=== PATIENT | female | born 1980 | race Caucasian/White ===

== ENCOUNTER 2022-11-06 18:08 | Emergency (ER) | payer OTHER, SELFPAY ==
--- NOTE | ~2022-11-06 | XR_ITS ---
EXAMINATION: XR CHEST CLINICAL INFORMATION: Shortness of breath COMPARISON: None TECHNIQUE: 2 views of the chest were obtained. FINDINGS: Bilateral lower lobe infiltrates. The upper lung zones are grossly clear. The cardiac silhouette is within normal limits. There is no effusion. XR/XR chest 2V IMPRESSION: Bilateral lower lobe infiltrates
[2022-11-06 18:15] VITALS: BP 147/101; PULSE 106; RESP 24; TEMP 36.4; O2SAT 96; BMI 26.4
--- NOTE | 2022-11-06 18:16 | ED.GENADULT ---
HPI - General Adult General Chief complaint: General Medical <Osiris Doherty CNP - Last Filed: 11/06/22 18:22> Stated complaint: ?heart infection sent from DR office <Osiris Doherty CNP - Last Filed: 11/06/22 18:22> Time Seen by Provider: 11/06/22 18:39 <Osiris Doherty CNP - Last Filed: 11/06/22 18:22> Source: patient <Tracy Atkins MD - Last Filed: 11/07/22 01:18> Mode of arrival: ambulatory <Tracy Atkins MD - Last Filed: 11/07/22 01:18> Limitations: no limitations <Tracy Atkins MD - Last Filed: 11/07/22 01:18> History of Present Illness HPI narrative: Patient comes to the emergency room complaining that she is expressing crystals out of her fingernail beds. Patient states that she has noticed increased shortness of breath. However, patient reports that she was recently seen at [facility], she was told that she may have endocarditis, patient left against medical advice. Also, patient states that she was admitted a few months ago at [facility] again for a pelvic abscess. Regarding the crystals coming out of her fingernail beds, patient states that she is convinced that somebody is inserting them into her fingers and toes at bedtime when she is sleeping. <Tracy Atkins MD - Last Filed: 11/07/22 01:18> Related Data Allergies/adverse reactions: Allergies Allergy/AdvReac Type Severity Reaction Status Date / Time No Known Allergies Allergy Verified 11/06/22 18:22 <Osiris Doherty CNP - Last Filed: 11/06/22 18:22> Review of Systems Review of Systems: Constitutional : No Weight loss, No Fever, No Chills, No Night Sweats, No Fatigue, No Malaise ENT/Mouth : No Hearing loss, No Ear Pain, No Nasal Congestion, No Sinus Pain, No Hoarseness, No sore throat, No Rhinorrhea, No Swallowing Difficulty Eyes: No Eye Pain, No Swelling, No Redness, No Foreign Body, No Discharge, No Vision Changes Cardiovascular : No Chest Pain, no orthopnea, no edema, no palpitations Respiratory : Complaining of Cough, No Sputum, No Wheezing, No Smoke Exposure, complaining of Dyspnea Gastrointestinal : No Nausea, No Vomiting, No Diarrhea, No Constipation, No abdominal Pain, No Hematochezia, No Melena Genitourinary : no irregular bleeding, No Dysuria, No Urinary Frequency, No Hematuria, No Urinary Incontinence, No Urgency, No Flank Pain, No Urinary Flow Changes, No Hesitancy Musculoskeletal : No joint pain, No Myalgias, No Joint Swelling Skin : No Skin Lesions, No rash Neuro : No Weakness, No Numbness, No Paresthesias, No Loss of Consciousness, No Dizziness, No Headache Psych : No Anxiety/Panic, No Depression, No SI/HI/AH/VH, No Social Issues, Heme/Lymph: No Bruising, No Bleeding,No Lymphadenopathy Endocrine : No Polyuria, No Polydipsia, No Temperature Intolerance <Tracy Atkins MD - Last Filed: 11/07/22 01:18> [facility] Past Medical History Medical History: Medical History Bipolar disorder Hepatitis C Interstitial lung disease IV drug user <Osiris Doherty CNP - Last Filed: 11/06/22 18:22> Social History Social History: Social History Alcohol intake: current Smoked in Last 30 Days: Yes Use of substances other than those prescribed or required for medical reasons: Yes Advance Directives: No Advance Directives Information Provided: Yes <Osiris Doherty CNP - Last Filed: 11/06/22 18:22> Physical Exam ED Vital Signs: Vital Signs - 24 hr 11/06/22 18:15 11/06/22 21:14 11/07/22 00:00 Temperature 97.5 F 96.7 F L 97.9 F Pulse Rate 106 H 87 72 Respiratory Rate 24 H 18 18 Blood Pressure 147/101 H 114/83 103/59 L Pulse Oximetry 96 97 98 Oxygen Delivery Method Room Air Room Air Room Air 11/07/22 02:19 11/07/22 04:00 11/07/22 06:20 Temperature 98.3 F 99.0 F 97.3 F Pulse Rate 70 68 65 Respiratory Rate 16 18 19 Blood Pressure 105/66 116/79 115/75 Pulse Oximetry 97 99 99 Oxygen Delivery Method Room Air Room Air Room Air 11/07/22 09:09 Temperature Pulse Rate 73 Respiratory Rate 22 H Blood Pressure 112/73 Pulse Oximetry 97 Oxygen Delivery Method Room Air BMI result Body Mass Index 26.4 <Osiris Doherty CNP - Last Filed: 11/06/22 18:22> Vital Signs - 24 hr 11/06/22 18:15 11/06/22 21:14 11/07/22 00:00 Temperature 97.5 F 96.7 F L 97.9 F Pulse Rate 106 H 87 72 Respiratory Rate 24 H 18 18 Blood Pressure 147/101 H 114/83 103/59 L Pulse Oximetry 96 97 98 Oxygen Delivery Method Room Air Room Air Room Air 11/07/22 02:19 11/07/22 04:00 11/07/22 06:20 Temperature 98.3 F 99.0 F 97.3 F Pulse Rate 70 68 65 Respiratory Rate 16 18 19 Blood Pressure 105/66 116/79 115/75 Pulse Oximetry 97 99 99 Oxygen Delivery Method Room Air Room Air Room Air 11/07/22 09:09 Temperature Pulse Rate 73 Respiratory Rate 22 H Blood Pressure 112/73 Pulse Oximetry 97 Oxygen Delivery Method Room Air BMI result Body Mass Index 26.4 <Tracy Atkins MD - Last Filed: 11/07/22 01:18> Vital Signs - 24 hr 11/06/22 18:15 11/06/22 21:14 11/07/22 00:00 Temperature 97.5 F 96.7 F L 97.9 F Pulse Rate 106 H 87 72 Respiratory Rate 24 H 18 18 Blood Pressure 147/101 H 114/83 103/59 L Pulse Oximetry 96 97 98 Oxygen Delivery Method Room Air Room Air Room Air 11/07/22 02:19 11/07/22 04:00 11/07/22 06:20 Temperature 98.3 F 99.0 F 97.3 F Pulse Rate 70 68 65 Respiratory Rate 16 18 19 Blood Pressure 105/66 116/79 115/75 Pulse Oximetry 97 99 99 Oxygen Delivery Method Room Air Room Air Room Air 11/07/22 09:09 Temperature Pulse Rate 73 Respiratory Rate 22 H Blood Pressure 112/73 Pulse Oximetry 97 Oxygen Delivery Method Room Air BMI result Body Mass Index 26.4 <SAM Herrera - Last Filed: 11/07/22 08:56> Vital Signs - 24 hr 11/06/22 18:15 11/06/22 21:14 11/07/22 00:00 Temperature 97.5 F 96.7 F L 97.9 F Pulse Rate 106 H 87 72 Respiratory Rate 24 H 18 18 Blood Pressure 147/101 H 114/83 103/59 L Pulse Oximetry 96 97 98 Oxygen Delivery Method Room Air Room Air Room Air 11/07/22 02:19 11/07/22 04:00 11/07/22 06:20 Temperature 98.3 F 99.0 F 97.3 F Pulse Rate 70 68 65 Respiratory Rate 16 18 19 Blood Pressure 105/66 116/79 115/75 Pulse Oximetry 97 99 99 Oxygen Delivery Method Room Air Room Air Room Air 11/07/22 09:09 Temperature Pulse Rate 73 Respiratory Rate 22 H Blood Pressure 112/73 Pulse Oximetry 97 Oxygen Delivery Method Room Air BMI result Body Mass Index 26.4 <John Paul Robertson MD - Last Filed: 11/07/22 11:26> Const Other: Appearance: Alert. Oriented X3. No acute distress. Eyes: Pupils equal, round and reactive to light. ENT: Pharynx normal. Neck: Normal inspection. Neck supple. No lymph nodes noted. No crepitus CVS: Normal heart rate and rhythm. Pulses normal. Normal S1 and S2, loud 4/6 systolic murmur Respiratory: No respiratory distress. Breath sounds normal. No Wheezing. No rales Abdomen: Soft and nontender. No rigidity. No distention. Skin: Skin warm and dry. Normal skin color. Normal skin turgor. Extremities: No lower extremity edema. No Lacerations. No Rash Neuro: Oriented X 3. No motor deficit. No sensory deficit. Moving all extremities. No slurred speech. CN 2 through 12 grossly intact Psych: calm, cooperative, patient is hyperverbal, delusional <Tracy Atkins MD - Last Filed: 11/07/22 01:18> Course Course Course Narrative: This is an RME: Additional HPI, ROS, PE not included below will be deferred to primary provider. Patient is a 42-year-old female with reported past medical history of COPD. She states she was referred to the emergency department by her primary care provider for further evaluation. She has lumps to her scalp, states her hands and her toes are red, reports that she is manually expressing glass from her nail beds, I think someone is doing this to me, I'm being put to sleep and someone is doing this to me . She states her doctor today was concerned she wasn't getting sufficient oxygenation, given her digit appearance and she is experiencing shortness of breath, was advised to come to the emergency department for further evaluation of endocarditis.. All the symptoms have been intermittent for the past 4 months. Reports bacteremia in January 2022 for which she was evaluated at [facility], did not have treatment for this, April 2022, treated for pelvic abscess. Plan: Labs, blood cultures, chest x-ray, EKG <Osiris Doherty CNP - Last Filed: 11/06/22 18:22> This is an RME: Additional HPI, ROS, PE not included below will be deferred to primary provider. Patient is a 42-year-old female with reported past medical history of COPD. She states she was referred to the emergency department by her primary care provider for further evaluation. She has lumps to her scalp, states her hands and her toes are red, reports that she is manually expressing glass from her nail beds, I think someone is doing this to me, I'm being put to sleep and someone is doing this to me . She states her doctor today was concerned she wasn't getting sufficient oxygenation, given her digit appearance and she is experiencing shortness of breath, was advised to come to the emergency department for further evaluation of endocarditis. All the symptoms have been intermittent for the past 4 months. Reports bacteremia in January 2022 for which she was evaluated at [facility], did not have treatment for this, April 2022, treated for pelvic abscess. Plan: Labs, blood cultures, chest x-ray, EKG I obtained records from [facility]. It is true that the patient was hospitalist at [facility] for a pelvic abscess drainage and also, patient was supposed to be admitted for endocarditis workup, but the patient left against medical advice. <Tracy Atkins MD - Last Filed: 11/07/22 01:18> Reevaluation(s) Reevaluation #1: Physician observation started at 01:00 this morning and is continued. Patient is delusional and pending care team evaluation. She is currently sleeping comfortably this morning. Patient was noted to be come very somnolent after she had a visit her, and give her ?Tylenol. ? Drug screen has been added and is currently pending. Will get pharmacy to reconcile her medications. Will continue to monitor. <SAM Herrera - Last Filed: 11/07/22 08:56> Time: 08:53 <SAM Herrera - Last Filed: 11/07/22 08:56> Reevaluation #2: Physician observation continued: patient was seen by care team, the patient was too somnolent evaluated and they will come back to try to re-evaluate the patient. <John Paul Robertson MD - Last Filed: 11/07/22 11:26> Time: 11:26 <John Paul Robertson MD - Last Filed: 11/07/22 11:26> Medications Administered Discontinued Medications Generic Name Dose Route Start Last Admin Trade Name Freq PRN Reason Stop Dose Admin Sodium Chloride 1,000 mls @ 999 mls/hr 11/06/22 20:20 11/06/22 23:15 Ns IVCONT 11/06/22 21:20 Infused .Q1H1M ONE Infusion Piperacillin Sod/Tazobactam 50 mls @ 100 mls/hr 11/06/22 20:20 11/07/22 06:41 Sod 3.375 gm/ Sodium Chloride IV 11/06/22 20:49 Infused ONCE ONE Infusion <Osiris Doherty CNP - Last Filed: 11/06/22 18:22> Medications Administered Discontinued Medications Generic Name Dose Route Start Last Admin Trade Name Freq PRN Reason Stop Dose Admin Sodium Chloride 1,000 mls @ 999 mls/hr 11/06/22 20:20 11/06/22 23:15 Ns IVCONT 11/06/22 21:20 Infused .Q1H1M ONE Infusion Piperacillin Sod/Tazobactam 50 mls @ 100 mls/hr 11/06/22 20:20 11/07/22 06:41 Sod 3.375 gm/ Sodium Chloride IV 11/06/22 20:49 Infused ONCE ONE Infusion <Tracy Atkins MD - Last Filed: 11/07/22 01:18> Medications Administered Discontinued Medications Generic Name Dose Route Start Last Admin Trade Name Freq PRN Reason Stop Dose Admin Sodium Chloride 1,000 mls @ 999 mls/hr 11/06/22 20:20 11/06/22 23:15 Ns IVCONT 11/06/22 21:20 Infused .Q1H1M ONE Infusion Piperacillin Sod/Tazobactam 50 mls @ 100 mls/hr 11/06/22 20:20 11/07/22 06:41 Sod 3.375 gm/ Sodium Chloride IV 11/06/22 20:49 Infused ONCE ONE Infusion <SAM Herrera - Last Filed: 11/07/22 08:56> Medications Administered Discontinued Medications Generic Name Dose Route Start Last Admin Trade Name Freayush PRN Reason Stop Dose Admin Sodium Chloride 1,000 mls @ 999 mls/hr 11/06/22 20:20 11/06/22 23:15 Ns IVCONT 11/06/22 21:20 Infused .Q1H1M ONE Infusion Piperacillin Sod/Tazobactam 50 mls @ 100 mls/hr 11/06/22 20:20 11/07/22 06:41 Sod 3.375 gm/ Sodium Chloride IV 11/06/22 20:49 Infused ONCE ONE Infusion <John Paul Robertson MD - Last Filed: 11/07/22 11:26> Medical Decision Making Medical Decision Making MDM Narrative: Patient's white blood cell count is normal, lactic acid normal. Patient does not have any fever. The chest x-ray was read by Radiology as bilateral lower lobe infiltrates. Patient has already been covered with Zosyn. However, patient has no coughing, no oxygen desaturations. Clinically, patient does not require admission. I discussed the patient with Dr. Caputo regarding the possible diagnosis of endocarditis. At this time, patient's labs are fairly normal, ESR and CRP are slightly bumped, no fever. Dr. Caputo does not think that patient needs to be admitted. Patient will continue p.o. antibiotics. Patient's blood cultures were resolving couple of days, if positive, patient is to be admitted. Of note, patient had a visitor coming in, supposedly patient was complaining of a canker sore in her mouth, and her visitor gave her ?Tylenol?. The sitter also heard that there was some talk between the patient and her visitor about Klonopin. Soon after the patient's visit her left, patient became very somnolent. Patient is still easily arousable, oxygen saturation 99% on room air. Patient is not to have any visitors Care team consult has been requested. Physician observation started at 01:10 First dose of levofloxacin ordered for 09:00 on 11/07/2022 Sign-out given to Dr. Cao <Tracy Atkins MD - Last Filed: 11/07/22 01:18> Differential Diagnosis Differential Diagnoses: The differential diagnosis associated with the presentation includes (Delusional disorder, bipolar disorder, endocarditis, bacteremia) <Tracy Atkins MD - Last Filed: 11/07/22 01:18> Admission/Observation Consideration of admission/observation: Escalation of care including admission/observation considered (I considered admitting the patient for further evaluation of endocarditis. However, per our hospitalist, at this time, admission is not necessary) <Tracy Atkins MD - Last Filed: 11/07/22 01:18> Consult Healthcare Provider Management of the patient was discussed with: Hospitalist (Dr. Caputo recommends outpatient treatment. If blood cultures come back positive, patient is to be admitted, but not indicated at this time) <Tracy Atkins MD - Last Filed: 11/07/22 01:18> Lab Data MDM Lab Attestation statement: I reviewed the patient's lab results. <Tracy Atkins MD - Last Filed: 11/07/22 01:18> Result Diagrams: 11/06/22 18:40 11/06/22 18:40 <Osiris Doherty CNP - Last Filed: 11/06/22 18:22> Labs: Lab Results 11/06/22 11/06/22 11/06/22 Range/Units 18:39 18:40 18:40 WBC 8.1 (4.8-10.8) X10*3/uL RBC 4.19 L (4.20-5.50) X10*6/uL Hgb 11.9 L (12.0-16.0) g/dl Hct 36.0 L (37.0-47.0) % MCV 85.9 (80.0-98.0) fL MCH 28.4 (27.0-33.0) pg MCHC 33.1 (31.0-35.0) g/dl RDW 13.3 (11.0-16.0) % Plt Count 298 (160-400) X10*3/uL MPV 8.6 L (9.4-12.3) fL Immature Gran % (Auto) 0.2 (0.0-0.4) % Neut % (Auto) 65.7 (45-73) % Lymph % (Auto) 18.3 L (20-40) % [place] % (Auto) 13.7 H (2-11) % Eos % (Auto) 1.9 (0-4) % Baso % (Auto) 0.2 (0-2) % Lymph # (Auto) 1.5 (1.2-4.9) X10*3/uL [place] # (Auto) 1.1 (0.1-1.2) X10*3/uL Eos # (Auto) 0.2 (0.0-0.4) X10*3/uL Baso # (Auto) 0.0 (0.0-0.2) X10*3/uL Abs Immat Gran (auto) 0.02 (0.00-0.03) X10*3/uL Absolute Neuts (auto) 5.3 (2.0-8.3) x10*3/uL Absolute Nucleated RBC 0.000 (0.0-0.012) X10*3/uL Nucleated RBC % (auto) 0.0 (0.0-0.2) /100WBC ESR 30 H (0-20) MM/HR Sodium (135-145) mmol/L Potassium (3.3-5.1) mmol/L Chloride (96-108) mmol/L Carbon Dioxide (22-29) mmol/L Anion Gap (12-20) BUN (9-16) mg/dL Creatinine (0.5-1.4) mg/dL Estim Creat Clear Calc Estimated GFR Random Glucose (60-115) mg/dL Lactic Acid (0.5-2.0) mmol/L Calcium (8.4-10.2) mg/dL Total Bilirubin (0.0-1.0) mg/dL AST (5-31) U/L ALT (0-31) U/L Alkaline Phosphatase (39-117) U/L Troponin I High Sens (<3.5-17.0) ng/L C-Reactive Protein (< or = 0.50) mg/dL B-Natriuretic Peptide (<100) pg/mL Total Protein (6.5-8.0) g/dL Albumin (3.5-5.0) g/dL Lipase (8-78) U/L COVID-19 (LIZZIE) (Negative) COVID-19 Clin Com Influenza Type A (CHRIS) Negative (Negative) Influenza Type B (CHRIS) Negative (Negative) Influenza A & B Note See Note 11/06/22 11/06/22 11/06/22 Range/Units 18:40 18:40 18:40 WBC (4.8-10.8) X10*3/uL RBC (4.20-5.50) X10*6/uL Hgb (12.0-16.0) g/dl Hct (37.0-47.0) % MCV (80.0-98.0) fL MCH (27.0-33.0) pg MCHC (31.0-35.0) g/dl RDW (11.0-16.0) % Plt Count (160-400) X10*3/uL MPV (9.4-12.3) fL Immature Gran % (Auto) (0.0-0.4) % Neut % (Auto) (45-73) % Lymph % (Auto) (20-40) % [place] % (Auto) (2-11) % Eos % (Auto) (0-4) % Baso % (Auto) (0-2) % Lymph # (Auto) (1.2-4.9) X10*3/uL [place] # (Auto) (0.1-1.2) X10*3/uL Eos # (Auto) (0.0-0.4) X10*3/uL Baso # (Auto) (0.0-0.2) X10*3/uL Abs Immat Gran (auto) (0.00-0.03) X10*3/uL Absolute Neuts (auto) (2.0-8.3) x10*3/uL Absolute Nucleated RBC (0.0-0.012) X10*3/uL Nucleated RBC % (auto) (0.0-0.2) /100WBC ESR (0-20) MM/HR Sodium 139 (135-145) mmol/L Potassium 3.3 (3.3-5.1) mmol/L Chloride 103 (96-108) mmol/L Carbon Dioxide 27 (22-29) mmol/L Anion Gap 12 (12-20) BUN 11 (9-16) mg/dL Creatinine 0.76 (0.5-1.4) mg/dL Estim Creat Clear Calc 81.4 Estimated GFR > 60 Random Glucose 108 (60-115) mg/dL Lactic Acid 0.7 (0.5-2.0) mmol/L Calcium 9.2 (8.4-10.2) mg/dL Total Bilirubin 0.2 (0.0-1.0) mg/dL AST 23 (5-31) U/L ALT 17 (0-31) U/L Alkaline Phosphatase 74 (39-117) U/L Troponin I High Sens < 3.5 (<3.5-17.0) ng/L C-Reactive Protein 2.13 H (< or = 0.50) mg/dL B-Natriuretic Peptide (<100) pg/mL Total Protein 7.5 (6.5-8.0) g/dL Albumin 3.9 (3.5-5.0) g/dL Lipase 6 L (8-78) U/L COVID-19 (LIZZIE) (Negative) COVID-19 Clin Com Influenza Type A (CHRIS) (Negative) Influenza Type B (CHRIS) (Negative) Influenza A & B Note 11/06/22 11/06/22 Range/Units 18:40 18:41 WBC (4.8-10.8) X10*3/uL RBC (4.20-5.50) X10*6/uL Hgb (12.0-16.0) g/dl Hct (37.0-47.0) % MCV (80.0-98.0) fL MCH (27.0-33.0) pg MCHC (31.0-35.0) g/dl RDW (11.0-16.0) % Plt Count (160-400) X10*3/uL MPV (9.4-12.3) fL Immature Gran % (Auto) (0.0-0.4) % Neut % (Auto) (45-73) % Lymph % (Auto) (20-40) % [place] % (Auto) (2-11) % Eos % (Auto) (0-4) % Baso % (Auto) (0-2) % Lymph # (Auto) (1.2-4.9) X10*3/uL [place] # (Auto) (0.1-1.2) X10*3/uL Eos # (Auto) (0.0-0.4) X10*3/uL Baso # (Auto) (0.0-0.2) X10*3/uL Abs Immat Gran (auto) (0.00-0.03) X10*3/uL Absolute Neuts (auto) (2.0-8.3) x10*3/uL Absolute Nucleated RBC (0.0-0.012) X10*3/uL Nucleated RBC % (auto) (0.0-0.2) /100WBC ESR (0-20) MM/HR Sodium (135-145) mmol/L Potassium (3.3-5.1) mmol/L Chloride (96-108) mmol/L Carbon Dioxide (22-29) mmol/L Anion Gap (12-20) BUN (9-16) mg/dL Creatinine (0.5-1.4) mg/dL Estim Creat Clear Calc Estimated GFR Random Glucose (60-115) mg/dL Lactic Acid (0.5-2.0) mmol/L Calcium (8.4-10.2) mg/dL Total Bilirubin (0.0-1.0) mg/dL AST (5-31) U/L ALT (0-31) U/L Alkaline Phosphatase (39-117) U/L Troponin I High Sens (<3.5-17.0) ng/L C-Reactive Protein (< or = 0.50) mg/dL B-Natriuretic Peptide 12 (<100) pg/mL Total Protein (6.5-8.0) g/dL Albumin (3.5-5.0) g/dL Lipase (8-78) U/L COVID-19 (LIZZIE) Negative (Negative) COVID-19 Clin Com See Note Influenza Type A (CHRIS) (Negative) Influenza Type B (HCRIS) (Negative) Influenza A & B Note <Osiris Doherty CNP - Last Filed: 11/06/22 18:22> Lab Results 11/06/22 11/06/22 11/06/22 Range/Units 18:39 18:40 18:40 WBC 8.1 (4.8-10.8) X10*3/uL RBC 4.19 L (4.20-5.50) X10*6/uL Hgb 11.9 L (12.0-16.0) g/dl Hct 36.0 L (37.0-47.0) % MCV 85.9 (80.0-98.0) fL MCH 28.4 (27.0-33.0) pg MCHC 33.1 (31.0-35.0) g/dl RDW 13.3 (11.0-16.0) % Plt Count 298 (160-400) X10*3/uL MPV 8.6 L (9.4-12.3) fL Immature Gran % (Auto) 0.2 (0.0-0.4) % Neut % (Auto) 65.7 (45-73) % Lymph % (Auto) 18.3 L (20-40) % [place] % (Auto) 13.7 H (2-11) % Eos % (Auto) 1.9 (0-4) % Baso % (Auto) 0.2 (0-2) % Lymph # (Auto) 1.5 (1.2-4.9) X10*3/uL [place] # (Auto) 1.1 (0.1-1.2) X10*3/uL Eos # (Auto) 0.2 (0.0-0.4) X10*3/uL Baso # (Auto) 0.0 (0.0-0.2) X10*3/uL Abs Immat Gran (auto) 0.02 (0.00-0.03) X10*3/uL Absolute Neuts (auto) 5.3 (2.0-8.3) x10*3/uL Absolute Nucleated RBC 0.000 (0.0-0.012) X10*3/uL Nucleated RBC % (auto) 0.0 (0.0-0.2) /100WBC ESR 30 H (0-20) MM/HR Sodium (135-145) mmol/L Potassium (3.3-5.1) mmol/L Chloride (96-108) mmol/L Carbon Dioxide (22-29) mmol/L Anion Gap (12-20) BUN (9-16) mg/dL Creatinine (0.5-1.4) mg/dL Estim Creat Clear Calc Estimated GFR Random Glucose (60-115) mg/dL Lactic Acid (0.5-2.0) mmol/L Calcium (8.4-10.2) mg/dL Total Bilirubin (0.0-1.0) mg/dL AST (5-31) U/L ALT (0-31) U/L Alkaline Phosphatase (39-117) U/L Troponin I High Sens (<3.5-17.0) ng/L C-Reactive Protein (< or = 0.50) mg/dL B-Natriuretic Peptide (<100) pg/mL Total Protein (6.5-8.0) g/dL Albumin (3.5-5.0) g/dL Lipase (8-78) U/L COVID-19 (LIZZIE) (Negative) COVID-19 Clin Com Influenza Type A (CHRIS) Negative (Negative) Influenza Type B (CHRIS) Negative (Negative) Influenza A & B Note See Note 11/06/22 11/06/22 11/06/22 Range/Units 18:40 18:40 18:40 WBC (4.8-10.8) X10*3/uL RBC (4.20-5.50) X10*6/uL Hgb (12.0-16.0) g/dl Hct (37.0-47.0) % MCV (80.0-98.0) fL MCH (27.0-33.0) pg MCHC (31.0-35.0) g/dl RDW (11.0-16.0) % Plt Count (160-400) X10*3/uL MPV (9.4-12.3) fL Immature Gran % (Auto) (0.0-0.4) % Neut % (Auto) (45-73) % Lymph % (Auto) (20-40) % [place] % (Auto) (2-11) % Eos % (Auto) (0-4) % Baso % (Auto) (0-2) % Lymph # (Auto) (1.2-4.9) X10*3/uL [place] # (Auto) (0.1-1.2) X10*3/uL Eos # (Auto) (0.0-0.4) X10*3/uL Baso # (Auto) (0.0-0.2) X10*3/uL Abs Immat Gran (auto) (0.00-0.03) X10*3/uL Absolute Neuts (auto) (2.0-8.3) x10*3/uL Absolute Nucleated RBC (0.0-0.012) X10*3/uL Nucleated RBC % (auto) (0.0-0.2) /100WBC ESR (0-20) MM/HR Sodium 139 (135-145) mmol/L Potassium 3.3 (3.3-5.1) mmol/L Chloride 103 (96-108) mmol/L Carbon Dioxide 27 (22-29) mmol/L Anion Gap 12 (12-20) BUN 11 (9-16) mg/dL Creatinine 0.76 (0.5-1.4) mg/dL Estim Creat Clear Calc 81.4 Estimated GFR > 60 Random Glucose 108 (60-115) mg/dL Lactic Acid 0.7 (0.5-2.0) mmol/L Calcium 9.2 (8.4-10.2) mg/dL Total Bilirubin 0.2 (0.0-1.0) mg/dL AST 23 (5-31) U/L ALT 17 (0-31) U/L Alkaline Phosphatase 74 (39-117) U/L Troponin I High Sens < 3.5 (<3.5-17.0) ng/L C-Reactive Protein 2.13 H (< or = 0.50) mg/dL B-Natriuretic Peptide (<100) pg/mL Total Protein 7.5 (6.5-8.0) g/dL Albumin 3.9 (3.5-5.0) g/dL Lipase 6 L (8-78) U/L COVID-19 (LIZZIE) (Negative) COVID-19 Clin Com Influenza Type A (CHRIS) (Negative) Influenza Type B (CHRIS) (Negative) Influenza A & B Note 11/06/22 11/06/22 Range/Units 18:40 18:41 WBC (4.8-10.8) X10*3/uL RBC (4.20-5.50) X10*6/uL Hgb (12.0-16.0) g/dl Hct (37.0-47.0) % MCV (80.0-98.0) fL MCH (27.0-33.0) pg MCHC (31.0-35.0) g/dl RDW (11.0-16.0) % Plt Count (160-400) X10*3/uL MPV (9.4-12.3) fL Immature Gran % (Auto) (0.0-0.4) % Neut % (Auto) (45-73) % Lymph % (Auto) (20-40) % [place] % (Auto) (2-11) % Eos % (Auto) (0-4) % Baso % (Auto) (0-2) % Lymph # (Auto) (1.2-4.9) X10*3/uL [place] # (Auto) (0.1-1.2) X10*3/uL Eos # (Auto) (0.0-0.4) X10*3/uL Baso # (Auto) (0.0-0.2) X10*3/uL Abs Immat Gran (auto) (0.00-0.03) X10*3/uL Absolute Neuts (auto) (2.0-8.3) x10*3/uL Absolute Nucleated RBC (0.0-0.012) X10*3/uL Nucleated RBC % (auto) (0.0-0.2) /100WBC ESR (0-20) MM/HR Sodium (135-145) mmol/L Potassium (3.3-5.1) mmol/L Chloride (96-108) mmol/L Carbon Dioxide (22-29) mmol/L Anion Gap (12-20) BUN (9-16) mg/dL Creatinine (0.5-1.4) mg/dL Estim Creat Clear Calc Estimated GFR Random Glucose (60-115) mg/dL Lactic Acid (0.5-2.0) mmol/L Calcium (8.4-10.2) mg/dL Total Bilirubin (0.0-1.0) mg/dL AST (5-31) U/L ALT (0-31) U/L Alkaline Phosphatase (39-117) U/L Troponin I High Sens (<3.5-17.0) ng/L C-Reactive Protein (< or = 0.50) mg/dL B-Natriuretic Peptide 12 (<100) pg/mL Total Protein (6.5-8.0) g/dL Albumin (3.5-5.0) g/dL Lipase (8-78) U/L COVID-19 (LIZZIE) Negative (Negative) COVID-19 Clin Com See Note Influenza Type A (CHRIS) (Negative) Influenza Type B (CHRIS) (Negative) Influenza A & B Note <Tracy Atkins MD - Last Filed: 11/07/22 01:18> Lab Results 11/06/22 11/06/22 11/06/22 Range/Units 18:39 18:40 18:40 WBC 8.1 (4.8-10.8) X10*3/uL RBC 4.19 L (4.20-5.50) X10*6/uL Hgb 11.9 L (12.0-16.0) g/dl Hct 36.0 L (37.0-47.0) % MCV 85.9 (80.0-98.0) fL MCH 28.4 (27.0-33.0) pg MCHC 33.1 (31.0-35.0) g/dl RDW 13.3 (11.0-16.0) % Plt Count 298 (160-400) X10*3/uL MPV 8.6 L (9.4-12.3) fL Immature Gran % (Auto) 0.2 (0.0-0.4) % Neut % (Auto) 65.7 (45-73) % Lymph % (Auto) 18.3 L (20-40) % [place] % (Auto) 13.7 H (2-11) % Eos % (Auto) 1.9 (0-4) % Baso % (Auto) 0.2 (0-2) % Lymph # (Auto) 1.5 (1.2-4.9) X10*3/uL [place] # (Auto) 1.1 (0.1-1.2) X10*3/uL Eos # (Auto) 0.2 (0.0-0.4) X10*3/uL Baso # (Auto) 0.0 (0.0-0.2) X10*3/uL Abs Immat Gran (auto) 0.02 (0.00-0.03) X10*3/uL Absolute Neuts (auto) 5.3 (2.0-8.3) x10*3/uL Absolute Nucleated RBC 0.000 (0.0-0.012) X10*3/uL Nucleated RBC % (auto) 0.0 (0.0-0.2) /100WBC ESR 30 H (0-20) MM/HR Sodium (135-145) mmol/L Potassium (3.3-5.1) mmol/L Chloride (96-108) mmol/L Carbon Dioxide (22-29) mmol/L Anion Gap (12-20) BUN (9-16) mg/dL Creatinine (0.5-1.4) mg/dL Estim Creat Clear Calc Estimated GFR Random Glucose (60-115) mg/dL Lactic Acid (0.5-2.0) mmol/L Calcium (8.4-10.2) mg/dL Total Bilirubin (0.0-1.0) mg/dL AST (5-31) U/L ALT (0-31) U/L Alkaline Phosphatase (39-117) U/L Troponin I High Sens (<3.5-17.0) ng/L C-Reactive Protein (< or = 0.50) mg/dL B-Natriuretic Peptide (<100) pg/mL Total Protein (6.5-8.0) g/dL Albumin (3.5-5.0) g/dL Lipase (8-78) U/L COVID-19 (LIZZIE) (Negative) COVID-19 Clin Com Influenza Type A (CHRIS) Negative (Negative) Influenza Type B (CHRIS) Negative (Negative) Influenza A & B Note See Note 11/06/22 11/06/22 11/06/22 Range/Units 18:40 18:40 18:40 WBC (4.8-10.8) X10*3/uL RBC (4.20-5.50) X10*6/uL Hgb (12.0-16.0) g/dl Hct (37.0-47.0) % MCV (80.0-98.0) fL MCH (27.0-33.0) pg MCHC (31.0-35.0) g/dl RDW (11.0-16.0) % Plt Count (160-400) X10*3/uL MPV (9.4-12.3) fL Immature Gran % (Auto) (0.0-0.4) % Neut % (Auto) (45-73) % Lymph % (Auto) (20-40) % [place] % (Auto) (2-11) % Eos % (Auto) (0-4) % Baso % (Auto) (0-2) % Lymph # (Auto) (1.2-4.9) X10*3/uL [place] # (Auto) (0.1-1.2) X10*3/uL Eos # (Auto) (0.0-0.4) X10*3/uL Baso # (Auto) (0.0-0.2) X10*3/uL Abs Immat Gran (auto) (0.00-0.03) X10*3/uL Absolute Neuts (auto) (2.0-8.3) x10*3/uL Absolute Nucleated RBC (0.0-0.012) X10*3/uL Nucleated RBC % (auto) (0.0-0.2) /100WBC ESR (0-20) MM/HR Sodium 139 (135-145) mmol/L Potassium 3.3 (3.3-5.1) mmol/L Chloride 103 (96-108) mmol/L Carbon Dioxide 27 (22-29) mmol/L Anion Gap 12 (12-20) BUN 11 (9-16) mg/dL Creatinine 0.76 (0.5-1.4) mg/dL Estim Creat Clear Calc 81.4 Estimated GFR > 60 Random Glucose 108 (60-115) mg/dL Lactic Acid 0.7 (0.5-2.0) mmol/L Calcium 9.2 (8.4-10.2) mg/dL Total Bilirubin 0.2 (0.0-1.0) mg/dL AST 23 (5-31) U/L ALT 17 (0-31) U/L Alkaline Phosphatase 74 (39-117) U/L Troponin I High Sens < 3.5 (<3.5-17.0) ng/L C-Reactive Protein 2.13 H (< or = 0.50) mg/dL B-Natriuretic Peptide (<100) pg/mL Total Protein 7.5 (6.5-8.0) g/dL Albumin 3.9 (3.5-5.0) g/dL Lipase 6 L (8-78) U/L COVID-19 (LIZZIE) (Negative) COVID-19 Clin Com Influenza Type A (CHRIS) (Negative) Influenza Type B (CHRIS) (Negative) Influenza A & B Note 11/06/22 11/06/22 Range/Units 18:40 18:41 WBC (4.8-10.8) X10*3/uL RBC (4.20-5.50) X10*6/uL Hgb (12.0-16.0) g/dl Hct (37.0-47.0) % MCV (80.0-98.0) fL MCH (27.0-33.0) pg MCHC (31.0-35.0) g/dl RDW (11.0-16.0) % Plt Count (160-400) X10*3/uL MPV (9.4-12.3) fL Immature Gran % (Auto) (0.0-0.4) % Neut % (Auto) (45-73) % Lymph % (Auto) (20-40) % [place] % (Auto) (2-11) % Eos % (Auto) (0-4) % Baso % (Auto) (0-2) % Lymph # (Auto) (1.2-4.9) X10*3/uL [place] # (Auto) (0.1-1.2) X10*3/uL Eos # (Auto) (0.0-0.4) X10*3/uL Baso # (Auto) (0.0-0.2) X10*3/uL Abs Immat Gran (auto) (0.00-0.03) X10*3/uL Absolute Neuts (auto) (2.0-8.3) x10*3/uL Absolute Nucleated RBC (0.0-0.012) X10*3/uL Nucleated RBC % (auto) (0.0-0.2) /100WBC ESR (0-20) MM/HR Sodium (135-145) mmol/L Potassium (3.3-5.1) mmol/L Chloride (96-108) mmol/L Carbon Dioxide (22-29) mmol/L Anion Gap (12-20) BUN (9-16) mg/dL Creatinine (0.5-1.4) mg/dL Estim Creat Clear Calc Estimated GFR Random Glucose (60-115) mg/dL Lactic Acid (0.5-2.0) mmol/L Calcium (8.4-10.2) mg/dL Total Bilirubin (0.0-1.0) mg/dL AST (5-31) U/L ALT (0-31) U/L Alkaline Phosphatase (39-117) U/L Troponin I High Sens (<3.5-17.0) ng/L C-Reactive Protein (< or = 0.50) mg/dL B-Natriuretic Peptide 12 (<100) pg/mL Total Protein (6.5-8.0) g/dL Albumin (3.5-5.0) g/dL Lipase (8-78) U/L COVID-19 (LIZZIE) Negative (Negative) COVID-19 Clin Com See Note Influenza Type A (CHRIS) (Negative) Influenza Type B (CHRIS) (Negative) Influenza A & B Note <SAM Herrera - Last Filed: 11/07/22 08:56> Lab Results 11/06/22 11/06/22 11/06/22 Range/Units 18:39 18:40 18:40 WBC 8.1 (4.8-10.8) X10*3/uL RBC 4.19 L (4.20-5.50) X10*6/uL Hgb 11.9 L (12.0-16.0) g/dl Hct 36.0 L (37.0-47.0) % MCV 85.9 (80.0-98.0) fL MCH 28.4 (27.0-33.0) pg MCHC 33.1 (31.0-35.0) g/dl RDW 13.3 (11.0-16.0) % Plt Count 298 (160-400) X10*3/uL MPV 8.6 L (9.4-12.3) fL Immature Gran % (Auto) 0.2 (0.0-0.4) % Neut % (Auto) 65.7 (45-73) % Lymph % (Auto) 18.3 L (20-40) % [place] % (Auto) 13.7 H (2-11) % Eos % (Auto) 1.9 (0-4) % Baso % (Auto) 0.2 (0-2) % Lymph # (Auto) 1.5 (1.2-4.9) X10*3/uL [place] # (Auto) 1.1 (0.1-1.2) X10*3/uL Eos # (Auto) 0.2 (0.0-0.4) X10*3/uL Baso # (Auto) 0.0 (0.0-0.2) X10*3/uL Abs Immat Gran (auto) 0.02 (0.00-0.03) X10*3/uL Absolute Neuts (auto) 5.3 (2.0-8.3) x10*3/uL Absolute Nucleated RBC 0.000 (0.0-0.012) X10*3/uL Nucleated RBC % (auto) 0.0 (0.0-0.2) /100WBC ESR 30 H (0-20) MM/HR Sodium (135-145) mmol/L Potassium (3.3-5.1) mmol/L Chloride (96-108) mmol/L Carbon Dioxide (22-29) mmol/L Anion Gap (12-20) BUN (9-16) mg/dL Creatinine (0.5-1.4) mg/dL Estim Creat Clear Calc Estimated GFR Random Glucose (60-115) mg/dL Lactic Acid (0.5-2.0) mmol/L Calcium (8.4-10.2) mg/dL Total Bilirubin (0.0-1.0) mg/dL AST (5-31) U/L ALT (0-31) U/L Alkaline Phosphatase (39-117) U/L Troponin I High Sens (<3.5-17.0) ng/L C-Reactive Protein (< or = 0.50) mg/dL B-Natriuretic Peptide (<100) pg/mL Total Protein (6.5-8.0) g/dL Albumin (3.5-5.0) g/dL Lipase (8-78) U/L COVID-19 (LIZZIE) (Negative) COVID-19 Clin Com Influenza Type A (CHRIS) Negative (Negative) Influenza Type B (CHRIS) Negative (Negative) Influenza A & B Note See Note 11/06/22 11/06/22 11/06/22 Range/Units 18:40 18:40 18:40 WBC (4.8-10.8) X10*3/uL RBC (4.20-5.50) X10*6/uL Hgb (12.0-16.0) g/dl Hct (37.0-47.0) % MCV (80.0-98.0) fL MCH (27.0-33.0) pg MCHC (31.0-35.0) g/dl RDW (11.0-16.0) % Plt Count (160-400) X10*3/uL MPV (9.4-12.3) fL Immature Gran % (Auto) (0.0-0.4) % Neut % (Auto) (45-73) % Lymph % (Auto) (20-40) % [place] % (Auto) (2-11) % Eos % (Auto) (0-4) % Baso % (Auto) (0-2) % Lymph # (Auto) (1.2-4.9) X10*3/uL [place] # (Auto) (0.1-1.2) X10*3/uL Eos # (Auto) (0.0-0.4) X10*3/uL Baso # (Auto) (0.0-0.2) X10*3/uL Abs Immat Gran (auto) (0.00-0.03) X10*3/uL Absolute Neuts (auto) (2.0-8.3) x10*3/uL Absolute Nucleated RBC (0.0-0.012) X10*3/uL Nucleated RBC % (auto) (0.0-0.2) /100WBC ESR (0-20) MM/HR Sodium 139 (135-145) mmol/L Potassium 3.3 (3.3-5.1) mmol/L Chloride 103 (96-108) mmol/L Carbon Dioxide 27 (22-29) mmol/L Anion Gap 12 (12-20) BUN 11 (9-16) mg/dL Creatinine 0.76 (0.5-1.4) mg/dL Estim Creat Clear Calc 81.4 Estimated GFR > 60 Random Glucose 108 (60-115) mg/dL Lactic Acid 0.7 (0.5-2.0) mmol/L Calcium 9.2 (8.4-10.2) mg/dL Total Bilirubin 0.2 (0.0-1.0) mg/dL AST 23 (5-31) U/L ALT 17 (0-31) U/L Alkaline Phosphatase 74 (39-117) U/L Troponin I High Sens < 3.5 (<3.5-17.0) ng/L C-Reactive Protein 2.13 H (< or = 0.50) mg/dL B-Natriuretic Peptide (<100) pg/mL Total Protein 7.5 (6.5-8.0) g/dL Albumin 3.9 (3.5-5.0) g/dL Lipase 6 L (8-78) U/L COVID-19 (LIZZIE) (Negative) COVID-19 Clin Com Influenza Type A (CHRIS) (Negative) Influenza Type B (CHRIS) (Negative) Influenza A & B Note 11/06/22 11/06/22 Range/Units 18:40 18:41 WBC (4.8-10.8) X10*3/uL RBC (4.20-5.50) X10*6/uL Hgb (12.0-16.0) g/dl Hct (37.0-47.0) % MCV (80.0-98.0) fL MCH (27.0-33.0) pg MCHC (31.0-35.0) g/dl RDW (11.0-16.0) % Plt Count (160-400) X10*3/uL MPV (9.4-12.3) fL Immature Gran % (Auto) (0.0-0.4) % Neut % (Auto) (45-73) % Lymph % (Auto) (20-40) % [place] % (Auto) (2-11) % Eos % (Auto) (0-4) % Baso % (Auto) (0-2) % Lymph # (Auto) (1.2-4.9) X10*3/uL [place] # (Auto) (0.1-1.2) X10*3/uL Eos # (Auto) (0.0-0.4) X10*3/uL Baso # (Auto) (0.0-0.2) X10*3/uL Abs Immat Gran (auto) (0.00-0.03) X10*3/uL Absolute Neuts (auto) (2.0-8.3) x10*3/uL Absolute Nucleated RBC (0.0-0.012) X10*3/uL Nucleated RBC % (auto) (0.0-0.2) /100WBC ESR (0-20) MM/HR Sodium (135-145) mmol/L Potassium (3.3-5.1) mmol/L Chloride (96-108) mmol/L Carbon Dioxide (22-29) mmol/L Anion Gap (12-20) BUN (9-16) mg/dL Creatinine (0.5-1.4) mg/dL Estim Creat Clear Calc Estimated GFR Random Glucose (60-115) mg/dL Lactic Acid (0.5-2.0) mmol/L Calcium (8.4-10.2) mg/dL Total Bilirubin (0.0-1.0) mg/dL AST (5-31) U/L ALT (0-31) U/L Alkaline Phosphatase (39-117) U/L Troponin I High Sens (<3.5-17.0) ng/L C-Reactive Protein (< or = 0.50) mg/dL B-Natriuretic Peptide 12 (<100) pg/mL Total Protein (6.5-8.0) g/dL Albumin (3.5-5.0) g/dL Lipase (8-78) U/L COVID-19 (LIZZIE) Negative (Negative) COVID-19 Clin Com See Note Influenza Type A (CHRIS) (Negative) Influenza Type B (CHRIS) (Negative) Influenza A & B Note <John Paul Robertson MD - Last Filed: 11/07/22 11:26> Independent Interpretation I performed an independent interpretation of an: EKG (My interpretation: Normal sinus rhythm, heart rate 99, nonspecific T-wave abnormalities, no ST segment depression or elevation, QTC 436) and Plain X-Ray (Questionable infiltrate on the right lower lung) <Tracy Atkins MD - Last Filed: 11/07/22 01:18> Radiology Impression Discussion of test interpretation with radiology: I have reviewed the radiologist's reading. <Tracy Atkins MD - Last Filed: 11/07/22 01:18> Radiologist Impression: INDINGS: Bilateral lower lobe infiltrates. The upper lung zones are grossly clear. The cardiac silhouette is within normal limits. There is no effusion. XR/XR chest 2V IMPRESSION: Bilateral lower lobe infiltrates <Tracy Atkins MD - Last Filed: 11/07/22 01:18> Discharge Plan Discharge Clinical Impression: Delusional disorder, Pneumonia <Osiris Doherty CNP - Last Filed: 11/06/22 18:22> Patient Disposition: Still a Patient <Osiris Doherty CNP - Last Filed: 11/06/22 18:22>
--- NOTE | 2022-11-06 18:22 | ECG_ITS ---
Test Reason : CX PAIN Blood Pressure : / mmHG Vent. Rate : 099 BPM Atrial Rate : 099 BPM P-R Int : 160 ms QRS Dur : 090 ms QT Int : 340 ms P-R-T Axes : 067 065 048 degrees QTc Int : 436 ms Normal sinus rhythm Minimal voltage criteria for LVH, may be normal variant ( [place] product ) Nonspecific T wave abnormality Abnormal ECG No previous ECGs available Referred By: Osiris Doherty Electronically Signed By:CHARLES LIMA
--- NOTE | 2022-11-06 18:42 | PC.NURSE ---
Addendum entered by Ruben De Jesus RN 11/06/22 18:43: VSS, no complaints at this time, resting in stretcher Original Note: 42 y/o F pw delusional thinking and ?endocarditis. pt with extensive psychiatric hx and hx of previous endocarditis. labs drawn and sent from [facility]. EKG completed. awaiting results
[2022-11-06 18:49] LABS: MANUAL DIFF FLAG NO
[2022-11-06 18:51] LABS: Basophils Percent Auto 0.2 % (0-2); Eosinophils Absolute Auto 0.2 X10*3/uL (0.0-0.4); Eosinophils Percent Auto 1.9 % (0-4); Hemoglobin 11.9 g/dl (12.0-16.0); Imm Gran Abs Auto 0.02 X10*3/uL (0.00-0.03); Imm Gran Pct Auto 0.2 % (0.0-0.4); Lymphocytes Absolute Auto 1.5 X10*3/uL (1.2-4.9); Lymphocytes Percent Auto 18.3 % (20-40); Mean Corpuscular HGB Conc 33.1 g/dl (31.0-35.0); Mean Corpuscular Hemoglobin 28.4 pg (27.0-33.0); Mean Corpuscular Volume 85.9 fL (80.0-98.0); Mean Platelet Volume 8.6 fL (9.4-12.3); Monocytes Absolute Auto 1.1 X10*3/uL (0.1-1.2); Monocytes Percent Auto 13.7 % (2-11); Neutrophils Absolute Auto 5.3 x10*3/uL (2.0-8.3); Neutrophils Percent Auto 65.7 % (45-73); Platelet Count 298 X10*3/uL (160-400); Red Blood Count 4.19 X10*6/uL (4.20-5.50); Red Cell Distribution Width 13.3 % (11.0-16.0); White Blood Count 8.1 X10*3/uL (4.8-10.8)
[2022-11-06 19:07] LABS: COVID-19 Test Negative (Negative); IDNOW Serial# 55D5AD1C
[2022-11-06 19:09] LABS: IDNOW Serial# 16C4AD1C; Influenza A Negative (Negative); Influenza B2 Negative (Negative)
[2022-11-06 19:21] LABS: Lactic Acid 0.7 mmol/L (0.5-2.0)
[2022-11-06 19:24] LABS: Alanine Aminotransferase 17 U/L (0-31); Albumin Level 3.9 g/dL (3.5-5.0); Alkaline Phosphatase 74 U/L (39-117); Anion Gap 12 (12-20); Aspartate Amino Transferase 23 U/L (5-31); Bilirubin Total 0.2 mg/dL (0.0-1.0); Blood Urea Nitrogen 11 mg/dL (9-16); C Reactive Protein 2.13 mg/dL (< or = 0.50); Calcium 9.2 mg/dL (8.4-10.2); Carbon Dioxide 27 mmol/L (22-29); Chloride 103 mmol/L (96-108); Creatinine Clr Calc Pharmacy 81.4; Estimated Glomerular Filt Rate > 60; Glucose Random 108 mg/dL (60-115); Lipase 6 U/L (8-78); Potassium 3.3 mmol/L (3.3-5.1); Sodium 139 mmol/L (135-145); Total Protein 7.5 g/dL (6.5-8.0)
[2022-11-06 19:32] LABS: Troponin-I High Sensitivity < 3.5 ng/L (<3.5-17.0)
[2022-11-06 19:45] LABS: Erythrocyte Sedimentation Rate 30 MM/HR (0-20)
[2022-11-06 19:50] LABS: B Type Natriuretic Peptide 12 pg/mL (<100)
[2022-11-06] MEDS: 0.9 % Sodium Chloride 1,000 ML 999 ML IVCONT (20:44)
[2022-11-06] MEDS: Piperacillin Sodium/Tazobactam 3.375 GM in 0.9 % Sodium Chloride 50 ML IV (20:44)
--- NOTE | 2022-11-06 21:11 | PC.NURSE ---
staff member noted the visitor giving tylenol to the pt and reported it to this rn. provider made aware. visitor also mentioned a anxiety med for the pt but was not given.
[2022-11-06 21:14] VITALS: BP 114/83; PULSE 87; RESP 18; TEMP 35.9; O2SAT 97
--- NOTE | 2022-11-06 21:48 | PC.NURSE ---
provider made aware that the pt received tylenol by her visitor. pt is more sleepy and per sitter the visior was asking pt about receiving a med for relaxation. pt states she has not received clonopin but is very sleepy at this time. pt has been changed over to a hospital gown prior to our arrival and belonging are still at the bedside. all belongings will be removed and secured away from the pt assess. security has been notified.
--- NOTE | 2022-11-06 22:06 | PC.NURSE ---
pts belongings have been removed from the room and pt is in a hospital gown. pt is still sleepy but arrousable.
[2022-11-07] VITALS: BP 103/59; PULSE 72; RESP 18; TEMP 36.6; O2SAT 98
--- NOTE | 2022-11-07 00:15 | PC.NURSE ---
Patient is resting peacefully with no signs of resp distress. Vitals are monitored, safety maintained. Sitter present
[2022-11-07 02:19] VITALS: BP 105/66; PULSE 70; RESP 16; TEMP 36.8; O2SAT 97
[2022-11-07 04:00] VITALS: BP 116/79; PULSE 68; RESP 18; TEMP 37.2; O2SAT 99
--- NOTE | 2022-11-07 06:02 | PC.NURSE ---
Patient is resting peacefully. Does not appear to be in pain. Resp 16, no signs of resp distress. Skin is moist and warm. Safety maintained.
[2022-11-07 06:20] VITALS: BP 115/75; PULSE 65; RESP 19; TEMP 36.3; O2SAT 99
[2022-11-07 09:09] VITALS: BP 112/73; PULSE 73; RESP 22; O2SAT 97
--- NOTE | 2022-11-07 11:16 | MHC.CARE ---
CARE team attempted to assess pt at 11:17 AM this morning, she was in room ED10. She was observed laying on hospital bed and is sleeping heavily and snoring deeply. Multiple attempts made to arouse her and were not successful, 1:1 staff reports a family member came into ER and gave pt pills , its unclear what was given and pt reported family member brought her Tylenol, however 1:1 staff over heard a conversation with pt and family that it may have been klonopin. CARE team consulted with MD Dr. John Paul Mohan, he reports UTOX has been ordered but not collected. CARE team will check in with pt later in the day.
--- NOTE | 2022-11-07 13:19 | PC.NURSE ---
pt just woke up, is increasingly angry, yelling out. irritable that she was not woke for breakfast. irritable that she was not woke for her methadone. t/w and care team attempted to wake the pt several times for meds / eval and she was too lethargic to answer
[2022-11-07 13:23] LABS: Appearance Urine Clear; Color Urine Yellow; Glucose Urine UA Negative (Negative); Leukocyte Esterase Urine Negative (Negative); Nitrite Urine Negative (Negative); PH 6.5 (5.0-9.0); Specific Gravity - Urine 1.015 (1.005-1.025); Urine Blood Negative (Negative); Urine Ketones Negative (Negative); Urine Protein Negative (Neg-Trace)
[2022-11-07] MEDS: levoFLOXacin 750 MG TABLET PO (13:26)
[2022-11-07 13:29] LABS: Amphetamine Screen Urine Not Detected (Not Detect); Barbiturates, Urine Not Detected (Not Detect); Benzodiazepines Screen Urine Not Detected (Not Detect); Cannabinoid Screen Urine Not Detected (Not Detect); Cocaine Screen Urine POSITIVE (Not Detect); Fentanyl, urine POSITIVE (Not Detect); Opiate Screen Urine POSITIVE (Not Detect); Phencyclidine Screen Urine Not Detected (Not Detect)
--- NOTE | 2022-11-07 13:35 | PC.NURSE ---
pt pulled her IV out
--- NOTE | 2022-11-07 13:51 | PHA.MEDREC ---
Pharmacy Consult ? Medication Reconciliation Pharmacy has completed the medication reconciliation. Spoke with patient in ED who knew all medications and doses. Patient last took meds a couple of days ago.Patient reports methadone dose of 150 mg and gets at [facility] [address] [facility] [address].
[2022-11-07 14:10] VITALS: BP 133/83; PULSE 82; RESP 18; TEMP 36.7; O2SAT 99
--- NOTE | 2022-11-07 14:52 | PC.NURSE ---
pt reporting that she has not gotten any care while being here - informed pt of lab work and x ray results. pt remains irritable, stated If Im not going to be admitted then I want to leave . pt not willing to wait for her methadone. pt d/c to [facility] to collect belongnings.
--- NOTE | 2022-11-07 15:29 | MHC.RECOVRN ---
Spoke with Lauren Alonso at [facility]. Pt had been receiving a split dose, 105 mg in the morning, 50 mg in the afternoon. Last dose 10/29. Per [facility], pts dose would be reduced by 50%. RN and provider aware.
== END 2022-11-07 14:53 | disposition home or self-care (01) ==
PROVIDERS: Nurse Practitioner Family; Physician Assistant; Emergency Provider Emergency Medicine Emergency Medical Services
DX: J18.9 Pneumonia, unspecified organism (principal); R06.02 Shortness of breath; Z20.822 Contact with and (suspected) exposure to COVID-19; Z79.899 Other long term (current) drug therapy
CPT/HCPCS: 36415; 71046; 80053; 80307; 81003; 83605; 83690; 83880; 84484; 85025; 85652; 86140; 87040; 87502; 87635; 93005; 96361; 96374; 99285; J2543

== ENCOUNTER 2024-01-24 17:23 | Emergency (ER) | payer OTHER, SELFPAY ==
[2024-01-24 19:00] VITALS: BP 103/58; PULSE 68; RESP 16; TEMP 37; O2SAT 97; BMI 21.3
--- NOTE | 2024-01-24 19:06 | ECG_ITS ---
Test Reason : ABD PAIN Blood Pressure : / mmHG Vent. Rate : 066 BPM Atrial Rate : 066 BPM P-R Int : 170 ms QRS Dur : 104 ms QT Int : 430 ms P-R-T Axes : 080 085 085 degrees QTc Int : 450 ms Normal sinus rhythm Minimal voltage criteria for LVH, may be normal variant ( [place] product ) T wave abnormality, consider anterior ischemia Abnormal ECG When compared with ECG of 06-NOV-2022 18:45, Vent. rate has decreased BY 33 BPM Nonspecific T wave abnormality no longer evident in Inferior leads T wave inversion more evident in Anterior leads Referred By: Kerri Cao Electronically Signed By:Arnie Payne
[2024-01-24 19:37] LABS: MANUAL DIFF FLAG NO
[2024-01-24 19:38] LABS: Basophils Percent Auto 0.1 % (0-2); Eosinophils Absolute Auto 0.1 X10*3/uL (0.0-0.4); Eosinophils Percent Auto 1.4 % (0-4); Hematocrit 34.7 % (37.0-47.0); Hemoglobin 11.4 g/dl (12.0-16.0); Imm Gran Abs Auto 0.01 X10*3/uL (0.00-0.03); Imm Gran Pct Auto 0.1 % (0.0-0.4); Mean Corpuscular HGB Conc 32.9 g/dl (31.0-35.0); Mean Corpuscular Volume 88.3 fL (80.0-98.0); Monocytes Absolute Auto 1.3 X10*3/uL (0.1-1.2); Neutrophils Absolute Auto 5.6 x10*3/uL (2.0-8.3); Neutrophils Percent Auto 62.4 % (45-73); Platelet Count 248 X10*3/uL (160-400); Red Blood Count 3.93 X10*6/uL (4.20-5.50); Red Cell Distribution Width 13.2 % (11.0-16.0)
[2024-01-24 19:54] LABS: COVID-19 Test Negative (Negative); IDNOW Serial# 08D9AD1C; IDNOW Serial# 152EDE1D; Influenza A Negative (Negative); Influenza B2 Negative (Negative)
--- NOTE | 2024-01-24 20:21 | ED_ITS ---
HPI - Nausea/Vomiting/Diarrhea General Chief complaint: Abdominal Pain Stated complaint: N/V/D X 6DAYS Time Seen by Provider: 01/24/24 19:00 Source: patient Mode of arrival: EMS History of Present Illness HPI Narrative: 44-year-old female arrives from [place] for reportedly having nausea/vomiting as well as diarrhea and abdominal cramping for the last 6 days, patient is currently awaiting detox and is receiving 100 mg of methadone daily for withdrawal but otherwise denies any fevers, chills, dysuria. Related Data Home Medications Medication Instructions Recorded Confirmed bupropion HCl 150 mg 24 hr tablet, 1 tab PO DAILY 11/07/22 11/07/22 extended release bupropion HCl 300 mg 24 hr tablet, 1 tab PO DAILY 11/07/22 11/07/22 extended release cariprazine 6 mg capsule (Vraylar) 1 cap PO QAM 11/07/22 11/07/22 cholecalciferol (vitamin D3) 25 25 mcg PO DAILY 11/07/22 11/07/22 mcg (1,000 unit) tablet (Vitamin D3) lamotrigine 25 mg tablet 1 tab PO BEDTIME 11/07/22 11/07/22 methadone 10 mg/mL oral concentrate 150 mg PO DAILY 11/07/22 multivitamin 1 tab PO DAILY 11/07/22 11/07/22 perphenazine 4 mg tablet 1 tab PO BID 11/07/22 11/07/22 prazosin 2 mg capsule 1 cap PO BID 11/07/22 11/07/22 Previous Rx's Medication Instructions Recorded levofloxacin 750 mg tablet 750 mg PO DAILY 5 days #5 tabs 11/08/22 ondansetron 4 mg disintegrating 4 mg PO Q8H PRN nausea and 01/24/24 tablet vomiting 4 days #7 tabs Allergies Allergy/AdvReac Type Severity Reaction Status Date / Time No Known Allergies Allergy Verified 11/06/22 18:22 Review of Systems 2 Review of Systems: Pertinent positives and negatives as stated in HPI PMFSH Past Medical History Source: nursing notes reviewed Medical History Bipolar disorder Interstitial lung disease Hepatitis C IV drug user Social History Social History Alcohol intake: current Alcohol intake frequency: holidays/special occasions only Smoked in Last 30 Days: Yes Use of substances other than those prescribed or required for medical reasons: Yes Substance Use Type: Crack/Cocaine Advance Directives: No Advance Directives Information Provided: No Patient : No Physical Exam 2 Vital Signs: Vital Signs: Last Vital Signs Temp 98.4 F 01/24/24 21:41 Pulse 74 01/24/24 21:41 Resp 16 01/24/24 21:41 BP 99/65 01/24/24 21:41 Pulse Ox 95 01/24/24 21:41 O2 Del Method Room Air 01/24/24 21:41 BMI result Body Mass Index 21.3 VITAL SIGNS: Reviewed. GENERAL: Well developed, well nourished, in no acute distress. HEAD: Normocephalic/atraumatic EYES: PERRLA, EOMI EARS: Ext canals without abnormality NOSE: Nares patent bilateral OROPHARYNX: no oral lesions noted, posterior pharynx clear NECK: Supple, no adenopathy LUNGS: Normal breath sounds. No adventitious sounds or accessory muscle use. SpO2<97> CARDIOVASCULAR: Regular rate and rhythm without noted murmurs ABDOMEN: Soft, non-tender, non-distended with bowel sounds. MUSCULOSKELETAL: No tenderness, deformities, or effusions noted on gross inspection. EXTREMITIES: No cyanosis, clubbing or edema. SKIN: Inspection of the skin reveals no rashes NEUROLOGIC: Alert and oriented x 4. Strength and sensation to light touch were grossly intact x 4. Medications Administered Discontinued Medications Generic Name Dose Route Start Last Admin Trade Name Freq PRN Reason Stop Dose Admin Sodium Chloride 1,000 mls @ 999 mls/hr 01/24/24 19:15 01/24/24 21:35 Ns IV 01/24/24 20:15 999 mls/hr .Q1H1M YONI Administration Ondansetron HCl 4 mg 01/24/24 19:05 01/24/24 21:36 Ondansetron Hcl 4 Mg/2 Ml Vial IVPUSH 01/24/24 19:06 4 mg ONCE ONE Administration Medical Decision Making Medical Decision Making MDM Narrative: 44-year-old female with history and clinical presentation suggestive of possible viral gastroenteritis, will rule out any infection, possible illicit drug use. I reviewed all investigations and hematologic indices are negative for leukocytosis or left shift and patient has a stable normocytic anemia without thrombocytopenia. Chemistry indices are negative for DEVONTE/electrolyte/liver enzyme derangements. Urinalysis is a contaminated sample and likely associated with menstrual bleeding. UDS is positive for fentanyl and cocaine. Viral testing is negative for COVID-19/influenza. EKG does not demonstrate QTC prolongation patient received 1 L of IV fluids as well as antinausea medication. Patient is not provided a stool sample and states that her last episode of diarrhea was this morning. She is noted be tolerating oral intake and will be discharged with a script for Zofran. Differential Diagnosis Differential Diagnoses: The differential diagnosis associated with the presentation includes Please see the discussion above Admission/Observation Consideration of admission/observation: Escalation of care including admission/observation considered Please see the discussion above Lab Data MDM Lab Attestation statement: I reviewed the patient's lab results. Please see the discussion above 01/24/24 19:33 01/24/24 20:25 Labs: Lab Results 01/24/24 01/24/24 Range/Units 19:33 20:25 WBC 9.0 (4.8-10.8) X10*3/uL RBC 3.93 L (4.20-5.50) X10*6/uL Hgb 11.4 L (12.0-16.0) g/dl Hct 34.7 L (37.0-47.0) % MCV 88.3 (80.0-98.0) fL MCH 29.0 (27.0-33.0) pg MCHC 32.9 (31.0-35.0) g/dl RDW 13.2 (11.0-16.0) % Plt Count 248 (160-400) X10*3/uL MPV 9.0 L (9.4-12.3) fL Immature Gran % (Auto) 0.1 (0.0-0.4) % Neut % (Auto) 62.4 (45-73) % Lymph % (Auto) 22.0 (20-40) % Grainger % (Auto) 14.0 H (2-11) % Eos % (Auto) 1.4 (0-4) % Baso % (Auto) 0.1 (0-2) % Lymph # (Auto) 2.0 (1.2-4.9) X10*3/uL Grainger # (Auto) 1.3 H (0.1-1.2) X10*3/uL Eos # (Auto) 0.1 (0.0-0.4) X10*3/uL Baso # (Auto) 0.0 (0.0-0.2) X10*3/uL Abs Immat Gran (auto) 0.01 (0.00-0.03) X10*3/uL Absolute Neuts (auto) 5.6 (2.0-8.3) x10*3/uL Absolute Nucleated RBC 0.000 (0.0-0.012) X10*3/uL Nucleated RBC % (auto) 0.0 (0.0-0.2) /100WBC Sodium 135 (135-145) mmol/L Potassium 3.4 (3.3-5.1) mmol/L Chloride 103 (96-108) mmol/L Carbon Dioxide 27 (22-29) mmol/L Anion Gap 8 L (12-20) BUN 14 (9-16) mg/dL Creatinine 0.68 (0.5-1.4) mg/dL Estim Creat Clear Calc 78.8 Estimated GFR > 60 Random Glucose 77 (60-115) mg/dL Calcium 8.8 (8.4-10.2) mg/dL Total Bilirubin 0.4 (0.0-1.0) mg/dL AST 19 (5-31) U/L ALT 16 (0-31) U/L Alkaline Phosphatase 60 (39-117) U/L Total Protein 7.1 (6.5-8.0) g/dL Albumin 3.5 (3.5-5.0) g/dL Urine Color Dark Yellow Urine Appearance Cloudy Urine pH 6.0 (5.0-9.0) Ur Specific [place] 1.025 (1.005-1.025) Urine Protein Trace (Neg-Trace) mg/dL Urine Glucose (UA) Negative (Negative) mg/dL Urine Ketones Negative (Negative) mg/dL Urine Blood Large (3+) H (Negative) Urine Nitrite Negative (Negative) Ur Leukocyte Esterase Trace H (Negative) Urine RBC 11-20 H (0-2) /HPF Urine WBC 0-5 (0-5) /HPF Ur Squamous Epith Cells >20 (0-2) /HPF Calcium Oxalate Crystal Present Urine Bacteria 1+ (None Seen) Hyaline Casts 0-2 (0-2) /LPF Urine Test NEGATIVE (NEGATIVE) Urine Opiates Screen Not Detected (Not Detect) Urine Fentanyl Screen POSITIVE H (Not Detect) Ur Barbiturates Screen Not Detected (Not Detect) Ur Phencyclidine Scrn Not Detected (Not Detect) Ur Amphetamines Screen Not Detected (Not Detect) U Benzodiazepines Scrn Not Detected (Not Detect) Urine Cocaine Screen POSITIVE H (Not Detect) U Marijuana (THC) Screen Not Detected (Not Detect) COVID-19 (LIZZIE) Negative (Negative) COVID-19 Clin Com See Note Influenza Type A (CHRIS) Negative (Negative) Influenza Type B (CHRIS) Negative (Negative) Influenza A & B Note See Note Independent Interpretation I performed an independent interpretation of an: EKG Interpretation: Normal sinus rhythm, HR-66, no STEMI, there are ST changes noted in V3 primarily when compared to otherwise V2 and V4 are similar, [place]/QTC are within normal limits. External Record Review External record reviewed: Outpatient record and Prior outpatient labs Social Determinants Patient?s care significantly limited by Social Determinants of Health including: Alcoholism and drug addiction in family Critical Care Time Critical Care Time Critical Care Time: Yes Total Critical Care Time: 30 Attestation: I personally attest to this time spent taking care of the patient. Discharge Plan Discharge Clinical Impression: Gastroenteritis, Polysubstance use disorder Patient Disposition: Xfer Other Instructions: Gastroenteritis (ED) Additional Instructions: 1. Resume all home medications as prescribed. 2. A prescription for antinausea medication has been provided, your symptoms should begin to resolve in the next 24-48 hours. Return to the ER for any worsening symptoms. Prescriptions: New ondansetron 4 mg tablet,disintegrating 4 mg PO Q8H PRN (Reason: nausea and vomiting) 4 Days Qty: 7 0RF No Action multivitamin Tablet 1 tab PO DAILY lamotrigine 25 mg tablet 1 tab PO BEDTIME perphenazine 4 mg tablet 1 tab PO BID methadone 10 mg/mL Concentrate 150 mg PO DAILY Rx Instructions: [facility] prazosin 2 mg capsule 1 cap PO BID bupropion HCl 300 mg tablet extended release 24 hr 1 tab PO DAILY Rx Instructions: TDD = 450 MG bupropion HCl 150 mg tablet extended release 24 hr 1 tab PO DAILY Rx Instructions: TDD = 450 MG cholecalciferol (vitamin D3) [Vitamin D3] 25 mcg (1,000 unit) Tablet 25 mcg PO DAILY Vraylar 6 mg capsule 1 cap PO QAM levofloxacin 750 mg tablet 750 mg PO DAILY 5 Days Qty: 5 0RF
[2024-01-24 20:32] LABS: Appearance Urine Cloudy; Color Urine Dark Yellow; Glucose Urine UA Negative (Negative); Leukocyte Esterase Urine Trace (Negative); Nitrite Urine Negative (Negative); Specific Gravity - Urine 1.025 (1.005-1.025); UMIC TRIGGER UACC YES; Urine Blood Large (3+) (Negative); Urine Ketones Negative (Negative); Urine Protein Trace mg/dL (Neg-Trace)
[2024-01-24 20:37] LABS: Amphetamine Screen Urine Not Detected (Not Detect); Barbiturates, Urine Not Detected (Not Detect); Benzodiazepines Screen Urine Not Detected (Not Detect); Cannabinoid Screen Urine Not Detected (Not Detect); Cocaine Screen Urine POSITIVE (Not Detect); Fentanyl, urine POSITIVE (Not Detect); Opiate Screen Urine Not Detected (Not Detect); Phencyclidine Screen Urine Not Detected (Not Detect)
[2024-01-24 20:44] LABS: Alanine Aminotransferase 16 U/L (0-31); Albumin Level 3.5 g/dL (3.5-5.0); Alkaline Phosphatase 60 U/L (39-117); Anion Gap 8 (12-20); Aspartate Amino Transferase 19 U/L (5-31); Bilirubin Total 0.4 mg/dL (0.0-1.0); Blood Urea Nitrogen 14 mg/dL (9-16); Calcium 8.8 mg/dL (8.4-10.2); Carbon Dioxide 27 mmol/L (22-29); Chloride 103 mmol/L (96-108); Creatinine Clr Calc Pharmacy 78.8; Estimated Glomerular Filt Rate > 60; Glucose Random 77 mg/dL (60-115); Potassium 3.4 mmol/L (3.3-5.1); Sodium 135 mmol/L (135-145); Total Protein 7.1 g/dL (6.5-8.0)
[2024-01-24 20:51] LABS: UPreg QC Valid YES; Urine Pregnancy NEGATIVE (NEGATIVE)
[2024-01-24 20:55] LABS: Bacteria Urine 1+ (None Seen); Calcium Oxalate Crystals Urine Present; Hyaline Casts Urine 0-2 /LPF (0-2); Squamous Epithelial Cell Urine >20 /HPF (0-2); WBC Urine 0-5 /HPF (0-5)
[2024-01-24] MEDS: 0.9 % Sodium Chloride 1,000 ML 999 ML IV (21:35)
[2024-01-24] MEDS: ondansetron HCL 4 MG/2 ML VIAL IVPUSH (21:36)
[2024-01-24 21:41] VITALS: BP 99/65; PULSE 74; RESP 16; TEMP 36.9; O2SAT 95
[2024-01-24 23:00] VITALS: BP 99/65; PULSE 74; RESP 16; TEMP 36.9
== END 2024-01-24 23:10 | disposition other institution (70) ==
PROVIDERS: Emergency Provider Student in an Organized Health Care Education/Training Program
DX: K52.9 Noninfective gastroenteritis and colitis, unspecified (principal); F11.90 Opioid use, unspecified, uncomplicated; F19.90 Other psychoactive substance use, unspecified, uncomplicated; Z11.52 Encounter for screening for COVID-19
CPT/HCPCS: 36415; 80053; 80307; 81001; 81025; 85025; 87502; 87635; 93005; 96361; 96374; 99285; J2405

== ENCOUNTER → 2024-01-24 19:06 | Outpatient (BNV) | payer OTHER, SELFPAY | PROVIDERS: Emergency Provider Student in an Organized Health Care Education/Training Program; Visit Provider Internal Medicine Cardiovascular Disease | DX: R94.31 Abnormal electrocardiogram [ECG] [EKG] (principal) | CPT/HCPCS: 93010 ==

== ENCOUNTER 2025-02-28 21:16 | Inpatient (IN) | payer OTHER, SELFPAY ==
--- NOTE | 2025-02-28 | ECG_ITS ---
Test Reason : TACHY Blood Pressure : */* mmHG Vent. Rate : 120 BPM Atrial Rate : 120 BPM P-R Int : 180 ms QRS Dur : 100 ms QT Int : 304 ms P-R-T Axes : 27 45 16 degrees QTcB Int : 429 ms Sinus tachycardia Otherwise normal ECG When compared with ECG of 24-Jan-2024 19:16, Vent. rate has increased by 54 bpm Non-specific change in ST segment in Anterior leads Nonspecific T wave abnormality now evident in Inferior leads T wave inversion no longer evident in Anterior leads Referred By: Generic ED Physician Electronically Signed By: Arnie Payne
--- NOTE | ~2025-02-28 | US_ITS ---
CLINICAL HISTORY: pain U/S pelvis transabdominal Comparison: None Findings: Transvaginal imaging declined by the patient. The uterus is not well seen. Endometrium not clearly identified. Ovaries are not identified, likely obscured by bowel gas. Impression: 1. Ovaries not identified. The uterus is not well seen. This document has been electronically signed by: Sushil Linares MD on 03/01/2025 04:15:12
--- NOTE | ~2025-02-28 | CT_ITS ---
CLINICAL HISTORY: hypoxic, hemoptysis CT angiography chest with contrast. 3D Postprocessing. Comparison: None Findings: No cardiomegaly. The thoracic aorta is normal caliber. Motion limited study. No definite PE on this motion limited study. Enlarged pulmonary trunk measuring 39 mm in width. Query pulmonary arterial hypertension. Enlarged and prominent right more than left hilar nodes are nonspecific Smoking-related lung changes. Right more than left multilobar lung opacities (prominent on the right side and moderate on the left side), most conspicuous and consolidated in the right upper and lower lobes. Inflammation/infection, pulmonary edema, or intra-alveolar hemorrhage are some of the differential considerations. For the upper abdominal findings please refer to the same-day abdomen CT report. Small osseous foci adjacent to the incompletely evaluated mildly deformed superior humeral head likely sequela of old injury. If clinically indicated further evaluation with shoulder radiography may be of value. The bones are intact. IMPRESSION: 1. Motion limited study. No definite PE on this motion limited study. 2. Right more than left multilobar lung opacities (prominent on the right side and moderate on the left side), most conspicuous and consolidated in the right upper and lower lobes. Inflammation/infection, pulmonary edema, or intra-alveolar hemorrhage are some of the differential considerations. 3. Query pulmonary arterial hypertension. This document has been electronically signed by: Shanell Metcalf MD on 03/01/2025 06:41:09
--- NOTE | ~2025-02-28 | XR_ITS ---
CLINICAL HISTORY: shortness of breath 1 view chest x-ray Comparison: 11/06/2022 Findings: Bilateral alveolar consolidation. Findings are more prominent on the right. Findings most likely represent pneumonia. Heart size normal. No bony abnormality. Impression: Bilateral consolidation, probable pneumonia This document has been electronically signed by: Cl Chiang MD on 02/28/2025 22:41:02
--- NOTE | ~2025-02-28 | CT_ITS ---
CLINICAL HISTORY: abd pain CT abdomen and pelvis without contrast Comparison: None Findings: Right more than left basilar lung opacities are nonprogressive from an earlier 03/01/2025 CT exam and are likely chronic. Unremarkable gallbladder, liver, pancreas, spleen, and adrenal glands. Contrast in the renal collecting systems and urinary bladder likely from a recent contrast enhanced exam (this precludes accurate evaluation for presence or absence of renal stones). No hydronephrosis. Minimal peritoneal thickening at level of right paracolic gutter may be an incidental finding versus much less likely due to colitis (there is no evidence of neighboring colonic wall thickening). Correlate clinically. No bowel obstruction. Normal appendix. Old fractures versus accessory ossicles of the few of the left lumbar transverse processes. IMPRESSION: 1. Minimal peritoneal thickening at level of right paracolic gutter may be an incidental finding versus much less likely due to colitis (there is no evidence of neighboring colonic wall thickening). Correlate clinically. 2. Right more than left basilar lung opacities are nonprogressive from an earlier 03/01/2025 CT exam and are likely chronic. This document has been electronically signed by: Shanell Metcalf MD on 03/01/2025 05:44:22
[2025-02-28 21:30] VITALS: BP 139/79; PULSE 123; RESP 25; TEMP 36.5; O2SAT 90; BMI 30.4
--- NOTE | 2025-02-28 21:57 | PC.NURSE ---
pt speaking in clear sentences to registration without pause
[2025-02-28 22:45] LABS: Influenza A PCR NEGATIVE (Negative); Influenza B PCR NEGATIVE (Negative); Resp Syncy Virus RNA Qual PCR NEGATIVE (Negative); SARS COV2 PCR INHOUSE NEGATIVE (Negative)
[2025-02-28 22:50] LABS: Hematocrit 33.2 % (37.0-47.0); Hemoglobin 11.3 g/dl (12.0-16.0); Mean Corpuscular Volume 85.1 fL (80.0-98.0); Mean Platelet Volume 9.3 fL (9.4-12.3); Platelet Count 258 X10*3/uL (160-400); Red Cell Distribution Width 14.1 % (11.0-16.0); White Blood Count 9.6 X10*3/uL (4.8-10.8)
--- NOTE | 2025-02-28 22:51 | PC.NURSE ---
Addendum entered by Naeem Ulloa RN 02/28/25 22:54: improved to 90-92% in bed Original Note: 88% SpO2 with ambulation to bathroom, HR 122. no symptoms, steady gait. back in bed wearing oximetry, call dsouza in reach
[2025-02-28 22:52] LABS: VBG Base Excess 3.6 mmol/L; VBG HCO3 28 mmol/L (22-26); VBG pCO2 41 mmHg; VBG pH 7.43 (7.32-7.43); VBG pO2 58 mmHg
[2025-02-28 22:52] LABS: Venous Blood Gas Refer to POC result
[2025-02-28 23:00] VITALS: O2SAT 88
--- NOTE | 2025-02-28 23:01 | MHC.EDTECH ---
this tech assumed care of pt @[id number]
[2025-02-28 23:03] LABS: Alanine Aminotransferase 45 U/L (0-31); Albumin Level 3.4 g/dL (3.5-5.0); Alkaline Phosphatase 125 U/L (39-117); Anion Gap 15 (12-20); Aspartate Amino Transferase 51 U/L (5-31); Bilirubin Total 0.6 mg/dL (0.0-1.0); Blood Urea Nitrogen 20 mg/dL (9-16); Calcium 10.1 mg/dL (8.4-10.2); Carbon Dioxide 24 mmol/L (22-29); Chloride 102 mmol/L (96-108); Creatinine Clr Calc Pharmacy 78.5; Estimated Glomerular Filt Rate > 60; Glucose Random 91 mg/dL (60-115); Lipase < 4 U/L (8-78); Sodium 138 mmol/L (135-145); Total Protein 7.7 g/dL (6.5-8.0)
[2025-02-28 23:09] LABS: Troponin-I High Sensitivity 20.4 ng/L (<3.5-17.0)
[2025-02-28 23:14] LABS: Neutrophils Percent Manual 65 % (45-73)
[2025-02-28 23:16] LABS: Band Neutrophils Percent 14 % (3-5); Lymphocytes Absolute Manual 1.2 X10*3/uL (1.2-4.9); Lymphocytes Percent Manual 12 % (20-40); Metamyelocytes Absolute 0.1 X10*3/uL; Metamyelocytes Percent 1 %; Monocytes Absolute Manual 0.8 X10*3/uL (0.1-1.2); Monocytes Percent Manual 8 % (2-11); Neutrophils Absolute Manual 7.6 X10*3/uL (2.0-8.3)
[2025-02-28 23:17] LABS: Dohle Bodies PRESENT; Platelet Estimate NORMAL (NORMAL); Platelet Morphology Comment NORMAL; RBC Morphology NORMAL; Toxic Granulation PRESENT; Toxic Vacuolation PRESENT
[2025-02-28 23:28] VITALS: BP 117/79; PULSE 117; RESP 15; TEMP 36.8; O2SAT 95
--- NOTE | 2025-02-28 23:51 | PC.NURSE ---
delay in labs, meds d/t difficult IV access. SAM Pedraza placed US IV #[id number] LAC
[2025-02-28] MEDS: SODIUM CHLORIDE 2262 ML IV (23:53)
[2025-02-28 23:54] VITALS: PULSE 111; RESP 15; TEMP 36.8; O2SAT 95
[2025-03-01] VITALS (7 sets, daily range): BP systolic 109–125; BP diastolic 73–83; PULSE 92–98; RESP 20; TEMP 36.4; O2SAT 79–94
--- NOTE | 2025-03-01 00:03 | PC.NURSE ---
still attempting 2nd set of BC
[2025-03-01 00:06] LABS: Lactic Acid 0.9 mmol/L (0.5-2.0)
[2025-03-01 00:15] LABS: HCG Quantitative < 2 mIU/mL
[2025-03-01] MEDS: Doxycycline Hyclate 100 MG in 0.9 % Sodium Chloride 250 ML 166.67 MG IV ×2 (00:22→11:52)
[2025-03-01] MEDS: cefTRIAXone sodium 2 GM VIAL IVPUSH (00:22)
[2025-03-01] MEDS: iohexoL 350 MG/ML 100 ML INFUS..BTL 65 ML IV (00:38)
--- NOTE | 2025-03-01 00:47 | PC.NURSE ---
upon ambulating to bathroom after CT scan, pt suddenly became dizzy, anxious, expressing desire to sit down, ambulated back to room. vitals stable. SAM Pedraza aware. call dsouza in reach. fluids and abx running
[2025-03-01] MEDS: Potassium Chloride Packet 20 MEQ PACKET 40 MEQ PO (00:56)
[2025-03-01] MEDS: ondansetron HCL 4 MG/2 ML VIAL IVPUSH (00:56)
--- NOTE | 2025-03-01 01:07 | ED.GENADULT ---
HPI - General Adult General Chief complaint: Dyspnea Stated complaint: stomach discomfort, lump in neck, feels like flu Time Seen by Provider: 02/28/25 23:25 Source: patient Limitations: no limitations History of Present Illness ED Provider: Heidi Buchanan PA-C HPI narrative: 45-year-old female with a history of COPD, polysubstance abuse, IVDA, hep C, bipolar disorder who presents with multiple complaints. Patient states over the past 4 days she has had progressive shortness of breath. Associated productive cough with the hemoptysis. Patient also complains of lower abdominal discomfort, pain across entire lower abdomen, most prominent over suprapubic region. Denies nausea vomiting diarrhea. Denies distention or inability to pass flatus. Denies constipation. Associated new vaginal discharge. Patient said she had intercourse with a new partner, she does have risk for STD. Denies known fever. Related Data Home Medications ?Medication ?Instructions ?Recorded ?Confirmed cholecalciferol (vitamin D3) 25 25 mcg PO DAILY 11/07/22 03/01/25 mcg (1,000 unit) tablet (Vitamin D3) multivitamin 1 tab PO DAILY 11/07/22 03/01/25 albuterol sulfate 90 mcg/actuation 2 puff inhalation Q4H PRN 03/01/25 03/01/25 aerosol inhaler (Ventolin HFA) Shortness Of Breath Or Wheezing amitriptyline 100 mg tablet 100 mg PO BEDTIME 03/01/25 03/01/25 aripiprazole 5 mg tablet (Abilify) 5 mg PO DAILY 03/01/25 03/01/25 buprenorphine 8 mg-naloxone 2 mg 1 film sublingual BID 03/01/25 03/01/25 sublingual film cariprazine 3 mg capsule (Vraylar) 3 mg PO BEDTIME 03/01/25 03/01/25 clonazepam 2 mg tablet 2 mg PO BID 03/01/25 03/01/25 fluticasone propionate 230 2 puff inhalation BID 03/01/25 03/01/25 mcg-salmeterol 21 mcg/actuation HFA inhaler (Advair HFA) ipratropium 0.5 mg-albuterol 3 mg 3 ml inhalation QID PRN Shortness 03/01/25 03/01/25 (2.5 mg base)/3 mL nebulization Of Breath Or Wheezing soln ipratropium 20 mcg-albuterol 100 2 puff inhalation BID 03/01/25 03/01/25 mcg/actuation mist for inhalation (Combivent Respimat) methylphenidate HCl 54 mg 54 mg PO DAILY 03/01/25 03/01/25 tablet,extended release 24 hr (Concerta) omeprazole 20 mg capsule,delayed 40 mg PO BEDTIME@2100 03/01/25 03/01/25 release prazosin 5 mg capsule 5 mg PO BEDTIME 03/01/25 03/01/25 pregabalin 150 mg capsule 150 mg PO BID 03/01/25 03/01/25 Previous Rx's ?Medication ?Instructions ?Recorded ondansetron 4 mg disintegrating 4 mg PO Q8H PRN nausea and 01/24/24 tablet vomiting 4 days #7 tabs cefuroxime axetil 500 mg tablet 500 mg PO Q12H 5 days #10 tabs 03/01/25 doxycycline monohydrate 100 mg 100 mg PO BID 5 days #10 tabs 03/01/25 tablet Allergies Allergy/AdvReac Type Severity Reaction Status Date / Time No Known Allergies Allergy Verified 02/28/25 21:34 Review of Systems Review of Systems: Yes all other systems are reviewed and are negative Constitutional: Constitutional: Denies fatigue and Denies fever(s) Cardiovascular: Cardiovascular: Denies chest pain and Reports dyspnea Respiratory: Respiratory: Reports chest congestion, Reports cough, Reports hemoptysis, Reports dyspnea and Denies wheezing Gastrointestinal: Gastrointestinal: Reports abdominal pain, Denies constipation, Denies diarrhea, Denies nausea and Denies vomiting Genitourinary: Genitourinary: Denies dysuria, Reports pelvic pain and Reports vaginal discharge Endocrine: Endocrine: Denies fatigue Allergic/Immunologic: Allergic/Immunologic: Denies wheezing PMF Past Medical History Attestation statement: The following information was validated with the patient. Medical History Bipolar disorder Interstitial lung disease Hepatitis C IV drug user Social History Social History Household Members: Other Household Members Other:: sister Housing: House Do you presently have visiting nurse or other home services: No Alcohol intake: current Alcohol intake frequency: holidays/special occasions only Patient Tobacco Use Status: Former Tobacco user Smoked in Last 30 Days: No Use of substances other than those prescribed or required for medical reasons: Yes Substance Use Type: Crack/Cocaine and Marijuana Substance Use Frequency: Daily Last Used Substance: Unknown Last Used Substance Other:: Marijuana daily, cocaine once a month Currently Displaying Signs/Symptoms of Drug Intoxication Withdrawal: No Have you been hit, kicked, punched, or otherwise hurt by someone within the past year? If so, by whom?: No Do you feel safe in your current relationship?: Yes Are you made to feel afraid or neglected: No Advance Directives: No Advance Directives Information Provided: Yes Do you have a plan to hurt others: No Plan Recently lost weight without trying: No Patient : No : No Poor oral hygiene: No Physical Exam ED Vital Signs: Vital Signs - 24 hr 02/28/25 21:30 02/28/25 23:00 02/28/25 23:28 Temperature 97.7 F 98.2 F Pulse Rate 123 H 117 H Respiratory Rate 25 H 15 Blood Pressure 139/79 117/79 Pulse Oximetry 90 L 88 L 95 Oxygen Delivery Method Room Air Nasal Cannula Oxygen Flow Rate 1 02/28/25 23:54 03/01/25 00:44 03/01/25 01:27 Temperature 98.2 F Pulse Rate 111 H 92 Respiratory Rate 15 Blood Pressure 125/83 Pulse Oximetry 95 94 79 L Oxygen Delivery Method Nasal Cannula Nasal Cannula Oxygen Flow Rate 1 1 03/01/25 02:27 03/01/25 02:32 03/01/25 03:07 Temperature Pulse Rate 98 98 98 Respiratory Rate Blood Pressure 120/78 112/81 111/74 Pulse Oximetry Oxygen Delivery Method Oxygen Flow Rate BMI result Body Mass Index 30.4 Const Other: Alert Orientation/consciousness: patient oriented x3 Resp Other: Tachypneic, basilar crackles noted right posterior [place] active cough no objective hemoptysis yet seen Cardio Other: Normal peripheral perfusion GI Other: Moderate Tenderness noted primarily over suprapubic region without guarding Other: Minimal discomfort with the pelvic exam, no CMT, the cervix is not friable, scant amount of opaque discharge noted, some bleeding per os Skin Other: Warm dry no rash Neuro General: patient oriented x3, gait normal, no focal motor deficits and CN's II-XI intact bilaterally Psych Other: Cooperative Course Course Course Narrative: Signed out to night team pending imaging and final disposition, which is likely admission. Reevaluation(s) Reevaluation #1: At 11:26 p.m. on February 28, I initiated a sepsis focused exam. The patient is hypoxic, she is tachycardic, however not febrile. She does have a high neutrophilic band count.In addition to labs and imaging that were already obtained, I am adding blood cultures, lactic acid, weight based IV fluid therapy and starting ceftriaxone and doxycycline. Time: 23:26 Reevaluation #2: Lactic 0.9 Time: 23:47 Reevaluation #3: 03/01/2025 Dr. John Paul Robertson's note: 06:13 I assumed care of this patient from my colleague, physician recreational assistant Heidi Buchanan at 04:[address] scan of the patient's abdomen pelvis without IV contrast did not reveal any significant abnormalities. CT angiogram of the chest PE protocol is pending. The patient was accepted on to the medical service by Dr. Caputo. 08:01 I did review the patient's CT pulmonary angiogram PE protocol reading below. Radiologist did not see any significant pulmonary embolism. The patient does have right more than left multilobar pneumonia. CT angiography chest with contrast. 3D Postprocessing. IMPRESSION: 1. Motion limited study. No definite PE on this motion limited study. 2. Right more than left multilobar lung opacities (prominent on the right side and moderate on the left side), most conspicuous and consolidated in the right upper and lower lobes. Inflammation/infection, pulmonary edema, or intra-alveolar hemorrhage are some of the differential considerations. 3. Query pulmonary arterial hypertension. This document has been electronically signed by: Shanell Metcalf MD on 03/01/2025 06:41:09 Medications Administered Generic Name Dose Route Start Last Admin Trade Name Freq PRN Reason Stop Dose Admin Aripiprazole 5 mg 03/01/25 11:00 03/01/25 11:53 Aripiprazole 5 Mg Tablet PO 5 mg DAILY YONI Administration Buprenorphine/Naloxone 1 film 03/01/25 11:03/01/25 11:52 Buprenorphine/Naloxone 8/2 Mg Film SUBLINGUAL 1 film BID YONI Administration Clonazepam 2 mg 03/01/25 11:00 03/01/25 11:53 Clonazepam 1 Mg Tablet PO 2 mg BID YONI Administration Enoxaparin Sodium 40 mg 03/01/25 06:00 03/01/25 06:19 Enoxaparin Sodium 40 Mg/0.4 Ml Syringe SUBCUT 40 mg Q24H YONI Administration Sodium Chloride 1,000 mls @ 100 mls/hr 03/01/25 04:30 03/01/25 14:42 Ns IVCONT 100 mls/hr .Q10H YONI Administration Doxycycline Hyclate 100 mg/ 250 mls @ 166.67 mls/hr 03/01/25 11:00 03/01/25 15:25 Sodium Chloride IV Infused Q12H YONI Infusion Sodium Chloride 3 ml 03/01/25 08:00 03/01/25 08:01 0.9 % Sodium Chloride Flush 3 Ml Syringe IVFLUSH Not Given QSHIFT YONI Discontinued Medications Generic Name Dose Route Start Last Admin Trade Name Elsa PRN Reason Stop Dose Admin Buprenorphine/Naloxone 1 film 03/01/25 01:43 03/01/25 02:01 Buprenorphine/Naloxone 8/2 Mg Film SUBLINGUAL 03/01/25 01:44 1 film ONCE ONE Administration Ceftriaxone Sodium 2 gm 02/28/25 23:26 03/01/25 00:22 Ceftriaxone Sodium 2 Gm Vial IVPUSH 02/28/25 23:27 2 gm ONCE ONE Administration Clonazepam 2 mg 03/01/25 01:43 03/01/25 01:59 Clonazepam 1 Mg Tablet PO 03/01/25 01:44 2 mg ONCE ONE Administration Doxycycline Hyclate 100 mg/ 250 mls @ 166.67 mls/hr 02/28/25 23:26 03/01/25 02:24 Sodium Chloride IV 03/01/25 00:55 Infused ONCE ONE Infusion Sodium Chloride 2,262 mls @ 2,262 mls/hr 02/28/25 23:27 03/01/25 02:24 Ns 30 ml/kg infuse over 1 hr (2262 ml) 03/01/25 00:26 Infused IV Infusion .Q1H STA Iohexol 65 ml 03/01/25 00:38 03/01/25 00:38 Iohexol 350 Mg/Ml 100 Ml Infus..Btl IV 03/01/25 00:39 65 ml ONCE ONE Administration Ondansetron HCl 4 mg 03/01/25 00:46 03/01/25 00:56 Ondansetron Hcl 4 Mg/2 Ml Vial IVPUSH 03/01/25 00:47 4 mg ONCE ONE Administration Potassium Chloride 40 meq 03/01/25 00:46 03/01/25 00:56 Potassium Chloride Packet 20 Meq Packet PO 03/01/25 00:47 40 meq ONCE ONE Administration Pregabalin 150 mg 03/01/25 01:43 03/01/25 01:59 Pregabalin 150 Mg Capsule PO 03/01/25 01:44 150 mg ONCE ONE Administration Medical Decision Making Medical Decision Making MDM Narrative: 45-year-old female with a history of COPD, polysubstance abuse, IVDA, hep C, bipolar disorder who presents with multiple complaints. Patient states over the past 4 days she has had progressive shortness of breath. Associated productive cough with the hemoptysis. Patient also complains of lower abdominal discomfort, pain across entire lower abdomen, most prominent over suprapubic region. Denies nausea vomiting diarrhea. Denies distention or inability to pass flatus. Denies constipation. Associated new vaginal discharge. Patient said she had intercourse with a new partner, she does have risk for STD. Denies known fever. Problem: Psychiatric illness, substance abuse, hep C , COPD, high-risk sexual behavior History: Per patient I have considered the following differential diagnoses: COPD exacerbation, pneumonia, PE, cervicitis, TOA, PID, sepsis, ACS, Plan: At 11:26 p.m. on February 28, I initiated a sepsis focused exam. The patient is hypoxic, she is tachycardic, however not febrile. She does have a high neutrophilic band count. In addition to labs and imaging that were already obtained, I am adding blood cultures, lactic acid, weight based IV fluid therapy and starting ceftriaxone and doxycycline for PNA found on CXR. Also concerned for PE, she states she is having hemoptysis, we will be adding on a CTA of the chest. Given distribution of abdominal discomfort and nature of symptoms, I am concerned for pelvic pathology. She admits to high-risk sexual behavior and risk for STD. I performed pelvic exam, obtained gonorrhea , chlamydia, BV and trich panel. We will be obtaining a transvaginal ultrasound to rule out the presence of TOA. Patient also admits to using cocaine recently, given elevated heart rate, EKG and troponin were obtained. I do not think this is ACS. She is not complaining of chest pain. I have independently reviewed the following tests: Labs: No overall leukocytosis but has a high neutrophilic band count, potassium subtly low at 3, lactic is 0.9, she has new slight elevation in her LFTs, but not T bilirubin, troponin obtained, is 20.4, delta troponin 16.1, drug screen positive for buprenorphine, cocaine and marijuana, urine not infected. No trich no yeast, no chlamydia no gonorrhea, BV panel pending EKG: Sinus tachycardia, rate of 120, nonspecific ST segment changes in anterior leads and inferior leads, QTC 429 Chest x-ray Bilateral alveolar consolidation. Findings are more prominent on the right. Findings most likely represent pneumonia. Heart size normal. No bony abnormality. Impression: Bilateral consolidation, probable pneumonia CTA chest: Transvaginal ultrasound: Lab Data 02/28/25 22:41 02/28/25 22:41 Labs: Lab Results 02/28/25 02/28/25 02/28/25 Range/Units 22:01 22:41 22:48 WBC 9.6 (4.8-10.8) X10*3/uL RBC 3.90 L (4.20-5.50) X10*6/uL Hgb 11.3 L (12.0-16.0) g/dl Hct 33.2 L (37.0-47.0) % MCV 85.1 (80.0-98.0) fL MCH 29.0 (27.0-33.0) pg MCHC 34.0 (31.0-35.0) g/dl RDW 14.1 (11.0-16.0) % Plt Count 258 (160-400) X10*3/uL MPV 9.3 L (9.4-12.3) fL Immature Gran % (Auto) Cancelled Neut % (Auto) Cancelled Lymph % (Auto) Cancelled [place] % (Auto) Cancelled Eos % (Auto) Cancelled Baso % (Auto) Cancelled Lymph # (Auto) Cancelled [place] # (Auto) Cancelled Eos # (Auto) Cancelled Baso # (Auto) Cancelled Abs Immat Gran (auto) Cancelled Absolute Neuts (auto) Cancelled Absolute Nucleated RBC 0.000 (0.0-0.012) X10*3/uL Nucleated RBC % (auto) 0.0 (0.0-0.2) /100WBC Neutrophils % (Manual) 65 (45-73) % Band Neutrophils % 14 H (3-5) % Lymphocytes % (Manual) 12 L (20-40) % Monocytes % (Manual) 8 (2-11) % Metamyelocytes % 1 % Abs Neuts (Manual) 7.6 (2.0-8.3) X10*3/uL Lymphocytes # (Manual) 1.2 (1.2-4.9) X10*3/uL Monocytes # (Manual) 0.8 (0.1-1.2) X10*3/uL Metamyelocytes # 0.1 X10*3/uL Toxic Granulation PRESENT Toxic Vacuolation PRESENT Dohle Bodies PRESENT Platelet Estimate NORMAL (NORMAL) Plt Morphology Comment NORMAL RBC Morphology NORMAL VBG pH 7.43 (7.32-7.43) VBG pCO2 41 mmHg VBG pO2 58 mmHg VBG HCO3 28 H (22-26) mmol/L VBG O2 Saturation 84.0 % VBG Base Excess 3.6 mmol/L Sodium 138 (135-145) mmol/L Potassium 3.0 L (3.3-5.1) mmol/L Chloride 102 (96-108) mmol/L Carbon Dioxide 24 (22-29) mmol/L Anion Gap 15 (12-20) BUN 20 H (9-16) mg/dL Creatinine 0.85 (0.5-1.4) mg/dL Estim Creat Clear Calc 78.5 Estimated GFR > 60 Random Glucose 91 (60-115) mg/dL Lactic Acid (0.5-2.0) mmol/L Calcium 10.1 D (8.4-10.2) mg/dL Total Bilirubin 0.6 (0.0-1.0) mg/dL AST 51 H (5-31) U/L ALT 45 H (0-31) U/L Alkaline Phosphatase 125 H (39-117) U/L Troponin I High Sens 20.4 H D (<3.5-17.0) ng/L Total Protein 7.7 (6.5-8.0) g/dL Albumin 3.4 L (3.5-5.0) g/dL Lipase < 4 L (8-78) U/L Beta HCG, Quant < 2 mIU/mL Urine Color Urine Appearance Urine pH (5.0-9.0) Ur Specific [place] (1.005-1.025) Urine Protein (Neg-Trace) mg/dL Urine Glucose (UA) (Negative) mg/dL Urine Ketones (Negative) mg/dL Urine Blood (Negative) Urine Nitrite (Negative) Ur Leukocyte Esterase (Negative) Urine RBC (0-2) /HPF Urine WBC (0-5) /HPF Ur Squamous Epith Cells (0-2) /HPF Urine Bacteria (None Seen) Hyaline Casts (0-2) /LPF Urine Opiates Screen (Not Detect) Ur Buprenorphine Scrn (Not Detect) ng/mL Ur Oxycodone Screen (Not Detect) ng/mL Urine Methadone Screen (Not Detect) ng/mL Urine Fentanyl Screen (Not Detect) Ur Barbiturates Screen (Not Detect) Ur Phencyclidine Scrn (Not Detect) Ur Amphetamines Screen (Not Detect) U Benzodiazepines Scrn (Not Detect) Urine Cocaine Screen (Not Detect) U Marijuana (THC) Screen (Not Detect) Chlam trachomat DNA PCR (Not Detect.) Influenza Type A (PCR) NEGATIVE (Negative) Influenza Type B (PCR) NEGATIVE (Negative) N.gonorrhoeae DNA (PCR) (Not Detect.) RSV RNA Qual (PCR) NEGATIVE (Negative) SARS-CoV-2 RNA (RT-PCR) NEGATIVE (Negative) T. vaginalis (PCR) (Not Detect) Bact vaginosis (PCR) (Negative) C. krusei/glabrata (PCR) (Not Detect) Genny group (PCR) (Not Detect) 02/28/25 03/01/25 03/01/25 Range/Units 23:47 01:10 01:28 WBC (4.8-10.8) X10*3/uL RBC (4.20-5.50) X10*6/uL Hgb (12.0-16.0) g/dl Hct (37.0-47.0) % MCV (80.0-98.0) fL MCH (27.0-33.0) pg MCHC (31.0-35.0) g/dl RDW (11.0-16.0) % Plt Count (160-400) X10*3/uL MPV (9.4-12.3) fL Immature Gran % (Auto) Neut % (Auto) Lymph % (Auto) [place] % (Auto) Eos % (Auto) Baso % (Auto) Lymph # (Auto) [place] # (Auto) Eos # (Auto) Baso # (Auto) Abs Immat Gran (auto) Absolute Neuts (auto) Absolute Nucleated RBC (0.0-0.012) X10*3/uL Nucleated RBC % (auto) (0.0-0.2) /100WBC Neutrophils % (Manual) (45-73) % Band Neutrophils % (3-5) % Lymphocytes % (Manual) (20-40) % Monocytes % (Manual) (2-11) % Metamyelocytes % % Abs Neuts (Manual) (2.0-8.3) X10*3/uL Lymphocytes # (Manual) (1.2-4.9) X10*3/uL Monocytes # (Manual) (0.1-1.2) X10*3/uL Metamyelocytes # X10*3/uL Toxic Granulation Toxic Vacuolation Dohle Bodies Platelet Estimate (NORMAL) Plt Morphology Comment RBC Morphology VBG pH (7.32-7.43) VBG pCO2 mmHg VBG pO2 mmHg VBG HCO3 (22-26) mmol/L VBG O2 Saturation % VBG Base Excess mmol/L Sodium (135-145) mmol/L Potassium (3.3-5.1) mmol/L Chloride (96-108) mmol/L Carbon Dioxide (22-29) mmol/L Anion Gap (12-20) BUN (9-16) mg/dL Creatinine (0.5-1.4) mg/dL Estim Creat Clear Calc Estimated GFR Random Glucose (60-115) mg/dL Lactic Acid 0.9 (0.5-2.0) mmol/L Calcium (8.4-10.2) mg/dL Total Bilirubin (0.0-1.0) mg/dL AST (5-31) U/L ALT (0-31) U/L Alkaline Phosphatase (39-117) U/L Troponin I High Sens 16.1 (<3.5-17.0) ng/L Total Protein (6.5-8.0) g/dL Albumin (3.5-5.0) g/dL Lipase (8-78) U/L Beta HCG, Quant mIU/mL Urine Color Yellow Urine Appearance Clear Urine pH 6.5 (5.0-9.0) Ur Specific [place] >= 1.030 H (1.005-1.025) Urine Protein 30 (1+) H (Neg-Trace) mg/dL Urine Glucose (UA) Negative (Negative) mg/dL Urine Ketones 15 (Negative) mg/dL Urine Blood Small (1+) H (Negative) Urine Nitrite Negative (Negative) Ur Leukocyte Esterase Negative (Negative) Urine RBC 6-10 H (0-2) /HPF Urine WBC 0-5 (0-5) /HPF Ur Squamous Epith Cells 11-20 (0-2) /HPF Urine Bacteria None Seen (None Seen) Hyaline Casts 3-5 (0-2) /LPF Urine Opiates Screen Not Detected (Not Detect) Ur Buprenorphine Scrn Positive H (Not Detect) ng/mL Ur Oxycodone Screen Not Detected (Not Detect) ng/mL Urine Methadone Screen Not Detected (Not Detect) ng/mL Urine Fentanyl Screen Not Detected (Not Detect) Ur Barbiturates Screen Not Detected (Not Detect) Ur Phencyclidine Scrn Not Detected (Not Detect) Ur Amphetamines Screen Not Detected (Not Detect) U Benzodiazepines Scrn Not Detected (Not Detect) Urine Cocaine Screen POSITIVE H (Not Detect) U Marijuana (THC) Screen POSITIVE H (Not Detect) Chlam trachomat DNA PCR (Not Detect.) Influenza Type A (PCR) (Negative) Influenza Type B (PCR) (Negative) N.gonorrhoeae DNA (PCR) (Not Detect.) RSV RNA Qual (PCR) (Negative) SARS-CoV-2 RNA (RT-PCR) (Negative) T. vaginalis (PCR) (Not Detect) Bact vaginosis (PCR) (Negative) C. krusei/glabrata (PCR) (Not Detect) Genny group (PCR) (Not Detect) 03/01/25 Range/Units 01:46 WBC (4.8-10.8) X10*3/uL RBC (4.20-5.50) X10*6/uL Hgb (12.0-16.0) g/dl Hct (37.0-47.0) % MCV (80.0-98.0) fL MCH (27.0-33.0) pg MCHC (31.0-35.0) g/dl RDW (11.0-16.0) % Plt Count (160-400) X10*3/uL MPV (9.4-12.3) fL Immature Gran % (Auto) Neut % (Auto) Lymph % (Auto) [place] % (Auto) Eos % (Auto) Baso % (Auto) Lymph # (Auto) [place] # (Auto) Eos # (Auto) Baso # (Auto) Abs Immat Gran (auto) Absolute Neuts (auto) Absolute Nucleated RBC (0.0-0.012) X10*3/uL Nucleated RBC % (auto) (0.0-0.2) /100WBC Neutrophils % (Manual) (45-73) % Band Neutrophils % (3-5) % Lymphocytes % (Manual) (20-40) % Monocytes % (Manual) (2-11) % Metamyelocytes % % Abs Neuts (Manual) (2.0-8.3) X10*3/uL Lymphocytes # (Manual) (1.2-4.9) X10*3/uL Monocytes # (Manual) (0.1-1.2) X10*3/uL Metamyelocytes # X10*3/uL Toxic Granulation Toxic Vacuolation Dohle Bodies Platelet Estimate (NORMAL) Plt Morphology Comment RBC Morphology VBG pH (7.32-7.43) VBG pCO2 mmHg VBG pO2 mmHg VBG HCO3 (22-26) mmol/L VBG O2 Saturation % VBG Base Excess mmol/L Sodium (135-145) mmol/L Potassium (3.3-5.1) mmol/L Chloride (96-108) mmol/L Carbon Dioxide (22-29) mmol/L Anion Gap (12-20) BUN (9-16) mg/dL Creatinine (0.5-1.4) mg/dL Estim Creat Clear Calc Estimated GFR Random Glucose (60-115) mg/dL Lactic Acid (0.5-2.0) mmol/L Calcium (8.4-10.2) mg/dL Total Bilirubin (0.0-1.0) mg/dL AST (5-31) U/L ALT (0-31) U/L Alkaline Phosphatase (39-117) U/L Troponin I High Sens (<3.5-17.0) ng/L Total Protein (6.5-8.0) g/dL Albumin (3.5-5.0) g/dL Lipase (8-78) U/L Beta HCG, Quant mIU/mL Urine Color Urine Appearance Urine pH (5.0-9.0) Ur Specific [place] (1.005-1.025) Urine Protein (Neg-Trace) mg/dL Urine Glucose (UA) (Negative) mg/dL Urine Ketones (Negative) mg/dL Urine Blood (Negative) Urine Nitrite (Negative) Ur Leukocyte Esterase (Negative) Urine RBC (0-2) /HPF Urine WBC (0-5) /HPF Ur Squamous Epith Cells (0-2) /HPF Urine Bacteria (None Seen) Hyaline Casts (0-2) /LPF Urine Opiates Screen (Not Detect) Ur Buprenorphine Scrn (Not Detect) ng/mL Ur Oxycodone Screen (Not Detect) ng/mL Urine Methadone Screen (Not Detect) ng/mL Urine Fentanyl Screen (Not Detect) Ur Barbiturates Screen (Not Detect) Ur Phencyclidine Scrn (Not Detect) Ur Amphetamines Screen (Not Detect) U Benzodiazepines Scrn (Not Detect) Urine Cocaine Screen (Not Detect) U Marijuana (THC) Screen (Not Detect) Chlam trachomat DNA PCR NOT DETECTED (Not Detect.) Influenza Type A (PCR) (Negative) Influenza Type B (PCR) (Negative) N.gonorrhoeae DNA (PCR) NOT DETECTED (Not Detect.) RSV RNA Qual (PCR) (Negative) SARS-CoV-2 RNA (RT-PCR) (Negative) T. vaginalis (PCR) NOT DETECTED (Not Detect) Bact vaginosis (PCR) NEGATIVE (Negative) C. krusei/glabrata (PCR) NOT DETECTED (Not Detect) Genny group (PCR) NOT DETECTED (Not Detect) Critical Care Time Critical Care Time Critical Care Time: Yes Total Critical Care Time: 45 Attestation: Critical Care: The patient was critically ill with a high probability of imminent or life threatening deterioration. I spent greater than 30 minutes of discontinuous time evaluating the patient,delivering critical care at the bedside, discussing and evaluating pertinent data with consultants. Critical care time does not include time spent performing separately billable procedures or teaching. Total time spent performing critical care was 45 minutes. Discharge Plan Discharge Clinical Impression: Hypoxia, Pneumonia, Vaginitis Patient Disposition: Admitted As Inpatient Interventions: Admission Worksheet (ED) Last Done: 03/01/25 14:44 Discharge Date/Time: 03/01/25 17:38
--- NOTE | 2025-03-01 01:30 | MHC.EDTECH ---
at this time this tech assisted the pt to the bathroom in order to obtain a urine sample, pt was on 1L via face mask using portable o2 tank and when the pt ambulated back to her room she appeared short of breathe and her 02 saturation had dropped to 79% on 1L via face mask, PA aware of o2 saturation dropping during ambulation
[2025-03-01 01:33] LABS: Troponin-I High Sensitivity 16.1 ng/L (<3.5-17.0)
[2025-03-01 01:40] LABS: Appearance Urine Clear; Color Urine Yellow; Glucose Urine UA Negative (Negative); Leukocyte Esterase Urine Negative (Negative); Nitrite Urine Negative (Negative); PH 6.5 (5.0-9.0); Specific Gravity - Urine >= 1.030 (1.005-1.025); UMIC TRIGGER UACC YES; Urine Blood Small (1+) (Negative); Urine Ketones 15 mg/dL (Negative); Urine Protein 30 (1+) mg/dL (Neg-Trace)
[2025-03-01 01:46] LABS: Bacteria Urine None Seen (None Seen); WBC Urine 0-5 /HPF (0-5)
[2025-03-01 01:51] LABS: Amphetamine Screen Urine Not Detected (Not Detect); Barbiturates, Urine Not Detected (Not Detect); Benzodiazepines Screen Urine Not Detected (Not Detect); Buprenorphine Scr Positive (Not Detect); Cannabinoid Screen Urine POSITIVE (Not Detect); Cocaine Screen Urine POSITIVE (Not Detect); Fentanyl, urine Not Detected (Not Detect); Methadone Screen, Urine Not Detected (Not Detect); Opiate Screen Urine Not Detected (Not Detect); Oxycodone Screen Urine Not Detected (Not Detect); Phencyclidine Screen Urine Not Detected (Not Detect)
[2025-03-01] MEDS: clonazePAM 1 MG TABLET 2 MG PO ×2 (01:59→11:53)
[2025-03-01] MEDS: Pregabalin 150 MG CAPSULE PO (01:59)
[2025-03-01] MEDS: Buprenorphine/Naloxone 8/2 mg FILM 1 FILM SUBLINGUAL ×2 (02:01→11:52)
--- NOTE | 2025-03-01 03:05 | PC.NURSE ---
SAM Pedraza is aware of softer BPs. pt got clonazepam, lyrica
[2025-03-01 03:19] LABS: CT PCR NOT DETECTED (Not Detect.); NG PCR NOT DETECTED (Not Detect.)
--- NOTE | 2025-03-01 03:22 | MHC.EDTECH ---
at this time this tech assisted the pt to the bathroom. Attempted to educate the pt on the need for a commode due to her o2 saturation dropping w/ ambulation. Pt refused the use of the commode due to lack of privacy w/ using the bathroom within her room. RN stated to increase her o2 liter amount during ambulation in order to prevent de-saturation. Upon ambulation back to her room the pt stated that she still has trouble breathing only w/ activity. o2 dropped to 76%, RN stated to increase liters to 6 until o2 climbs, pt now at 94% and reverted back to 3L
[2025-03-01] MEDS: 0.9 % Sodium Chloride 1,000 ML 100 ML IVCONT ×2 (05:27→14:42)
--- NOTE | 2025-03-01 05:56 | P.HPHOSP_ITS ---
History of Present Illness Date of Service: 03/01/25 <[facility] - Last Filed: 03/01/25 06:08> Attending physician on admission: Armando Caputo <[facility] - Last Filed: 03/01/25 06:08> Chief Complaint: SOB, pelvic pain <[facility] - Last Filed: 03/01/25 06:08> Patient is a 45-year-old black female with past medical history COPD/emphysema, hep C, IV drug use (last use estimated 5 years ago), bipolar depression, polysubstance abuse on Suboxone, crack cocaine abuse, urinary incontinence, overdose February 16 2025 requiring Narcan asked to family members to drive her to the emergency department due to increasing shortness of breath. CTA negative for PE. Positive for bilateral pneumonia. Patient is started on ceftriaxone and doxycycline in the emergency department. Patient has no leukocytosis but noted bandemia of 14. Blood cultures drawn. Patient denies fever, chills or recent night sweats. Patient requiring 1-2 L nasal cannula. Patient does have known COPD and uses inhalers daily. Patient reports diffuse pelvic pain and states that back on February 16 she was participating in drug use activities at a track house in [place] and inhaled 4 bags of cocaine and ended up overdosing. Patient states she was told she required 7 doses of Narcan to bring her back. 911 was not called because it was a trach house and patient stated they would not normally call 911 due to illegal activity. Patient is asking for help and is willing to see addictions while admitted. Part of patient's septum is missing but patient can breathe through her nose. Prior to the overdose, patient had sexual relations with multiple partners simultaneously. Patient states this was consensual. In addition patient has regular menses, often twice a month for 3-5 days at length with copious bleeding and cramping. . Patient describes her menses similar to what they were when she was in her early 20s.Patient often uses tampons but often times leaves tampons in for extended periods of time to the point that they are resolved when she tries to remove them. Patient denies history of toxic shock syndrome or pelvic infection in the past Patient is presenting with diffuse pelvic pain. Pelvic exam was done in the emergency department and currently testing is negative for gonorrhea and chlamydia. Testing for BV and fungus are pending. Pelvic ultrasound inconclusive. CT of the abdomen and pelvis ordered. Patient is willing to do HIV and hepatitis testing as it has been sometime since she has been tested. Patient currently lives with her sister who is the guardian of her youngest child. Patient does have a PCP and an upcoming appointment with Uro electronics design engineer for urinary incontinence. <LEIGHA Shook - Last Filed: 03/01/25 06:08> Review of Systems 2 Review of Systems: Patient denies currently any chest pain, shortness of breath at rest, nausea, vomiting, constipation or diarrhea. Patient is reporting diffuse pelvic pain especially with the examination. Patient does have vaginal discharge that is clear to white in color with no foul smell. <LEIGHA Shook - Last Filed: 03/01/25 06:08> Yes all other systems are reviewed and are negative <LEIGHA Shook - Last Filed: 03/01/25 06:08> [facility] Medical History: Medical History Bipolar disorder Interstitial lung disease Hepatitis C IV drug user <LEIGHA Shook - Last Filed: 03/01/25 06:08> Cognitive capacity: Alert and orientated x3 <LEIGHA Shook - Last Filed: 03/01/25 06:08> Functional capacity: independent ambulation <LEIGHA Shook - Last Filed: 03/01/25 06:08> Patient : No <LEIGHA Shook - Last Filed: 03/01/25 06:08> Pertinent family history: Mother age 65 in good health Father age 63 also in good health <LEIGHA Shook - Last Filed: 03/01/25 06:08> Social History: Social History Alcohol intake: current Alcohol intake frequency: holidays/special occasions only Smoked in Last 30 Days: No Use of substances other than those prescribed or required for medical reasons: Yes Substance Use Type: Crack/Cocaine Substance Use Frequency: Daily Last Used Substance: Unknown Advance Directives: No Advance Directives Information Provided: Yes Do you have a plan to hurt others: No Plan Patient : No <Dane Betty, [facility] - Last Filed: 03/01/25 06:08> Ebola Risk: Travel/Contact With Anyone From Affected Area/s: No <[facility] - Last Filed: 03/01/25 06:08> Has Patient Experienced Ebola Symptoms: No <[facility] - Last Filed: 03/01/25 06:08> Meds Allergies/Adverse reactions: Allergies Allergy/AdvReac Type Severity Reaction Status Date / Time No Known Allergies Allergy Verified 02/28/25 21:34 <[facility] - Last Filed: 03/01/25 06:08> Active Medications: Current Medications Acetaminophen (Acetaminophen 325 Mg Tablet) 650 mg PO Q6H PRN PRN Reason: Pain, Mild 1-3,fever,headache Albuterol/Ipratropium (Albuterol/Iprat 2.5/0.5mg 3 Ml Ampul.Neb) 3 ml INHALE Q4H PRN PRN Reason: Shortness of Breath/Wheezing Benzonatate (Benzonatate 100 Mg Capsule) 100 mg PO TID PRN PRN Reason: Cough Calcium Carbonate (Calcium Carbonate 750 Mg Tab.Chew) 750 mg PO Q4H PRN PRN Reason: Heartburn Ceftriaxone Sodium (Ceftriaxone Sodium 1 Gm Vial) 1 gm IVPUSH Q24H [facility] Enoxaparin Sodium (Enoxaparin Sodium 40 Mg/0.4 Ml Syringe) 40 mg SUBCUT Q24H [facility] Sodium Chloride (Ns) 1,000 mls @ 100 mls/hr IVCONT .Q10H [facility] Last Admin: 03/01/25 05:27 Dose: 100 mls/hr Doxycycline Hyclate 100 mg/ (Sodium Chloride) 250 mls @ 166.67 mls/hr IV Q12H [facility] Magnesium Hydroxide (Milk Of Magnesia 30 Ml Oral.Susp) 30 ml PO DAILY PRN PRN Reason: Constipation Melatonin (Melatonin 3 Mg Tablet) 6 mg PO BEDTIME PRN PRN Reason: Insomnia Senna (Sennosides 8.6 Mg Tablet) 17.2 mg PO BEDTIME [facility] Sodium Chloride (0.9 % Sodium Chloride Flush 3 Ml Syringe) 3 ml IVFLUSH QSHIFT [facility] <[facility] - Last Filed: 03/01/25 06:08> Home medications: Home Medications ?Medication ?Instructions ?Recorded ?Confirmed ?Last Taken ?Type bupropion HCl 150 mg 24 hr tablet, 1 tab PO DAILY 11/07/22 11/07/22 Unknown History extended release bupropion HCl 300 mg 24 hr tablet, 1 tab PO DAILY 11/07/22 11/07/22 Unknown History extended release cariprazine 6 mg capsule (Vraylar) 1 cap PO QAM 11/07/22 11/07/22 Unknown History cholecalciferol (vitamin D3) 25 25 mcg PO DAILY 11/07/22 11/07/22 Unknown History mcg (1,000 unit) tablet (Vitamin D3) lamotrigine 25 mg tablet 1 tab PO BEDTIME 11/07/22 11/07/22 Unknown History methadone 10 mg/mL oral concentrate 150 mg PO DAILY 11/07/22 Unknown History multivitamin 1 tab PO DAILY 11/07/22 11/07/22 Unknown History perphenazine 4 mg tablet 1 tab PO BID 11/07/22 11/07/22 Unknown History prazosin 2 mg capsule 1 cap PO BID 11/07/22 11/07/22 Unknown History <Dane Betty [facility] - Last Filed: 03/01/25 06:08> Physical Exam 2 Vital Signs and Narrative: Vital Signs: Last Vital Signs Temp 98.2 F 02/28/25 23:54 Pulse 98 03/01/25 03:07 Resp 15 02/28/25 23:54 BP 111/74 03/01/25 03:07 Pulse Ox 79 L 03/01/25 01:27 O2 Del Method Nasal Cannula 03/01/25 00:44 O2 Flow Rate 1 03/01/25 00:44 BMI result Body Mass Index 30.4 <Dane Betty [facility] - Last Filed: 03/01/25 06:08> Alert and orientated X3, able to give good history. Emotional. Neuro: CN II-X11 intact, no deficits, visual acuity intact EYES: PERRLA, EOM intact, glasses on ENT: hearing intact, no issues with swallowing, uvula midline, lips moist, nares patent no epistaxis, dentition in fair repair Cardiac: S1 S2 RRR, no murmur, no JVD, no edema in Lower ext Pulmonary: lungs diminshed B, R>L, nonproductive cough Abdominal: BS active in all 4 quadrants, no guarding, positive tenderness lower mid pelvis region, no rebounding , no distension MSK: strength 5/5 upper and lower extremities : no CVA tenderness no bladder distension Extremities: no edema in lower extremities, PT and DP pulses palpable +2 Psych: mood sad, judgement and insight good Skin: no open wounds, bruising old on RLE <[facility] - Last Filed: 03/01/25 06:08> Results Labs CBC and Chem 7: 02/28/25 22:41 02/28/25 22:41 <[facility] - Last Filed: 03/01/25 06:08> Labs: Laboratory Results - last 24 hr 02/28/25 02/28/25 02/28/25 22:01 22:41 22:48 MCV 85.1 MCH 29.0 MCHC 34.0 RDW 14.1 Plt Count 258 MPV 9.3 L Immature Gran % (Auto) Cancelled Neut % (Auto) Cancelled Lymph % (Auto) Cancelled Will % (Auto) Cancelled Eos % (Auto) Cancelled Baso % (Auto) Cancelled Lymph # (Auto) Cancelled Will # (Auto) Cancelled Eos # (Auto) Cancelled Baso # (Auto) Cancelled Abs Immat Gran (auto) Cancelled Absolute Neuts (auto) Cancelled Absolute Nucleated RBC 0.000 Nucleated RBC % (auto) 0.0 Neutrophils % (Manual) 65 Band Neutrophils % 14 H Lymphocytes % (Manual) 12 L Monocytes % (Manual) 8 Metamyelocytes % 1 Abs Neuts (Manual) 7.6 Lymphocytes # (Manual) 1.2 Monocytes # (Manual) 0.8 Metamyelocytes # 0.1 Toxic Granulation PRESENT Toxic Vacuolation PRESENT Dohle Bodies PRESENT Platelet Estimate NORMAL Plt Morphology Comment NORMAL RBC Morphology NORMAL VBG pH 7.43 VBG pCO2 41 VBG pO2 58 VBG HCO3 28 H VBG O2 Saturation 84.0 VBG Base Excess 3.6 Anion Gap 15 Estim Creat Clear Calc 78.5 Estimated GFR > 60 Random Glucose 91 Lactic Acid Calcium 10.1 D Total Bilirubin 0.6 AST 51 H ALT 45 H Alkaline Phosphatase 125 H Total Protein 7.7 Albumin 3.4 L Lipase < 4 L Beta HCG, Quant < 2 Urine Color Urine Appearance Urine pH Ur Specific Scheller Urine Protein Urine Glucose (UA) Urine Ketones Urine Blood Urine Nitrite Ur Leukocyte Esterase Urine RBC Urine WBC Ur Squamous Epith Cells Urine Bacteria Hyaline Casts Urine Opiates Screen Ur Buprenorphine Scrn Ur Oxycodone Screen Urine Methadone Screen Urine Fentanyl Screen Ur Barbiturates Screen Ur Phencyclidine Scrn Ur Amphetamines Screen U Benzodiazepines Scrn Urine Cocaine Screen U Marijuana (THC) Screen Chlam trachomat DNA PCR Influenza Type A (PCR) NEGATIVE Influenza Type B (PCR) NEGATIVE N.gonorrhoeae DNA (PCR) RSV RNA Qual (PCR) NEGATIVE SARS-CoV-2 RNA (RT-PCR) NEGATIVE 02/28/25 03/01/25 03/01/25 23:47 01:28 01:46 MCV MCH MCHC RDW Plt Count MPV Immature Gran % (Auto) Neut % (Auto) Lymph % (Auto) Will % (Auto) Eos % (Auto) Baso % (Auto) Lymph # (Auto) Will # (Auto) Eos # (Auto) Baso # (Auto) Abs Immat Gran (auto) Absolute Neuts (auto) Absolute Nucleated RBC Nucleated RBC % (auto) Neutrophils % (Manual) Band Neutrophils % Lymphocytes % (Manual) Monocytes % (Manual) Metamyelocytes % Abs Neuts (Manual) Lymphocytes # (Manual) Monocytes # (Manual) Metamyelocytes # Toxic Granulation Toxic Vacuolation Dohle Bodies Platelet Estimate Plt Morphology Comment RBC Morphology VBG pH VBG pCO2 VBG pO2 VBG HCO3 VBG O2 Saturation VBG Base Excess Anion Gap Estim Creat Clear Calc Estimated GFR Random Glucose Lactic Acid 0.9 Calcium Total Bilirubin AST ALT Alkaline Phosphatase Total Protein Albumin Lipase Beta HCG, Quant Urine Color Yellow Urine Appearance Clear Urine pH 6.5 Ur Specific Scheller >= 1.030 H Urine Protein 30 (1+) H Urine Glucose (UA) Negative Urine Ketones 15 Urine Blood Small (1+) H Urine Nitrite Negative Ur Leukocyte Esterase Negative Urine RBC 6-10 H Urine WBC 0-5 Ur Squamous Epith Cells 11-20 Urine Bacteria None Seen Hyaline Casts 3-5 Urine Opiates Screen Not Detected Ur Buprenorphine Scrn Positive H Ur Oxycodone Screen Not Detected Urine Methadone Screen Not Detected Urine Fentanyl Screen Not Detected Ur Barbiturates Screen Not Detected Ur Phencyclidine Scrn Not Detected Ur Amphetamines Screen Not Detected U Benzodiazepines Scrn Not Detected Urine Cocaine Screen POSITIVE H U Marijuana (THC) Screen POSITIVE H Chlam trachomat DNA PCR NOT DETECTED Influenza Type A (PCR) Influenza Type B (PCR) N.gonorrhoeae DNA (PCR) NOT DETECTED RSV RNA Qual (PCR) SARS-CoV-2 RNA (RT-PCR) <[facility] [address] [facility] Last Filed: 03/01/25 06:08> ECG Attestation: I personally reviewed and interpreted this ECG as follows: (Sinus Tachycardia , normal QTC) <[facility] [address] Last Filed: 03/01/25 06:08> ECG interpretation date: 02/28/25 <[facility] [address] Last Filed: 03/01/25 06:08> Prior ECG tracings: available for review <[facility] [address] Last Filed: 03/01/25 06:08> Imaging Radiologist's Impressions: CT ABD pelvis Findings: Right more than left basilar lung opacities are nonprogressive from an earlier 03/01/2025 CT exam and are likely chronic. Unremarkable gallbladder, liver, pancreas, spleen, and adrenal glands. Contrast in the renal collecting systems and urinary bladder likely from a recent contrast enhanced exam (this precludes accurate evaluation for presence or absence of renal stones). No hydronephrosis. Minimal peritoneal thickening at level of right paracolic gutter may be an incidental finding versus much less likely due to colitis (there is no evidence of neighboring colonic wall thickening). Correlate clinically. No bowel obstruction. Normal appendix. Old fractures versus accessory ossicles of the few of the left lumbar transverse processes. IMPRESSION: 1. Minimal peritoneal thickening at level of right paracolic gutter may be an incidental finding versus much less likely due to colitis (there is no evidence of neighboring colonic wall thickening). Correlate clinically. 2. Right more than left basilar lung opacities are nonprogressive from an earlier 03/01/2025 CT exam and are likely chronic PELVIS US Findings: Transvaginal imaging declined by the patient. The uterus is not well seen. Endometrium not clearly identified. Ovaries are not identified, likely obscured by bowel gas. Impression: 1. Ovaries not identified. The uterus is not well seen. CXR Findings: Bilateral alveolar consolidation. Findings are more prominent on the right. Findings most likely represent pneumonia. Heart size normal. No bony abnormality. Impression: Bilateral consolidation, probable pneumonia <[facility] - Last Filed: 03/01/25 06:08> Assessment and Plan (1) Pneumonia: Status: Acute <[facility] - Last Filed: 03/01/25 06:08> Patient is a 45-year-old black female with past medical history COPD/emphysema, hep C, IV drug use (last use estimated 5 years ago), bipolar depression, polysubstance abuse on Suboxone, crack cocaine abuse/middle of septum is eroded, urinary incontinence being admitted for bilateral pneumonia and pelvic pain. Community-acquired pneumonia/COPD emphysema/ acute hypoxic respiratory failure -patient is started on ceftriaxone and doxycycline -duo nebs as needed -nasal cannula, wean O2 as tolerated -follow blood cultures, bandemia noted, follow differential -patient does not meet criteria for sepsis -lactic acid 0.9, follow CBC with differential -ID consult if needed Hypokalemia -potassium 3.0 replenishment ordered, BNP in the a.m. Pelvic pain -pelvic exam and testing completed in the emergency department. Patient refused transvaginal ultrasound. Negative for gonorrhea and chlamydia. -BV testing and fungal testing pendant. -abdominal CT negative for acute pelvic findings -patient has appointment with Uro electronics design engineer on March 05 for urinary incontinence Polysubstance abuse on Suboxone, crack cocaine abuse Tobacco dependence/ marijuana -patient is referred use of NRT -patient counseled on the benefits of smoking cessation -pt is on suboxone not methadone, await med rec -Addictions consulted -HIV and hepatitis testing pending Bipolar depression -lamotrigine DVT prophylaxis: Lovenox Med rec pending MOLST completed patient is a full code <[facility] - Last Filed: 03/01/25 06:08> Patient is a 45-year-old black female with past medical history COPD/emphysema, hep C, IV drug use (last use estimated 5 years ago), bipolar depression, polysubstance abuse on Suboxone, crack cocaine abuse/middle of septum is eroded, urinary incontinence being admitted for bilateral pneumonia and pelvic pain. Community-acquired pneumonia/ acute hypoxic respiratory failure -patient is started on ceftriaxone and doxycycline -duo nebs as needed -nasal cannula, wean O2 as tolerated -follow blood cultures, bandemia noted, follow differential -patient does not meet criteria for sepsis -lactic acid 0.9, follow CBC with differential -ID consult if needed -CTA chest pending Hypokalemia -potassium 3.0 replenishment ordered, BMP in the a.m. Pelvic pain -pelvic exam and testing completed in the emergency department. Patient refused transvaginal ultrasound. Negative for gonorrhea and chlamydia. -BV testing and fungal testing pendant. -abdominal CT negative for acute pelvic findings -patient has appointment with Uro electronics design engineer on March 05 for urinary incontinence Polysubstance abuse on Suboxone, crack cocaine abuse Tobacco dependence/ marijuana -patient is referred use of NRT -patient counseled on the benefits of smoking cessation -pt is on suboxone not methadone, await med rec -Addictions consulted -HIV and hepatitis testing pending Bipolar depression -lamotrigine DVT prophylaxis: Lovenox Med rec pending MOLST completed patient is a full code Admit as inpatient and will require two night minimum hospital stay for supplemental oxygen, IV antibiotics (as above), which is not possible in a lesser acute setting. <Armando Caputo MD - Last Filed: 03/01/25 06:25> Quality Stroke Does the patient have a stroke diagnosis?: No <Lashell Hernández [facility] - Last Filed: 03/01/25 06:08> Reason for No Anti-thrombotic by Day Two: N/A - Med Ordered <Lashell Hernández [facility] - Last Filed: 03/01/25 06:08> VTE Prior VTE?: No <Lashellghassan Hernández [facility] - Last Filed: 03/01/25 06:08> VTE Risk Level:: Medical - moderate - high <Lashell Hernádnez [facility] - Last Filed: 03/01/25 06:08> VTE Device Contraindication: N/A - Device Ordered <Lashell Hernández [facility] - Last Filed: 03/01/25 06:08> VTE Drug Contraindication: N/A - Med Ordered <Lashell Hernández [facility] - Last Filed: 03/01/25 06:08>
[2025-03-01] MEDS: Enoxaparin Sodium 40 MG/0.4 ML SYRINGE SUBCUT (06:19)
--- NOTE | 2025-03-01 08:22 | PC.NURSE ---
assumed care of patient at 0700, patient is awake and alert, resp even and unlabored. patient requested to take oxygen off, patient had desat event down to 83%, instructed to put oxygen back on. patient is non compliant with wearing her o2, constantly reminding patient to put o2 back on, states its giving her a runny nose. patient VSS at this time, has 100ml/hr of normal saline running. patient became upset on phone call with family member, was shouting and swearing loudly, patient educated to just keep her voice down while in ER, patient understanding and apologized. patient resting quietly in ED room 21.
[2025-03-01 09:29] LABS: Magnesium 2.2 mg/dL (1.6-2.6)
[2025-03-01 09:45] LABS: TSH reflex Free T4 0.96 uIU/mL (0.32-4.0)
[2025-03-01 09:58] LABS: HBc Num1 0.13 S/CO (0.00-0.79); HBsAGNum1 0.42 S/CO (0.00-0.99); HIV AB/AG Nonreactive (Nonreactive); HIV Num 1 0.07 S/CO (0.00-0.99); Hepatitis A Antibody IgM 0.17 Index (0-0.79); Hepatitis B Core Antibody Nonreactive (Nonreactive); Hepatitis B Surface Antigen Negative (Negative); ~HepC Num1 13.38 S/CO (0.00-0.79); ~Hepatitis A Antibody IgM Nonreactive (Nonreactive); ~Hepatitis B Surface Antibody REACTIVE (Nonreactive); ~Hepatitis C Antibody Reactive (Nonreactive)
--- NOTE | 2025-03-01 10:21 | PHA.MEDREC ---
Addendum entered by Perri Mendez RPh 03/01/25 10:55: reviewed by [facility] Original Note: Pharmacy Consult ? Medication Reconciliation Pharmacy has completed the medication reconciliation. Spoke with patient and she was able to confirm her medications with me and stated she is filling everything at [facility] in [place] on [facility]. Patient confirmed her Pregabalin tablet and stated she was taking 150mg tabs twice a day but states she had a Dr's appointment on 02/02 and that medication should in increased from 150mg to 250mg; I called [facility] to see if they have anything sent in for 250mg tabs and they stated they have not gotten anything called in since the last fill 01/22. Patient confirmed the buprenorphine-naloxone 8-2mg films and confirmed she takes 1 film twice a day.
[2025-03-01 10:40] LABS: Bacterial Vaginosis PCR NEGATIVE (Negative); Candida Group PCR NOT DETECTED (Not Detect); Candida glab krusei PCR NOT DETECTED (Not Detect); Trichomonas vaginalis PCR NOT DETECTED (Not Detect)
[2025-03-01] MEDS: ARIPiprazole 5 MG TABLET PO (11:53)
--- NOTE | 2025-03-01 13:40 | MHC.CM.PN ---
Addendum entered by Nya Hopper 03/01/25 15:24: PER [facility], POT IS PART OF A LEVEL II ADULT FOSTER CARE PROGRAM Addendum entered by Williams Lopez 03/01/25 14:10: REFERRAL TO LONGTERM UPON DISCHARGE RECOMMENDED. Original Note: PT FROM HOME, L/W SISTER [facility] NO DME PCP- DAVID RODRIGUEZ HCP-RUFINA STANTON.[phone], AT HOME , COPY REQUESTED FROM PT [facility] INSURANCE, IMM DELIVERED DCP-PT WORRIED ABOUT HOUSING IN THE FUTURE, RESURCE BOOKLETS PROVIDED. CURRENT DCP-HOME CONTINUE DME SERVICES, VIA PRIVATE TRANSPORT, SELF CARE.
--- NOTE | 2025-03-01 15:38 | PC.NURSE ---
Pt becoming increasingly agitated due to wait times for inpatient bed assignment. Pt informed of reasons for delay. She reports she is leaving the hospital and does not want to stay for treatment. Pt encouraged to stay. Pt requested to have her IV removed. This RN removed IV. Covering provider SAM Patrick notified.
--- NOTE | 2025-03-01 16:12 | PM.DS ---
DS: Providers Provider Date of Service: 03/01/25 Date of admission: 03/01/25 05:50 Date of discharge: 03/01/25 Primary care physician: Deedee Purcell MD Consults: 03/01/25 05:50 Addiction Medicine Provider Routine Consulting Provider: Addiction Covering Reason for consultation: crack cocaine, polysubstance, recent overdose, wants to get help Has provider been notified: No Attending physician on discharge: Brittany Carlson Discharging clinician: Karla Zimmerman DS: Diagnosis Discharge Diagnosis (1) Pneumonia: Status: Acute DS: Summary Hospital Course Hospital Course: From H&P on the day of admission Patient is a 45-year-old black female with past medical history COPD/emphysema, hep C, IV drug use (last use estimated 5 years ago), bipolar depression, polysubstance abuse on Suboxone, crack cocaine abuse, urinary incontinence, overdose February 16 2025 requiring Narcan asked to family members to drive her to the emergency department due to increasing shortness of breath. CTA negative for PE. Positive for bilateral pneumonia. Patient is started on ceftriaxone and doxycycline in the emergency department. Patient has no leukocytosis but noted bandemia of 14. Blood cultures drawn. Patient denies fever, chills or recent night sweats. Patient requiring 1-2 L nasal cannula. Patient does have known COPD and uses inhalers daily. Patient reports diffuse pelvic pain and states that back on February 16 she was participating in drug use activities at a track house in [place] and inhaled 4 bags of cocaine and ended up overdosing. Patient states she was told she required 7 doses of Narcan to bring her back. 911 was not called because it was a [facility] house and patient stated they would not normally call 911 due to illegal activity. Patient is asking for help and is willing to see addictions while admitted. Part of patient's septum is missing but patient can breathe through her nose. Prior to the overdose, patient had sexual relations with multiple partners simultaneously. Patient states this was consensual. In addition patient has regular menses, often twice a month for 3-5 days at length with copious bleeding and cramping. . Patient describes her menses similar to what they were when she was in her early 20s.Patient often uses tampons but often times leaves tampons in for extended periods of time to the point that they are resolved when she tries to remove them. Patient denies history of toxic shock syndrome or pelvic infection in the past Patient is presenting with diffuse pelvic pain. Pelvic exam was done in the emergency department and currently testing is negative for gonorrhea and chlamydia. Testing for BV and fungus are pending. Pelvic ultrasound inconclusive. CT of the abdomen and pelvis ordered. Patient is willing to do HIV and hepatitis testing as it has been sometime since she has been tested. Patient currently lives with her sister who is the guardian of her youngest child. Patient does have a PCP and an upcoming appointment with Uro blow down helper for urinary incontinence. Acute respiratory failure due to community-acquired pneumonia. Started on ceftriaxone and doxycycline, patient had intermittent episodes of desaturation where she was asymptomatic. Did not meet criteria for sepsis. CTA with no definitive PE. Right more than left multilobar lung opacities most conspicuous and consolidated in the right upper and lower lobes. Inflammation status infection, pulmonary edema or intra-alveolar hemorrhage are some of the differential considerations. Patient has elected to leave against medical advice. She understands that her oxygen levels has been intermittently low and that by leaving without oxygen she is at risk for worsening respiratory failure and even . She verbalizes and understands this but does not want to stay in the emergency room under any circumstances. Due to minimize harm we will send a course of oral antibiotics to her pharmacy. She is encouraged to schedule a follow-up appointment with her PCP. It was discussed with her that she should call 911 and/or returned to any area emergency room if any new or worsening symptoms develop. Pelvic pain. Transvaginal ultrasound refused. Gonorrhea and chlamydia negative. BV and fungal testing negative. CT scan of the abdomen and pelvis negative for any acute pelvic findings. Recommend outpatient follow-up with blow down helper as scheduled on March 05. Mild Transaminitis Should be followed outpatient substance use. hepatitis C ab returned positive - will need outpatient follow up, viral load testing Time Attestation Discharge Coordination Time (in mins): 30 Quality: Safe Use of Opioids Does Pt have an Active Cancer Diagnosis on the Problem List?: No Quality: Stroke Does the patient have a stroke diagnosis?: No Physical Exam Vital Signs: Vital Signs: Last Vital Signs Temp 97.6 F 03/01/25 07:24 Pulse 96 03/01/25 07:24 Resp 20 03/01/25 07:24 BP 109/73 03/01/25 07:24 Pulse Ox 94 03/01/25 07:33 O2 Del Method Nasal Cannula 03/01/25 07:33 O2 Flow Rate 2 03/01/25 07:33 BMI result Body Mass Index 30.4 Const: General: cooperative, comfortable, no acute distress, alert and awake Nutritional Appearance: average body habitus Orientation/consciousness: patient oriented x3 Resp: Effort & Inspection: normal respiratory effort, able to speak in complete sentences, no respiratory distress and no use of accessory muscles Neuro: General: patient oriented x3, moves all extremities and CN's II-XI intact bilaterally DS: Data Data Completed and Pending Labs on day of discharge: Laboratory Results - last 24 hr 02/28/25 02/28/25 02/28/25 22:01 22:41 22:48 WBC 9.6 RBC 3.90 L Hgb 11.3 L Hct 33.2 L MCV 85.1 MCH 29.0 MCHC 34.0 RDW 14.1 Plt Count 258 MPV 9.3 L Immature Gran % (Auto) Cancelled Neut % (Auto) Cancelled Lymph % (Auto) Cancelled Coleman % (Auto) Cancelled Eos % (Auto) Cancelled Baso % (Auto) Cancelled Lymph # (Auto) Cancelled Coleman # (Auto) Cancelled Eos # (Auto) Cancelled Baso # (Auto) Cancelled Abs Immat Gran (auto) Cancelled Absolute Neuts (auto) Cancelled Absolute Nucleated RBC 0.000 Nucleated RBC % (auto) 0.0 Neutrophils % (Manual) 65 Band Neutrophils % 14 H Lymphocytes % (Manual) 12 L Monocytes % (Manual) 8 Metamyelocytes % 1 Abs Neuts (Manual) 7.6 Lymphocytes # (Manual) 1.2 Monocytes # (Manual) 0.8 Metamyelocytes # 0.1 Toxic Granulation PRESENT Toxic Vacuolation PRESENT Dohle Bodies PRESENT Platelet Estimate NORMAL Plt Morphology Comment NORMAL RBC Morphology NORMAL VBG pH 7.43 VBG pCO2 41 VBG pO2 58 VBG HCO3 28 H VBG O2 Saturation 84.0 VBG Base Excess 3.6 Sodium 138 Potassium 3.0 L Chloride 102 Carbon Dioxide 24 Anion Gap 15 BUN 20 H Creatinine 0.85 Estim Creat Clear Calc 78.5 Estimated GFR > 60 Random Glucose 91 Lactic Acid Calcium 10.1 D Magnesium Total Bilirubin 0.6 AST 51 H ALT 45 H Alkaline Phosphatase 125 H Troponin I High Sens 20.4 H D Total Protein 7.7 Albumin 3.4 L Lipase < 4 L TSH Beta HCG, Quant < 2 Urine Color Urine Appearance Urine pH Ur Specific Callender Urine Protein Urine Glucose (UA) Urine Ketones Urine Blood Urine Nitrite Ur Leukocyte Esterase Urine RBC Urine WBC Ur Squamous Epith Cells Urine Bacteria Hyaline Casts Urine Opiates Screen Ur Buprenorphine Scrn Ur Oxycodone Screen Urine Methadone Screen Urine Fentanyl Screen Ur Barbiturates Screen Ur Phencyclidine Scrn Ur Amphetamines Screen U Benzodiazepines Scrn Urine Cocaine Screen U Marijuana (THC) Screen Chlam trachomat DNA PCR Hepatitis A IgM Ab Hep Bs Antigen Hep Bs Antibody Hep B Core Total Ab Hepatitis C Ab (EIA) HIV 1&2 Ab/P24 Ag 4thGn Influenza Type A (PCR) NEGATIVE Influenza Type B (PCR) NEGATIVE N.gonorrhoeae DNA (PCR) RSV RNA Qual (PCR) NEGATIVE SARS-CoV-2 RNA (RT-PCR) NEGATIVE T. vaginalis (PCR) Bact vaginosis (PCR) C. krusei/glabrata (PCR) Genny group (PCR) 02/28/25 03/01/25 03/01/25 23:47 01:10 01:28 WBC RBC Hgb Hct MCV MCH MCHC RDW Plt Count MPV Immature Gran % (Auto) Neut % (Auto) Lymph % (Auto) Coleman % (Auto) Eos % (Auto) Baso % (Auto) Lymph # (Auto) Coleman # (Auto) Eos # (Auto) Baso # (Auto) Abs Immat Gran (auto) Absolute Neuts (auto) Absolute Nucleated RBC Nucleated RBC % (auto) Neutrophils % (Manual) Band Neutrophils % Lymphocytes % (Manual) Monocytes % (Manual) Metamyelocytes % Abs Neuts (Manual) Lymphocytes # (Manual) Monocytes # (Manual) Metamyelocytes # Toxic Granulation Toxic Vacuolation Dohle Bodies Platelet Estimate Plt Morphology Comment RBC Morphology VBG pH VBG pCO2 VBG pO2 VBG HCO3 VBG O2 Saturation VBG Base Excess Sodium Potassium Chloride Carbon Dioxide Anion Gap BUN Creatinine Estim Creat Clear Calc Estimated GFR Random Glucose Lactic Acid 0.9 Calcium Magnesium Total Bilirubin AST ALT Alkaline Phosphatase Troponin I High Sens 16.1 Total Protein Albumin Lipase TSH Beta HCG, Quant Urine Color Yellow Urine Appearance Clear Urine pH 6.5 Ur Specific Callender >= 1.030 H Urine Protein 30 (1+) H Urine Glucose (UA) Negative Urine Ketones 15 Urine Blood Small (1+) H Urine Nitrite Negative Ur Leukocyte Esterase Negative Urine RBC 6-10 H Urine WBC 0-5 Ur Squamous Epith Cells 11-20 Urine Bacteria None Seen Hyaline Casts 3-5 Urine Opiates Screen Not Detected Ur Buprenorphine Scrn Positive H Ur Oxycodone Screen Not Detected Urine Methadone Screen Not Detected Urine Fentanyl Screen Not Detected Ur Barbiturates Screen Not Detected Ur Phencyclidine Scrn Not Detected Ur Amphetamines Screen Not Detected U Benzodiazepines Scrn Not Detected Urine Cocaine Screen POSITIVE H U Marijuana (THC) Screen POSITIVE H Chlam trachomat DNA PCR Hepatitis A IgM Ab Hep Bs Antigen Hep Bs Antibody Hep B Core Total Ab Hepatitis C Ab (EIA) HIV 1&2 Ab/P24 Ag 4thGn Influenza Type A (PCR) Influenza Type B (PCR) N.gonorrhoeae DNA (PCR) RSV RNA Qual (PCR) SARS-CoV-2 RNA (RT-PCR) T. vaginalis (PCR) Bact vaginosis (PCR) C. krusei/glabrata (PCR) Genny group (PCR) 03/01/25 03/01/25 01:46 09:04 WBC RBC Hgb Hct MCV MCH MCHC RDW Plt Count MPV Immature Gran % (Auto) Neut % (Auto) Lymph % (Auto) Coleman % (Auto) Eos % (Auto) Baso % (Auto) Lymph # (Auto) Coleman # (Auto) Eos # (Auto) Baso # (Auto) Abs Immat Gran (auto) Absolute Neuts (auto) Absolute Nucleated RBC Nucleated RBC % (auto) Neutrophils % (Manual) Band Neutrophils % Lymphocytes % (Manual) Monocytes % (Manual) Metamyelocytes % Abs Neuts (Manual) Lymphocytes # (Manual) Monocytes # (Manual) Metamyelocytes # Toxic Granulation Toxic Vacuolation Dohle Bodies Platelet Estimate Plt Morphology Comment RBC Morphology VBG pH VBG pCO2 VBG pO2 VBG HCO3 VBG O2 Saturation VBG Base Excess Sodium Potassium Chloride Carbon Dioxide Anion Gap BUN Creatinine Estim Creat Clear Calc Estimated GFR Random Glucose Lactic Acid Calcium Magnesium 2.2 Total Bilirubin AST ALT Alkaline Phosphatase Troponin I High Sens Total Protein Albumin Lipase TSH 0.96 Beta HCG, Quant Urine Color Urine Appearance Urine pH Ur Specific Callender Urine Protein Urine Glucose (UA) Urine Ketones Urine Blood Urine Nitrite Ur Leukocyte Esterase Urine RBC Urine WBC Ur Squamous Epith Cells Urine Bacteria Hyaline Casts Urine Opiates Screen Ur Buprenorphine Scrn Ur Oxycodone Screen Urine Methadone Screen Urine Fentanyl Screen Ur Barbiturates Screen Ur Phencyclidine Scrn Ur Amphetamines Screen U Benzodiazepines Scrn Urine Cocaine Screen U Marijuana (THC) Screen Chlam trachomat DNA PCR NOT DETECTED Hepatitis A IgM Ab Nonreactive Hep Bs Antigen Negative Hep Bs Antibody REACTIVE Hep B Core Total Ab Nonreactive Hepatitis C Ab (EIA) Reactive H HIV 1&2 Ab/P24 Ag 4thGn Nonreactive Influenza Type A (PCR) Influenza Type B (PCR) N.gonorrhoeae DNA (PCR) NOT DETECTED RSV RNA Qual (PCR) SARS-CoV-2 RNA (RT-PCR) T. vaginalis (PCR) NOT DETECTED Bact vaginosis (PCR) NEGATIVE C. krusei/glabrata (PCR) NOT DETECTED Genny group (PCR) NOT DETECTED Discharge Plan Discharge Patient Disposition: Left Against Medical Advice Discharge Diagnosis: pneumonia/respiratory failure Referrals: Deedee Purcell MD [Primary Care Provider] - 1 Week Discharge Medications: New cefuroxime axetil 500 mg tablet 500 mg PO Q12H 5 Days Qty: 10 0RF doxycycline monohydrate 100 mg tablet 100 mg PO BID 5 Days Qty: 10 0RF No Action multivitamin Tablet 1 tab PO DAILY cholecalciferol (vitamin D3) [Vitamin D3] 25 mcg (1,000 unit) Tablet 25 mcg PO DAILY buprenorphine-naloxone 8-2 mg film 1 film sublingual BID methylphenidate HCl [Concerta] 54 mg Tablet Extended Release 24hr 54 mg PO DAILY prazosin 5 mg Capsule 5 mg PO BEDTIME clonazepam 2 mg Tablet 2 mg PO BID omeprazole 20 mg Capsule,Delayed Release(Dr/Ec) 40 mg PO BEDTIME@2100 albuterol sulfate [Ventolin HFA] 90 mcg/actuation Hfa Aerosol Inhaler 2 puff INHALATION Q4H PRN (Reason: Shortness Of Breath Or Wheezing) amitriptyline 100 mg Tablet 100 mg PO BEDTIME aripiprazole [Abilify] 5 mg Tablet 5 mg PO DAILY pregabalin 150 mg Capsule 150 mg PO BID Combivent Respimat 20-100 mcg/actuation Mist 2 puff INHALATION BID Vraylar 3 mg Capsule 3 mg PO BEDTIME ipratropium-albuterol 0.5 mg-3 mg(2.5 mg base)/3 mL Solution For Nebulization 3 ml INHALATION QID PRN (Reason: Shortness Of Breath Or Wheezing) fluticasone propion-salmeterol [Advair HFA] 230-21 mcg/actuation Hfa Aerosol Inhaler 2 puff INHALATION BID ondansetron 4 mg tablet,disintegrating 4 mg PO Q8H PRN (Reason: nausea and vomiting) 4 Days Qty: 7 0RF Discharge Orders: Discharge Order (Routine); Ordered 03/01/25 Ordered By: Karla Zimmerman Print Language: Welsh Care Plan Goals: See below Health Concerns: Acute respiratory failure Pneumonia Elevated LFTs Positive hepatitis-C antibody Plan of Treatment: Recommended to stay in the hospital to continue inpatient medical care however you have elected to leave against medical advice. as discussed would recommend complete oral course of antibiotics. If new or worsening symptoms arise please call 911 or returned to any area emergency room. low oxygen levels can result in worsening respiratory failure or even . Call to schedule follow-up appointment with PCP. We will need monitoring of respiratory status including possible repeat chest x-ray, for monitoring of liver function testing and viral load testing due to positive hepatitis-C antibody test. Assessment: Left against medical advice
--- NOTE | 2025-03-01 19:37 | PC.NURSE ---
This RN was charge and involved in patient situation of wanting to leave AMA. This RN spoke with Karla VARGAS about pt, as she was stating that she was able to leave AMA without being assessed by provider. This RN brought up concerns of her o2 dropping throughout the day when on RA and needing a lot of reminding to put O2 back on. Karla did come down to bedside to assess and talk with patient. Pt did end up leaving AMA with provider at bedside. AMA paperwork signed by patient and primary nurse.
== END 2025-03-01 20:19 | disposition left against medical advice (07) | DRG 193 ==
LOC: HO.ED 03-01 04:23 → HO.EDOVER 03-01 06:35
PROVIDERS: Emergency Medicine; Nurse Practitioner Family; Physician Assistant Medical; Admitting Provider Student in an Organized Health Care Education/Training Program; Emergency Provider Emergency Medicine Emergency Medical Services; PCP Family Medicine; Visit Provider Physician Assistant Medical
DX: J18.9 Pneumonia, unspecified organism (principal); J96.01 Acute respiratory failure with hypoxia; F11.20 Opioid dependence, uncomplicated; R10.2 Pelvic and perineal pain; J43.9 Emphysema, unspecified; E87.6 Hypokalemia; F19.10 Other psychoactive substance abuse, uncomplicated; F31.9 Bipolar disorder, unspecified; Z20.822 Contact with and (suspected) exposure to COVID-19; Z87.891 Personal history of nicotine dependence; Z79.51 Long term (current) use of inhaled steroids; Z79.899 Other long term (current) drug therapy
CPT/HCPCS: 0241U; 36415; 71045; 71275; 74176; 76856; 80053; 80307; 81001; 81515; 82803; 83605; 83690; 83735; 84443; 84484; 84702; 85007; 85027; 86704; 86706; 86709; 86803; 87040; 87340; 87389; 87491; 87591; 93005; 93975; 99285; J0696; J1271; J1650; J2405; Q9967

== ENCOUNTER → 2025-02-28 21:40 | Outpatient (BNV) | payer OTHER, SELFPAY | PROVIDERS: PCP Family Medicine; Visit Provider Radiology Diagnostic Radiology | DX: R91.8 Other nonspecific abnormal finding of lung field (principal) | CPT/HCPCS: 71045 ==

== ENCOUNTER → 2025-02-28 21:44 | Outpatient (BNV) | payer OTHER, SELFPAY | PROVIDERS: Admitting Provider Student in an Organized Health Care Education/Training Program; Emergency Provider Emergency Medicine Emergency Medical Services; PCP Family Medicine; Visit Provider Internal Medicine Cardiovascular Disease | DX: R00.0 Tachycardia, unspecified (principal) | CPT/HCPCS: 93010 ==

== ENCOUNTER → 2025-02-28 21:55 | Outpatient (BNV) | payer OTHER, SELFPAY | PROVIDERS: Emergency Provider Emergency Medicine Emergency Medical Services; PCP Family Medicine; Visit Provider Nurse Practitioner Family | DX: J18.9 Pneumonia, unspecified organism (principal) | CPT/HCPCS: 99499 ==

== ENCOUNTER → 2025-03-01 01:24 | Outpatient (BNV) | payer OTHER, SELFPAY | PROVIDERS: Emergency Provider Emergency Medicine Emergency Medical Services; PCP Family Medicine; Visit Provider Radiology Diagnostic Radiology | DX: R04.2 Hemoptysis (principal); R10.9 Unspecified abdominal pain | CPT/HCPCS: 71275; 74176; 93975 ==

== ENCOUNTER 2025-03-04 20:07 | Inpatient (IN) | payer OTHER, SELFPAY ==
--- NOTE | ~2025-03-04 | XR_ITS ---
CLINICAL HISTORY: trauma 3 view left foot Comparison: None Findings: No fractures or dislocations. No significant loss of joint space, osteophytes, or erosions. No ankle effusion. No radiopaque foreign body. IMPRESSION: 1. No acute findings. This document has been electronically signed by: Maria De Jesus Gar MD on 03/04/2025 23:10:55
--- NOTE | ~2025-03-04 | XR_ITS ---
CLINICAL HISTORY: CP 1 view chest x-ray Comparison: CT/SR - CT ABDOMEN PELVIS WO IV CON - 03/01/25 04:[address]/SR - CT ANGIO CHEST PE PROTOCOL - 03/01/25 00:32 EDT CR - XR CHEST 1V - 02/28/25 21:49 EDT Findings: Bilateral opacities are similar to the CT from 03/01/2025. No large effusion or pneumothorax. Cardiomediastinal silhouette is stable. No acute fracture. IMPRESSION: Bilateral opacities are similar to the CT from 03/01/2025. This document has been electronically signed by: Maria De Jesus Gar MD on 03/04/2025 21:42:53
--- NOTE | ~2025-03-04 | XR_ITS ---
CLINICAL HISTORY: trauma 3 view right foot Comparison: None Findings: No fractures or dislocations. Plantar calcaneal spur. No ankle effusion. No radiopaque foreign body. IMPRESSION: 1. No acute findings. This document has been electronically signed by: Maria De Jesus Gar MD on 03/04/2025 23:09:51
[2025-03-04 20:27] VITALS: BP 108/78; PULSE 117; RESP 26; TEMP -17.7; TEMP 0; O2SAT 75; BMI 28.7
--- NOTE | 2025-03-04 20:33 | ECG_ITS ---
Test Reason : DYSPNEA Blood Pressure : */* mmHG Vent. Rate : 113 BPM Atrial Rate : 113 BPM P-R Int : 156 ms QRS Dur : 96 ms QT Int : 352 ms P-R-T Axes : 45 45 17 degrees QTcB Int : 482 ms Sinus tachycardia Possible Left atrial enlargement T wave abnormality, consider anterior ischemia Abnormal ECG When compared with ECG of 28-Feb-2025 21:44, T wave inversion now evident in Anterior leads Referred By: Lily Walters Electronically Signed By: CHARLES LIMA
[2025-03-04 21:10] LABS: MANUAL DIFF FLAG NO
[2025-03-04 21:11] LABS: VBG Base Excess 11.1 mmol/L; VBG HCO3 36 mmol/L (22-26); VBG pCO2 47 mmHg; VBG pH 7.48 (7.32-7.43); VBG pO2 48 mmHg
[2025-03-04 21:11] LABS: Venous Blood Gas Refer to POC result
--- NOTE | 2025-03-04 21:12 | ED_ITS ---
HPI - General Adult General Chief complaint: Dyspnea Stated complaint: pneumonia Time Seen by Provider: 03/04/25 21:03 Source: patient Mode of arrival: ambulatory Limitations: no limitations History of Present Illness ED Provider: Dr. Tracy Atkins HPI narrative: Patient comes to the emergency room complaining of shortness of breath. Patient known to have pneumonia. Patient left against medical advice 3 days ago. Patient was admitted, states she took p.o. antibiotics but she is actually getting worse. I was informed by the triage nurse and provider, that on arrival patient's oxygen saturation was 71% on room air. Patient complaining of right- sided rib pain. Patient states that this time she is going to stay for the entire course of hospitalization Related Data Home Medications ?Medication ?Instructions ?Recorded ?Confirmed cholecalciferol (vitamin D3) 25 25 mcg PO DAILY 11/07/22 03/01/25 mcg (1,000 unit) tablet (Vitamin D3) multivitamin 1 tab PO DAILY 11/07/22 03/01/25 albuterol sulfate 90 mcg/actuation 2 puff inhalation Q4H PRN 03/01/25 03/01/25 aerosol inhaler (Ventolin HFA) Shortness Of Breath Or Wheezing amitriptyline 100 mg tablet 100 mg PO BEDTIME 03/01/25 03/01/25 aripiprazole 5 mg tablet (Abilify) 5 mg PO DAILY 03/01/25 03/01/25 buprenorphine 8 mg-naloxone 2 mg 1 film sublingual BID 03/01/25 03/01/25 sublingual film cariprazine 3 mg capsule (Vraylar) 3 mg PO BEDTIME 03/01/25 03/01/25 clonazepam 2 mg tablet 2 mg PO BID 03/01/25 03/01/25 fluticasone propionate 230 2 puff inhalation BID 03/01/25 03/01/25 mcg-salmeterol 21 mcg/actuation HFA inhaler (Advair HFA) ipratropium 0.5 mg-albuterol 3 mg 3 ml inhalation QID PRN Shortness 03/01/25 03/01/25 (2.5 mg base)/3 mL nebulization Of Breath Or Wheezing soln ipratropium 20 mcg-albuterol 100 2 puff inhalation BID 03/01/25 03/01/25 mcg/actuation mist for inhalation (Combivent Respimat) methylphenidate HCl 54 mg 54 mg PO DAILY 03/01/25 03/01/25 tablet,extended release 24 hr (Concerta) omeprazole 20 mg capsule,delayed 40 mg PO BEDTIME@2100 03/01/25 03/01/25 release prazosin 5 mg capsule 5 mg PO BEDTIME 03/01/25 03/01/25 pregabalin 150 mg capsule 150 mg PO BID 03/01/25 03/01/25 Previous Rx's ?Medication ?Instructions ?Recorded ondansetron 4 mg disintegrating 4 mg PO Q8H PRN nausea and 01/24/24 tablet vomiting 4 days #7 tabs cefuroxime axetil 500 mg tablet 500 mg PO Q12H 5 days #10 tabs 03/01/25 doxycycline monohydrate 100 mg 100 mg PO BID 5 days #10 tabs 03/01/25 tablet Allergies Allergy/AdvReac Type Severity Reaction Status Date / Time No Known Allergies Allergy Verified 03/04/25 20:32 Review of Systems 2 Review of Systems: Constitutional : No Weight loss, No Fever, No Chills, No Night Sweats, No Fatigue, No Malaise ENT/Mouth : No Hearing loss, No Ear Pain, No Nasal Congestion, No Sinus Pain, No Hoarseness, No sore throat, No Rhinorrhea, No Swallowing Difficulty Eyes: No Eye Pain, No Swelling, No Redness, No Foreign Body, No Discharge, No Vision Changes Cardiovascular : Complaining of right-sided rib pain, no chest pain,, No SOB, No Dyspnea on Exertion, No Orthopnea, No Edema, No Palpitations Respiratory : Complaining of cough, no wheezing, complaining of shortness of breath Gastrointestinal : No Nausea, No Vomiting, No Diarrhea, No Constipation, No abdominal Pain, No Hematochezia, No Melena Genitourinary : no irregular bleeding, No Dysuria, No Urinary Frequency, No Hematuria, No Urinary Incontinence, No Urgency, No Flank Pain, No Urinary Flow Changes, No Hesitancy Musculoskeletal : No joint pain, No Myalgias, No Joint Swelling Skin : No Skin Lesions, No rash Neuro : No Weakness, No Numbness, No Paresthesias, No Loss of Consciousness, No Dizziness, No Headache Psych : No Anxiety/Panic, No Depression, No SI/HI/AH/VH, No Social Issues, Heme/Lymph: No Bruising, No Bleeding,No Lymphadenopathy Endocrine : No Polyuria, No Polydipsia, No Temperature Intolerance [facility] Past Medical History Medical History Bipolar disorder Interstitial lung disease Hepatitis C IV drug user Social History Social History Household Members: Other Household Members Other:: sister Housing: House Do you presently have visiting nurse or other home services: No Alcohol intake: current Alcohol intake frequency: holidays/special occasions only Patient Tobacco Use Status: Former Tobacco user Substance Use Type: Crack/Cocaine and Marijuana Advance Directives: No Advance Directives Information Provided: Yes Do you have a plan to hurt others: No Plan Physical Exam ED Vital Signs: Vital Signs - 24 hr 03/04/25 20:27 03/04/25 21:42 Temperature 0 F L 99.5 F Pulse Rate 117 H 107 H Respiratory Rate 26 H 18 Blood Pressure 108/78 96/63 Pulse Oximetry 75 L 98 Oxygen Delivery Method Room Air Nasal Cannula Oxygen Flow Rate 5 BMI result Body Mass Index 28.7 Const Other: Appearance: Alert. Oriented X3. Ill-appearing Eyes: Pupils equal, round and reactive to light. ENT: Pharynx normal. Neck: Normal inspection. Neck supple. No lymph nodes noted. No crepitus CVS: Normal heart rate and rhythm. Pulses normal. Normal S1 and S2 Respiratory: Patient's oxygen saturation 71% on room air. Now on 4 L 95%, bilateral rales, no wheezing at this time Abdomen: Soft and nontender. No rigidity. No distention. Skin: Skin warm and dry. Normal skin color. Normal skin turgor. Extremities: No lower extremity edema. No Lacerations. No Rash Neuro: Oriented X 3. No motor deficit. No sensory deficit. Moving all extremities. No slurred speech. CN 2 through 12 grossly intact Psych: calm, cooperative, normal affect Course Course Course Narrative: Patient was admitted on March 01 and patient left against medical advice the same day. Patient known to be IV drug user. Patient had a CTA done 3 days ago, showing no PEs, bilateral multi lobar lung opacities At this time, patient's blood pressure is stable, 108/78, heart rate 117, oxygen saturation 75% on room air, 95% on 4 L. At this time, 21:19, sepsis is not suspected. Patient is empirically being treated with IV fluids, ceftriaxone and azithromycin. I discussed with the patient that she will need admission and she is agreeable to stay through the entire course of hospitalization Medications Administered Generic Name Dose Route Start Last Admin Trade Name Freq PRN Reason Stop Dose Admin Sodium Chloride 2,277 mls @ 2,277 mls/hr 03/04/25 21:08 03/04/25 21:30 Ns 30 ml/kg infuse over 1 hr (2277 ml) 03/04/25 22:07 2,277 mls/hr IV Administration .Q1H STA Azithromycin 500 mg/ Sodium 250 mls @ 125 mls/hr 03/04/25 21:08 03/04/25 21:30 Chloride IV 03/04/25 23:07 125 mls/hr ONCE ONE Administration Discontinued Medications Generic Name Dose Route Start Last Admin Trade Name Freq PRN Reason Stop Dose Admin Ceftriaxone Sodium 1 gm 03/04/25 21:08 03/04/25 21:30 Ceftriaxone Sodium 1 Gm Vial IVPUSH 03/04/25 21:09 1 gm ONCE ONE Administration Ketorolac Tromethamine 30 mg 03/04/25 21:13 03/04/25 21:29 Ketorolac Tromethamine 30 Mg/Ml Vial IVPUSH 03/04/25 21:14 30 mg ONCE ONE Administration Medical Decision Making Medical Decision Making [facility] Narrative: Patient's white blood cell count 17.6, pH 7.48, pCO2 47, bicarb 36, chronic and stable. Patient's chemistry shows a potassium of 3.1, repleted p.o. patient's troponin is 44.7, we will repeat in 1 hour. Elevated troponin likely secondary to demand ischemia. Patient was hypoxic in the 70s for unknown period of time, possibly couple of days. Serology negative for influenza RSV and COVID Chest x-ray shows bilateral pneumonia, similar to CT scan findings of 3 days ago. I discussed the patient with Dr. Jimenez, patient being admitted Differential Diagnosis Differential Diagnoses: The differential diagnosis associated with the presentation includes (As above) Admission/Observation Consideration of admission/observation: Escalation of care including admission/observation considered Consult Healthcare Provider Management of the patient was discussed with: Hospitalist Lab Data [facility] Lab Attestation statement: I reviewed the patient's lab results. 03/04/25 21:03 03/04/25 21:03 Labs: Lab Results 03/04/25 03/04/25 Range/Units 21:03 21:08 WBC 17.6 H (4.8-10.8) X10*3/uL RBC 3.96 L (4.20-5.50) X10*6/uL Hgb 11.3 L (12.0-16.0) g/dl Hct 34.4 L (37.0-47.0) % MCV 86.9 (80.0-98.0) fL MCH 28.5 (27.0-33.0) pg MCHC 32.8 (31.0-35.0) g/dl RDW 15.1 (11.0-16.0) % Plt Count 381 D (160-400) X10*3/uL MPV 9.5 (9.4-12.3) fL Immature Gran % (Auto) 2.2 H (0.0-0.4) % Neut % (Auto) 79.2 H (45-73) % Lymph % (Auto) 10.7 L (20-40) % [place] % (Auto) 5.5 (2-11) % Eos % (Auto) 2.1 (0-4) % Baso % (Auto) 0.3 (0-2) % Lymph # (Auto) 1.9 (1.2-4.9) X10*3/uL [place] # (Auto) 1.0 (0.1-1.2) X10*3/uL Eos # (Auto) 0.4 (0.0-0.4) X10*3/uL Baso # (Auto) 0.1 (0.0-0.2) X10*3/uL Abs Immat Gran (auto) 0.38 H (0.00-0.03) X10*3/uL Absolute Neuts (auto) 13.9 H (2.0-8.3) x10*3/uL Absolute Nucleated RBC 0.000 (0.0-0.012) X10*3/uL Nucleated RBC % (auto) 0.0 (0.0-0.2) /100WBC VBG pH 7.48 H (7.32-7.43) VBG pCO2 47 mmHg VBG pO2 48 mmHg VBG HCO3 36 H (22-26) mmol/L VBG O2 Saturation 74.0 % VBG Base Excess 11.1 mmol/L Sodium 138 (135-145) mmol/L Potassium 3.1 L (3.3-5.1) mmol/L Chloride 99 (96-108) mmol/L Carbon Dioxide 27 (22-29) mmol/L Anion Gap 15 (12-20) BUN 10 (9-16) mg/dL Creatinine 0.59 (0.5-1.4) mg/dL Estim Creat Clear Calc 118.8 Estimated GFR > 60 Random Glucose 109 (60-115) mg/dL Lactic Acid 0.9 (0.5-2.0) mmol/L Calcium 9.0 D (8.4-10.2) mg/dL Magnesium 1.7 (1.6-2.6) mg/dL Total Bilirubin 0.4 (0.0-1.0) mg/dL Direct Bilirubin 0.2 (0.0-0.5) mg/dL AST 38 H (5-31) U/L ALT 25 (0-31) U/L Alkaline Phosphatase 85 (39-117) U/L Troponin I High Sens 44.7 H D (<3.5-17.0) ng/L Total Protein 8.1 H (6.5-8.0) g/dL Albumin 3.6 (3.5-5.0) g/dL Influenza Type A (PCR) NEGATIVE (Negative) Influenza Type B (PCR) NEGATIVE (Negative) RSV RNA Qual (PCR) NEGATIVE (Negative) SARS-CoV-2 RNA (RT-PCR) NEGATIVE (Negative) Independent Interpretation I performed an independent interpretation of an: Plain X-Ray Radiology Impression Discussion of test interpretation with radiology: I have reviewed the radiologist's reading. Radiologist Impression: Bilateral opacities are similar to the CT from 03/01/2025. No large effusion or pneumothorax. Cardiomediastinal silhouette is stable. No acute fracture. IMPRESSION: Bilateral opacities are similar to the CT from 03/01/2025. Critical Care Time Critical Care Time Critical Care Time: Yes Total Critical Care Time: 60 Attestation: I have personally provided critical care time. Time includes review of lab data, radiology results, discussion with consultants, and monitoring for potential decompensation. Intervention performed as documented. Discharge Plan Discharge Clinical Impression: Pneumonia, Acute hypokalemia Patient Disposition: Admitted As Inpatient Prescriptions: No Action multivitamin Tablet 1 tab PO DAILY cholecalciferol (vitamin D3) [Vitamin D3] 25 mcg (1,000 unit) Tablet 25 mcg PO DAILY buprenorphine-naloxone 8-2 mg film 1 film sublingual BID methylphenidate HCl [Concerta] 54 mg Tablet Extended Release 24hr 54 mg PO DAILY prazosin 5 mg Capsule 5 mg PO BEDTIME clonazepam 2 mg Tablet 2 mg PO BID omeprazole 20 mg Capsule,Delayed Release(Dr/Ec) 40 mg PO BEDTIME@2100 albuterol sulfate [Ventolin HFA] 90 mcg/actuation Hfa Aerosol Inhaler 2 puff INHALATION Q4H PRN (Reason: Shortness Of Breath Or Wheezing) amitriptyline 100 mg Tablet 100 mg PO BEDTIME aripiprazole [Abilify] 5 mg Tablet 5 mg PO DAILY pregabalin 150 mg Capsule 150 mg PO BID Combivent Respimat 20-100 mcg/actuation Mist 2 puff INHALATION BID Vraylar 3 mg Capsule 3 mg PO BEDTIME ipratropium-albuterol 0.5 mg-3 mg(2.5 mg base)/3 mL Solution For Nebulization 3 ml INHALATION QID PRN (Reason: Shortness Of Breath Or Wheezing) fluticasone propion-salmeterol [Advair HFA] 230-21 mcg/actuation Hfa Aerosol Inhaler 2 puff INHALATION BID cefuroxime axetil 500 mg tablet 500 mg PO Q12H 5 Days Qty: 10 0RF doxycycline monohydrate 100 mg tablet 100 mg PO BID 5 Days Qty: 10 0RF ondansetron 4 mg tablet,disintegrating 4 mg PO Q8H PRN (Reason: nausea and vomiting) 4 Days Qty: 7 0RF Print Language: Niuean
[2025-03-04 21:13] LABS: Basophils Absolute Auto 0.1 X10*3/uL (0.0-0.2); Basophils Percent Auto 0.3 % (0-2); Eosinophils Absolute Auto 0.4 X10*3/uL (0.0-0.4); Eosinophils Percent Auto 2.1 % (0-4); Hematocrit 34.4 % (37.0-47.0); Hemoglobin 11.3 g/dl (12.0-16.0); Imm Gran Abs Auto 0.38 X10*3/uL (0.00-0.03); Imm Gran Pct Auto 2.2 % (0.0-0.4); Lymphocytes Absolute Auto 1.9 X10*3/uL (1.2-4.9); Lymphocytes Percent Auto 10.7 % (20-40); Mean Corpuscular HGB Conc 32.8 g/dl (31.0-35.0); Mean Corpuscular Hemoglobin 28.5 pg (27.0-33.0); Mean Corpuscular Volume 86.9 fL (80.0-98.0); Mean Platelet Volume 9.5 fL (9.4-12.3); Monocytes Percent Auto 5.5 % (2-11); Neutrophils Absolute Auto 13.9 x10*3/uL (2.0-8.3); Neutrophils Percent Auto 79.2 % (45-73); Platelet Count 381 X10*3/uL (160-400); Red Blood Count 3.96 X10*6/uL (4.20-5.50); Red Cell Distribution Width 15.1 % (11.0-16.0); White Blood Count 17.6 X10*3/uL (4.8-10.8)
--- OUTSIDE RECORDS SUMMARY | 2025-03-04 21:14 | XMS_ITS ---
Author Organization [facility] Address [address], [place] [id number] Care Team Providers Care Oliver Filter Operator Name Role Phone ROLDAN Lemon Primary Care Provider Liza Crespo [phone] REASON FOR VISIT Program addiction Encounters Encounter Location Date Provider Diagnosis [facility] [address] [place] [phone] 11/02/2024 Liza Alejandre Plan Of Treatment No Information Progress Notes * Alcira MARTELL mDOB:[birth year] (44 yo F)Acc No.[id number]:11/02/2024 Case Management Patient:?Alcira MARTELL Provider:?Liza Alejandre :1980???Age:44 Y???Sex:Female D ate:11/02/2024 Address:[address] [place], [place] [phone] Pcp:ROLDAN Ragsdale Subjective: * Chief Complaints: * ???1. Program addiction. * HPI: ???Social Service:?Date of encounter?11/02/2024.?Referral Source?walk-in, self.?Interpretation for medical provider?Substance Abuse.?Advocacy?Phone call(s) to Detox.?Follow-up Required:?yes.?Pt comprehension?Pt agrees with plan, Patient understood process and assisted with process.?Action taken (old)?form completion.? * Medical History:? Objective: * Vitals:? Assessment: Plan: * Treatment: * Images: Billing Information: * Visit Code:? * Procedure Codes:? Care Plan Details* * Sign off status: Completed true * Provider:?Liza Alejandre Date:? Generated for Graciela sanchez/Minerva/Julian on:?03/04/2025 09:14 PM EDT History and Physical Notes * HPI (History of Present Illness) Category Sub-Category Detail Notes Social Service Referral Source walk-in, self Interpretation for medical provider Subs tance Abuse Action taken (old) form completion Advocacy Phone call(s) to Det ox Follow-up Required: yes Pt comprehension Pt agrees with plan, Patient understood process and assisted with process Date of encounter 11/02/2024
--- OUTSIDE RECORDS SUMMARY | 2025-03-04 21:14 | XMS_ITS | Clinical Summary ---
Author Organization [facility] Address [address] [place] [address] Care Team Providers Care Grey Goods Tester Name Role Phone Unavailable Primary Care Provider Unavailabl e Source Comments PLEASE NOTE, if this patient is a minor, it may be UNLAWFUL to discuss sensitive information that is contained in these records (such as FAMILY PLANNING, MENTAL HEALTH or SUBSTANCE ABUSE) with the minor patient's parent or other person without the patient's specific authorization.[facility] Allergies No known active allergies Medications amoxicillin (AMOXIL) 500 mg capsuleIndicati ons:Tooth infection Take 1 Capsule by mouth 3 (three) times daily 21 Capsule 09/03/2021 Active ibuprofen 600 mg tabletIndicatio ns:Tooth pain Take 1 Tablet by mouth 4 (four) times daily as needed for pain 30 Tablet 09/03/2021 Active Active Problems No known active problems Social History Tobacco Use Types Packs/Day Years Used Date Smoking Tobacco: Every Day Cigarettes Smokeless Tobacco: Never Tobacco Cessation:Ready to Q uit: Not Asked; Counseling Given: Not Answered Social Connections Answer Date Recorded Connectedness 0 07/20/2024 Financial Resource Strain Answer Date R ecorded Financial Resource Strain 0 2021 Stress Answer Date Recorded Stress 0 03/09/2022 Physical Activity Answer Date Recorded Physical Activity 0 03/09/2022 Food Insecurity Answer Date Recorded Food 0 07/27/2024 Transportation Needs Answer Date Record ed Transportation 0 03/09/2022 Housing Stability Answer Date Recorded Housing 0 03/09/2022 Safety and Environment Answer Date Rayray rded Safety 0 03/09/2022 Utilities Answer Date Recorded Utilities 0 03/09/2022 Employment Answer Date Recorded Stress 0 07/20/2024 Comments Unknown Sex and Gender Information Value Date Recorded Sex Assigned at Not on file Legal Sex Female 10:42 AM PDT Gender Identity Not on file Sexual Orientation Not on file Last Filed Vital Signs Vital Sign Reading Time Taken Comments Blood Pressure 111/75 02/24/2024 1:22 PM EDT Pulse 97 02/24/2024 1:22 PM EDT Temperature - - Respiratory Rate - - Oxygen Saturation - - Inhaled Oxygen Concentration - - Weight - - Height - - Body Mass Index - - Plan of Treatment Health Maintenance Due Date Last Done Comments Anxiety Screening 1979 Dental FMX/Pano 1979 Diabetes Screening 1979 HPV Screening 1979 Hepatitis C Screening 1979 Lipid Screening 1979 Pap + HPV 1979 Tobacco Cessation Counseling (#1) 1979 Tobacco Screening 1979 HIV Screening 1994 Relationship Safety Screening/Counseling 1994 Medicare Annual Wellness Visit 1997 Cervical Cancer Screening 01/13/2000 Pap Smear 01/13/2000 Imm-Pneumococcal (2 of 2 - PCV) 06/08/2018 7 Breast Cancer Screening (Mammogram) 2019 Dental Perio Charting 03/11/2023 03/09/2022 CT Colonography 01/13/2024 Colonoscopy 01/13/2024 Colorectal Cancer Screening 01/13/2024 FIT/gFOBT 01/13/2024 Fecal DNA 01/13/2024 Flexible Sigmoidoscopy 01/13/2024 [id number] ( season) 2024 022, 04/01/2021 Imm-Influenza (#1) 2024 Alcohol and Drug Screen 11/01/2024 Depression Annual Screen 11/01/2024 Dental BW 11/21/2024 11/19/2023, 03/09/2022 Dental Examination 11/21/2024 11/19/2023, 03/09/2022 Dental Prophy 11/21/2024 11/19/2023 Hypertension Screening (#1) 02/23/2025 Imm-DTaP/Tdap/Td (7 - Td or Tdap) 05/18/2029 05/18/2019, 06/08/2017, 11/07/2007, Additional history exists Imm-Hepatitis B Completed 01/25/1996, 07/03, 05/25/1995 Cervical Ablation/Cold-Knife Conization Discontinued Cervical Cryotherapy Discontinued Colposcopy Discontinued Endometrial Biopsy Discontinued Excision/Leep Discontinued HPV Genotyping Discontinued Vaginal Pap Discontinued Vulvoscopy Discontinued Procedures Procedure Name Priority Date/Time Associated Diagnosis Comments BITEWINGS - FOUR RADIOGRAPHIC IMAGES Routine 11/19/2023 1:40 PM EST Encounter for dental examination and cleaning with abnormal findings Disturbance of salivary secretion Dental caries on smooth surface penetrating into dentin PROPHYLAXIS - ADULT Routine 11/19/2023 1 :40 PM EST Encounter for dental examination and cleaning with abnormal findings Disturbance of salivary secretion Dental caries on smooth surface penetrating into dentin PERIODIC ORAL EVALUATION ESTABLISHED PATIENT Routine 11/19/2023 1:40 PM EST Encounter for dental examination and cleaning with abnormal findings Disturbance of salivary secretion Dental caries on smooth surface penetrating into dentin COMP PERIODONTAL EVALUATION - NEW/EST PATIENT Routine 03/09/2022 1:00 PM EDT Encounter for dental examination from Last 3 Months or Most Recently Relevant to Health Maintenance Insurance [facility]
--- OUTSIDE RECORDS SUMMARY | 2025-03-04 21:14 | XMS_ITS | Patient Health Record ---
Author Organization [facility] Address [address], [place] [phone] Care Team Providers Care Information Assurance Engineer Name Role Phone Igor Melyssa [facility] Primary Care Provider Liza Crespo Reason For Referral No Information Encounters Encounter Location Date Provider Diagnosis [facility] [address] [place] [phone] 10/10/2024 Liza Alejandre [facility] [address] [place] [phone] 10/04/2024 Liza Alejandre [facility] [address] [place] [phone] 11/02/2024 Liza Alejandre Plan Of Treatment No Information Insurance Providers Payer Name Payer Address Payer Phone Subscriber Number Group Number Insured Name Patient Relationship to Insured Coverage Start Date Coverage End Date [facility] Medic[employer]- Part B [employer] [address] [place] [phone] Alcira Martell Self - patient is the insured
--- OUTSIDE RECORDS SUMMARY | 2025-03-04 21:15 | XMS_ITS ---
Author Organization [facility] Address [address], [place] [phone] Care Team Providers Care Cook Boat Name Role Phone ROLDAN Lemon Primary Care Provider Liza Crespo Encounters Encounter Location Date Provider Diagnosis [facility] [address] [place] [phone] 10/04/2024 Liza Alejandre Plan Of Treatment No Information Progress Notes * ROMY Alcira mDOB:[birth year] (44 yo F)Acc No.[id number]:10/04/2024 Case Management Patient:?Alcira MARTELL Provider:?Liza Alejandre :1980???Age:44 Y???Sex:Female D ate:10/04/2024 Address:[address] [place], [place] [phone] Pcp:ROLDAN Ragsdale Subjective: * Chief Complaints: * ??? * HPI: ???Social Service:?Referral Source?walk-in.?Interpretation for medical provider?housing, Benefits, Mail turkey picker.? Client came in seeking assistance with housing search client reports being doubled up and the need of a mailing address and low income housing.Client is on a fixed income at this time. Client also referred to [facility] for services. * Medical History:? Objective: * Vitals:? Assessment: Plan: * Treatment: * Images: Billing Information: * Visit Code:? * Procedure Codes:? Care Plan Details* * Sign off status: Completed true * Provider:?Liza Alejandre Date:? Generated for Graciela sanchez/Minerva/Naeitting on:?03/04/2025 09:14 PM EDT History and Physical Notes * HPI (History of Present Illness) Category Sub-Category Detail Notes Social Service Referral Source walk-in Interpretation for medical provider hous ing, Benefits, Mail turkey picker
[2025-03-04 21:23] LABS: Lactic Acid 0.9 mmol/L (0.5-2.0)
[2025-03-04 21:28] LABS: Alanine Aminotransferase 25 U/L (0-31); Albumin Level 3.6 g/dL (3.5-5.0); Alkaline Phosphatase 85 U/L (39-117); Anion Gap 15 (12-20); Aspartate Amino Transferase 38 U/L (5-31); Bilirubin Direct 0.2 mg/dL (0.0-0.5); Bilirubin Total 0.4 mg/dL (0.0-1.0); Blood Urea Nitrogen 10 mg/dL (9-16); Carbon Dioxide 27 mmol/L (22-29); Chloride 99 mmol/L (96-108); Creatinine Clr Calc Pharmacy 118.8; Estimated Glomerular Filt Rate > 60; Glucose Random 109 mg/dL (60-115); Magnesium 1.7 mg/dL (1.6-2.6); Potassium 3.1 mmol/L (3.3-5.1); Sodium 138 mmol/L (135-145); Total Protein 8.1 g/dL (6.5-8.0)
[2025-03-04] MEDS: Ketorolac Tromethamine 30 MG/ML VIAL IVPUSH (21:29)
[2025-03-04] MEDS: cefTRIAXone sodium 1 GM VIAL IVPUSH (21:30)
[2025-03-04] MEDS: SODIUM CHLORIDE 2277 ML IV (21:30)
[2025-03-04] MEDS: Azithromycin 500 MG in 0.9 % Sodium Chloride 250 ML 125 MG IV (21:30)
[2025-03-04 21:35] LABS: Troponin-I High Sensitivity 44.7 ng/L (<3.5-17.0)
[2025-03-04 21:42] VITALS: BP 96/63; PULSE 107; RESP 18; TEMP 37.5; O2SAT 98
[2025-03-04 21:51] LABS: Influenza A PCR NEGATIVE (Negative); Influenza B PCR NEGATIVE (Negative); Resp Syncy Virus RNA Qual PCR NEGATIVE (Negative); SARS COV2 PCR INHOUSE NEGATIVE (Negative)
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
[2025-03-04] MEDS: Potassium Chloride Packet 20 MEQ PACKET 40 MEQ PO (23:21)
[2025-03-04] MEDS: Potassium Chloride ER 20 MEQ TAB.ER.PRT PO (23:22)
[2025-03-04] MEDS: Albumin Human 25 % 100 ML 133.33 ML IV (23:23)
[2025-03-04] MEDS: Enoxaparin Sodium 40 MG/0.4 ML SYRINGE SUBCUT (23:23)
[2025-03-05] MEDS: vancomycin/NS 2,000 MG/500 ML PLAST..BAG 250 MG IV (00:01)
[2025-03-05] MEDS: Piperacillin Sodium/Tazobactam 4.5 GM in 0.9 % Sodium Chloride 100 ML IV ×5 (00:31→23:38)
[2025-03-05] MEDS: Albumin Human 25 % 100 ML 133.33 ML IV (00:31)
[2025-03-05] MEDS: 0.9 % Sodium Chloride Flush 3 ML SYRINGE IVFLUSH ×4 (00:31→19:58)
[2025-03-05] MEDS: Lactated Ringers 1,000 ML 999 ML IV (01:54)
[2025-03-05 02:12] VITALS: BP 96/64; PULSE 92; RESP 22; TEMP 36.6; O2SAT 97
[2025-03-05 02:31] LABS: Lactic Acid 1.3 mmol/L (0.5-2.0)
[2025-03-05 06:45] VITALS: BP 114/65; PULSE 90; RESP 18; TEMP 36.1; O2SAT 92
[2025-03-05 07:27] VITALS: BP 107/68; PULSE 93; RESP 18; TEMP 36.2; O2SAT 89
--- NOTE | 2025-03-05 08:04 | PC.NURSE ---
pt O2 sat 89 on room air. Pt currently refusing to wear oxygen. Keila Ricci FOREMAN/[employer] aware.
[2025-03-05] MEDS: Buprenorphine/Naloxone 8/2 mg FILM 1 FILM SUBLINGUAL ×2 (08:08→19:58)
[2025-03-05] MEDS: clonazePAM 1 MG TABLET 2 MG PO ×2 (08:08→18:28)
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
--- NOTE | 2025-03-05 09:29 | PHA.MEDREC ---
Addendum entered by Carmen Ortega RPh 03/05/25 10:00: reviewed by [facility]. Original Note: Pharmacy Consult ? Medication Reconciliation Pharmacy has completed the medication reconciliation. Spoke to patient to confirm med list. Patient states she was just discharged 2 days ago and there are no changes to her medications. Patient states she has one more day left of doxycycline [place] 100mg and Cefuroxime axe 500 mg. Utilized discharge summery and list from [facility] to confirm med list.
[2025-03-05] MEDS: vancomycin HCL 1,250 MG in 0.9 % Sodium Chloride 250 ML 166.67 MG IV ×2 (10:51→22:01)
--- NOTE | 2025-03-05 11:26 | PC.NURSE ---
At 0945 this morning pt making SI statements to this commercial loan underwriter. Keila Ricci DICTATING MACHINE MECHANIC made aware. Sitter placed in room. Safety tray ordered. Pt currently resting in room with eyes closed breathing even and unlabored.
--- NOTE | 2025-03-05 12:46 | MHC.CM.PN ---
OT REPORTS [facility] STATING [facility]TA PT HAS BEEN APPROVED FOR ADULT FOSTER CARE PROGRAM LEVEL 2 WHICH MEANS THEY ARE LOOKG FORA NURSING HOME [facility] WILL GET BACK TO US WITH THE STSUS OF THAT SEARCH
[2025-03-05] MEDS: Pregabalin 150 MG CAPSULE PO ×2 (12:54→19:57)
[2025-03-05] MEDS: ARIPiprazole 5 MG TABLET PO (12:54)
[2025-03-05 15:10] VITALS: BP 111/67; PULSE 94; RESP 16; TEMP 36.6; O2SAT 93
--- NOTE | 2025-03-05 16:12 | P.CDIM_ITS ---
PROVIDER RESPONSE TEXT: To clarify, the appropriate diagnosis supported by the clinical indicators: Type 2 Myocardial infarction: possible QUERY TEXT: PHYSICIAN'S DOCUMENTATION REQUEST Date of Query: 03/05/2025 11:31 AM EDT Patient Name: Alcira Martell Admit Date: 03/05/2025 Dear Keila Ricci ASSISTANT DIRECTOR OF SECURITY, A review of the medical record indicates additional documentation may be needed. Please review below and update the documentation accordingly. Clinical Indicators: ED 03/04/25 - Elevated troponins likely secondary to demand ischemia, hypoxia in the 70's. Troponins 44.7 EKG/Electrocardiogram H&P 03/04/25: Elevated troponin likely Type 2 in the setting of above and cocaine use. Please clarify if there is a diagnosis that correlates with the elevated troponins: Type 2 Myocardial infarction possible, suspected, cannot rule out, ruled out etc. Other specified Other (explain) Clinically unable to determine (explain) Thank you, Acacia Cutler, CCS, CDIS Use of terms such as suspected, likely, concern for, or probable (associated with a specific diagnosi s that is being evaluated, monitored, or treated as if it exists) are acceptable and can be coded in the inpatient se tting, when documented at the time of discharge. Please use your independent medical judgment in providing your response. THIS QUERY IS PART OF THE PERMANENT MEDICAL RECORD
[2025-03-05 19:01] VITALS: BP 116/69; PULSE 92; RESP 15; TEMP 36.5; O2SAT 90
[2025-03-05] MEDS: Omeprazole 40 MG CAPSULE.DR PO (19:57)
[2025-03-05] MEDS: Cariprazine HCl 3 MG CAPSULE PO (19:57)
[2025-03-05] MEDS: Melatonin 3 MG TABLET 6 MG PO (19:57)
[2025-03-05] MEDS: Prazosin HCL 5 MG CAPSULE PO (19:57)
[2025-03-05] MEDS: Amitriptyline HCl 50 MG TABLET 100 MG PO (19:57)
[2025-03-05 21:21] LABS: MANUAL DIFF FLAG NO
[2025-03-05 21:23] LABS: Basophils Percent Auto 0.2 % (0-2); Eosinophils Absolute Auto 0.4 X10*3/uL (0.0-0.4); Eosinophils Percent Auto 4.3 % (0-4); Hematocrit 28.5 % (37.0-47.0); Hemoglobin 9.4 g/dl (12.0-16.0); Imm Gran Abs Auto 0.15 X10*3/uL (0.00-0.03); Imm Gran Pct Auto 1.8 % (0.0-0.4); Lymphocytes Absolute Auto 1.7 X10*3/uL (1.2-4.9); Lymphocytes Percent Auto 20.3 % (20-40); Mean Corpuscular Hemoglobin 29.1 pg (27.0-33.0); Mean Corpuscular Volume 88.2 fL (80.0-98.0); Mean Platelet Volume 9.7 fL (9.4-12.3); Monocytes Absolute Auto 0.6 X10*3/uL (0.1-1.2); Monocytes Percent Auto 6.8 % (2-11); Neutrophils Absolute Auto 5.6 x10*3/uL (2.0-8.3); Neutrophils Percent Auto 66.6 % (45-73); Platelet Count 316 X10*3/uL (160-400); Red Blood Count 3.23 X10*6/uL (4.20-5.50); White Blood Count 8.4 X10*3/uL (4.8-10.8)
[2025-03-05 21:38] LABS: Vancomycin Random 11.4 mcg/mL (15-20)
[2025-03-05 21:42] LABS: Anion Gap 11 (12-20); Blood Urea Nitrogen 12 mg/dL (9-16); Calcium 7.9 mg/dL (8.4-10.2); Carbon Dioxide 28 mmol/L (22-29); Chloride 105 mmol/L (96-108); Creatinine Clr Calc Pharmacy 120.9; Estimated Glomerular Filt Rate > 60; Glucose Random 114 mg/dL (60-115); Sodium 140 mmol/L (135-145)
[2025-03-05] MEDS: Enoxaparin Sodium 40 MG/0.4 ML SYRINGE SUBCUT (22:01)
--- NOTE | 2025-03-05 22:09 | HE.PHANOTE ---
VANCO DOSE ADJUSTMENT BASED ON SCR AND TROUGH OF 11.4. DOSE CONTINUED AT 1250 Q 12H, NEXT LEVEL 03/06 @ 2100
[2025-03-06 03:37] VITALS: BP 107/67; PULSE 97; RESP 18; TEMP 36.6; O2SAT 94
[2025-03-06] MEDS: Piperacillin Sodium/Tazobactam 4.5 GM in 0.9 % Sodium Chloride 100 ML IV ×3 (05:08→17:09)
[2025-03-06 06:39] LABS: Creatinine Clr Calc Pharmacy 125.1; Estimated Glomerular Filt Rate > 60
[2025-03-06 07:27] VITALS: BP 106/71; PULSE 85; RESP 18; TEMP 36.8; O2SAT 98
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
[2025-03-06] MEDS: Pregabalin 150 MG CAPSULE PO ×2 (08:17→22:33)
[2025-03-06] MEDS: Multivitamin TABLET 1 TAB PO (08:17)
[2025-03-06] MEDS: ARIPiprazole 5 MG TABLET PO (08:17)
[2025-03-06] MEDS: Cholecalciferol (Vitamin D3) 25 MCG TABLET PO (08:17)
[2025-03-06] MEDS: Buprenorphine/Naloxone 8/2 mg FILM 1 FILM SUBLINGUAL ×2 (08:18→22:33)
[2025-03-06] MEDS: 0.9 % Sodium Chloride Flush 3 ML SYRINGE IVFLUSH ×2 (08:18→22:35)
--- NOTE | 2025-03-06 08:56 | MHC.CM.PN ---
received call back from mario alberto /tata who spoke with the [facility] looking for a skilled nursing for pt the [facility] are speaking directly to pt they explained they may not have agroup home when pt ready for dc and that she may have to go to a [place] [facility] [place] while waiting on a skilled nursing
--- NOTE | 2025-03-06 09:59 | MHC.CARE ---
Pt meets the criteria for a DUAL DX unit and will be a bedsearch. Provider in agreement.
[2025-03-06] MEDS: vancomycin HCL 1,250 MG in 0.9 % Sodium Chloride 250 ML 166.67 MG IV ×2 (10:55→22:34)
[2025-03-06 12:38] LABS: Appearance Urine Clear; Color Urine Yellow; Glucose Urine UA Negative (Negative); Leukocyte Esterase Urine Negative (Negative); Nitrite Urine Negative (Negative); Urine Blood Negative (Negative); Urine Ketones Negative (Negative); Urine Protein Negative (Neg-Trace)
[2025-03-06 12:53] LABS: Amphetamine Screen Urine Not Detected (Not Detect); Barbiturates, Urine Not Detected (Not Detect); Benzodiazepines Screen Urine Not Detected (Not Detect); Buprenorphine Scr Positive (Not Detect); Cannabinoid Screen Urine Not Detected (Not Detect); Cocaine Screen Urine POSITIVE (Not Detect); Fentanyl, urine Not Detected (Not Detect); Methadone Screen, Urine Not Detected (Not Detect); Opiate Screen Urine Not Detected (Not Detect); Oxycodone Screen Urine Not Detected (Not Detect); Phencyclidine Screen Urine Not Detected (Not Detect)
[2025-03-06 15:20] VITALS: BP 109/67; PULSE 96; RESP 18; TEMP 37.1; O2SAT 91
[2025-03-06 19:53] VITALS: BP 109/58; PULSE 95; RESP 18; TEMP 36.8; O2SAT 90
[2025-03-06 21:33] LABS: Vancomycin Random 11.4 mcg/mL (15-20)
--- NOTE | 2025-03-06 21:43 | HE.PHANOTE ---
Vancomycin addendum: Level came back at 11.4, still a predicted AUC of 411. Will continue same dose and recheck another level tomorrow to make sure it does not become subtherapeutic.
[2025-03-06] MEDS: Amitriptyline HCl 50 MG TABLET 100 MG PO (22:33)
[2025-03-06] MEDS: Cariprazine HCl 3 MG CAPSULE PO (22:33)
[2025-03-06] MEDS: Prazosin HCL 5 MG CAPSULE PO (22:34)
[2025-03-06] MEDS: Omeprazole 40 MG CAPSULE.DR PO (22:34)
[2025-03-06] MEDS: clonazePAM 1 MG TABLET 2 MG PO (22:43)
[2025-03-06] MEDS: Acetaminophen 325 MG TABLET 650 MG PO (22:43)
[2025-03-07] MEDS: Piperacillin Sodium/Tazobactam 4.5 GM in 0.9 % Sodium Chloride 100 ML IV ×3 (00:29→13:16)
[2025-03-07 03:13] VITALS: BP 112/63; PULSE 92; RESP 18; TEMP 36.1; O2SAT 93
[2025-03-07 06:45] VITALS: BP 109/63; PULSE 90; RESP 16; TEMP 36.6; O2SAT 92
[2025-03-07 07:35] LABS: Creatinine Clr Calc Pharmacy 116.8; Estimated Glomerular Filt Rate > 60
[2025-03-07] MEDS: clonazePAM 1 MG TABLET 2 MG PO ×2 (08:51→20:09)
[2025-03-07] MEDS: Cholecalciferol (Vitamin D3) 25 MCG TABLET PO (08:51)
[2025-03-07] MEDS: Multivitamin TABLET 1 TAB PO (08:52)
[2025-03-07] MEDS: ARIPiprazole 5 MG TABLET PO (08:52)
[2025-03-07] MEDS: Pregabalin 150 MG CAPSULE PO ×2 (08:52→20:09)
[2025-03-07] MEDS: Buprenorphine/Naloxone 8/2 mg FILM 1 FILM SUBLINGUAL ×2 (09:17→20:09)
[2025-03-07] MEDS: 0.9 % Sodium Chloride Flush 3 ML SYRINGE IVFLUSH ×3 (09:17→20:24)
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
[2025-03-07] MEDS: vancomycin HCL 1,250 MG in 0.9 % Sodium Chloride 250 ML 166.67 MG IV (11:27)
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
--- NOTE | 2025-03-07 12:42 | MHC.CM.PN ---
per rounds pt will be going to [facility] when bed avaliable
[2025-03-07] MEDS: levoFLOXacin 750 MG TABLET PO (14:23)
[2025-03-07 15:23] VITALS: BP 99/61; PULSE 95; RESP 18; TEMP 37.1; O2SAT 90
[2025-03-07 20:00] VITALS: BP 128/79; PULSE 91; RESP 18; TEMP 37.2; O2SAT 91
[2025-03-07] MEDS: Amitriptyline HCl 50 MG TABLET 100 MG PO (20:09)
[2025-03-07] MEDS: Omeprazole 40 MG CAPSULE.DR PO (20:09)
[2025-03-07] MEDS: Prazosin HCL 5 MG CAPSULE PO (20:09)
[2025-03-07] MEDS: Cariprazine HCl 3 MG CAPSULE PO (20:09)
[2025-03-07] MEDS: Acetaminophen 325 MG TABLET 650 MG PO (20:22)
--- NOTE | 2025-03-08 | ECG_ITS ---
Test Reason : repeat Blood Pressure : */* mmHG Vent. Rate : 103 BPM Atrial Rate : 103 BPM P-R Int : 174 ms QRS Dur : 96 ms QT Int : 360 ms P-R-T Axes : 45 33 24 degrees QTcB Int : 471 ms Sinus tachycardia Otherwise normal ECG When compared with ECG of 04-Mar-2025 20:40, No significant change was found Referred By: Karla Zimmerman Electronically Signed By: CHARLES LIMA
[2025-03-08 04:00] VITALS: BP 106/70; PULSE 89; RESP 16; TEMP 36.3; O2SAT 93
[2025-03-08 06:57] LABS: Creatinine Clr Calc Pharmacy 103.1; Estimated Glomerular Filt Rate > 60
[2025-03-08 08:02] VITALS: BP 124/78; PULSE 93; RESP 18; TEMP 36.2; O2SAT 94
[2025-03-08] MEDS: Multivitamin TABLET 1 TAB PO (09:13)
[2025-03-08] MEDS: ARIPiprazole 5 MG TABLET PO (09:13)
[2025-03-08] MEDS: Pregabalin 150 MG CAPSULE PO (09:13)
[2025-03-08] MEDS: Acetaminophen 325 MG TABLET 650 MG PO (09:13)
[2025-03-08] MEDS: Cholecalciferol (Vitamin D3) 25 MCG TABLET PO (09:13)
[2025-03-08] MEDS: Buprenorphine/Naloxone 8/2 mg FILM 1 FILM SUBLINGUAL (09:13)
[2025-03-08] MEDS: METHYLPHENIDATE HCL 54 MG 54 EACH PO (09:14)
[2025-03-08] MEDS: 0.9 % Sodium Chloride Flush 3 ML SYRINGE IVFLUSH (09:15)
[2025-03-08] MEDS: Calcium Carbonate 750 MG TAB.CHEW PO (09:48)
--- NOTE | 2025-03-08 10:19 | MHC.CARE ---
Pt was accepted to [facility] by Piyush for today 03/08/25. Acceptance is pending a negative covid and complete nursing report with the accepting facility. [id number]#[phone] Barb. Info was given to the RN. The ETA will be determined during report. The accepting provider is Dr. Marques and the address is [address] [place] [id number]. CARE team has been notified of placement and will fill out the section 12.
[2025-03-08 10:36] LABS: Troponin-I High Sensitivity 4.1 ng/L (<3.5-17.0)
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
[2025-03-08] MEDS: clonazePAM 1 MG TABLET 2 MG PO (12:35)
[2025-03-08 12:42] LABS: COVID-19 Test Negative (Negative); IDNOW Serial# 58CA691E
--- NOTE | 2025-03-08 14:45 | MHC.CM.PN ---
PT TO DC TO [facility] FOR IPLOC TODAY BLS TRANSPORT BOOKED WITH [facility]
[2025-03-08] MEDS: levoFLOXacin 750 MG TABLET PO (15:17)
--- NOTE | 2025-03-09 11:51 | MHC.CM.PN ---
POST DC NOTE, CM RECEIVED MESSAGE FROM [facility] THAT PT HAD MEDS IN [facility] AND THEY DON'T CARRY PT'S CONCERTA, CM ATTEMPTED TO CONTACT PT'S PRIMARY CONTACT/SISTER [place]O AT NUMBER ON FILE, SETAILED MESSAGE LEFT.
--- NOTE | 2025-03-12 12:52 | P.CDIM_ITS ---
PROVIDER RESPONSE TEXT: To clarify, the appropriate diagnosis supported by the clinical indicators: Other (explain): please use corrected calcium QUERY TEXT: PHYSICIAN'S DOCUMENTATION REQUEST Date of Query: 03/07/2025 09:28 AM EDT Patient Name: Alcira Martell Admit Date: 03/05/2025 Dear Keila Ricci STATIC BALANCER, A review of the medical record indicates additional documentation may be needed. Please review below and update the documentation accordingly. Clinical Indicators: LABS: calcium 7.9 L Vitamin D Based on the above, is there a diagnosis that correlates with these findings? Hypocalcemia possible, probable, suspected, resolved etc. Labs indicate a diagnosis of (please specify) Other (explain) Clinically unable to determine (explain) Thank you, Acacia Cutler, CCS, CDIS Use of terms such as suspected, likely, concern for, or probable (associated with a specific diagnosi s that is being evaluated, monitored, or treated as if it exists) are acceptable and can be coded in the inpatient se tting, when documented at the time of discharge. Please use your independent medical judgment in providing your response. THIS QUERY IS PART OF THE PERMANENT MEDICAL RECORD
== END 2025-03-08 16:20 | disposition short-term general hospital (02) | DRG 871 ==
LOC: HO.ED 21:59 → HO.EDOVER 22:25 → HO.S3 03-05 04:22
PROVIDERS: Nurse Practitioner Acute Care; Physician Assistant Medical; Admitting Provider Student in an Organized Health Care Education/Training Program; Emergency Provider Emergency Medicine; PCP Family Medicine; Visit Provider Physician Assistant Medical
DX: A41.9 Sepsis, unspecified organism (principal); I21.A1 Myocardial infarction type 2; J18.9 Pneumonia, unspecified organism; J96.01 Acute respiratory failure with hypoxia; F11.20 Opioid dependence, uncomplicated; J44.0 Chronic obstructive pulmonary disease with (acute) lower respiratory infection; R45.851 Suicidal ideations; D64.9 Anemia, unspecified; H61.21 Impacted cerumen, right ear; F19.90 Other psychoactive substance use, unspecified, uncomplicated; E87.6 Hypokalemia; M79.672 Pain in left foot; M79.671 Pain in right foot; Z20.822 Contact with and (suspected) exposure to COVID-19; Z87.891 Personal history of nicotine dependence; Z79.51 Long term (current) use of inhaled steroids; Z79.899 Other long term (current) drug therapy
CPT/HCPCS: 0241U; 36415; 71045; 73620; 80048; 80076; 80202; 80307; 81003; 82565; 82803; 83605; 83735; 84484; 85025; 87040; 87635; 93005; 99285; J0456; J0696; J1650; J1885; J2543; J3370; J3371; J7120; P9047; S9485

== ENCOUNTER → 2025-03-04 20:33 | Outpatient (BNV) | payer OTHER, SELFPAY | PROVIDERS: Emergency Provider Emergency Medicine; PCP Family Medicine; Visit Provider Radiology Diagnostic Radiology | DX: R91.8 Other nonspecific abnormal finding of lung field (principal) | CPT/HCPCS: 71045; 73620 ==

== ENCOUNTER → 2025-03-04 20:33 | Outpatient (BNV) | payer OTHER, SELFPAY | PROVIDERS: Admitting Provider Student in an Organized Health Care Education/Training Program; Emergency Provider Emergency Medicine; PCP Family Medicine; Visit Provider Internal Medicine | DX: R00.0 Tachycardia, unspecified (principal) | CPT/HCPCS: 93010 ==

== ENCOUNTER 2025-03-04 22:19 | Outpatient (BNV) | payer OTHER, SELFPAY | END 2025-03-08 09:39 | PROVIDERS: Admitting Provider Student in an Organized Health Care Education/Training Program; Emergency Provider Emergency Medicine; PCP Family Medicine; Visit Provider Internal Medicine | DX: R00.0 Tachycardia, unspecified (principal) | CPT/HCPCS: 93010 ==

== ENCOUNTER → 2025-03-04 22:19 | Outpatient (BNV) | payer OTHER, SELFPAY | PROVIDERS: Admitting Provider Student in an Organized Health Care Education/Training Program; Emergency Provider Emergency Medicine; PCP Family Medicine; Visit Provider Student in an Organized Health Care Education/Training Program | DX: J18.9 Pneumonia, unspecified organism (principal) | CPT/HCPCS: 99223; 99232; 99239 ==

== ENCOUNTER 2025-04-05 14:31 | Inpatient (IN) | payer OTHER, SELFPAY ==
--- NOTE | ~2025-04-05 | XR_ITS ---
EXAMINATION: XR CHEST 1 VIEW HISTORY: wheezing COMPARISON: Comparison is made with the prior examination dated 03/04/2025. FINDINGS: A single AP portable view of the chest performed at 3:21 PM is submitted. There are low lung volumes. There are increased interstitial markings throughout the lungs. There is no pleural effusion, pneumothorax, or pulmonary vascular congestion. The heart is normal in size. The bones are intact. XR/XR chest 1V IMPRESSION: The lung volumes with increased interstitial markings. Electronically signed by: Niranjan Vega MD 04/05/2025 03:34 PM EDT
--- NOTE | ~2025-04-05 | US_ITS ---
EXAMINATION: US TRIPLEX UPPER EXTREMITY, RIGHT CLINICAL INFORMATION: Right arm swelling, rule out DVT. COMPARISON: None available. TECHNIQUE: Color-flow triplex imaging with spectral analysis and compression Doppler was performed on the right upper extremity. FINDINGS: The right internal jugular, subclavian, and axillary veins are patent and free of thrombus. The imaged segment of the right brachiocephalic vein is patent. Spectral doppler waveforms are normal. The brachial, basilic, cephalic, radial, and ulnar veins are patent and compressible. US/US venous duplex UE RT IMPRESSION: No evidence of deep venous thrombosis involving the right upper extremity. Electronically signed by: Amando Mercado MD 04/09/2025 09:23 AM EDT
[2025-04-05 14:51] VITALS: BP 114/67; PULSE 75; RESP 21; TEMP 36.6; O2SAT 97; BMI 33.3
--- NOTE | 2025-04-05 15:00 | ECG_ITS ---
Test Reason : klonopin overdose Blood Pressure : */* mmHG Vent. Rate : 75 BPM Atrial Rate : 75 BPM P-R Int : 182 ms QRS Dur : 94 ms QT Int : 406 ms P-R-T Axes : 55 46 68 degrees QTcB Int : 453 ms Normal sinus rhythm T wave abnormality, consider anterior ischemia Abnormal ECG When compared with ECG of 08-Mar-2025 09:39, No significant change was found Referred By: Generic ED Physician Electronically Signed By: CHARLES LIMA
--- NOTE | 2025-04-05 15:10 | ED_ITS ---
HPI - Overdose General Chief Complaint: Overdose Stated Complaint: ALTERED,TOOK 7 KLONOPIN TO RELAX,FROM [facility] SPF Time Seen by Provider: 04/05/25 15:10 Source: patient and EMS Mode of arrival: EMS Limitations: altered mental status History of Present Illness ED Provider: Jose Cuello HPI Narrative: 45-year-old female with history of COPD, hepatitis-C, polysubstance use disorder on Suboxone, mood disorder, peripheral neuropathy, recent admission here for acute hypoxic respiratory failure due to community-acquired pneumonia presenting to the ER from [facility] and [place] for evaluation of a Klonopin overdose. She reportedly ?wanted to relax. ? she states she took 2 of her Klonopin 2 mg around 10:00. She was at [facility] for evaluation of anxiety, where she became agitated with staff there. She then took 5 more of her Klonopin. She states she was not trying to hurt herself she just wanted to relax. She states if she wanted to try to kill herself she would have taken a whole bottle. She does endorse using crack cocaine regularly. She denies any homicidal ideation, visual hallucinations or auditory hallucinations. She states she has been stressed lately. MD complaint: other (Misuse of Klonopin) Onset (ago): hour(s) Intent: wanted to go to sleep Context: Accidental Overdose: other (Wanted to fall sleep and relax) Associated symptoms: lethargy Treatments Prior to Arrival: none Related Data Home Medications ?Medication ?Instructions ?Recorded ?Confirmed cholecalciferol (vitamin D3) 25 25 mcg PO DAILY 11/07/22 04/06/25 mcg (1,000 unit) tablet (Vitamin D3) albuterol sulfate 90 mcg/actuation 2 puff inhalation Q4H PRN 03/01/25 04/05/25 aerosol inhaler (Ventolin HFA) Shortness Of Breath Or Wheezing aripiprazole 5 mg tablet (Abilify) 15 mg PO DAILY 03/01/25 04/06/25 buprenorphine 8 mg-naloxone 2 mg 1 film sublingual BID 03/01/25 04/05/25 sublingual film clonazepam 2 mg tablet 2 mg PO BID 03/01/25 04/05/25 ipratropium 20 mcg-albuterol 100 2 puff inhalation BID 03/01/25 04/06/25 mcg/actuation mist for inhalation (Combivent Respimat) methylphenidate HCl 54 mg 54 mg PO DAILY 03/01/25 04/05/25 tablet,extended release 24 hr (Concerta) prazosin 5 mg capsule 5 mg PO BEDTIME 03/01/25 04/05/25 duloxetine 20 mg capsule,delayed 20 mg PO BID 04/05/25 04/05/25 release pantoprazole 20 mg tablet,delayed 20 mg PO DAILY@0630 04/05/25 04/05/25 release prazosin 2 mg capsule 2 mg PO BEDTIME 04/05/25 04/05/25 pregabalin 225 mg capsule (Lyrica) 225 mg PO BID 04/05/25 04/05/25 amitriptyline 50 mg tablet 50 mg PO DAILY 04/06/25 04/06/25 carbamide peroxide 6.5 % ear drops 5 drp otic (ear) right BID PRN Ear 04/06/25 04/06/25 (Debrox) Wax fluticasone 250 mcg-salmeterol 50 1 inh inhalation BID 04/06/25 04/06/25 mcg/dose blistr powdr for inhalation (Wixela Inhub) Allergies Allergy/AdvReac Type Severity Reaction Status Date / Time No Known Allergies Allergy Verified 04/05/25 14:57 Review of Systems 2 Review of Systems: Yes all other systems are reviewed and are negative PMFSH Past Medical History Medical History PTSD (post-traumatic stress disorder) Mood disorder Cocaine use disorder Opioid use disorder Bipolar disorder Interstitial lung disease Hepatitis C IV drug user Social History Social History Household Members: None Household Members Other:: sister Housing: Homeless Do you presently have visiting nurse or other home services: No Alcohol intake: current Alcohol intake frequency: holidays/special occasions only Comment: 1:1 Sitter for SI Patient Tobacco Use Status: Former Tobacco user Tobacco use type: Cigarette Smoked in Last 30 Days: No e-Cigarette/Vaping Use: Never Used Patient Interested in Nicotine Replacement: Yes Patient Given Instructions on How to Stop Smoking: No Second Hand Smoke Exposure: No Substance Use Type: Crack/Cocaine and Marijuana Currently Displaying Signs/Symptoms of Drug Intoxication Withdrawal: No Advance Directives: Yes Advance Directives Information Provided: Yes Advance Directives on File: Yes Advance Directives Date on File: 03/02/25 Do you have thoughts of harming others: None Do you have a plan to hurt others: No Plan Recently lost weight without trying: Unsure Eating poorly because of decreased appetite: No Nutrition Risks: No Nutritional Risk Patient : No : No Poor oral hygiene: No service: No Physical Exam 2 Vital Signs: Vital Signs: Last Vital Signs Temp 96.7 F L 04/11/25 07:53 Pulse 86 04/11/25 07:53 Resp 16 04/11/25 07:53 BP 150/92 H 04/11/25 07:53 Pulse Ox 96 04/11/25 07:53 O2 Del Method Room Air 04/10/25 20:00 BMI result Body Mass Index 33.3 Appearance: Lethargic, sleeping comfortably on the stretcher Head: normocephalic, atraumatic. Eyes: Pupils equal, round and reactive to light. ENT: Pharynx normal. No tonsillar swelling or exudate. Neck: Normal inspection. Neck supple. CVS: Normal heart rate and rhythm. Pulses normal. Respiratory: No respiratory distress. Breath sounds with bilateral inspiratory and expiratory wheezes Abdomen: Soft and nontender. +BS x4 Skin: Skin warm and dry. Normal skin color. Normal skin turgor. No rashes. Extremities: No lower extremity edema. No joint swelling. Healed scars on the upper extremities Neuro/psych: Lethargic, arouses to voice briefly Oriented X 3. Moves all extremities, strength equal and symmetrical throughout. CN II-XII intact. Slurred speech, asking for food Course Reevaluation(s) Reevaluation #1: Patient re-evaluated. Mentation slowly improving. She is hungry and wanting to eat. Her acetaminophen and salicylates are negative. She is medically cleared. P.o. diet ordered. He arrives on a section 12 from [facility] - she was reportedly having paranoid thoughts and saying she was going to be monitored tonight. Will have care team see her and re-evaluate tomorrow. She is denying any suicidal intent or attempt today. She continues to be lethargic, will continue to monitor Time: 16:49 Medications Administered Generic Name Dose Route Start Last Admin Trade Name Freq PRN Reason Stop Dose Admin Acetaminophen 650 mg 04/05/25 21:31 04/08/25 06:54 Acetaminophen 325 Mg Tablet PO 650 mg Q6H PRN Administration Headache/Pain, Scale 1-10 Amitriptyline HCl 50 mg 04/06/25 21:00 04/10/25 21:55 Amitriptyline Hcl 50 Mg Tablet PO 50 mg BEDTIME YONI Administration Aripiprazole 15 mg 04/06/25 10:00 04/11/25 08:39 Aripiprazole 15 Mg Tablet PO 15 mg DAILY YONI Administration Buprenorphine/Naloxone 1 film 04/06/25 10:00 04/11/25 08:38 Buprenorphine/Naloxone 8/2 Mg Film SUBLINGUAL 1 film BID YONI Administration Clonazepam 2 mg 04/06/25 10:00 04/06/25 10:26 Clonazepam 1 Mg Tablet PO 2 mg BID YONI Administration Clonazepam 1 mg 04/07/25 21:00 04/11/25 08:45 Clonazepam 1 Mg Tablet PO 1 mg BID YONI Administration Clonazepam 1 mg 04/07/25 12:30 04/10/25 17:19 Clonazepam 1 Mg Tablet PO 1 mg DAILY PRN Administration SEVERE ANXIETY Duloxetine HCl 20 mg 04/06/25 10:00 04/11/25 08:38 Duloxetine Hcl 20 Mg Capsule.Dr PO 20 mg BID YONI Administration Hydroxyzine HCl 25 mg 04/05/25 21:31 04/11/25 04:56 Hydroxyzine Hcl 25 Mg Tablet PO 25 mg Q6H PRN Administration mild anxiety Ibuprofen 600 mg 04/06/25 15:44 04/11/25 04:55 Ibuprofen 600 Mg Tablet PO 600 mg Q6H PRN Administration pain 1-10 of fibromyalgia Mupirocin 1 appl 04/09/25 21:00 04/10/25 22:01 Mupirocin 2 % Oint 22 Gm Tube TOPICAL 04/16/25 20:59 1 appl BID YONI Administration Protocol Nicotine 21 mg 04/05/25 21:31 04/11/25 08:39 Nicotine 21 Mg Patch.Td24 TRANSDERMA 21 mg DAILY PRN Administration smoking cessation Nicotine Polacrilex 4 mg 04/06/25 15:51 04/09/25 13:15 Nicotine Polacrilex 2 Mg Gum BUCCAL 4 mg Q2H PRN Administration Nicotine Cravings Pat Own Med ( 54 mg 04/06/25 10:00 04/11/25 09:59 Concerta 54 Mg Tab) PO 54 mg DAILY YONI Administration Olanzapine 5 mg 04/05/25 21:31 04/11/25 08:39 Olanzapine 5 Mg Tablet PO 5 mg TID PRN Administration agitation Pantoprazole Sodium 20 mg 04/07/25 06:30 04/11/25 07:04 Pantoprazole Sodium 20 Mg Tablet. PO 20 mg DAILY@0630 YONI Administration Prazosin HCl 5 mg 04/07/25 21:00 04/10/25 21:55 Prazosin Hcl 5 Mg Capsule PO 5 mg BEDTIME YONI Administration Protocol Pregabalin 225 mg 04/06/25 10:00 04/11/25 08:38 Pregabalin 75 Mg Capsule PO 225 mg BID YONI Administration Vitamin D 25 mcg 04/06/25 10:00 04/11/25 08:40 Cholecalciferol (Vitamin D3) 25 Mcg Tablet PO 25 mcg DAILY YONI Administration Discontinued Medications Generic Name Dose Route Start Last Admin Trade Name Freq PRN Reason Stop Dose Admin Baclofen 10 mg 04/06/25 15:50 04/07/25 06:51 Baclofen 10 Mg Tablet PO 10 mg BID PRN Administration withdrawal sx Fluticasone/Vilanterol 1 puff 04/06/25 10:30 04/06/25 11:46 Fluticasone/Vilanterol 100/25 Blst.W.Dev INHALE Not Given RDAILY [facility] Prazosin HCl 5 mg/ Prazosin 7 mg 04/06/25 21:00 04/06/25 21:15 HCl 2 mg PO 7 mg BEDTIME YONI Administration Protocol Medical Decision Making Medical Decision Making MDM Narrative: 45-year-old female with history of COPD, recent admission for pneumonia last month, polysubstance use disorder on Suboxone, anxiety on Klonopin, mood disorder who presents the ER from [facility] and as an inpatient bed search for evaluation of an intentional Klonopin overdose. Patient denies any harmful intent, she just wanted to ?relax. She reportedly took a total of 14 mg of Klonopin today. She rides lethargic but arouses to voice and answers questions appropriately. She is nonfocal. Lab workup showing a stable normocytic anemia. ED bronchodilator protocol ordered for her wheezing however she declined. Differential Diagnosis Differential Diagnoses: The differential diagnosis associated with the presentation includes Intentional Klonopin overdose, accidental Klonopin overdose, polypharmacy, depression with psychotic features, PTSD, bipolar, mood disorder, substance induced mood disorder Admission/Observation Consideration of admission/observation: Escalation of care including admission/observation considered Lab Data MDM Lab Attestation statement: I reviewed the patient's lab results. Mild anemia 04/10/25 07:54 04/05/25 15:34 Labs: Lab Results 04/05/25 Range/Units 15:34 WBC 7.5 (4.8-10.8) X10*3/uL RBC 3.85 L (4.20-5.50) X10*6/uL Hgb 11.0 L (12.0-16.0) g/dl Hct 34.1 L (37.0-47.0) % MCV 88.6 (80.0-98.0) fL MCH 28.6 (27.0-33.0) pg MCHC 32.3 (31.0-35.0) g/dl RDW 14.6 (11.0-16.0) % Plt Count 201 D (160-400) X10*3/uL MPV 8.9 L (9.4-12.3) fL Immature Gran % (Auto) 0.3 (0.0-0.4) % Neut % (Auto) 58.5 (45-73) % Lymph % (Auto) 24.8 (20-40) % [place] % (Auto) 10.2 (2-11) % Eos % (Auto) 5.8 H (0-4) % Baso % (Auto) 0.4 (0-2) % Lymph # (Auto) 1.9 (1.2-4.9) X10*3/uL [place] # (Auto) 0.8 (0.1-1.2) X10*3/uL Eos # (Auto) 0.4 (0.0-0.4) X10*3/uL Baso # (Auto) 0.0 (0.0-0.2) X10*3/uL Abs Immat Gran (auto) 0.02 (0.00-0.03) X10*3/uL Absolute Neuts (auto) 4.4 (2.0-8.3) x10*3/uL Absolute Nucleated RBC 0.000 (0.0-0.012) X10*3/uL Nucleated RBC % (auto) 0.0 (0.0-0.2) /100WBC Sodium 138 (135-145) mmol/L Potassium 3.4 (3.3-5.1) mmol/L Chloride 103 (96-108) mmol/L Carbon Dioxide 30 H (22-29) mmol/L Anion Gap 8 L (12-20) BUN 11 (9-16) mg/dL Creatinine 0.77 (0.5-1.4) mg/dL Estim Creat Clear Calc 87.4 Estimated GFR > 60 Random Glucose 108 (60-115) mg/dL Calcium 8.8 D (8.4-10.2) mg/dL Total Bilirubin 0.5 (0.0-1.0) mg/dL AST 26 (5-31) U/L ALT 17 (0-31) U/L Alkaline Phosphatase 70 (39-117) U/L Total Protein 7.4 (6.5-8.0) g/dL Albumin 3.8 (3.5-5.0) g/dL Salicylates < 5.0 L (15-30) mg/dL Acetaminophen < 3 (<30) mcg/mL Ethyl Alcohol < 10 mg/dL Independent Interpretation I performed an independent interpretation of an: EKG and Plain X-Ray Interpretation: EKG with normal sinus rhythm, ventricular rate 75 beats per minute, t-wave inversions in V-V3 (unchanged from prior) Radiology Impression Discussion of test interpretation with radiology: I have reviewed the radiologist's reading. Independent Historian Clinical information obtained from an independent historian. History obtained from or confirmed by: EMS Prescription Management I considered prescription management with: Other (flumazanil) Chronic Conditions Patient?s care impacted by: Other (COPD) Discharge Plan Discharge Clinical Impression: Drug overdose Qualifiers: Encounter type: initial encounter Injury intent: undetermined intent Qualified Code(s): T50.904A - Poisoning by unspecified drugs, medicaments and biological substances, undetermined, initial encounter Patient Disposition: Admitted As Inpatient Discharge Date/Time: 04/05/25 23:25
[2025-04-05 15:38] LABS: MANUAL DIFF FLAG NO
--- NOTE | 2025-04-05 15:38 | PC.NURSE ---
MEDS SENT TO PHARMACY PER UNIT PROTOCOL. PT REFUSING NEB TX AT THIS TIME. SITTER AT BEDSIDE.
[2025-04-05 15:40] LABS: Basophils Percent Auto 0.4 % (0-2); Eosinophils Absolute Auto 0.4 X10*3/uL (0.0-0.4); Eosinophils Percent Auto 5.8 % (0-4); Hematocrit 34.1 % (37.0-47.0); Imm Gran Abs Auto 0.02 X10*3/uL (0.00-0.03); Imm Gran Pct Auto 0.3 % (0.0-0.4); Lymphocytes Absolute Auto 1.9 X10*3/uL (1.2-4.9); Lymphocytes Percent Auto 24.8 % (20-40); Mean Corpuscular HGB Conc 32.3 g/dl (31.0-35.0); Mean Corpuscular Hemoglobin 28.6 pg (27.0-33.0); Mean Corpuscular Volume 88.6 fL (80.0-98.0); Mean Platelet Volume 8.9 fL (9.4-12.3); Monocytes Absolute Auto 0.8 X10*3/uL (0.1-1.2); Monocytes Percent Auto 10.2 % (2-11); Neutrophils Absolute Auto 4.4 x10*3/uL (2.0-8.3); Neutrophils Percent Auto 58.5 % (45-73); Platelet Count 201 X10*3/uL (160-400); Red Blood Count 3.85 X10*6/uL (4.20-5.50); Red Cell Distribution Width 14.6 % (11.0-16.0); White Blood Count 7.5 X10*3/uL (4.8-10.8)
[2025-04-05 15:59] LABS: Alanine Aminotransferase 17 U/L (0-31); Albumin Level 3.8 g/dL (3.5-5.0); Alkaline Phosphatase 70 U/L (39-117); Anion Gap 8 (12-20); Aspartate Amino Transferase 26 U/L (5-31); Bilirubin Total 0.5 mg/dL (0.0-1.0); Blood Urea Nitrogen 11 mg/dL (9-16); Calcium 8.8 mg/dL (8.4-10.2); Carbon Dioxide 30 mmol/L (22-29); Chloride 103 mmol/L (96-108); Creatinine Clr Calc Pharmacy 87.4; Estimated Glomerular Filt Rate > 60; Glucose Random 108 mg/dL (60-115); Potassium 3.4 mmol/L (3.3-5.1); Sodium 138 mmol/L (135-145); Total Protein 7.4 g/dL (6.5-8.0)
[2025-04-05 16:00] LABS: Ethanol < 10 mg/dL
[2025-04-05 17:01] LABS: Acetaminophen LAB < 3 mcg/mL (<30); Salicylate < 5.0 mg/dL (15-30)
--- OUTSIDE RECORDS SUMMARY | 2025-04-05 17:53 | XMS_ITS | Clinical Summary ---
Author Organization [facility] Address [address] [place] [address] Care Team Providers Care Group Therapy Counselor Name Role Phone Unavailable Primary Care Provider [...] 01/13/2024 Fecal DNA 01/13/2024 Flexible Sigmoidoscopy 01/13/2024 [id number] ( season) 2024 022, 04/01/2021 Imm-Influenza (#1) [...] to Health Maintenance Insurance [facility]
[2025-04-05 21:06] VITALS: BP 92/57; PULSE 76; RESP 14; TEMP 36.4; O2SAT 95
[2025-04-05 22:10] LABS: Appearance Urine Clear; Color Urine Dark Yellow; Glucose Urine UA Negative (Negative); Leukocyte Esterase Urine Negative (Negative); Nitrite Urine Negative (Negative); PH 6.5 (5.0-9.0); Specific Gravity - Urine >= 1.030 (1.005-1.025); UMIC TRIGGER UA YES; UPreg QC Valid YES; Urine Blood Negative (Negative); Urine Ketones Trace mg/dL (Negative); Urine Pregnancy NEGATIVE (NEGATIVE); Urine Protein 30 (1+) mg/dL (Neg-Trace)
[2025-04-05 22:18] LABS: Bacteria Urine 1+ (None Seen); Hyaline Casts Urine 0-2 /LPF (0-2); RBC Urine 0-2 /HPF (0-2); WBC Urine 0-5 /HPF (0-5)
[2025-04-05 22:19] LABS: Amphetamine Screen Urine Not Detected (Not Detect); Barbiturates, Urine Not Detected (Not Detect); Benzodiazepines Screen Urine POSITIVE (Not Detect); Buprenorphine Scr Positive (Not Detect); Cannabinoid Screen Urine Not Detected (Not Detect); Cocaine Screen Urine POSITIVE (Not Detect); Fentanyl, urine Not Detected (Not Detect); Methadone Screen, Urine Not Detected (Not Detect); Opiate Screen Urine Not Detected (Not Detect); Oxycodone Screen Urine Not Detected (Not Detect); Phencyclidine Screen Urine Not Detected (Not Detect)
--- NOTE | 2025-04-05 22:22 | PHA.MEDREC ---
Addendum entered by Carmen Ortega [facility] 04/06/25 08:58: followed up with [facility] and got list verbally from last filled meds on 03/21/25. Called [facility] and pt has not filled vraylar since 10/2024 so left off list. Original Note: Pharmacy Consult ? Medication Reconciliation Pharmacy has utilized RX bottles in Safe to confirm medications. AM team to follow up with pt's pharmacy: [facility] ([phone]).
[2025-04-05 23:42] VITALS: BP 101/61; PULSE 70; RESP 16; TEMP 36.5; O2SAT 97
[2025-04-05 23:45] VITALS: BMI 33.3
--- NOTE | 2025-04-06 00:53 | PC.ADMIT ---
Pt is a 45 yo female admitted on a CV from ED C for treatment of SI/ decompensation. She has HX of COPD, hepatitis-s
--- NOTE | 2025-04-06 01:00 | PC.ADMIT ---
Pt is a 45 yo female, admitted on a CV from [place] [facility] [place] of SI/ decompensation. Per crisis assessment, she has HX of COPD, hepatitis-c, polysubstance use disorder on suboxone, mood disorder, peripheral neuropathy, recent admission here for acute hypoxic respiratory failure due to community acquired pneumonia. She was presented to ER from [facility] for Klonopin overdose. She reported wanted to relax . She took 5 Klonopin 2mg pills. She states she was not trying to hurt herself . She does endorse using crack cocaine regularly. Per unit assessment, She was brought in drowsy/sleeping on a wheel chair. Safety/skin check done and was unremarkable, v/s and weight completed. She was calm and pleasant, denies SI/HI/AVH. She declined to participate in the admission process. She states I am tired and just want to go and sleep . She did not sign any admission papers. Treatment plans and safety tools initiated but yet to be signed. Pt is on 15 minutes safety check.
[2025-04-06] MEDS: Acetaminophen 325 MG TABLET 650 MG PO ×2 (04:22→15:37)
[2025-04-06] MEDS: hydrOXYzine HCL 25 MG TABLET PO (04:22)
[2025-04-06 08:00] VITALS: BP 114/65; PULSE 66; TEMP 36.3; O2SAT 95
[2025-04-06] MEDS: Buprenorphine/Naloxone 8/2 mg FILM 1 FILM SUBLINGUAL ×2 (10:26→21:15)
[2025-04-06] MEDS: clonazePAM 1 MG TABLET 2 MG PO (10:26)
[2025-04-06] MEDS: Cholecalciferol (Vitamin D3) 25 MCG TABLET PO (10:27)
[2025-04-06] MEDS: DULoxetine HCl 20 MG CAPSULE.DR PO ×2 (10:28→21:15)
[2025-04-06] MEDS: Pregabalin 75 MG CAPSULE 225 MG PO ×2 (10:29→21:15)
[2025-04-06] MEDS: ARIPiprazole 15 MG TABLET PO (10:29)
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
[2025-04-06] MEDS: METHYLPHENIDATE 54 MG 54 EACH PO (12:06)
[2025-04-06] MEDS: Nicotine 21 MG PATCH.TD24 TRANSDERMA (15:46)
[2025-04-06] MEDS: Baclofen 10 MG TABLET PO (16:59)
[2025-04-06 20:00] VITALS: BP 119/84; PULSE 81; TEMP 36.3; O2SAT 95
[2025-04-06 21:15] VITALS: BP 119/86
[2025-04-06] MEDS: Amitriptyline HCl 50 MG TABLET PO (21:15)
[2025-04-06] MEDS: OLANZapine 5 MG TABLET PO (21:20)
[2025-04-07] MEDS: Pantoprazole Sodium 20 MG TABLET.DR PO (06:39)
[2025-04-07] MEDS: Baclofen 10 MG TABLET PO (06:51)
[2025-04-07] MEDS: Acetaminophen 325 MG TABLET 650 MG PO ×2 (06:51→20:59)
[2025-04-07 08:00] VITALS: BP 107/68; PULSE 87; RESP 18; TEMP 36.6; O2SAT 93
[2025-04-07] MEDS: METHYLPHENIDATE 54 MG 54 EACH PO (08:51)
[2025-04-07] MEDS: DULoxetine HCl 20 MG CAPSULE.DR PO ×2 (08:52→20:59)
[2025-04-07] MEDS: ARIPiprazole 15 MG TABLET PO (08:52)
[2025-04-07] MEDS: Pregabalin 75 MG CAPSULE 225 MG PO ×2 (08:52→20:59)
[2025-04-07] MEDS: Cholecalciferol (Vitamin D3) 25 MCG TABLET PO (08:52)
[2025-04-07] MEDS: Buprenorphine/Naloxone 8/2 mg FILM 1 FILM SUBLINGUAL ×2 (08:53→20:59)
[2025-04-07 09:00] LABS: Estimated Average Glucose 97 mg/dL; Hemoglobin A1C 97.0121 umol/L; Total Hemoglobin (HGBA1C) 3107.6276 umol/L
[2025-04-07 09:27] LABS: Cholesterol 121 mg/dL (<200); HDL Cholesterol 46 mg/dL (>40); LDL Cholesterol Calculated 50 mg/dL (<100); Triglycerides 127 mg/dL (<150)
[2025-04-07 09:42] LABS: Thyroid Stimulating Hormone 1.06 uIU/mL (0.32-4.0)
[2025-04-07 09:52] LABS: Folate 7.5 ng/mL (> or = 4.0); Vitamin B12 691 pg/mL (200-900)
[2025-04-07] MEDS: Nicotine Polacrilex 2 MG GUM 4 MG BUCCAL ×2 (11:45→15:53)
[2025-04-07] MEDS: Nicotine 21 MG PATCH.TD24 TRANSDERMA (11:45)
--- NOTE | 2025-04-07 12:01 | HO.PSYCHPN ---
Subjective Subjective Date of Service: 04/07/25 Reason For Visit: decompensation Subjective Notes: Conditional Voluntary Interim History: Patient seen anxious discussed her minimization of substance use and self-defeating aspects in really to chronic pain syndrome use of crack had been sedated became more alert in the afternoon Mental Status Exam Mental Status Exam Patient Appearance: Unkempt Patient Orientation: Person and Place Level of Consciousness: Sedated Patient Behavior: Asleep and Fatigued Mood Description: Withdrawn Affect Description: Withdrawn Speech Pattern: Spontaneous Speech Perceptual Disturbances: Depersonalization and Derealization Thought Content: positive for Suicidal Ideation (denies) Judgement: Poor Diagnostics Vital Signs (24Hr): Vital Signs - 24 hr 04/06/25 20:00 04/06/25 21:15 04/07/25 08:00 Temperature 97.3 F 97.8 F Pulse Rate 81 87 Respiratory Rate 18 Blood Pressure 119/84 119/86 107/68 Pulse Oximetry 95 93 Oxygen Delivery Method Room Air Room Air BMI result Body Mass Index 33.3 Labs 04/05/25 15:34 04/05/25 15:34 Labs: Laboratory Results - last 48 hr 04/05/25 04/05/25 04/07/25 15:34 21:55 08:13 WBC 7.5 RBC 3.85 L Hgb 11.0 L Hct 34.1 L MCV 88.6 MCH 28.6 MCHC 32.3 RDW 14.6 Plt Count 201 D MPV 8.9 L Immature Gran % (Auto) 0.3 Neut % (Auto) 58.5 Lymph % (Auto) 24.8 Posey % (Auto) 10.2 Eos % (Auto) 5.8 H Baso % (Auto) 0.4 Lymph # (Auto) 1.9 Posey # (Auto) 0.8 Eos # (Auto) 0.4 Baso # (Auto) 0.0 Abs Immat Gran (auto) 0.02 Absolute Neuts (auto) 4.4 Absolute Nucleated RBC 0.000 Nucleated RBC % (auto) 0.0 Sodium 138 Potassium 3.4 Chloride 103 Carbon Dioxide 30 H Anion Gap 8 L BUN 11 Creatinine 0.77 Estim Creat Clear Calc 87.4 Estimated GFR > 60 Random Glucose 108 Estimat Average Glucose 97 Hemoglobin A1c % 5.0 Calcium 8.8 D Total Bilirubin 0.5 AST 26 ALT 17 Alkaline Phosphatase 70 Total Protein 7.4 Albumin 3.8 Triglycerides 127 Cholesterol 121 LDL Cholesterol, Calc 50 HDL Cholesterol 46 Vitamin B12 691 Folate 7.5 TSH 1.06 Urine Color Dark Yellow Urine Appearance Clear Urine pH 6.5 Ur Specific [place] >= 1.030 H Urine Protein 30 (1+) H Urine Glucose (UA) Negative Urine Ketones Trace Urine Blood Negative Urine Nitrite Negative Ur Leukocyte Esterase Negative Urine RBC 0-2 Urine WBC 0-5 Ur Squamous Epith Cells 11-20 Urine Bacteria 1+ Hyaline Casts 0-2 Urine Test NEGATIVE Salicylates < 5.0 L Urine Opiates Screen Not Detected Ur Buprenorphine Scrn Positive H Ur Oxycodone Screen Not Detected Urine Methadone Screen Not Detected Urine Fentanyl Screen Not Detected Acetaminophen < 3 Ur Barbiturates Screen Not Detected Ur Phencyclidine Scrn Not Detected Ur Amphetamines Screen Not Detected U Benzodiazepines Scrn POSITIVE H Urine Cocaine Screen POSITIVE H U Marijuana (THC) Screen Not Detected Ethyl Alcohol < 10 Imaging Radiology Impressions: ITS Impressions Chest X-Ray 04/05/25 14:21 IMPRESSION: The lung volumes with increased interstitial markings. Electronically signed by: Niranjan Vega MD 04/05/2025 03:34 PM EDT RP Medications Medications Current Medications Acetaminophen (Acetaminophen 325 Mg Tablet) 650 mg PO Q6H PRN PRN Reason: Headache/Pain, Scale 1-10 Last Admin: 04/07/25 06:51 Dose: 650 mg Al Hydroxide/Mg Hydroxide (Magnesium Hydrox/Alum Hydrox 30 Ml Oral.Susp) 30 ml PO Q6H PRN PRN Reason: Heartburn/Nausea Albuterol Sulfate (Albuterol Sulfate 90 Mcg 8 Gm Inhaler) 2 puff INHALE RQ4H PRN PRN Reason: shortness of breath, wheezing Albuterol/Ipratropium (Albuterol/Iprat 2.5/0.5mg 3 Ml Ampul.Neb) 3 ml INHALE RQID PRN PRN Reason: SOB, Wheezing Amitriptyline HCl (Amitriptyline Hcl 50 Mg Tablet) 50 mg PO BEDTIME [facility] Last Admin: 04/06/25 21:15 Dose: 50 mg Aripiprazole (Aripiprazole 15 Mg Tablet) 15 mg PO DAILY [facility] Last Admin: 04/07/25 08:52 Dose: 15 mg Baclofen (Baclofen 10 Mg Tablet) 10 mg PO BID PRN PRN Reason: withdrawal sx Last Admin: 04/07/25 06:51 Dose: 10 mg Buprenorphine/Naloxone (Buprenorphine/Naloxone 8/2 Mg Film) 1 film SUBLINGUAL BID [facility] Last Admin: 04/07/25 08:53 Dose: 1 film Carbamide Peroxide (Carbamide Peroxide 6.5% Otic 15 Ml Drpbtl) 5 drop EAR-RIGHT BID PRN PRN Reason: wax build up Stop: 04/10/25 09:42 Clonazepam (Clonazepam 1 Mg Tablet) 2 mg PO BID [facility] Last Admin: 04/06/25 10:26 Dose: 2 mg Duloxetine HCl (Duloxetine Hcl 20 Mg Capsule.Dr) 20 mg PO BID [facility] Last Admin: 04/07/25 08:52 Dose: 20 mg Fluticasone/Vilanterol (Fluticasone/Vilanterol 100/25 Blst.W.Dev) 1 puff INHALE RDAILY PRN PRN Reason: SOB, Wheezing Hydroxyzine HCl (Hydroxyzine Hcl 25 Mg Tablet) 25 mg PO Q6H PRN PRN Reason: mild anxiety Last Admin: 04/06/25 04:22 Dose: 25 mg Ibuprofen (Ibuprofen 600 Mg Tablet) 600 mg PO Q6H PRN PRN Reason: pain 1-10 of fibromyalgia Magnesium Hydroxide (Milk Of Magnesia 30 Ml Oral.Susp) 30 ml PO DAILY PRN PRN Reason: Constipation Nicotine (Nicotine 21 Mg Patch.Td24) 21 mg TRANSDERMA DAILY PRN PRN Reason: smoking cessation Last Admin: 04/07/25 11:45 Dose: 21 mg Nicotine Polacrilex (Nicotine Polacrilex 2 Mg Gum) 4 mg BUCCAL Q2H PRN PRN Reason: Nicotine Cravings Last Admin: 04/07/25 11:45 Dose: 4 mg Pat Own Med ( (Concerta 54 Mg Tab)) 54 mg PO DAILY [facility] Last Admin: 04/07/25 08:51 Dose: 54 mg Olanzapine (Olanzapine 5 Mg Tablet) 5 mg PO TID PRN PRN Reason: agitation Last Admin: 04/06/25 21:20 Dose: 5 mg Pantoprazole Sodium (Pantoprazole Sodium 20 Mg Tablet.Dr) 20 mg PO DAILY@0630 [facility] Last Admin: 04/07/25 06:39 Dose: 20 mg Prazosin HCl 5 mg/ Prazosin (HCl 2 mg) 7 mg PO BEDTIME [facility]; Protocol Last Admin: 04/06/25 21:15 Dose: 7 mg Pregabalin (Pregabalin 75 Mg Capsule) 225 mg PO BID [facility] Last Admin: 04/07/25 08:52 Dose: 225 mg Trazodone HCl (Trazodone Hcl 50 Mg Tablet) 50 mg PO BEDTIME MRX1 PRN PRN Reason: Insomnia Vitamin D (Cholecalciferol (Vitamin D3) 25 Mcg Tablet) 25 mcg PO DAILY [facility] Last Admin: 04/07/25 08:52 Dose: 25 mcg Allergies Allergies Allergy/AdvReac Type Severity Reaction Status Date / Time No Known Allergies Allergy Verified 04/05/25 14:57 Assessment & Plan Assessment & Plan (1) Opioid use disorder: Status: Acute Code(s): F11.90 - Opioid use, unspecified, uncomplicated (2) Cocaine use disorder: Status: Acute Code(s): F14.10 - Cocaine abuse, uncomplicated (3) Mood disorder: Status: Acute Code(s): F39 - Unspecified mood [affective] disorder (4) PTSD (post-traumatic stress disorder): Status: Acute Code(s): F43.10 - Post-traumatic stress disorder, unspecified Plan Admit, CV, 15 minute checks Diagnostics as needed Collateral contact Monitor sedation- today, pt is sedate-will place klonopin on hold this evening. Re-eval 04/07. Med eval Encourage milieu Discharge planning. 04/07/2025 Restart low-dose lower dose clonazepam may then benefit from taper on multiple sedating medication denies active SI minimal coping strategies Patient educated on: diagnosis and medication risk/benefits Informed Consent: further education needed Reason for continued inpatient stay Substantial Risk for: harm to self, inability to function and rapid decompensation Time Spent With Patient Time: Total time managing care of this patient today ____ minutes.
[2025-04-07] MEDS: clonazePAM 1 MG TABLET PO ×2 (12:36→20:58)
[2025-04-07] MEDS: OLANZapine 5 MG TABLET PO (19:23)
[2025-04-07 20:00] VITALS: BP 125/76; PULSE 87; TEMP 37.1; O2SAT 96
[2025-04-07] MEDS: Amitriptyline HCl 50 MG TABLET PO (21:00)
[2025-04-07 21:01] VITALS: BP 125/76
[2025-04-07] MEDS: Prazosin HCL 5 MG CAPSULE PO (21:01)
[2025-04-08] MEDS: Pantoprazole Sodium 20 MG TABLET.DR PO (06:37)
[2025-04-08] MEDS: Acetaminophen 325 MG TABLET 650 MG PO (06:54)
[2025-04-08 08:00] VITALS: BP 125/84; PULSE 74; RESP 18; TEMP 36.6; O2SAT 96
[2025-04-08] MEDS: Cholecalciferol (Vitamin D3) 25 MCG TABLET PO (09:02)
[2025-04-08] MEDS: clonazePAM 1 MG TABLET PO ×3 (09:02→21:00)
[2025-04-08] MEDS: ARIPiprazole 15 MG TABLET PO (09:02)
[2025-04-08] MEDS: Buprenorphine/Naloxone 8/2 mg FILM 1 FILM SUBLINGUAL ×2 (09:02→21:00)
[2025-04-08] MEDS: DULoxetine HCl 20 MG CAPSULE.DR PO ×2 (09:02→21:00)
[2025-04-08] MEDS: METHYLPHENIDATE 54 MG 54 EACH PO (09:02)
[2025-04-08] MEDS: Pregabalin 75 MG CAPSULE 225 MG PO ×2 (09:02→20:58)
[2025-04-08] MEDS: Nicotine 21 MG PATCH.TD24 TRANSDERMA (15:02)
[2025-04-08] MEDS: hydrOXYzine HCL 25 MG TABLET PO (15:02)
[2025-04-08] MEDS: Nicotine Polacrilex 2 MG GUM 4 MG BUCCAL ×2 (15:02→21:39)
[2025-04-08 20:00] VITALS: BP 144/85; PULSE 100; RESP 16; TEMP 36.8; O2SAT 96
[2025-04-08] MEDS: Amitriptyline HCl 50 MG TABLET PO (20:58)
[2025-04-08] MEDS: Prazosin HCL 5 MG CAPSULE PO (20:59)
--- NOTE | 2025-04-08 23:14 | HO.PSYCHPN ---
Subjective Subjective Date of Service: 04/08/25 Reason For Visit: decompensation Interim History: Patient visible on unit, talkative, friendly, inhibited but mostly behaviorally appropriate. I'm fine I'm like the energizer elizabeth She is also noted to have finger clubbing on both hands with underlying paronychia. Demonstrates that fluid can be pushed through nails. I offer antibacterial cream for her fingerstips, where one can see nail being from nail bed due to edema. ( on both hands). However she is mostly focused on complaints of upper right extremity pain, tenderness. Mild swelling on medial aspect of upper right arm, and more notable swelling on anterior/lateral aspect of lower right arm. Complains of pain and tightness and pain in fingertips, specifically in her right hand up through arm, tenderness throughout shoulder/axilla. Weakness in multilith operator due to swelling. Some discoloration of fingers. Patient complains skin of harnds especially fingers can become very taut. Denies history of DVT. Endorses history of SOB but denies any currently. PMH pertinent for COPD, chronic crack/cocaine abuse. Not on HRT, however some low level risk with various medications that may contribute. Will order CBC, coag, d-dimer and duplex U/S of UE RT as symptoms concerning for DVT. COPD, cocaine use risk factor for DVT/PE. Review of Systems Acute medical concerns: Yes As mentioned above Mental Status Exam Mental Status Exam Patient Appearance: Unkempt Patient Orientation: Person, Place and Situation Level of Consciousness: Awake and Alert Patient Behavior: Hyperactive and Cooperative Mood Description: Happy and Anxious Affect Description: Elated and Nervous Ability to Follow Directions: Good Speech Pattern: Rambling Hallucinations: None Delusions: Not Present Thought Process: Racing Thought Content: positive for Circumstantial Judgement: Fair Diagnostics Vital Signs (24Hr): Vital Signs - 24 hr 04/08/25 08:00 04/08/25 20:00 Temperature 97.8 F 98.2 F Pulse Rate 74 100 Respiratory Rate 18 16 Blood Pressure 125/84 144/85 H Pulse Oximetry 96 96 Oxygen Delivery Method Room Air Room Air BMI result Body Mass Index 33.3 Labs 04/05/25 15:34 04/05/25 15:34 Labs: Laboratory Results - last 48 hr 04/07/25 08:13 Estimat Average Glucose 97 Hemoglobin A1c % 5.0 Triglycerides 127 Cholesterol 121 LDL Cholesterol, Calc 50 HDL Cholesterol 46 Vitamin B12 691 Folate 7.5 TSH 1.06 Imaging Radiology Impressions: ITS Impressions Chest X-Ray 04/05/25 14:21 IMPRESSION: The lung volumes with increased interstitial markings. Electronically signed by: Niranjan Vega MD 04/05/2025 03:34 PM EDT RP Medications Medications Current Medications Acetaminophen (Acetaminophen 325 Mg Tablet) 650 mg PO Q6H PRN PRN Reason: Headache/Pain, Scale 1-10 Last Admin: 04/08/25 06:54 Dose: 650 mg Al Hydroxide/Mg Hydroxide (Magnesium Hydrox/Alum Hydrox 30 Ml Oral.Susp) 30 ml PO Q6H PRN PRN Reason: Heartburn/Nausea Albuterol Sulfate (Albuterol Sulfate 90 Mcg 8 Gm Inhaler) 2 puff INHALE RQ4H PRN PRN Reason: shortness of breath, wheezing Albuterol/Ipratropium (Albuterol/Iprat 2.5/0.5mg 3 Ml Ampul.Neb) 3 ml INHALE RQID PRN PRN Reason: SOB, Wheezing Amitriptyline HCl (Amitriptyline Hcl 50 Mg Tablet) 50 mg PO BEDTIME [facility] Last Admin: 04/08/25 20:58 Dose: 50 mg Aripiprazole (Aripiprazole 15 Mg Tablet) 15 mg PO DAILY [facility] Last Admin: 04/08/25 09:02 Dose: 15 mg Buprenorphine/Naloxone (Buprenorphine/Naloxone 8/2 Mg Film) 1 film SUBLINGUAL BID [facility] Last Admin: 04/08/25 21:00 Dose: 1 film Carbamide Peroxide (Carbamide Peroxide 6.5% Otic 15 Ml Drpbtl) 5 drop EAR-RIGHT BID PRN PRN Reason: wax build up Stop: 04/10/25 09:42 Clonazepam (Clonazepam 1 Mg Tablet) 2 mg PO BID [facility] Last Admin: 04/06/25 10:26 Dose: 2 mg Clonazepam (Clonazepam 1 Mg Tablet) 1 mg PO BID [facility] Last Admin: 04/08/25 21:00 Dose: 1 mg Clonazepam (Clonazepam 1 Mg Tablet) 1 mg PO DAILY PRN PRN Reason: SEVERE ANXIETY Last Admin: 04/08/25 18:16 Dose: 1 mg Duloxetine HCl (Duloxetine Hcl 20 Mg Capsule.Dr) 20 mg PO BID [facility] Last Admin: 04/08/25 21:00 Dose: 20 mg Fluticasone/Vilanterol (Fluticasone/Vilanterol 100/25 Blst.W.Dev) 1 puff INHALE RDAILY PRN PRN Reason: SOB, Wheezing Hydroxyzine HCl (Hydroxyzine Hcl 25 Mg Tablet) 25 mg PO Q6H PRN PRN Reason: mild anxiety Last Admin: 04/08/25 15:02 Dose: 25 mg Ibuprofen (Ibuprofen 600 Mg Tablet) 600 mg PO Q6H PRN PRN Reason: pain 1-10 of fibromyalgia Magnesium Hydroxide (Milk Of Magnesia 30 Ml Oral.Susp) 30 ml PO DAILY PRN PRN Reason: Constipation Nicotine (Nicotine 21 Mg Patch.Td24) 21 mg TRANSDERMA DAILY PRN PRN Reason: smoking cessation Last Admin: 04/08/25 15:02 Dose: 21 mg Nicotine Polacrilex (Nicotine Polacrilex 2 Mg Gum) 4 mg BUCCAL Q2H PRN PRN Reason: Nicotine Cravings Last Admin: 04/08/25 21:39 Dose: 4 mg Pat Own Med ( (Concerta 54 Mg Tab)) 54 mg PO DAILY [facility] Last Admin: 04/08/25 09:02 Dose: 54 mg Olanzapine (Olanzapine 5 Mg Tablet) 5 mg PO TID PRN PRN Reason: agitation Last Admin: 04/07/25 19:23 Dose: 5 mg Pantoprazole Sodium (Pantoprazole Sodium 20 Mg Tablet.) 20 mg PO DAILY@0630 [facility] Last Admin: 04/08/25 06:37 Dose: 20 mg Prazosin HCl (Prazosin Hcl 5 Mg Capsule) 5 mg PO BEDTIME [facility]; Protocol Last Admin: 04/08/25 20:59 Dose: 5 mg Pregabalin (Pregabalin 75 Mg Capsule) 225 mg PO BID [facility] Last Admin: 04/08/25 20:58 Dose: 225 mg Trazodone HCl (Trazodone Hcl 50 Mg Tablet) 50 mg PO BEDTIME MRX1 PRN PRN Reason: Insomnia Vitamin D (Cholecalciferol (Vitamin D3) 25 Mcg Tablet) 25 mcg PO DAILY [facility] Last Admin: 04/08/25 09:02 Dose: 25 mcg Allergies Allergies Allergy/AdvReac Type Severity Reaction Status Date / Time No Known Allergies Allergy Verified 04/05/25 14:57 Assessment & Plan Assessment & Plan (1) Opioid use disorder: Status: Acute Code(s): F11.90 - Opioid use, unspecified, uncomplicated (2) Cocaine use disorder: Status: Acute Code(s): F14.10 - Cocaine abuse, uncomplicated (3) Mood disorder: Status: Acute Code(s): F39 - Unspecified mood [affective] disorder (4) PTSD (post-traumatic stress disorder): Status: Acute Code(s): F43.10 - Post-traumatic stress disorder, unspecified Plan Admit, CV, 15 minute checks Diagnostics as needed Collateral contact Monitor sedation- today, pt is sedate-will place klonopin on hold this evening. Re-eval 04/07. Med eval Encourage milieu Discharge planning. 04/07/2025 Restart low-dose lower dose clonazepam may then benefit from taper on multiple sedating medication denies active SI minimal coping strategies 04/08 - patient complaining of pain, tenderness in right arm, with mild swelling in upper and lower arm. Edema, weakness in hand. Also finger clubbing with underlying paronychia bilaterally. Denies current CP, SOB. Will order labwork including d-dimer and U/S or right arm to r/o DVT Patient educated on: medical condition Informed Consent: understands Reason for continued inpatient stay Substantial Risk for: med/psych decompensation Time Spent With Patient Time: Total time managing care of this patient today ____ minutes.
[2025-04-09] MEDS: Pantoprazole Sodium 20 MG TABLET.DR PO (06:33)
[2025-04-09 08:05] VITALS: BP 131/73; PULSE 80; TEMP 37.1; O2SAT 93
[2025-04-09] MEDS: METHYLPHENIDATE 54 MG 54 EACH PO (08:44)
[2025-04-09] MEDS: DULoxetine HCl 20 MG CAPSULE.DR PO ×2 (08:45→21:10)
[2025-04-09] MEDS: ARIPiprazole 15 MG TABLET PO (08:45)
[2025-04-09] MEDS: Cholecalciferol (Vitamin D3) 25 MCG TABLET PO (08:46)
[2025-04-09] MEDS: Pregabalin 75 MG CAPSULE 225 MG PO ×2 (08:47→21:11)
[2025-04-09] MEDS: clonazePAM 1 MG TABLET PO ×2 (08:47→21:11)
[2025-04-09] MEDS: Buprenorphine/Naloxone 8/2 mg FILM 1 FILM SUBLINGUAL ×2 (08:47→21:10)
[2025-04-09] MEDS: Nicotine Polacrilex 2 MG GUM 4 MG BUCCAL ×2 (09:46→13:15)
[2025-04-09] MEDS: Nicotine 21 MG PATCH.TD24 TRANSDERMA (09:46)
--- NOTE | 2025-04-09 09:54 | HO.PSYCHPN ---
Subjective Subjective Date of Service: 04/09/25 Reason For Visit: decompensation Subjective Notes: Conditional Voluntary Healthcare Proxy: No Guardianship: No Medical Problems Affecting Mental Status: No Interim History: Pt reports she has found a place to stay and work. 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 This was discouraged by team, however, pt will proceed with her plan. I have a better chance at being sober if I have a stable place to live. Reports a in depressive sx and feeling more hopeful overall. Reports regime to be effective. Finds Olanzapine helpful and would like to decrease Klonopin over time and replace it with scheduled Olanzapine which was discussed. Discussed PHP programs. Pt has interest in [employer]. Medication Compliance: Yes Side effects from medications: No Attending Groups: Yes Review of Systems Acute medical concerns: No Review of Systems Review of Systems no Mental Status Exam Mental Status Exam Patient Appearance: Appropriate Patient Orientation: Person, Place, Time and Situation Level of Consciousness: Alert Patient Behavior: Appropriate, Talkative, Cooperative and Good Eye Contact Mood Description: Appropriate Affect Description: Appropriate Patient Cognition Impaired: No Ability to Follow Directions: Good Speech Pattern: Spontaneous Speech Memory Description: Intact Hallucinations: Auditory (decreasing with use of olanzapine) Delusions: Not Present Perceptual Disturbances: Depersonalization and Derealization Thought Process: Intact, Distracted and Goal Oriented Thought Content: positive for Intact, positive for Circumstantial and positive for Goal Oriented Depressive Symptoms: Increased Anxiety and Thoughts of /Suicide (denies) Judgement: Fair Diagnostics Vital Signs (24Hr): Vital Signs - 24 hr 04/08/25 20:00 04/09/25 08:05 Temperature 98.2 F 98.7 F Pulse Rate 100 80 Respiratory Rate 16 Blood Pressure 144/85 H 131/73 Pulse Oximetry 96 93 Oxygen Delivery Method Room Air Room Air BMI result Body Mass Index 33.3 Labs 04/10/25 07:54 04/05/25 15:34 Imaging Radiology Impressions: ITS Impressions Chest X-Ray 04/05/25 14:21 IMPRESSION: The lung volumes with increased interstitial markings. Electronically signed by: Niranjan Vega MD 04/05/2025 03:34 PM EDT Venous Duplex 04/09/25 08:56 IMPRESSION: No evidence of deep venous thrombosis involving the right upper extremity. Electronically signed by: Amando Mercado MD 04/09/2025 09:23 AM EDT RP Medications Medications Current Medications Acetaminophen (Acetaminophen 325 Mg Tablet) 650 mg PO Q6H PRN PRN Reason: Headache/Pain, Scale 1-10 Last Admin: 04/08/25 06:54 Dose: 650 mg Al Hydroxide/Mg Hydroxide (Magnesium Hydrox/Alum Hydrox 30 Ml Oral.Susp) 30 ml PO Q6H PRN PRN Reason: Heartburn/Nausea Albuterol Sulfate (Albuterol Sulfate 90 Mcg 8 Gm Inhaler) 2 puff INHALE RQ4H PRN PRN Reason: shortness of breath, wheezing Albuterol/Ipratropium (Albuterol/Iprat 2.5/0.5mg 3 Ml Ampul.Neb) 3 ml INHALE RQID PRN PRN Reason: SOB, Wheezing Amitriptyline HCl (Amitriptyline Hcl 50 Mg Tablet) 50 mg PO BEDTIME [facility] Last Admin: 04/08/25 20:58 Dose: 50 mg Aripiprazole (Aripiprazole 15 Mg Tablet) 15 mg PO DAILY [facility] Last Admin: 04/09/25 08:45 Dose: 15 mg Buprenorphine/Naloxone (Buprenorphine/Naloxone 8/2 Mg Film) 1 film SUBLINGUAL BID [facility] Last Admin: 04/09/25 08:47 Dose: 1 film Carbamide Peroxide (Carbamide Peroxide 6.5% Otic 15 Ml Drpbtl) 5 drop EAR-RIGHT BID PRN PRN Reason: wax build up Stop: 04/10/25 09:42 Clonazepam (Clonazepam 1 Mg Tablet) 2 mg PO BID [facility] Last Admin: 04/06/25 10:26 Dose: 2 mg Clonazepam (Clonazepam 1 Mg Tablet) 1 mg PO BID [facility] Last Admin: 04/09/25 08:47 Dose: 1 mg Clonazepam (Clonazepam 1 Mg Tablet) 1 mg PO DAILY PRN PRN Reason: SEVERE ANXIETY Last Admin: 04/08/25 18:16 Dose: 1 mg Duloxetine HCl (Duloxetine Hcl 20 Mg Capsule.Dr) 20 mg PO BID [facility] Last Admin: 04/09/25 08:45 Dose: 20 mg Fluticasone/Vilanterol (Fluticasone/Vilanterol 100/25 Blst.W.Dev) 1 puff INHALE RDAILY PRN PRN Reason: SOB, Wheezing Hydroxyzine HCl (Hydroxyzine Hcl 25 Mg Tablet) 25 mg PO Q6H PRN PRN Reason: mild anxiety Last Admin: 04/08/25 15:02 Dose: 25 mg Ibuprofen (Ibuprofen 600 Mg Tablet) 600 mg PO Q6H PRN PRN Reason: pain 1-10 of fibromyalgia Magnesium Hydroxide (Milk Of Magnesia 30 Ml Oral.Susp) 30 ml PO DAILY PRN PRN Reason: Constipation Nicotine (Nicotine 21 Mg Patch.Td24) 21 mg TRANSDERMA DAILY PRN PRN Reason: smoking cessation Last Admin: 04/09/25 09:46 Dose: 21 mg Nicotine Polacrilex (Nicotine Polacrilex 2 Mg Gum) 4 mg BUCCAL Q2H PRN PRN Reason: Nicotine Cravings Last Admin: 04/09/25 09:46 Dose: 4 mg Pat Own Med ( (Concerta 54 Mg Tab)) 54 mg PO DAILY [facility] Last Admin: 04/09/25 08:44 Dose: 54 mg Olanzapine (Olanzapine 5 Mg Tablet) 5 mg PO TID PRN PRN Reason: agitation Last Admin: 04/07/25 19:23 Dose: 5 mg Pantoprazole Sodium (Pantoprazole Sodium 20 Mg Tablet.Dr) 20 mg PO DAILY@0630 [facility] Last Admin: 04/09/25 06:33 Dose: 20 mg Prazosin HCl (Prazosin Hcl 5 Mg Capsule) 5 mg PO BEDTIME [facility]; Protocol Last Admin: 04/08/25 20:59 Dose: 5 mg Pregabalin (Pregabalin 75 Mg Capsule) 225 mg PO BID [facility] Last Admin: 04/09/25 08:47 Dose: 225 mg Trazodone HCl (Trazodone Hcl 50 Mg Tablet) 50 mg PO BEDTIME MRX1 PRN PRN Reason: Insomnia Vitamin D (Cholecalciferol (Vitamin D3) 25 Mcg Tablet) 25 mcg PO DAILY [facility] Last Admin: 04/09/25 08:46 Dose: 25 mcg Allergies Allergies Allergy/AdvReac Type Severity Reaction Status Date / Time No Known Allergies Allergy Verified 04/05/25 14:57 Assessment & Plan Assessment & Plan (1) Opioid use disorder: Status: Acute Code(s): F11.90 - Opioid use, unspecified, uncomplicated (2) Cocaine use disorder: Status: Acute Code(s): F14.10 - Cocaine abuse, uncomplicated (3) Mood disorder: Status: Acute Code(s): F39 - Unspecified mood [affective] disorder (4) PTSD (post-traumatic stress disorder): Status: Acute Code(s): F43.10 - Post-traumatic stress disorder, unspecified Plan Admit, CV, 15 minute checks Diagnostics as needed Collateral contact Monitor sedation- today, pt is sedate-will place klonopin on hold this evening. Re-eval 04/07. Med eval Encourage milieu Discharge planning. 04/07/2025 Restart low-dose lower dose clonazepam may then benefit from taper on multiple sedating medication denies active SI minimal coping strategies 04/08 - patient complaining of pain, tenderness in right arm, with mild swelling in upper and lower arm. Edema, weakness in hand. Also finger clubbing with underlying paronychia bilaterally. Denies current CP, SOB. Will order labwork including d-dimer and U/S or right arm to r/o DVT 04/09- continue tx team attempting to contact [facility] career services representative to assess current status with their agency. Reason for continued inpatient stay Substantial Risk for: rapid decompensation Time Spent With Patient Time: Total time managing care of this patient today ____ minutes.
--- NOTE | 2025-04-09 11:51 | HO.PM.IMCN ---
History of Present Illness Data of Consult Service Date: 04/09/25 Primary Care Provider: Aleksey Higgins MD [facility] Reason for consult: Medical evaluation 45-year-old female with past medical history of COPD, hepatitis-C, polysubstance use disorder on Suboxone, mood disorder, peripheral neuropathy admitted to inpatient psychiatric unit for treatment of emotional dysregulation, labile mood and behavioral dyscontrol, agitation, use of crack cocaine and overuse of Klonopin. Patient reports discomfort in her hands, vague tenderness in right arm, with mild swelling in upper and lower arm. Intermittent Edema which is improved today, small raised area right medial wrist and weakness in hand. She has slight finger clubbing due to COPD, bilateral paronychia bilaterally. No evidence of redness, drainage. No fever. Ultrasound negative for DVT. D-dimer pending. Review of Systems Review of Systems: Denies any shortness of breath, chest pain, dizziness, lightheadedness, abdominal pain or discomfort, nausea vomiting or diarrhea. PMFSH Medical History PTSD (post-traumatic stress disorder) Mood disorder Cocaine use disorder Opioid use disorder Bipolar disorder Interstitial lung disease Hepatitis C IV drug user Social History Household Members: None Household Members Other:: sister Housing: Homeless Do you presently have visiting nurse or other home services: No Alcohol intake: current Alcohol intake frequency: holidays/special occasions only Comment: 1:1 Sitter for SI Patient Tobacco Use Status: Former Tobacco user Tobacco use type: Cigarette Smoked in Last 30 Days: No e-Cigarette/Vaping Use: Never Used Patient Interested in Nicotine Replacement: Yes Patient Given Instructions on How to Stop Smoking: No Second Hand Smoke Exposure: No Substance Use Type: Crack/Cocaine and Marijuana Currently Displaying Signs/Symptoms of Drug Intoxication Withdrawal: No Advance Directives: Yes Advance Directives Information Provided: Yes Advance Directives on File: Yes Advance Directives Date on File: 03/02/25 Do you have thoughts of harming others: None Do you have a plan to hurt others: No Plan Recently lost weight without trying: Unsure Eating poorly because of decreased appetite: No Nutrition Risks: No Nutritional Risk Patient : No : No Poor oral hygiene: No service: No Meds Allergies Allergy/AdvReac Type Severity Reaction Status Date / Time No Known Allergies Allergy Verified 04/05/25 14:57 Active Medications: Current Medications Acetaminophen (Acetaminophen 325 Mg Tablet) 650 mg PO Q6H PRN PRN Reason: Headache/Pain, Scale 1-10 Last Admin: 04/08/25 06:54 Dose: 650 mg Al Hydroxide/Mg Hydroxide (Magnesium Hydrox/Alum Hydrox 30 Ml Oral.Susp) 30 ml PO Q6H PRN PRN Reason: Heartburn/Nausea Albuterol Sulfate (Albuterol Sulfate 90 Mcg 8 Gm Inhaler) 2 puff INHALE RQ4H PRN PRN Reason: shortness of breath, wheezing Albuterol/Ipratropium (Albuterol/Iprat 2.5/0.5mg 3 Ml Ampul.Neb) 3 ml INHALE RQID PRN PRN Reason: SOB, Wheezing Amitriptyline HCl (Amitriptyline Hcl 50 Mg Tablet) 50 mg PO BEDTIME [facility] Last Admin: 04/08/25 20:58 Dose: 50 mg Aripiprazole (Aripiprazole 15 Mg Tablet) 15 mg PO DAILY [facility] Last Admin: 04/09/25 08:45 Dose: 15 mg Buprenorphine/Naloxone (Buprenorphine/Naloxone 8/2 Mg Film) 1 film SUBLINGUAL BID [facility] Last Admin: 04/09/25 08:47 Dose: 1 film Carbamide Peroxide (Carbamide Peroxide 6.5% Otic 15 Ml Drpbtl) 5 drop EAR-RIGHT BID PRN PRN Reason: wax build up Stop: 04/10/25 09:42 Clonazepam (Clonazepam 1 Mg Tablet) 2 mg PO BID [facility] Last Admin: 04/06/25 10:26 Dose: 2 mg Clonazepam (Clonazepam 1 Mg Tablet) 1 mg PO BID [facility] Last Admin: 04/09/25 08:47 Dose: 1 mg Clonazepam (Clonazepam 1 Mg Tablet) 1 mg PO DAILY PRN PRN Reason: SEVERE ANXIETY Last Admin: 04/08/25 18:16 Dose: 1 mg Duloxetine HCl (Duloxetine Hcl 20 Mg Capsule.Dr) 20 mg PO BID [facility] Last Admin: 04/09/25 08:45 Dose: 20 mg Fluticasone/Vilanterol (Fluticasone/Vilanterol 100/25 Blst.W.Dev) 1 puff INHALE RDAILY PRN PRN Reason: SOB, Wheezing Hydroxyzine HCl (Hydroxyzine Hcl 25 Mg Tablet) 25 mg PO Q6H PRN PRN Reason: mild anxiety Last Admin: 04/08/25 15:02 Dose: 25 mg Ibuprofen (Ibuprofen 600 Mg Tablet) 600 mg PO Q6H PRN PRN Reason: pain 1-10 of fibromyalgia Magnesium Hydroxide (Milk Of Magnesia 30 Ml Oral.Susp) 30 ml PO DAILY PRN PRN Reason: Constipation Nicotine (Nicotine 21 Mg Patch.Td24) 21 mg TRANSDERMA DAILY PRN PRN Reason: smoking cessation Last Admin: 04/09/25 09:46 Dose: 21 mg Nicotine Polacrilex (Nicotine Polacrilex 2 Mg Gum) 4 mg BUCCAL Q2H PRN PRN Reason: Nicotine Cravings Last Admin: 04/09/25 09:46 Dose: 4 mg Pat Own Med ( (Concerta 54 Mg Tab)) 54 mg PO DAILY [facility] Last Admin: 04/09/25 08:44 Dose: 54 mg Olanzapine (Olanzapine 5 Mg Tablet) 5 mg PO TID PRN PRN Reason: agitation Last Admin: 04/07/25 19:23 Dose: 5 mg Pantoprazole Sodium (Pantoprazole Sodium 20 Mg Tablet.Dr) 20 mg PO DAILY@0630 [facility] Last Admin: 04/09/25 06:33 Dose: 20 mg Prazosin HCl (Prazosin Hcl 5 Mg Capsule) 5 mg PO BEDTIME [facility]; Protocol Last Admin: 04/08/25 20:59 Dose: 5 mg Pregabalin (Pregabalin 75 Mg Capsule) 225 mg PO BID [facility] Last Admin: 04/09/25 08:47 Dose: 225 mg Trazodone HCl (Trazodone Hcl 50 Mg Tablet) 50 mg PO BEDTIME MRX1 PRN PRN Reason: Insomnia Vitamin D (Cholecalciferol (Vitamin D3) 25 Mcg Tablet) 25 mcg PO DAILY [facility] Last Admin: 04/09/25 08:46 Dose: 25 mcg Home Medications ?Medication ?Instructions ?Recorded ?Confirmed ?Last Taken ?Type cholecalciferol (vitamin D3) 25 25 mcg PO DAILY 11/07/22 04/06/25 03/04/25 History mcg (1,000 unit) tablet (Vitamin D3) albuterol sulfate 90 mcg/actuation 2 puff inhalation Q4H PRN 03/01/25 04/05/25 03/04/25 History aerosol inhaler (Ventolin HFA) Shortness Of Breath Or Wheezing aripiprazole 5 mg tablet (Abilify) 15 mg PO DAILY 03/01/25 04/06/25 03/04/25 History buprenorphine 8 mg-naloxone 2 mg 1 film sublingual BID 03/01/25 04/05/25 03/04/25 History sublingual film clonazepam 2 mg tablet 2 mg PO BID 03/01/25 04/05/25 03/04/25 History ipratropium 20 mcg-albuterol 100 2 puff inhalation BID 03/01/25 04/06/25 03/04/25 History mcg/actuation mist for inhalation (Combivent Respimat) methylphenidate HCl 54 mg 54 mg PO DAILY 03/01/25 04/05/25 03/04/25 History tablet,extended release 24 hr (Concerta) prazosin 5 mg capsule 5 mg PO BEDTIME 03/01/25 04/05/25 03/04/25 History duloxetine 20 mg capsule,delayed 20 mg PO BID 04/05/25 04/05/25 Unknown History release pantoprazole 20 mg tablet,delayed 20 mg PO DAILY@0630 04/05/25 04/05/25 Unknown History release prazosin 2 mg capsule 2 mg PO BEDTIME 04/05/25 04/05/25 Unknown History pregabalin 225 mg capsule (Lyrica) 225 mg PO BID 04/05/25 04/05/25 Unknown History amitriptyline 50 mg tablet 50 mg PO DAILY 04/06/25 04/06/25 Unknown History carbamide peroxide 6.5 % ear drops 5 drp otic (ear) right BID PRN Ear 04/06/25 04/06/25 Unknown History (Debrox) Wax fluticasone 250 mcg-salmeterol 50 1 inh inhalation BID 04/06/25 04/06/25 Unknown History mcg/dose blistr powdr for inhalation (Wixela Inhub) Physical Exam Vital Signs and Narrative: Vital Signs: Last Vital Signs Temp 98.7 F 04/09/25 08:05 Pulse 80 04/09/25 08:05 Resp 16 04/08/25 20:00 BP 131/73 04/09/25 08:05 Pulse Ox 93 04/09/25 08:05 O2 Del Method Room Air 04/09/25 08:05 BMI result Body Mass Index 33.3 CONST: Alert and oriented, in NAD. Well nourished HEENT: Normocephalic, atraumatic, MMM, Eyes clear, Neck supple RESP: Lungs clear, RRR even and regular HEART:,RRR, S1, S2. No murmur, no edema GI:Abdomen Soft NT, ND. + BS times four :Deferred SKIN: Warm dry and intact, no visible lesions or rashes. Positive paronychia in bilateral fingers, Slight clubbing noted. NEURO:CN II-XII Intact bilaterally, Sensation intact. Speech clear PSYCH: Normal affect Results Labs 04/05/25 15:34 04/05/25 15:34 Imaging Radiologist's Impressions: Impressions Venous Duplex 04/09/25 08:56 IMPRESSION: No evidence of deep venous thrombosis involving the right upper extremity. Electronically signed by: Amando Mercado MD 04/09/2025 09:23 AM EDT RP Assessment and Plan (1) Hypoxia: Status: Resolved (2) Pneumonia: Status: Acute (3) Acute hypokalemia: Status: Resolved Plan Opioid use DO/Cocaine Use Disorder/Mood disorder/PTSD Treatment per psychiatric team. Paronychia/Right arm swelling Encourage hand hygiene with soap and water, avoid squeezing or picking areas Mupriocin BID to nail beds for 7 days No evidence of cellulitis US negative for DVT Thank you for allowing me to participate in the care of this patient. Signing off at this time. Please reconsult of any acute complaints or issues arise
[2025-04-09] MEDS: Mupirocin 2 % Oint 22 GM TUBE 1 APPL TOPICAL (13:15)
[2025-04-09] MEDS: hydrOXYzine HCL 25 MG TABLET PO (18:17)
[2025-04-09 20:58] VITALS: BP 117/74; PULSE 99; RESP 16; TEMP 36.9; O2SAT 99
[2025-04-09 21:10] VITALS: BP 117/74
[2025-04-09] MEDS: Prazosin HCL 5 MG CAPSULE PO (21:10)
[2025-04-09] MEDS: Amitriptyline HCl 50 MG TABLET PO (21:11)
[2025-04-10] MEDS: Pantoprazole Sodium 20 MG TABLET.DR PO (06:38)
[2025-04-10 08:00] VITALS: BP 128/81; PULSE 78; TEMP 36.4; O2SAT 94
[2025-04-10 08:14] LABS: Hematocrit 36.1 % (37.0-47.0); Hemoglobin 11.6 g/dl (12.0-16.0); Mean Corpuscular HGB Conc 32.1 g/dl (31.0-35.0); Mean Corpuscular Hemoglobin 29.1 pg (27.0-33.0); Mean Corpuscular Volume 90.5 fL (80.0-98.0); Mean Platelet Volume 9.2 fL (9.4-12.3); Platelet Count 218 X10*3/uL (160-400); Red Blood Count 3.99 X10*6/uL (4.20-5.50); Red Cell Distribution Width 14.2 % (11.0-16.0); White Blood Count 5.1 X10*3/uL (4.8-10.8)
[2025-04-10] MEDS: Nicotine 21 MG PATCH.TD24 TRANSDERMA (08:31)
[2025-04-10] MEDS: ARIPiprazole 15 MG TABLET PO (08:33)
[2025-04-10] MEDS: Mupirocin 2 % Oint 22 GM TUBE 1 APPL TOPICAL ×2 (08:33→22:01)
[2025-04-10] MEDS: DULoxetine HCl 20 MG CAPSULE.DR PO ×2 (08:33→21:54)
[2025-04-10] MEDS: Buprenorphine/Naloxone 8/2 mg FILM 1 FILM SUBLINGUAL ×2 (08:34→21:58)
[2025-04-10] MEDS: Pregabalin 75 MG CAPSULE 225 MG PO ×2 (08:34→21:54)
[2025-04-10] MEDS: Cholecalciferol (Vitamin D3) 25 MCG TABLET PO (08:34)
[2025-04-10] MEDS: clonazePAM 1 MG TABLET PO ×3 (08:34→22:06)
[2025-04-10] MEDS: METHYLPHENIDATE 54 MG 54 EACH PO (08:34)
--- NOTE | 2025-04-10 09:59 | HO.PSYCHPN ---
Subjective Subjective Date of Service: 04/10/25 Reason For Visit: decompensation Subjective Notes: Conditional Voluntary Healthcare Proxy: No Guardianship: No Medical Problems Affecting Mental Status: No Interim History: I can do it on my own, I just need strong out patient supports. I would like to do OP urine testing to keep myself accountable . 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 Reports meds are effective, helpful. Medication Compliance: Yes Side effects from medications: No Attending Groups: Intermittent Review of Systems Acute medical concerns: No Medical Review of Systems: unchanged Review of Systems Review of Systems Denies Mental Status Exam Mental Status Exam Patient Appearance: Appropriate Patient Orientation: Person, Place, Time and Situation Level of Consciousness: Alert Patient Behavior: Appropriate, Talkative, Cooperative and Good Eye Contact Mood Description: Appropriate Affect Description: Appropriate Patient Cognition Impaired: No Ability to Follow Directions: Good Speech Pattern: Spontaneous Speech Memory Description: Intact Hallucinations: Auditory (decreasing with use of olanzapine) Delusions: Not Present Perceptual Disturbances: Depersonalization and Derealization Thought Process: Intact, Distracted and Goal Oriented Thought Content: positive for Intact, positive for Circumstantial and positive for Goal Oriented Depressive Symptoms: Increased Anxiety and Thoughts of /Suicide (denies) Judgement: Fair Diagnostics Vital Signs (24Hr): Vital Signs - 24 hr 04/09/25 20:58 04/09/25 21:10 04/10/25 08:00 Temperature 98.4 F 97.6 F Pulse Rate 99 78 Respiratory Rate 16 Blood Pressure 117/74 117/74 128/81 Pulse Oximetry 99 94 Oxygen Delivery Method Room Air Room Air BMI result Body Mass Index 33.3 Labs 04/10/25 07:54 04/05/25 15:34 Labs: Laboratory Results - last 48 hr 04/10/25 07:54 WBC 5.1 RBC 3.99 L Hgb 11.6 L Hct 36.1 L MCV 90.5 MCH 29.1 MCHC 32.1 RDW 14.2 Plt Count 218 MPV 9.2 L Absolute Nucleated RBC 0.000 Nucleated RBC % (auto) 0.0 Imaging Radiology Impressions: ITS Impressions Chest X-Ray 04/05/25 14:21 IMPRESSION: The lung volumes with increased interstitial markings. Electronically signed by: Niranjan Vega MD 04/05/2025 03:34 PM EDT RP Venous Duplex 04/09/25 08:56 IMPRESSION: No evidence of deep venous thrombosis involving the right upper extremity. Electronically signed by: Amando Mercado MD 04/09/2025 09:23 AM EDT RP Medications Medications Current Medications Acetaminophen (Acetaminophen 325 Mg Tablet) 650 mg PO Q6H PRN PRN Reason: Headache/Pain, Scale 1-10 Last Admin: 04/08/25 06:54 Dose: 650 mg Al Hydroxide/Mg Hydroxide (Magnesium Hydrox/Alum Hydrox 30 Ml Oral.Susp) 30 ml PO Q6H PRN PRN Reason: Heartburn/Nausea Albuterol Sulfate (Albuterol Sulfate 90 Mcg 8 Gm Inhaler) 2 puff INHALE RQ4H PRN PRN Reason: shortness of breath, wheezing Albuterol/Ipratropium (Albuterol/Iprat 2.5/0.5mg 3 Ml Ampul.Neb) 3 ml INHALE RQID PRN PRN Reason: SOB, Wheezing Amitriptyline HCl (Amitriptyline Hcl 50 Mg Tablet) 50 mg PO BEDTIME [facility] Last Admin: 04/09/25 21:11 Dose: 50 mg Aripiprazole (Aripiprazole 15 Mg Tablet) 15 mg PO DAILY [facility] Last Admin: 04/10/25 08:33 Dose: 15 mg Buprenorphine/Naloxone (Buprenorphine/Naloxone 8/2 Mg Film) 1 film SUBLINGUAL BID [facility] Last Admin: 04/10/25 08:34 Dose: 1 film Clonazepam (Clonazepam 1 Mg Tablet) 2 mg PO BID [facility] Last Admin: 04/06/25 10:26 Dose: 2 mg Clonazepam (Clonazepam 1 Mg Tablet) 1 mg PO BID [facility] Last Admin: 04/10/25 08:34 Dose: 1 mg Clonazepam (Clonazepam 1 Mg Tablet) 1 mg PO DAILY PRN PRN Reason: SEVERE ANXIETY Last Admin: 04/08/25 18:16 Dose: 1 mg Duloxetine HCl (Duloxetine Hcl 20 Mg Capsule.Dr) 20 mg PO BID [facility] Last Admin: 04/10/25 08:33 Dose: 20 mg Fluticasone/Vilanterol (Fluticasone/Vilanterol 100/25 Blst.W.Dev) 1 puff INHALE RDAILY PRN PRN Reason: SOB, Wheezing Hydroxyzine HCl (Hydroxyzine Hcl 25 Mg Tablet) 25 mg PO Q6H PRN PRN Reason: mild anxiety Last Admin: 04/09/25 18:17 Dose: 25 mg Ibuprofen (Ibuprofen 600 Mg Tablet) 600 mg PO Q6H PRN PRN Reason: pain 1-10 of fibromyalgia Magnesium Hydroxide (Milk Of Magnesia 30 Ml Oral.Susp) 30 ml PO DAILY PRN PRN Reason: Constipation Mupirocin (Mupirocin 2 % Oint 22 Gm Tube) 1 appl TOPICAL BID [facility]; Protocol Stop: 04/16/25 20:59 Last Admin: 04/10/25 08:33 Dose: 1 appl Nicotine (Nicotine 21 Mg Patch.Td24) 21 mg TRANSDERMA DAILY PRN PRN Reason: smoking cessation Last Admin: 04/10/25 08:31 Dose: 21 mg Nicotine Polacrilex (Nicotine Polacrilex 2 Mg Gum) 4 mg BUCCAL Q2H PRN PRN Reason: Nicotine Cravings Last Admin: 04/09/25 13:15 Dose: 4 mg Pat Own Med ( (Concerta 54 Mg Tab)) 54 mg PO DAILY [facility] Last Admin: 04/10/25 08:34 Dose: 54 mg Olanzapine (Olanzapine 5 Mg Tablet) 5 mg PO TID PRN PRN Reason: agitation Last Admin: 04/07/25 19:23 Dose: 5 mg Pantoprazole Sodium (Pantoprazole Sodium 20 Mg Tablet.Dr) 20 mg PO DAILY@0630 [facility] Last Admin: 04/10/25 06:38 Dose: 20 mg Prazosin HCl (Prazosin Hcl 5 Mg Capsule) 5 mg PO BEDTIME [facility]; Protocol Last Admin: 04/09/25 21:10 Dose: 5 mg Pregabalin (Pregabalin 75 Mg Capsule) 225 mg PO BID [facility] Last Admin: 04/10/25 08:34 Dose: 225 mg Trazodone HCl (Trazodone Hcl 50 Mg Tablet) 50 mg PO BEDTIME MRX1 PRN PRN Reason: Insomnia Vitamin D (Cholecalciferol (Vitamin D3) 25 Mcg Tablet) 25 mcg PO DAILY [facility] Last Admin: 04/10/25 08:34 Dose: 25 mcg Allergies Allergies Allergy/AdvReac Type Severity Reaction Status Date / Time No Known Allergies Allergy Verified 04/05/25 14:57 Assessment & Plan Assessment & Plan (1) Hypoxia: Status: Resolved Code(s): R09.02 - Hypoxemia (2) Acute hypokalemia: Status: Resolved Code(s): E87.6 - Hypokalemia (3) PTSD (post-traumatic stress disorder): Status: Acute Code(s): F43.10 - Post-traumatic stress disorder, unspecified (4) Mood disorder: Status: Acute Code(s): F39 - Unspecified mood [affective] disorder (5) Cocaine use disorder: Status: Acute Code(s): F14.10 - Cocaine abuse, uncomplicated (6) Opioid use disorder: Status: Acute Code(s): F11.90 - Opioid use, unspecified, uncomplicated Plan Opioid use DO/Cocaine Use Disorder/Mood disorder/PTSD Treatment per psychiatric team. Paronychia/Right arm swelling Encourage hand hygiene with soap and water, avoid squeezing or picking areas Mupriocin BID to nail beds for 7 days No evidence of cellulitis US negative for DVT Thank you for allowing me to participate in the care of this patient. Signing off at this time. Please reconsult of any acute complaints or issues arise 04/10/25- Continue tx Reason for continued inpatient stay Substantial Risk for: rapid decompensation Time Spent With Patient Time: Total time managing care of this patient today ____ minutes.
[2025-04-10 20:00] VITALS: BP 106/64; PULSE 89; RESP 18; TEMP 36.6; O2SAT 96
[2025-04-10] MEDS: Amitriptyline HCl 50 MG TABLET PO (21:55)
[2025-04-10] MEDS: Prazosin HCL 5 MG CAPSULE PO (21:55)
[2025-04-10] MEDS: OLANZapine 5 MG TABLET PO (22:01)
[2025-04-11] MEDS: Ibuprofen 600 MG TABLET PO (04:55)
[2025-04-11] MEDS: hydrOXYzine HCL 25 MG TABLET PO (04:56)
[2025-04-11] MEDS: Pantoprazole Sodium 20 MG TABLET.DR PO (07:04)
[2025-04-11 07:53] VITALS: BP 150/92; PULSE 86; RESP 16; TEMP 35.9; O2SAT 96
[2025-04-11 08:11] LABS: INTERNATIONAL NORM RATIO 0.8 (0.9-1.1); Prothrombin Time 9.1 SEC (10.9-12.4)
[2025-04-11 08:14] LABS: D Dimer High Sensitivity 529 NG/ML; Partial Thromboplastin Time 34.2 SEC (26.0-36.8)
[2025-04-11] MEDS: DULoxetine HCl 20 MG CAPSULE.DR PO ×2 (08:38→20:35)
[2025-04-11] MEDS: Buprenorphine/Naloxone 8/2 mg FILM 1 FILM SUBLINGUAL ×2 (08:38→20:36)
[2025-04-11] MEDS: Pregabalin 75 MG CAPSULE 225 MG PO ×2 (08:38→20:35)
[2025-04-11] MEDS: Nicotine 21 MG PATCH.TD24 TRANSDERMA (08:39)
[2025-04-11] MEDS: ARIPiprazole 15 MG TABLET PO (08:39)
[2025-04-11] MEDS: OLANZapine 5 MG TABLET PO ×3 (08:39→20:36)
[2025-04-11] MEDS: Cholecalciferol (Vitamin D3) 25 MCG TABLET PO (08:40)
[2025-04-11] MEDS: clonazePAM 1 MG TABLET PO ×2 (08:45→20:36)
--- NOTE | 2025-04-11 09:49 | P.PNPSI_ITS ---
Subjective Subjective Date of Service: 04/11/25 Reason For Visit: decompensation Subjective Notes: Conditional Voluntary and 3 Day Healthcare Proxy: No Guardianship: No Medical Problems Affecting Mental Status: No Interim History: Reports motor restlessness, ?akathesia Discussed decreasing Abilify with tapering as a terminal supervisor goal, scheduling Olanzapine and Benztropine trial. Pt agrees. Reports L knee, R shoulder discomfort. Will trial Tylenol and add another agent if ineffective. Medication Compliance: Yes Side effects from medications: Yes (?akathesia) Attending Groups: Intermittent Review of Systems Acute medical concerns: No Medical Review of Systems: unchanged Review of Systems Review of Systems as noted Mental Status Exam Mental Status Exam Patient Appearance: Appropriate Patient Orientation: Person, Place, Time and Situation Level of Consciousness: Alert Patient Behavior: Appropriate, Talkative, Cooperative and Good Eye Contact Mood Description: Appropriate Affect Description: Appropriate Patient Cognition Impaired: No Ability to Follow Directions: Good Speech Pattern: Spontaneous Speech Memory Description: Intact Hallucinations: Auditory (decreasing with use of olanzapine) Delusions: Not Present Perceptual Disturbances: Depersonalization and Derealization Thought Process: Intact, Distracted and Goal Oriented Thought Content: positive for Intact, positive for Circumstantial and positive for Goal Oriented Depressive Symptoms: Increased Anxiety and Thoughts of /Suicide (denies) Judgement: Fair Diagnostics Vital Signs (24Hr): Vital Signs - 24 hr 04/10/25 20:00 04/11/25 07:53 Temperature 97.8 F 96.7 F L Pulse Rate 89 86 Respiratory Rate 18 16 Blood Pressure 106/64 150/92 H Pulse Oximetry 96 96 Oxygen Delivery Method Room Air BMI result Body Mass Index 33.3 Labs 04/10/25 07:54 04/05/25 15:34 Labs: Laboratory Results - last 48 hr 04/10/25 04/11/25 07:54 07:35 WBC 5.1 RBC 3.99 L Hgb 11.6 L Hct 36.1 L MCV 90.5 MCH 29.1 MCHC 32.1 RDW 14.2 Plt Count 218 MPV 9.2 L Absolute Nucleated RBC 0.000 Nucleated RBC % (auto) 0.0 PT 9.1 L INR 0.8 L APTT 34.2 D-Dimer High Sensitivty 529 Imaging Radiology Impressions: ITS Impressions Chest X-Ray 04/05/25 14:21 IMPRESSION: The lung volumes with increased interstitial markings. Electronically signed by: Niranjan Vega MD 04/05/2025 03:34 PM EDT RP Venous Duplex 04/09/25 08:56 IMPRESSION: No evidence of deep venous thrombosis involving the right upper extremity. Electronically signed by: Amando Mercado MD 04/09/2025 09:23 AM EDT RP Medications Medications Current Medications Acetaminophen (Acetaminophen 325 Mg Tablet) 650 mg PO Q6H PRN PRN Reason: Headache/Pain, Scale 1-10 Last Admin: 04/08/25 06:54 Dose: 650 mg Al Hydroxide/Mg Hydroxide (Magnesium Hydrox/Alum Hydrox 30 Ml Oral.Susp) 30 ml PO Q6H PRN PRN Reason: Heartburn/Nausea Albuterol Sulfate (Albuterol Sulfate 90 Mcg 8 Gm Inhaler) 2 puff INHALE RQ4H PRN PRN Reason: shortness of breath, wheezing Albuterol/Ipratropium (Albuterol/Iprat 2.5/0.5mg 3 Ml Ampul.Neb) 3 ml INHALE RQID PRN PRN Reason: SOB, Wheezing Amitriptyline HCl (Amitriptyline Hcl 50 Mg Tablet) 50 mg PO BEDTIME REPLACED BY [facility] Last Admin: 04/10/25 21:55 Dose: 50 mg Aripiprazole (Aripiprazole 15 Mg Tablet) 15 mg PO DAILY [facility]PL[facility] Last Admin: 04/11/25 08:39 Dose: 15 mg Buprenorphine/Naloxone (Buprenorphine/Naloxone 8/2 Mg Film) 1 film SUBLINGUAL BID REPLACED [facility] Last Admin: 04/11/25 08:38 Dose: 1 film Clonazepam (Clonazepam 1 Mg Tablet) 2 mg PO BID [facility] Last Admin: 04/06/25 10:26 Dose: 2 mg Clonazepam (Clonazepam 1 Mg Tablet) 1 mg PO BID [facility] Last Admin: 04/11/25 08:45 Dose: 1 mg Clonazepam (Clonazepam 1 Mg Tablet) 1 mg PO DAILY PRN PRN Reason: SEVERE ANXIETY Last Admin: 04/10/25 17:19 Dose: 1 mg Duloxetine HCl (Duloxetine Hcl 20 Mg Capsule.Dr) 20 mg PO BID [facility] Last Admin: 04/11/25 08:38 Dose: 20 mg Fluticasone/Vilanterol (Fluticasone/Vilanterol 100/25 Blst.W.Dev) 1 puff INHALE RDAILY PRN PRN Reason: SOB, Wheezing Hydroxyzine HCl (Hydroxyzine Hcl 25 Mg Tablet) 25 mg PO Q6H PRN PRN Reason: mild anxiety Last Admin: 04/11/25 04:56 Dose: 25 mg Ibuprofen (Ibuprofen 600 Mg Tablet) 600 mg PO Q6H PRN PRN Reason: pain 1-10 of fibromyalgia Last Admin: 04/11/25 04:55 Dose: 600 mg Magnesium Hydroxide (Milk Of Magnesia 30 Ml Oral.Susp) 30 ml PO DAILY PRN PRN Reason: Constipation Mupirocin (Mupirocin 2 % Oint 22 Gm Tube) 1 appl TOPICAL BID REPLACED BY [facility]; Protocol Stop: 04/16/25 20:59 Last Admin: 04/10/25 22:01 Dose: 1 appl Nicotine (Nicotine 21 Mg Patch.Td24) 21 mg TRANSDERMA DAILY PRN PRN Reason: smoking cessation Last Admin: 04/11/25 08:39 Dose: 21 mg Nicotine Polacrilex (Nicotine Polacrilex 2 Mg Gum) 4 mg BUCCAL Q2H PRN PRN Reason: Nicotine Cravings Last Admin: 04/09/25 13:15 Dose: 4 mg Pat Own Med ( (Concerta 54 Mg Tab)) 54 mg PO DAILY REPLACED [facility] Last Admin: 04/10/25 08:34 Dose: 54 mg Olanzapine (Olanzapine 5 Mg Tablet) 5 mg PO TID PRN PRN Reason: agitation Last Admin: 04/11/25 08:39 Dose: 5 mg Pantoprazole Sodium (Pantoprazole Sodium 20 Mg Tablet.Dr) 20 mg PO DAILY@0630 REPLACED [facility] Last Admin: 04/11/25 07:04 Dose: 20 mg Prazosin HCl (Prazosin Hcl 5 Mg Capsule) 5 mg PO BEDTIME [facility]; Protocol Last Admin: 04/10/25 21:55 Dose: 5 mg Pregabalin (Pregabalin 75 Mg Capsule) 225 mg PO BID REPLACED BY [facility] Last Admin: 04/11/25 08:38 Dose: 225 mg Trazodone HCl (Trazodone Hcl 50 Mg Tablet) 50 mg PO BEDTIME MRX1 PRN PRN Reason: Insomnia Vitamin D (Cholecalciferol (Vitamin D3) 25 Mcg Tablet) 25 mcg PO DAILY REPLACED BY [facility] Last Admin: 04/11/25 08:40 Dose: 25 mcg Allergies Allergies Allergy/AdvReac Type Severity Reaction Status Date / Time No Known Allergies Allergy Verified 04/05/25 14:57 Assessment & Plan Assessment & Plan (1) Hypoxia: Status: Resolved Code(s): R09.02 - Hypoxemia (2) Acute hypokalemia: Status: Resolved Code(s): E87.6 - Hypokalemia (3) PTSD (post-traumatic stress disorder): Status: Acute Code(s): F43.10 - Post-traumatic stress disorder, unspecified (4) Mood disorder: Status: Acute Code(s): F39 - Unspecified mood [affective] disorder (5) Cocaine use disorder: Status: Acute Code(s): F14.10 - Cocaine abuse, uncomplicated (6) Opioid use disorder: Status: Acute Code(s): F11.90 - Opioid use, unspecified, uncomplicated Plan Opioid use DO/Cocaine Use Disorder/Mood disorder/PTSD Treatment per psychiatric team. Paronychia/Right arm swelling Encourage hand hygiene with soap and water, avoid squeezing or picking areas Mupriocin BID to nail beds for 7 days No evidence of cellulitis US negative for DVT Thank you for allowing me to participate in the care of this patient. Signing off at this time. Please reconsult of any acute complaints or issues arise 04/11: Benztropine 1 mg bid Olanzapine 5 mg bid Decrease Abilify to 10 mg daily. Patient educated on: medication risk/benefits Reason for continued inpatient stay Substantial Risk for: rapid decompensation Time Spent With Patient Time: Total time managing care of this patient today ____ minutes.
[2025-04-11] MEDS: METHYLPHENIDATE 54 MG 54 EACH PO (09:59)
--- NOTE | 2025-04-11 11:14 | PC.NURSE ---
3 day notice signed
[2025-04-11] MEDS: Benztropine Mesylate 1 MG TABLET PO ×2 (14:35→20:36)
[2025-04-11] MEDS: Mupirocin 2 % Oint 22 GM TUBE 1 APPL TOPICAL ×2 (14:43→20:42)
[2025-04-11 19:54] VITALS: BP 126/84; PULSE 64; TEMP 37.7; O2SAT 95
[2025-04-11] MEDS: Prazosin HCL 5 MG CAPSULE PO (20:36)
[2025-04-11] MEDS: Amitriptyline HCl 50 MG TABLET PO (20:36)
[2025-04-12] MEDS: Pantoprazole Sodium 20 MG TABLET.DR PO (06:30)
[2025-04-12 07:00] VITALS: BMI 35.7
[2025-04-12 08:00] VITALS: BP 131/82; PULSE 97; TEMP 36.6; O2SAT 96
[2025-04-12] MEDS: METHYLPHENIDATE 54 MG 54 EACH PO (08:09)
[2025-04-12] MEDS: OLANZapine 5 MG TABLET PO ×3 (08:09→21:25)
[2025-04-12] MEDS: DULoxetine HCl 20 MG CAPSULE.DR PO ×2 (08:09→21:24)
[2025-04-12] MEDS: clonazePAM 1 MG TABLET PO ×3 (08:10→21:25)
[2025-04-12] MEDS: hydrOXYzine HCL 25 MG TABLET PO (08:10)
[2025-04-12] MEDS: Benztropine Mesylate 1 MG TABLET PO ×2 (08:10→21:25)
[2025-04-12] MEDS: Ibuprofen 600 MG TABLET PO (08:10)
[2025-04-12] MEDS: ARIPiprazole 10 MG TABLET PO (08:10)
[2025-04-12] MEDS: Cholecalciferol (Vitamin D3) 25 MCG TABLET PO (08:10)
[2025-04-12] MEDS: Pregabalin 75 MG CAPSULE 225 MG PO ×2 (08:10→21:25)
[2025-04-12] MEDS: Mupirocin 2 % Oint 22 GM TUBE 1 APPL TOPICAL (08:10)
[2025-04-12] MEDS: Buprenorphine/Naloxone 8/2 mg FILM 1 FILM SUBLINGUAL ×2 (09:12→21:24)
--- NOTE | 2025-04-12 09:31 | HO.PSYCHPN ---
Subjective Subjective Date of Service: 04/12/25 Reason For Visit: decompensation Subjective Notes: Conditional Voluntary Healthcare Proxy: No Guardianship: No Medical Problems Affecting Mental Status: No Interim History: Reports benztropine has been effective. Tolerating decrease in Abilify and Olanzapine titration. Discussed body aches-reports fibromyalgia type sx. Discussed meeting with rheumatology post discharge. Pt describes an increase intensity of pain in the a.m. with edema which resolves by mid morning. Medication Compliance: Yes Side effects from medications: No Attending Groups: Yes Review of Systems as noted Review of Systems Review of Systems shoulder/leg pains in the a.m. with resolving edema by mid a.m. Describes fibromyalgia type sx. Agrees to call for rheumatology appt post DC. Mental Status Exam Mental Status Exam Patient Appearance: Appropriate Patient Orientation: Person, Place, Time and Situation Level of Consciousness: Alert Patient Behavior: Appropriate, Talkative, Cooperative and Good Eye Contact Mood Description: Appropriate Affect Description: Appropriate Patient Cognition Impaired: No Ability to Follow Directions: Good Speech Pattern: Spontaneous Speech Memory Description: Intact Hallucinations: Auditory (decreasing with use of olanzapine) Delusions: Not Present Perceptual Disturbances: Depersonalization and Derealization Thought Process: Intact, Distracted and Goal Oriented Thought Content: positive for Intact, positive for Circumstantial and positive for Goal Oriented Depressive Symptoms: Increased Anxiety and Thoughts of /Suicide (denies) Judgement: Fair Diagnostics Vital Signs (24Hr): Vital Signs - 24 hr 04/11/25 19:54 04/12/25 08:00 Temperature 99.8 F 97.9 F Pulse Rate 64 97 Blood Pressure 126/84 131/82 Pulse Oximetry 95 96 Oxygen Delivery Method Room Air Room Air BMI result Body Mass Index 33.3 Labs 04/10/25 07:54 04/05/25 15:34 Labs: Laboratory Results - last 48 hr 04/11/25 07:35 PT 9.1 L INR 0.8 L APTT 34.2 D-Dimer High Sensitivty 529 Imaging Radiology Impressions: ITS Impressions Chest X-Ray 04/05/25 14:21 IMPRESSION: The lung volumes with increased interstitial markings. Electronically signed by: Niranjan Vega MD 04/05/2025 03:34 PM EDT Venous Duplex 04/09/25 08:56 IMPRESSION: No evidence of deep venous thrombosis involving the right upper extremity. Electronically signed by: Amando Mercado MD 04/09/2025 09:23 AM EDT RP Medications Medications Current Medications Acetaminophen (Acetaminophen 325 Mg Tablet) 650 mg PO Q6H PRN PRN Reason: Headache/Pain, Scale 1-10 Last Admin: 04/08/25 06:54 Dose: 650 mg Al Hydroxide/Mg Hydroxide (Magnesium Hydrox/Alum Hydrox 30 Ml Oral.Susp) 30 ml PO Q6H PRN PRN Reason: Heartburn/Nausea Albuterol Sulfate (Albuterol Sulfate 90 Mcg 8 Gm Inhaler) 2 puff INHALE RQ4H PRN PRN Reason: shortness of breath, wheezing Albuterol/Ipratropium (Albuterol/Iprat 2.5/0.5mg 3 Ml Ampul.Neb) 3 ml INHALE RQID PRN PRN Reason: SOB, Wheezing Amitriptyline HCl (Amitriptyline Hcl 50 Mg Tablet) 50 mg PO BEDTIME [facility] Last Admin: 04/11/25 20:36 Dose: 50 mg Aripiprazole (Aripiprazole 10 Mg Tablet) 10 mg PO DAILY [facility] Last Admin: 04/12/25 08:10 Dose: 10 mg Benztropine Mesylate (Benztropine Mesylate 1 Mg Tablet) 1 mg PO BID [facility] Last Admin: 04/12/25 08:10 Dose: 1 mg Buprenorphine/Naloxone (Buprenorphine/Naloxone 8/2 Mg Film) 1 film SUBLINGUAL BID [facility] Last Admin: 04/12/25 09:12 Dose: 1 film Clonazepam (Clonazepam 1 Mg Tablet) 1 mg PO BID [facility] Last Admin: 04/12/25 08:10 Dose: 1 mg Clonazepam (Clonazepam 1 Mg Tablet) 1 mg PO DAILY PRN PRN Reason: SEVERE ANXIETY Last Admin: 04/10/25 17:19 Dose: 1 mg Duloxetine HCl (Duloxetine Hcl 20 Mg Capsule.Dr) 20 mg PO BID [facility] Last Admin: 04/12/25 08:09 Dose: 20 mg Fluticasone/Vilanterol (Fluticasone/Vilanterol 100/25 Blst.W.Dev) 1 puff INHALE RDAILY PRN PRN Reason: SOB, Wheezing Hydroxyzine HCl (Hydroxyzine Hcl 25 Mg Tablet) 25 mg PO Q6H PRN PRN Reason: mild anxiety Last Admin: 04/12/25 08:10 Dose: 25 mg Ibuprofen (Ibuprofen 600 Mg Tablet) 600 mg PO Q6H PRN PRN Reason: pain 1-10 of fibromyalgia Last Admin: 04/12/25 08:10 Dose: 600 mg Magnesium Hydroxide (Milk Of Magnesia 30 Ml Oral.Susp) 30 ml PO DAILY PRN PRN Reason: Constipation Mupirocin (Mupirocin 2 % Oint 22 Gm Tube) 1 appl TOPICAL BID [facility]; Protocol Stop: 04/16/25 20:59 Last Admin: 04/12/25 08:10 Dose: 1 appl Nicotine (Nicotine 21 Mg Patch.Td24) 21 mg TRANSDERMA DAILY PRN PRN Reason: smoking cessation Last Admin: 04/11/25 08:39 Dose: 21 mg Nicotine Polacrilex (Nicotine Polacrilex 2 Mg Gum) 4 mg BUCCAL Q2H PRN PRN Reason: Nicotine Cravings Last Admin: 04/09/25 13:15 Dose: 4 mg Pat Own Med ( (Concerta 54 Mg Tab)) 54 mg PO DAILY [facility] Last Admin: 04/12/25 08:09 Dose: 54 mg Olanzapine (Olanzapine 5 Mg Tablet) 5 mg PO TID PRN PRN Reason: agitation Last Admin: 04/11/25 14:35 Dose: 5 mg Olanzapine (Olanzapine 5 Mg Tablet) 5 mg PO BID [facility] Last Admin: 04/12/25 08:09 Dose: 5 mg Pantoprazole Sodium (Pantoprazole Sodium 20 Mg Tablet.Dr) 20 mg PO DAILY@0630 [facility] Last Admin: 04/12/25 06:30 Dose: 20 mg Prazosin HCl (Prazosin Hcl 5 Mg Capsule) 5 mg PO BEDTIME [facility]; Protocol Last Admin: 04/11/25 20:36 Dose: 5 mg Pregabalin (Pregabalin 75 Mg Capsule) 225 mg PO BID [facility] Last Admin: 04/12/25 08:10 Dose: 225 mg Trazodone HCl (Trazodone Hcl 50 Mg Tablet) 50 mg PO BEDTIME MRX1 PRN PRN Reason: Insomnia Vitamin D (Cholecalciferol (Vitamin D3) 25 Mcg Tablet) 25 mcg PO DAILY [facility] Last Admin: 04/12/25 08:10 Dose: 25 mcg Allergies Allergies Allergy/AdvReac Type Severity Reaction Status Date / Time No Known Allergies Allergy Verified 04/05/25 14:57 Assessment & Plan Assessment & Plan (1) Hypoxia: Status: Resolved Code(s): R09.02 - Hypoxemia (2) Acute hypokalemia: Status: Resolved Code(s): E87.6 - Hypokalemia (3) PTSD (post-traumatic stress disorder): Status: Acute Code(s): F43.10 - Post-traumatic stress disorder, unspecified (4) Mood disorder: Status: Acute Code(s): F39 - Unspecified mood [affective] disorder (5) Cocaine use disorder: Status: Acute Code(s): F14.10 - Cocaine abuse, uncomplicated (6) Opioid use disorder: Status: Acute Code(s): F11.90 - Opioid use, unspecified, uncomplicated Plan 04/12- Continue tx. Opioid use DO/Cocaine Use Disorder/Mood disorder/PTSD Treatment per psychiatric team. Paronychia/Right arm swelling Encourage hand hygiene with soap and water, avoid squeezing or picking areas Mupriocin BID to nail beds for 7 days No evidence of cellulitis US negative for DVT Thank you for allowing me to participate in the care of this patient. Signing off at this time. Please reconsult of any acute complaints or issues arise Reason for continued inpatient stay Substantial Risk for: rapid decompensation Time Spent With Patient Time: Total time managing care of this patient today ____ minutes.
[2025-04-12] MEDS: Nicotine Polacrilex 2 MG GUM 4 MG BUCCAL ×2 (17:58→22:05)
[2025-04-12 20:00] VITALS: BP 123/74; PULSE 100; RESP 16; TEMP 36.7; O2SAT 94
[2025-04-12 21:25] VITALS: BP 123/74
[2025-04-12] MEDS: Amitriptyline HCl 50 MG TABLET PO (21:25)
[2025-04-12] MEDS: Prazosin HCL 5 MG CAPSULE PO (21:25)
[2025-04-13] MEDS: Ibuprofen 600 MG TABLET PO (02:41)
[2025-04-13 08:00] VITALS: BP 120/72; PULSE 75; RESP 16; TEMP 36.9; O2SAT 96
[2025-04-13] MEDS: Benztropine Mesylate 1 MG TABLET PO ×2 (08:46→21:48)
[2025-04-13] MEDS: Cholecalciferol (Vitamin D3) 25 MCG TABLET PO (08:46)
[2025-04-13] MEDS: ARIPiprazole 10 MG TABLET PO (08:46)
[2025-04-13] MEDS: Pantoprazole Sodium 20 MG TABLET.DR PO (08:47)
[2025-04-13] MEDS: Pregabalin 75 MG CAPSULE 225 MG PO ×2 (08:47→21:47)
[2025-04-13] MEDS: DULoxetine HCl 20 MG CAPSULE.DR PO ×2 (08:47→21:49)
[2025-04-13] MEDS: Buprenorphine/Naloxone 8/2 mg FILM 1 FILM SUBLINGUAL ×2 (08:47→21:48)
[2025-04-13] MEDS: clonazePAM 1 MG TABLET PO ×3 (08:47→21:47)
[2025-04-13] MEDS: OLANZapine 5 MG TABLET PO ×2 (08:47→13:47)
[2025-04-13] MEDS: Albuterol Sulfate 90 MCG 8 GM INHALER 2 PUFF INHALE (08:48)
[2025-04-13] MEDS: Mupirocin 2 % Oint 22 GM TUBE 1 APPL TOPICAL ×2 (08:48→21:49)
[2025-04-13] MEDS: METHYLPHENIDATE 54 MG 54 EACH PO (09:34)
--- NOTE | 2025-04-13 09:36 | HO.PSYCHPN ---
Subjective Subjective Date of Service: 04/13/25 Reason For Visit: decompensation Subjective Notes: Conditional Voluntary and 3 Day Healthcare Proxy: No Guardianship: No Medical Problems Affecting Mental Status: No Interim History: Reports feeling well. DC planned for 04/16. Today will decrease Abilify to 5 mg daily, increase Olanzapine fo 5 mg a.m. 10 mg p.m Pt in agreement. Finding Olanzapine more helpful for sx mgt Denies sx akathesia. Medication Compliance: Yes Side effects from medications: No Attending Groups: Yes Review of Systems Acute medical concerns: No Review of Systems Review of Systems Denies Mental Status Exam Mental Status Exam Patient Appearance: Appropriate Patient Orientation: Person, Place, Time and Situation Level of Consciousness: Alert Patient Behavior: Appropriate, Talkative, Cooperative and Good Eye Contact Mood Description: Appropriate Affect Description: Appropriate Patient Cognition Impaired: No Ability to Follow Directions: Good Speech Pattern: Spontaneous Speech Memory Description: Intact Hallucinations: Auditory (decreasing with use of olanzapine) Delusions: Not Present Perceptual Disturbances: Depersonalization and Derealization Thought Process: Intact, Distracted and Goal Oriented Thought Content: positive for Intact, positive for Circumstantial and positive for Goal Oriented Depressive Symptoms: Increased Anxiety and Thoughts of /Suicide (denies) Judgement: Fair Diagnostics Vital Signs (24Hr): Vital Signs - 24 hr 04/12/25 20:00 04/12/25 21:25 Temperature 98.1 F Pulse Rate 100 Respiratory Rate 16 Blood Pressure 123/74 123/74 Pulse Oximetry 94 Oxygen Delivery Method Room Air BMI result Body Mass Index 35.7 Labs 04/10/25 07:54 04/05/25 15:34 Imaging Radiology Impressions: ITS Impressions Chest X-Ray 04/05/25 14:21 IMPRESSION: The lung volumes with increased interstitial markings. Electronically signed by: Niranjan Vega MD 04/05/2025 03:34 PM EDT RP Venous Duplex 04/09/25 08:56 IMPRESSION: No evidence of deep venous thrombosis involving the right upper extremity. Electronically signed by: Amando Mecrado MD 04/09/2025 09:23 AM EDT RP Medications Medications Current Medications Acetaminophen (Acetaminophen 325 Mg Tablet) 650 mg PO Q6H PRN PRN Reason: Headache/Pain, Scale 1-10 Last Admin: 04/08/25 06:54 Dose: 650 mg Al Hydroxide/Mg Hydroxide (Magnesium Hydrox/Alum Hydrox 30 Ml Oral.Susp) 30 ml PO Q6H PRN PRN Reason: Heartburn/Nausea Albuterol Sulfate (Albuterol Sulfate 90 Mcg 8 Gm Inhaler) 2 puff INHALE RQ4H PRN PRN Reason: shortness of breath, wheezing Last Admin: 04/13/25 08:48 Dose: 2 puff Albuterol/Ipratropium (Albuterol/Iprat 2.5/0.5mg 3 Ml Ampul.Neb) 3 ml INHALE RQID PRN PRN Reason: SOB, Wheezing Amitriptyline HCl (Amitriptyline Hcl 50 Mg Tablet) 50 mg PO BEDTIME [facility] Last Admin: 04/12/25 21:25 Dose: 50 mg Aripiprazole (Aripiprazole 10 Mg Tablet) 10 mg PO DAILY [facility] Last Admin: 04/13/25 08:46 Dose: 10 mg Benztropine Mesylate (Benztropine Mesylate 1 Mg Tablet) 1 mg PO BID [facility] Last Admin: 04/13/25 08:46 Dose: 1 mg Buprenorphine/Naloxone (Buprenorphine/Naloxone 8/2 Mg Film) 1 film SUBLINGUAL BID [facility] Last Admin: 04/13/25 08:47 Dose: 1 film Clonazepam (Clonazepam 1 Mg Tablet) 1 mg PO BID [facility] Last Admin: 04/13/25 08:47 Dose: 1 mg Clonazepam (Clonazepam 1 Mg Tablet) 1 mg PO DAILY PRN PRN Reason: SEVERE ANXIETY Last Admin: 04/12/25 13:24 Dose: 1 mg Duloxetine HCl (Duloxetine Hcl 20 Mg Capsule.Dr) 20 mg PO BID [facility] Last Admin: 04/13/25 08:47 Dose: 20 mg Fluticasone/Vilanterol (Fluticasone/Vilanterol 100/25 Blst.W.Dev) 1 puff INHALE RDAILY PRN PRN Reason: SOB, Wheezing Hydroxyzine HCl (Hydroxyzine Hcl 25 Mg Tablet) 25 mg PO Q6H PRN PRN Reason: mild anxiety Last Admin: 04/12/25 08:10 Dose: 25 mg Ibuprofen (Ibuprofen 600 Mg Tablet) 600 mg PO Q6H PRN PRN Reason: pain 1-10 of fibromyalgia Last Admin: 04/13/25 02:41 Dose: 600 mg Magnesium Hydroxide (Milk Of Magnesia 30 Ml Oral.Susp) 30 ml PO DAILY PRN PRN Reason: Constipation Mupirocin (Mupirocin 2 % Oint 22 Gm Tube) 1 appl TOPICAL BID [facility]; Protocol Stop: 04/16/25 20:59 Last Admin: 04/13/25 08:48 Dose: 1 appl Nicotine (Nicotine 21 Mg Patch.Td24) 21 mg TRANSDERMA DAILY PRN PRN Reason: smoking cessation Last Admin: 04/11/25 08:39 Dose: 21 mg Nicotine Polacrilex (Nicotine Polacrilex 2 Mg Gum) 4 mg BUCCAL Q2H PRN PRN Reason: Nicotine Cravings Last Admin: 04/12/25 22:05 Dose: 4 mg Pat Own Med ( (Concerta 54 Mg Tab)) 54 mg PO DAILY [facility] Last Admin: 04/13/25 09:34 Dose: 54 mg Olanzapine (Olanzapine 5 Mg Tablet) 5 mg PO TID PRN PRN Reason: agitation Last Admin: 04/12/25 13:24 Dose: 5 mg Olanzapine (Olanzapine 5 Mg Tablet) 5 mg PO BID [facility] Last Admin: 04/13/25 08:47 Dose: 5 mg Pantoprazole Sodium (Pantoprazole Sodium 20 Mg Tablet.Dr) 20 mg PO DAILY@0630 [facility] Last Admin: 04/13/25 08:47 Dose: 20 mg Prazosin HCl (Prazosin Hcl 5 Mg Capsule) 5 mg PO BEDTIME [facility]; Protocol Last Admin: 04/12/25 21:25 Dose: 5 mg Pregabalin (Pregabalin 75 Mg Capsule) 225 mg PO BID [facility] Last Admin: 04/13/25 08:47 Dose: 225 mg Trazodone HCl (Trazodone Hcl 50 Mg Tablet) 50 mg PO BEDTIME MRX1 PRN PRN Reason: Insomnia Vitamin D (Cholecalciferol (Vitamin D3) 25 Mcg Tablet) 25 mcg PO DAILY [facility] Last Admin: 04/13/25 08:46 Dose: 25 mcg Allergies Allergies Allergy/AdvReac Type Severity Reaction Status Date / Time No Known Allergies Allergy Verified 04/05/25 14:57 Assessment & Plan Assessment & Plan (1) Hypoxia: Status: Resolved Code(s): R09.02 - Hypoxemia (2) Acute hypokalemia: Status: Resolved Code(s): E87.6 - Hypokalemia (3) PTSD (post-traumatic stress disorder): Status: Acute Code(s): F43.10 - Post-traumatic stress disorder, unspecified (4) Mood disorder: Status: Acute Code(s): F39 - Unspecified mood [affective] disorder (5) Cocaine use disorder: Status: Acute Code(s): F14.10 - Cocaine abuse, uncomplicated (6) Opioid use disorder: Status: Acute Code(s): F11.90 - Opioid use, unspecified, uncomplicated Plan Opioid use DO/Cocaine Use Disorder/Mood disorder/PTSD Treatment per psychiatric team. Paronychia/Right arm swelling Encourage hand hygiene with soap and water, avoid squeezing or picking areas Mupriocin BID to nail beds for 7 days No evidence of cellulitis US negative for DVT Thank you for allowing me to participate in the care of this patient. Signing off at this time. Please reconsult of any acute complaints or issues arise 04/11: Benztropine 1 mg bid Olanzapine 5 mg bid Decrease Abilify to 10 mg daily. 04/13: Decrease Abilify to 5 mg daily Increase Olanzapine to 5 mg a.m. 10 mg h.s BMP on 04/16. Informed Consent: understands Reason for continued inpatient stay Substantial Risk for: rapid decompensation Time Spent With Patient Time: Total time managing care of this patient today ____ minutes.
[2025-04-13] MEDS: Magnesium Hydrox/Alum Hydrox 30 ML ORAL.SUSP PO ×2 (10:29→21:56)
[2025-04-13] MEDS: Nicotine Polacrilex 2 MG GUM 4 MG BUCCAL (11:26)
[2025-04-13 20:00] VITALS: BP 128/70; PULSE 76; RESP 16; TEMP 36.7; O2SAT 98
[2025-04-13] MEDS: OLANZapine 10 MG TABLET PO (21:47)
[2025-04-13 21:48] VITALS: BP 128/70
[2025-04-13] MEDS: Prazosin HCL 5 MG CAPSULE PO (21:48)
[2025-04-13] MEDS: Amitriptyline HCl 50 MG TABLET PO (21:48)
[2025-04-14] MEDS: Pantoprazole Sodium 20 MG TABLET.DR PO (05:53)
[2025-04-14 08:00] VITALS: BP 142/67; PULSE 85; TEMP 36.9; O2SAT 96
[2025-04-14] MEDS: Ibuprofen 600 MG TABLET PO (08:44)
[2025-04-14] MEDS: Pregabalin 75 MG CAPSULE 225 MG PO ×2 (08:44→21:45)
[2025-04-14] MEDS: METHYLPHENIDATE 54 MG 54 EACH PO (08:44)
[2025-04-14] MEDS: clonazePAM 1 MG TABLET PO ×3 (08:44→21:46)
[2025-04-14] MEDS: Benztropine Mesylate 1 MG TABLET PO ×2 (08:45→21:46)
[2025-04-14] MEDS: Cholecalciferol (Vitamin D3) 25 MCG TABLET PO (08:45)
[2025-04-14] MEDS: ARIPiprazole 5 MG TABLET PO (08:45)
[2025-04-14] MEDS: DULoxetine HCl 20 MG CAPSULE.DR PO ×2 (08:45→21:46)
[2025-04-14] MEDS: OLANZapine 5 MG TABLET PO ×2 (08:45→15:23)
[2025-04-14] MEDS: Mupirocin 2 % Oint 22 GM TUBE 1 APPL TOPICAL ×2 (09:07→21:57)
[2025-04-14] MEDS: Nicotine 21 MG PATCH.TD24 TRANSDERMA (09:07)
[2025-04-14] MEDS: Buprenorphine/Naloxone 8/2 mg FILM 1 FILM SUBLINGUAL ×2 (09:08→21:45)
[2025-04-14] MEDS: Nicotine Polacrilex 2 MG GUM 4 MG BUCCAL (09:17)
--- NOTE | 2025-04-14 10:02 | P.PNPSI_ITS ---
Subjective Subjective Date of Service: 04/14/25 Reason For Visit: decompensation Interim History: met with patient; discussed with team Patient reports she is doing good... Great and shares how much progress she has made since coming to the unit. Patient says restlessness in her legs has resolved and she is without any paranoia at all. No SI at all. Patient expresses much gratitude for help received. She explained her recent history that led up to this admission. Mental Status Exam Mental Status Exam Narrative: Pt is alert and oriented; behavior is cooperative, friendly and calm; patient is not in distress; dressed in casual attire with unkempt hair but adequate hygiene; mood is described as good... Great and affect a little expansive; eye contact appropriate; Speech is verbose but not pressured; normal rate, volume and prosody; no psychomotor agitation/retardation present; thought process is organized and goal directed; Thought content is on tx; otherwise pertinent to relevant topics and without any delusional content, paranoid ideations or grandiosity; denies any SI/HI. Denies AVH and there is no evidence of perceptual disturbance. Patients insight and judgment appear intact. Diagnostics Vital Signs (24Hr): Vital Signs - 24 hr 04/13/25 20:00 04/13/25 21:48 04/14/25 08:00 Temperature 98.1 F 98.4 F Pulse Rate 76 85 Respiratory Rate 16 Blood Pressure 128/70 128/70 142/67 H Pulse Oximetry 98 96 Oxygen Delivery Method Room Air Room Air BMI result Body Mass Index 35.7 Labs 04/10/25 07:54 04/05/25 15:34 Imaging Radiology Impressions: ITS Impressions Chest X-Ray 04/05/25 14:21 IMPRESSION: The lung volumes with increased interstitial markings. Electronically signed by: Niranjan Vega MD 04/05/2025 03:34 PM EDT RP Venous Duplex 04/09/25 08:56 IMPRESSION: No evidence of deep venous thrombosis involving the right upper extremity. Electronically signed by: Amando Mercado MD 04/09/2025 09:23 AM EDT RP Medications Medications Current Medications Acetaminophen (Acetaminophen 325 Mg Tablet) 650 mg PO Q6H PRN PRN Reason: Headache/Pain, Scale 1-10 Last Admin: 04/08/25 06:54 Dose: 650 mg Al Hydroxide/Mg Hydroxide (Magnesium Hydrox/Alum Hydrox 30 Ml Oral.Susp) 30 ml PO Q6H PRN PRN Reason: Heartburn/Nausea Last Admin: 04/13/25 21:56 Dose: 30 ml Albuterol Sulfate (Albuterol Sulfate 90 Mcg 8 Gm Inhaler) 2 puff INHALE RQ4H PRN PRN Reason: shortness of breath, wheezing Last Admin: 04/13/25 08:48 Dose: 2 puff Albuterol/Ipratropium (Albuterol/Iprat 2.5/0.5mg 3 Ml Ampul.Neb) 3 ml INHALE RQID PRN PRN Reason: SOB, Wheezing Amitriptyline HCl (Amitriptyline Hcl 50 Mg Tablet) 50 mg PO BEDTIME [facility] Last Admin: 04/13/25 21:48 Dose: 50 mg Aripiprazole (Aripiprazole 5 Mg Tablet) 5 mg PO DAILY [facility] Last Admin: 04/14/25 08:45 Dose: 5 mg Benztropine Mesylate (Benztropine Mesylate 1 Mg Tablet) 1 mg PO BID [facility] Last Admin: 04/14/25 08:45 Dose: 1 mg Buprenorphine/Naloxone (Buprenorphine/Naloxone 8/2 Mg Film) 1 film SUBLINGUAL BID [facility] Last Admin: 04/14/25 09:08 Dose: 1 film Clonazepam (Clonazepam 1 Mg Tablet) 1 mg PO BID [facility] Last Admin: 04/14/25 08:44 Dose: 1 mg Clonazepam (Clonazepam 1 Mg Tablet) 1 mg PO DAILY PRN PRN Reason: SEVERE ANXIETY Last Admin: 04/13/25 13:47 Dose: 1 mg Duloxetine HCl (Duloxetine Hcl 20 Mg Capsule.Dr) 20 mg PO BID [facility] Last Admin: 04/14/25 08:45 Dose: 20 mg Fluticasone/Vilanterol (Fluticasone/Vilanterol 100/25 Blst.W.Dev) 1 puff INHALE RDAILY PRN PRN Reason: SOB, Wheezing Hydroxyzine HCl (Hydroxyzine Hcl 25 Mg Tablet) 25 mg PO Q6H PRN PRN Reason: mild anxiety Last Admin: 04/12/25 08:10 Dose: 25 mg Ibuprofen (Ibuprofen 600 Mg Tablet) 600 mg PO Q6H PRN PRN Reason: pain 1-10 of fibromyalgia Last Admin: 04/14/25 08:44 Dose: 600 mg Magnesium Hydroxide (Milk Of Magnesia 30 Ml Oral.Susp) 30 ml PO DAILY PRN PRN Reason: Constipation Mupirocin (Mupirocin 2 % Oint 22 Gm Tube) 1 appl TOPICAL BID [facility]; Protocol Stop: 04/16/25 20:59 Last Admin: 04/14/25 09:07 Dose: 1 appl Nicotine (Nicotine 21 Mg Patch.Td24) 21 mg TRANSDERMA DAILY PRN PRN Reason: smoking cessation Last Admin: 04/14/25 09:07 Dose: 21 mg Nicotine Polacrilex (Nicotine Polacrilex 2 Mg Gum) 4 mg BUCCAL Q2H PRN PRN Reason: Nicotine Cravings Last Admin: 04/14/25 09:17 Dose: 4 mg Pat Own Med ( (Concerta 54 Mg Tab)) 54 mg PO DAILY [facility] Last Admin: 04/14/25 08:44 Dose: 54 mg Olanzapine (Olanzapine 5 Mg Tablet) 5 mg PO TID PRN PRN Reason: agitation Last Admin: 04/13/25 13:47 Dose: 5 mg Olanzapine (Olanzapine 5 Mg Tablet) 5 mg PO DAILY [facility] Last Admin: 04/14/25 08:45 Dose: 5 mg Olanzapine (Olanzapine 10 Mg Tablet) 10 mg PO BEDTIME [facility] Last Admin: 04/13/25 21:47 Dose: 10 mg Pantoprazole Sodium (Pantoprazole Sodium 20 Mg Tablet.Dr) 20 mg PO DAILY@0630 [facility] Last Admin: 04/14/25 05:53 Dose: 20 mg Prazosin HCl (Prazosin Hcl 5 Mg Capsule) 5 mg PO BEDTIME [facility]; Protocol Last Admin: 04/13/25 21:48 Dose: 5 mg Pregabalin (Pregabalin 75 Mg Capsule) 225 mg PO BID [facility] Last Admin: 04/14/25 08:44 Dose: 225 mg Trazodone HCl (Trazodone Hcl 50 Mg Tablet) 50 mg PO BEDTIME MRX1 PRN PRN Reason: Insomnia Vitamin D (Cholecalciferol (Vitamin D3) 25 Mcg Tablet) 25 mcg PO DAILY [facility] Last Admin: 04/14/25 08:45 Dose: 25 mcg Allergies Allergies Allergy/AdvReac Type Severity Reaction Status Date / Time No Known Allergies Allergy Verified 04/05/25 14:57 Assessment & Plan Assessment & Plan (1) Mood disorder: Status: Acute Code(s): F39 - Unspecified mood [affective] disorder (2) PTSD (post-traumatic stress disorder): Status: Acute Code(s): F43.10 - Post-traumatic stress disorder, unspecified (3) Hypoxia: Status: Resolved Code(s): R09.02 - Hypoxemia (4) Acute hypokalemia: Status: Resolved Code(s): E87.6 - Hypokalemia (5) Cocaine use disorder: Status: Acute Code(s): F14.10 - Cocaine abuse, uncomplicated (6) Opioid use disorder: Status: Acute Code(s): F11.90 - Opioid use, unspecified, uncomplicated Plan Opioid use DO/Cocaine Use Disorder/Mood disorder/PTSD Treatment per psychiatric team. Paronychia/Right arm swelling Encourage hand hygiene with soap and water, avoid squeezing or picking areas Mupriocin BID to nail beds for 7 days No evidence of cellulitis US negative for DVT Thank you for allowing me to participate in the care of this patient. Signing off at this time. Please reconsult of any acute complaints or issues arise 04/11: Benztropine 1 mg bid Olanzapine 5 mg bid Decrease Abilify to 10 mg daily. 04/13: Decrease Abilify to 5 mg daily Increase Olanzapine to 5 mg a.m. 10 mg h.s BMP on 04/16. 04/14 Patient reports she is doing good... Great and shares how much progress she has made since coming to the unit. Patient says restlessness in her legs has resolved and she is without any paranoia at all. No SI at all. Patient expresses much gratitude for help received. She explained her recent history that led up to this admission. -continue current treatment plan Patient educated on: diagnosis, medication risk/benefits and substance abuse Informed Consent: understands Reason for continued inpatient stay Substantial Risk for: stable for discharge and rapid decompensation Time Spent With Patient Time: Total time managing care of this patient today ____ minutes.
[2025-04-14] MEDS: hydrOXYzine HCL 25 MG TABLET PO (17:50)
[2025-04-14 20:00] VITALS: BP 102/55; PULSE 92; RESP 16; TEMP 36.9; O2SAT 96
[2025-04-14] MEDS: Amitriptyline HCl 50 MG TABLET PO (21:45)
[2025-04-14 21:46] VITALS: BP 102/55
[2025-04-14] MEDS: Prazosin HCL 5 MG CAPSULE PO (21:46)
[2025-04-14] MEDS: OLANZapine 10 MG TABLET PO (21:46)
[2025-04-15] MEDS: Ibuprofen 600 MG TABLET PO ×2 (04:58→11:55)
[2025-04-15] MEDS: Pantoprazole Sodium 20 MG TABLET.DR PO (05:59)
[2025-04-15 07:51] VITALS: BP 115/69; PULSE 64; TEMP 36.5; O2SAT 100
--- NOTE | 2025-04-15 08:23 | P.PNPSI_ITS ---
Subjective Subjective Date of Service: 04/15/25 Reason For Visit: decompensation Interim History: Met with patient; discussed with team Patient remains bright, in good mood and future oriented. Denies any complaints and feeling good about treatment. Mental Status Exam Mental Status Exam Narrative: Pt is alert and oriented; behavior is cooperative, friendly and calm; patient is not in distress; dressed in casual attire with unkempt hair but adequate hygiene; mood is described as good and affect, bright; eye contact appropriate; Speech is verbose but not pressured; normal rate, volume and prosody; no psychomotor agitation/retardation present; thought process is organized and goal directed; Thought content is on tx; otherwise pertinent to relevant topics and without any delusional content, paranoid ideations or grandiosity; denies any SI/HI. Denies AVH and there is no evidence of perceptual disturbance. Patients insight and judgment appear intact. Diagnostics Vital Signs (24Hr): Vital Signs - 24 hr 04/14/25 20:00 04/14/25 21:46 04/15/25 07:51 Temperature 98.4 F 97.7 F Pulse Rate 92 64 Respiratory Rate 16 Blood Pressure 102/55 L 102/55 L 115/69 Pulse Oximetry 96 100 Oxygen Delivery Method Room Air Room Air BMI result Body Mass Index 35.7 Labs 04/10/25 07:54 04/05/25 15:34 Imaging Radiology Impressions: ITS Impressions Chest X-Ray 04/05/25 14:21 IMPRESSION: The lung volumes with increased interstitial markings. Electronically signed by: Niranjan Vega MD 04/05/2025 03:34 PM EDT RP Venous Duplex 04/09/25 08:56 IMPRESSION: No evidence of deep venous thrombosis involving the right upper extremity. Electronically signed by: Amando Mercado MD 04/09/2025 09:23 AM EDT RP Medications Medications Current Medications Acetaminophen (Acetaminophen 325 Mg Tablet) 650 mg PO Q6H PRN PRN Reason: Headache/Pain, Scale 1-10 Last Admin: 04/08/25 06:54 Dose: 650 mg Al Hydroxide/Mg Hydroxide (Magnesium Hydrox/Alum Hydrox 30 Ml Oral.Susp) 30 ml PO Q6H PRN PRN Reason: Heartburn/Nausea Last Admin: 04/13/25 21:56 Dose: 30 ml Albuterol Sulfate (Albuterol Sulfate 90 Mcg 8 Gm Inhaler) 2 puff INHALE RQ4H PRN PRN Reason: shortness of breath, wheezing Last Admin: 04/13/25 08:48 Dose: 2 puff Albuterol/Ipratropium (Albuterol/Iprat 2.5/0.5mg 3 Ml Ampul.Neb) 3 ml INHALE RQID PRN PRN Reason: SOB, Wheezing Amitriptyline HCl (Amitriptyline Hcl 50 Mg Tablet) 50 mg PO BEDTIME [facility] Last Admin: 04/14/25 21:45 Dose: 50 mg Aripiprazole (Aripiprazole 5 Mg Tablet) 5 mg PO DAILY [facility] Last Admin: 04/14/25 08:45 Dose: 5 mg Benzocaine (Throat Lozenge, Medicated Lozenge) 1 lozenge MUCOUS MEM Q2H PRN PRN Reason: Sore Throat Benztropine Mesylate (Benztropine Mesylate 1 Mg Tablet) 1 mg PO BID [facility] Last Admin: 04/14/25 21:46 Dose: 1 mg Buprenorphine/Naloxone (Buprenorphine/Naloxone 8/2 Mg Film) 1 film SUBLINGUAL BID [facility] Last Admin: 04/14/25 21:45 Dose: 1 film Clonazepam (Clonazepam 1 Mg Tablet) 1 mg PO BID [facility] Last Admin: 04/14/25 21:46 Dose: 1 mg Clonazepam (Clonazepam 1 Mg Tablet) 1 mg PO DAILY PRN PRN Reason: SEVERE ANXIETY Last Admin: 04/14/25 15:23 Dose: 1 mg Duloxetine HCl (Duloxetine Hcl 20 Mg Capsule.Dr) 20 mg PO BID [facility] Last Admin: 04/14/25 21:46 Dose: 20 mg Fluticasone/Vilanterol (Fluticasone/Vilanterol 100/25 Blst.W.Dev) 1 puff INHALE RDAILY PRN PRN Reason: SOB, Wheezing Hydroxyzine HCl (Hydroxyzine Hcl 25 Mg Tablet) 25 mg PO Q6H PRN PRN Reason: mild anxiety Last Admin: 04/14/25 17:50 Dose: 25 mg Ibuprofen (Ibuprofen 600 Mg Tablet) 600 mg PO Q6H PRN PRN Reason: pain 1-10 of fibromyalgia Last Admin: 04/15/25 04:58 Dose: 600 mg Magnesium Hydroxide (Milk Of Magnesia 30 Ml Oral.Susp) 30 ml PO DAILY PRN PRN Reason: Constipation Mupirocin (Mupirocin 2 % Oint 22 Gm Tube) 1 appl TOPICAL BID YONI; Protocol Stop: 04/16/25 20:59 Last Admin: 04/14/25 21:57 Dose: 1 appl Nicotine (Nicotine 21 Mg Patch.Td24) 21 mg TRANSDERMA DAILY PRN PRN Reason: smoking cessation Last Admin: 04/14/25 09:07 Dose: 21 mg Nicotine Polacrilex (Nicotine Polacrilex 2 Mg Gum) 4 mg BUCCAL Q2H PRN PRN Reason: Nicotine Cravings Last Admin: 04/14/25 09:17 Dose: 4 mg Pat Own Med ( (Concerta 54 Mg Tab)) 54 mg PO DAILY YONI Last Admin: 04/14/25 08:44 Dose: 54 mg Olanzapine (Olanzapine 5 Mg Tablet) 5 mg PO TID PRN PRN Reason: agitation Last Admin: 04/14/25 15:23 Dose: 5 mg Olanzapine (Olanzapine 5 Mg Tablet) 5 mg PO DAILY YONI Last Admin: 04/14/25 08:45 Dose: 5 mg Olanzapine (Olanzapine 10 Mg Tablet) 10 mg PO BEDTIME YONI Last Admin: 04/14/25 21:46 Dose: 10 mg Pantoprazole Sodium (Pantoprazole Sodium 20 Mg Tablet.Dr) 20 mg PO DAILY@0630 YONI Last Admin: 04/15/25 05:59 Dose: 20 mg Prazosin HCl (Prazosin Hcl 5 Mg Capsule) 5 mg PO BEDTIME YONI; Protocol Last Admin: 04/14/25 21:46 Dose: 5 mg Pregabalin (Pregabalin 75 Mg Capsule) 225 mg PO BID YONI Last Admin: 04/14/25 21:45 Dose: 225 mg Trazodone HCl (Trazodone Hcl 50 Mg Tablet) 50 mg PO BEDTIME MRX1 PRN PRN Reason: Insomnia Vitamin D (Cholecalciferol (Vitamin D3) 25 Mcg Tablet) 25 mcg PO DAILY YONI Last Admin: 04/14/25 08:45 Dose: 25 mcg Allergies Allergies Allergy/AdvReac Type Severity Reaction Status Date / Time No Known Allergies Allergy Verified 04/05/25 14:57 Assessment & Plan Assessment & Plan (1) Mood disorder: Status: Acute Code(s): F39 - Unspecified mood [affective] disorder (2) PTSD (post-traumatic stress disorder): Status: Acute Code(s): F43.10 - Post-traumatic stress disorder, unspecified (3) Hypoxia: Status: Resolved Code(s): R09.02 - Hypoxemia (4) Acute hypokalemia: Status: Resolved Code(s): E87.6 - Hypokalemia (5) Cocaine use disorder: Status: Acute Code(s): F14.10 - Cocaine abuse, uncomplicated (6) Opioid use disorder: Status: Acute Code(s): F11.90 - Opioid use, unspecified, uncomplicated Plan Opioid use DO/Cocaine Use Disorder/Mood disorder/PTSD Treatment per psychiatric team. Paronychia/Right arm swelling Encourage hand hygiene with soap and water, avoid squeezing or picking areas Mupriocin BID to nail beds for 7 days No evidence of cellulitis US negative for DVT Thank you for allowing me to participate in the care of this patient. Signing off at this time. Please reconsult of any acute complaints or issues arise 04/11: Benztropine 1 mg bid Olanzapine 5 mg bid Decrease Abilify to 10 mg daily. 04/13: Decrease Abilify to 5 mg daily Increase Olanzapine to 5 mg a.m. 10 mg h.s BMP on 04/16. 04/14 Patient reports she is doing good... Great and shares how much progress she has made since coming to the unit. Patient says restlessness in her legs has resolved and she is without any paranoia at all. No SI at all. Patient expresses much gratitude for help received. She explained her recent history that led up to this admission. -continue current treatment plan 04/15 remains doing well; good behavioral impulse control, future oriented, good mood. Patient says restlessness in legs remains absent Patient educated on: diagnosis Informed Consent: understands Reason for continued inpatient stay Substantial Risk for: stable for discharge Time Spent With Patient Time: Total time managing care of this patient today ____ minutes.
[2025-04-15] MEDS: Nicotine 21 MG PATCH.TD24 TRANSDERMA (08:43)
[2025-04-15] MEDS: ARIPiprazole 5 MG TABLET PO (08:44)
[2025-04-15] MEDS: Cholecalciferol (Vitamin D3) 25 MCG TABLET PO (08:44)
[2025-04-15] MEDS: clonazePAM 1 MG TABLET PO ×3 (08:44→20:10)
[2025-04-15] MEDS: Benztropine Mesylate 1 MG TABLET PO ×2 (08:44→20:10)
[2025-04-15] MEDS: Pregabalin 75 MG CAPSULE 225 MG PO ×2 (08:44→20:09)
[2025-04-15] MEDS: DULoxetine HCl 20 MG CAPSULE.DR PO ×2 (08:44→20:10)
[2025-04-15] MEDS: OLANZapine 5 MG TABLET PO ×2 (08:45→12:29)
[2025-04-15] MEDS: Acetaminophen 325 MG TABLET 650 MG PO ×2 (08:45→17:31)
[2025-04-15] MEDS: METHYLPHENIDATE 54 MG 54 EACH PO (09:10)
[2025-04-15] MEDS: Buprenorphine/Naloxone 8/2 mg FILM 1 FILM SUBLINGUAL ×2 (09:11→20:09)
[2025-04-15] MEDS: Mupirocin 2 % Oint 22 GM TUBE 1 APPL TOPICAL ×2 (09:11→22:30)
[2025-04-15] MEDS: Nicotine Polacrilex 2 MG GUM 4 MG BUCCAL ×4 (09:18→20:42)
[2025-04-15] MEDS: hydrOXYzine HCL 25 MG TABLET PO ×2 (11:55→17:30)
[2025-04-15] MEDS: Lidocaine 4 % Patch ADH..PATCH 1 PATCH TRANSDERMA (13:04)
[2025-04-15 20:00] VITALS: BP 145/67; PULSE 107; RESP 16; TEMP 36.6; O2SAT 95
[2025-04-15 20:10] VITALS: BP 145/67
[2025-04-15] MEDS: OLANZapine 10 MG TABLET PO (20:10)
[2025-04-15] MEDS: Prazosin HCL 5 MG CAPSULE PO (20:10)
[2025-04-15] MEDS: Amitriptyline HCl 50 MG TABLET PO (20:10)
[2025-04-16] MEDS: Pantoprazole Sodium 20 MG TABLET.DR PO (06:07)
[2025-04-16] MEDS: Nicotine Polacrilex 2 MG GUM 4 MG BUCCAL (06:26)
[2025-04-16 08:00] VITALS: BP 134/81; PULSE 95; RESP 16; TEMP 36.6; O2SAT 96
[2025-04-16 08:31] LABS: Anion Gap 11 (12-20); Blood Urea Nitrogen 16 mg/dL (9-16); Calcium 9.1 mg/dL (8.4-10.2); Carbon Dioxide 28 mmol/L (22-29); Chloride 105 mmol/L (96-108); Creatinine Clr Calc Pharmacy 99.8; Estimated Glomerular Filt Rate > 60; Glucose Random 95 mg/dL (60-115); Potassium 4.2 mmol/L (3.3-5.1); Sodium 140 mmol/L (135-145)
[2025-04-16] MEDS: DULoxetine HCl 20 MG CAPSULE.DR PO (08:45)
[2025-04-16] MEDS: ARIPiprazole 5 MG TABLET PO (08:45)
[2025-04-16] MEDS: OLANZapine 5 MG TABLET PO (08:45)
[2025-04-16] MEDS: Cholecalciferol (Vitamin D3) 25 MCG TABLET PO (08:45)
[2025-04-16] MEDS: Pregabalin 75 MG CAPSULE 225 MG PO (08:45)
[2025-04-16] MEDS: Buprenorphine/Naloxone 8/2 mg FILM 1 FILM SUBLINGUAL (08:45)
[2025-04-16] MEDS: Benztropine Mesylate 1 MG TABLET PO (08:45)
[2025-04-16] MEDS: METHYLPHENIDATE 54 MG 54 EACH PO (08:46)
[2025-04-16] MEDS: clonazePAM 1 MG TABLET PO (08:46)
--- NOTE | 2025-04-16 10:03 | P.DS_ITS ---
DS: Providers Provider Date of admission: 04/05/25 21:31 Primary care physician: Aleksey Higgins MD DS: Diagnosis Discharge Diagnosis (1) Mood disorder: Status: Acute (2) PTSD (post-traumatic stress disorder): Status: Acute (3) Hypoxia: Status: Resolved (4) Acute hypokalemia: Status: Resolved (5) Cocaine use disorder: Status: Acute (6) Opioid use disorder: Status: Acute DS: Medications Discharge Medications Home Medications: Previous Rx's ?Medication ?Instructions ?Recorded acetaminophen 325 mg tablet 650 mg (2 x 325 mg) PO Q6H PRN 04/16/25 Headache/Pain, Scale 1-10 #0 tabs albuterol sulfate 90 mcg/actuation 2 puff inhalation RQ4H PRN 04/16/25 aerosol inhaler (Ventolin HFA) shortness of breath, wheezing #1 inhaler amitriptyline 50 mg tablet 50 mg PO BEDTIME #30 tabs 04/16/25 aripiprazole 5 mg tablet (Abilify) 5 mg PO DAILY #30 tabs 04/16/25 benztropine 1 mg tablet 1 mg PO BID #60 tabs 04/16/25 buprenorphine 8 mg-naloxone 2 mg 1 film sublingual BID #6 ea 04/16/25 sublingual film (Suboxone) cholecalciferol (vitamin D3) 25 25 mcg PO DAILY #30 tabs 04/16/25 mcg (1,000 unit) tablet clonazepam 1 mg tablet 1 mg PO BID #14 tabs 04/16/25 duloxetine 20 mg capsule,delayed 20 mg PO BID #60 caps 04/16/25 release fluticasone furoate 100 1 inh inhalation RDAILY PRN SOB, 04/16/25 mcg-vilanterol 25 mcg/dose Wheezing #60 ea inhalation powder (Breo Ellipta) hydroxyzine HCl 25 mg tablet 25 mg PO Q6H PRN mild anxiety #15 04/16/25 tabs ipratropium 0.5 mg-albuterol 3 mg 3 ml inhalation RQID PRN SOB, 04/16/25 (2.5 mg base)/3 mL nebulization Wheezing #1 inhaler soln lidocaine 4 % topical patch 1 patch transdermal DAILY PRN 04/16/25 (Lidocaine Pain Relief) lower back pain #30 ea methylphenidate HCl 54 mg 54 mg PO DAILY #30 tabs 04/16/25 tablet,extended release 24 hr (Concerta) mupirocin 2 % topical ointment 1 appl topical BID #50 grams 04/16/25 nicotine (polacrilex) 2 mg gum 4 mg buccal Q2H PRN Nicotine 04/16/25 Cravings #100 ea nicotine 21 mg/24 hr daily 21 mg transdermal DAILY PRN 04/16/25 transdermal patch smoking cessation #30 ea olanzapine 10 mg tablet 10 mg PO BEDTIME #30 tabs 04/16/25 olanzapine 5 mg tablet 5 mg PO DAILY #30 tabs 04/16/25 pantoprazole 20 mg tablet,delayed 20 mg PO DAILY@0630 #30 tabs 04/16/25 release prazosin 5 mg capsule 5 mg PO BEDTIME #30 caps 04/16/25 pregabalin 75 mg capsule (Lyrica) 225 mg (3 x 75 mg) PO BID #42 caps 04/16/25 Data Data Completed and Pending Completed studies during hospitalization [Text1]: 04/10/25 04/11/25 04/16/25 07:54 07:35 08:08 WBC 5.1 RBC 3.99 L Hgb 11.6 L Hct 36.1 L MCV 90.5 MCH 29.1 MCHC 32.1 RDW 14.2 Plt Count 218 MPV 9.2 L Absolute Nucleated RBC 0.000 Nucleated RBC % (auto) 0.0 PT 9.1 L INR 0.8 L APTT 34.2 D-Dimer High Sensitivty 529 Sodium 140 Potassium 4.2 D Chloride 105 Carbon Dioxide 28 Anion Gap 11 L BUN 16 Creatinine 0.70 Estim Creat Clear Calc 99.8 Estimated GFR > 60 Random Glucose 95 Calcium 9.1 Imaging Diagnostic Imaging Impressions Chest X-Ray 04/05/25 14:21 IMPRESSION: The lung volumes with increased interstitial markings. Electronically signed by: Niranjan Vega MD 04/05/2025 03:34 PM EDT RP Venous Duplex 04/09/25 08:56 IMPRESSION: No evidence of deep venous thrombosis involving the right upper extremity. Electronically signed by: Amando Mercado MD 04/09/2025 09:23 AM EDT RP DS: Summary Time Spent with Patient Time attestation: Total time managing care of this patient today ____ minutes. Discharge Plan Discharge Anticipated Discharge Date/Time: 04/16/25 12:00 Patient Disposition: Xfer Other Discharge Diagnosis: PTSD Mood Disorder Opiate Use Disorder Cocaine Use Disorder Referrals: [facility] Intake for Therapy with Kalli Castellanos [Other] - 04/19/25 11:00 am [facility] Partial Hospitalization Program [Other] - 04/18/25 8:00 am (This appointment is for your intake. Let them know you have your intake for therapy with [facility] the following day. ) [facility] [Other] - 3-5 Days (You can request a control and recovery combat rescue during your intake with [facility] or if you prefer you can go to the [facility] and request a control and recovery combat rescue through them, they also have recovery groups. The contact information above is for the [facility].) [facility] [Other] - 3-5 Days (Ruth will be in touch with [facility]'s [place] office and they or Ruth will contact you with an appointment.) Aleksey Higgins MD [Primary Care Provider] - 1 Week Discharge Medications: New ipratropium-albuterol 0.5 mg-3 mg(2.5 mg base)/3 mL Solution For Nebulization 3 ml inhalation RQID PRN (Reason: SOB, Wheezing) Qty: 1 0RF albuterol sulfate [Ventolin HFA] 90 mcg/actuation Hfa Aerosol Inhaler 2 puff inhalation RQ4H PRN (Reason: shortness of breath, wheezing) Qty: 1 0RF fluticasone furoate-vilanterol [Breo Ellipta] 100-25 mcg/dose Blister With Device 1 inh inhalation RDAILY PRN (Reason: SOB, Wheezing) Qty: 60 0RF acetaminophen 325 mg Tablet 650 mg PO Q6H PRN (Reason: Headache/Pain, Scale 1-10) Qty: 0 0RF nicotine (polacrilex) 2 mg Gum 4 mg buccal Q2H PRN (Reason: Nicotine Cravings) Qty: 100 0RF olanzapine 5 mg Tablet 5 mg PO DAILY Qty: 30 0RF clonazepam 1 mg Tablet 1 mg PO BID Qty: 14 4RF olanzapine 10 mg Tablet 10 mg PO BEDTIME Qty: 30 0RF amitriptyline 50 mg Tablet 50 mg PO BEDTIME Qty: 30 0RF prazosin 5 mg Capsule 5 mg PO BEDTIME Qty: 30 0RF Protocol: Hold for SBP< HOLD for SBP < : 90 benztropine 1 mg Tablet 1 mg PO BID Qty: 60 0RF nicotine 21 mg/24 hr Patch 24 Hour 21 mg transdermal DAILY PRN (Reason: smoking cessation) Qty: 30 0RF hydroxyzine HCl 25 mg Tablet 25 mg PO Q6H PRN (Reason: mild anxiety) Qty: 15 0RF aripiprazole [Abilify] 5 mg Tablet 5 mg PO DAILY Qty: 30 0RF duloxetine 20 mg Capsule,Delayed Release(Dr/Ec) 20 mg PO BID Qty: 60 0RF pregabalin [Lyrica] 75 mg Capsule 225 mg PO BID Qty: 42 4RF buprenorphine-naloxone [Suboxone] 8-2 mg Film 1 film sublingual BID Qty: 6 0RF lidocaine [Lidocaine Pain Relief] 4 % Adhesive Patch,Medicated 1 patch transdermal DAILY PRN (Reason: lower back pain) Qty: 30 0RF Protocol: Apply to: Apply to: lower back pantoprazole 20 mg Tablet,Delayed Release (Dr/Ec) 20 mg PO DAILY@0630 Qty: 30 0RF mupirocin 2 % Ointment 1 appl topical BID Qty: 50 0RF Protocol: Apply to: Apply to: Bilateral nail beds cholecalciferol (vitamin D3) 25 mcg (1,000 unit) Tablet 25 mcg PO DAILY Qty: 30 0RF Continued methylphenidate HCl [Concerta] 54 mg Tablet Extended Release 24hr 54 mg PO DAILY Qty: 30 0RF Discontinued cholecalciferol (vitamin D3) [Vitamin D3] 25 mcg (1,000 unit) Tablet 25 mcg PO DAILY buprenorphine-naloxone 8-2 mg film 1 film sublingual BID prazosin 5 mg Capsule 5 mg PO BEDTIME Rx Instructions: Take with 2mg, for TTD: 7mg clonazepam 2 mg Tablet 2 mg PO BID albuterol sulfate [Ventolin HFA] 90 mcg/actuation Hfa Aerosol Inhaler 2 puff INHALATION Q4H PRN (Reason: Shortness Of Breath Or Wheezing) aripiprazole [Abilify] 5 mg Tablet 15 mg PO DAILY Combivent Respimat 20-100 mcg/actuation Mist 2 puff INHALATION BID pantoprazole 20 mg Tablet,Delayed Release (Dr/Ec) 20 mg PO DAILY@0630 prazosin 2 mg Capsule 2 mg PO BEDTIME Rx Instructions: Take with 5mg, for TTD: 7mg duloxetine 20 mg Capsule,Delayed Release(Dr/Ec) 20 mg PO BID pregabalin [Lyrica] 225 mg Capsule 225 mg PO BID amitriptyline 50 mg Tablet 50 mg PO DAILY fluticasone propion-salmeterol [Wixela Inhub] 250-50 mcg/dose Blister With Device 1 inh INHALATION BID Debrox 6.5 % drops 5 drp otic (ear) right BID PRN (Reason: Ear Wax) Discharge Orders: Discharge Order (Routine); Ordered 04/16/25 Ordered By: Aruna Conklin Diet: Advance to usual diet Activity on Discharge: As tolerated Stand Alone Forms: Patient Portal Discharge page Print Language: Faroese Care Plan Goals: Abstinence from substances Mood and Behavioral Stabilization Health Concerns: Abstinence from substances Mood and Behavioral Stabilization Plan of Treatment: Pt was given an appt with [facility] for 1pm 04/16/25. She declined the appointment and will need to call [phone], Ext [phone] to rescheduled. Take medications as directed Attend scheduled appointments Call/Return if needed Assessment: Pt discharges on a three day notice of intent. She discharges to a peers home where she plans to assist this peer with her daily needs. She denies SI,HI,AH,VH There are no sx of acute juan or psychosis
== END 2025-04-16 11:35 | disposition other institution (70) | DRG 885 ==
LOC: HO.ED 17:46 → HO.PM5 21:42
PROVIDERS: Psychiatry & Neurology Psychiatry; Admitting Provider Psychiatry & Neurology Psychiatry; Emergency Provider Emergency Medicine Emergency Medical Services; PCP Internal Medicine; Visit Provider Clinical Nurse Specialist Psychiatric/Mental Health, Adult
DX: F39 Unspecified mood [affective] disorder (principal); F11.20 Opioid dependence, uncomplicated; R45.851 Suicidal ideations; F43.10 Post-traumatic stress disorder, unspecified; E87.6 Hypokalemia; J44.9 Chronic obstructive pulmonary disease, unspecified; T42.4X1A Poisoning by benzodiazepines, accidental (unintentional), initial encounter; F14.10 Cocaine abuse, uncomplicated; L03.012 Cellulitis of left finger; L03.011 Cellulitis of right finger; R68.3 Clubbing of fingers; Z87.891 Personal history of nicotine dependence; Z79.899 Other long term (current) drug therapy
CPT/HCPCS: 36415; 71045; 80048; 80053; 80061; 80143; 80179; 80307; 81001; 81025; 82607; 82746; 83036; 84443; 85025; 85027; 85379; 85610; 85730; 93005; 93971; 99284

== ENCOUNTER → 2025-04-05 15:00 | Outpatient (BNV) | payer OTHER, SELFPAY | PROVIDERS: Admitting Provider Psychiatry & Neurology Psychiatry; Emergency Provider Emergency Medicine Emergency Medical Services; PCP Internal Medicine; Visit Provider Internal Medicine | DX: R94.31 Abnormal electrocardiogram [ECG] [EKG] (principal); T42.4X1A Poisoning by benzodiazepines, accidental (unintentional), initial encounter | CPT/HCPCS: 93010 ==

== ENCOUNTER → 2025-04-05 15:12 | Outpatient (BNV) | payer OTHER, SELFPAY | PROVIDERS: Emergency Provider Emergency Medicine Emergency Medical Services; PCP Internal Medicine; Visit Provider Radiology Diagnostic Radiology | DX: J98.4 Other disorders of lung (principal) | CPT/HCPCS: 71045 ==

== ENCOUNTER 2025-04-05 21:31 | Outpatient (BNV) | payer OTHER, SELFPAY | END 2025-04-09 08:56 | PROVIDERS: Admitting Provider Psychiatry & Neurology Psychiatry; Emergency Provider Emergency Medicine Emergency Medical Services; PCP Internal Medicine; Visit Provider Radiology Diagnostic Radiology | DX: R22.31 Localized swelling, mass and lump, right upper limb (principal) | CPT/HCPCS: 93971 ==

== ENCOUNTER → 2025-04-05 21:31 | Outpatient (BNV) | payer OTHER, SELFPAY | PROVIDERS: Admitting Provider Psychiatry & Neurology Psychiatry; Emergency Provider Emergency Medicine Emergency Medical Services; PCP Internal Medicine; Visit Provider Nurse Practitioner Family | DX: R09.02 Hypoxemia (principal); J18.9 Pneumonia, unspecified organism; E87.6 Hypokalemia | CPT/HCPCS: 99221 ==

== ENCOUNTER → 2025-04-05 21:31 | Outpatient (BNV) | payer OTHER, SELFPAY | PROVIDERS: Admitting Provider Psychiatry & Neurology Psychiatry; Emergency Provider Emergency Medicine Emergency Medical Services; PCP Internal Medicine; Visit Provider Psychiatry & Neurology Psychiatry | DX: F14.10 Cocaine abuse, uncomplicated (principal); F11.90 Opioid use, unspecified, uncomplicated; F39 Unspecified mood [affective] disorder; F43.11 Post-traumatic stress disorder, acute | CPT/HCPCS: 99231 ==

== ENCOUNTER → 2025-04-05 21:31 | Outpatient (BNV) | payer OTHER, SELFPAY | PROVIDERS: Admitting Provider Psychiatry & Neurology Psychiatry; Emergency Provider Emergency Medicine Emergency Medical Services; PCP Internal Medicine; Visit Provider Clinical Nurse Specialist Psychiatric/Mental Health, Adult | DX: F14.10 Cocaine abuse, uncomplicated (principal); F43.11 Post-traumatic stress disorder, acute; F39 Unspecified mood [affective] disorder; F11.90 Opioid use, unspecified, uncomplicated | CPT/HCPCS: 90792; 99231; 99232 ==

== ENCOUNTER 2025-04-23 10:06 | Outpatient (AMB) | payer OTHER, SELFPAY ==
[2025-04-23 09:45] VITALS: PULSE 70; O2SAT 98; BMI 37.4
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
--- OUTSIDE RECORDS SUMMARY | 2025-04-23 11:10 | XMS_ITS | Clinical Summary ---
Author Organization [facility] Address [address] [place] [address] Care Team Providers Care Real Estate Firm Manager Name Role Phone Unavailable Primary Care Provider [...] Imm-Pneumococcal (2 of 2 - PCV) 06/08/2018 Breast Cancer Screening (Mammogram) 2019 Dental Perio Charting 03/11/2023 03/09/2022 CT Colonography 01/13/2024 Colonoscopy 01/13/2024 Colorectal Cancer Screening 01/13/2024 FIT/gFOBT 01/13/2024 Fecal DNA 01/13/2024 Flexible Sigmoidoscopy 01/13/2024 [id number] ( season) 2024 022, 04/01/2021 Alcohol and Drug Screen 11/01/2024 Depression Annual Screen 11/01/2024 Dental BW 11/21/2024 11/19/2023, 03/09/2022 Dental Examination 11/21/2024 11/19/2023, 03/09/2022 Dental Prophy 11/21/2024 11/19/2023 Hypertension Screening (#1) 02/23/2025 Imm-Influenza (Season Ended) 2025 Imm-DTaP/Tdap/Td (7 - Td or Tdap) 05/18/2029 [...] Most Recently Relevant to Health Maintenance Insurance [facility]
== END 2025-04-23 10:34 | disposition home or self-care (01) ==
PROVIDERS: Visit Provider Internal Medicine
DX: Z51.81 Encounter for therapeutic drug level monitoring (principal)

== ENCOUNTER → 2025-04-23 10:06 | Outpatient (BNVA) | payer OTHER, SELFPAY | PROVIDERS: Visit Provider Internal Medicine | DX: F11.20 Opioid dependence, uncomplicated (principal); F14.20 Cocaine dependence, uncomplicated; B19.20 Unspecified viral hepatitis C without hepatic coma; Z51.81 Encounter for therapeutic drug level monitoring; Z59.02 Unsheltered homelessness | CPT/HCPCS: 80307; 99202 ==

== ENCOUNTER 2025-05-07 14:23 | Outpatient (AMB) | payer OTHER, SELFPAY ==
--- OUTSIDE RECORDS SUMMARY | 2025-05-07 14:55 | XMS_ITS | Clinical Summary ---
Author Organization [facility] Address [address] [place] [address] Care Team Providers Care Welfare Case Worker Name Role Phone Unavailable Primary Care Provider [...] 01/13/2024 Fecal DNA 01/13/2024 Flexible Sigmoidoscopy 01/13/2024 [id number] ( season) 2024 022, 04/01/2021 Alcohol and Drug Screen 11/01/2024 Depression Annual Screen 11/01/2024 Dental BW 11/21/2024 11/19/2023, 03/09/2022 Dental Examination 11/21/2024 11/19/2023, 03/09/2022 Dental Prophy 11/21/2024 11/19/2023 Hypertension Screening (#1) 02/23/2025 Imm-Influenza (#1) 2025 Imm-DTaP/Tdap/Td (7 - Td or Tdap) [...] Most Recently Relevant to Health Maintenance Insurance [facility]
--- OUTSIDE RECORDS SUMMARY | 2025-05-07 14:55 | XMS_ITS | Patient Health Record ---
Author Organization [facility] Address [address], [place] [id number] Care Team Providers Care Caregiver Assisted Living Name Role Phone Igor Melyssa [facility] Primary Care Provider Liza Crespo Reason For Referral No Information Encounters Encounter Location Date Provider Diagnosis [facility] [address] [place] [address] [phone] 10/10/2024 Liza Alejandre [facility] [address] [place] [address] [phone] 10/04/2024 Liza Alejandre [facility] [address] [place] [address] [phone] 11/02/2024 Liza Alejandre Plan Of Treatment No Information Insurance Providers Payer Name Payer Address Payer Phone Subscriber Number Group Number Insured Name Patient Relationship to Insured Coverage Start Date Coverage End Date [facility] [employer]- [employer] [address] [facility] [id number] Alcira Martell Self - patient is the insured
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
[2025-05-07 15:04] VITALS: PULSE 92; O2SAT 98; BMI 35.9
--- NOTE | 2025-05-07 15:04 | MHC.OFFVIS ---
Vital Signs 05/07/25 15:04 Height 5 ft 1 in Weight 190 lb BMI 35.9 Pulse 92 Pulse Oximetry (%) 98 Oxygen Delivery Method Room Air Intake Visit Reasons: MAT Allergies No Known Allergies Allergy (Verified 05/07/25 15:04) HPI Comments Details: She is waiting for Sublocade. She is taking suboxone and has no complaints except occasional fatigue. PFSH Medical History PTSD (post-traumatic stress disorder) Mood disorder Cocaine use disorder Opioid use disorder Bipolar disorder Interstitial lung disease Hepatitis C IV drug user Social History Household Members: None Household Members Other:: sister Housing: Homeless Do you presently have visiting nurse or other home services: No Alcohol intake: current Alcohol intake frequency: holidays/special occasions only Comment: 1:1 Sitter for SI Patient Tobacco Use Status: Former Tobacco user Tobacco use type: Cigarette e-Cigarette/Vaping Use: Never Used Second Hand Smoke Exposure: No Substance Use Type: Crack/Cocaine and Marijuana Advance Directives Date on File: 03/02/25 service: No Sexual orientation: Unable to collect Review of Systems Const All systems reviewed & are unremarkable except as noted in HPI and below Physical Exam Vital Signs: Last Vital Signs Pulse 92 05/07/25 15:04 Pulse Ox 98 05/07/25 15:04 Oxygen Delivery Method Room Air 05/07/25 15:04 BMI result Body Mass Index 35.9 Const General: cooperative Assessment & Plan Assessment & Plan (1) Opioid use disorder: Comment: She is doing well. Code(s): F11.90 - Opioid use, unspecified, uncomplicated Category: Medical Plan: Continue Suboxone until Sublocade comes in. Medications: New buprenorphine-naloxone 8-2 mg (Suboxone) 1 film sublingual BID 42 ea 0RF 21 days Coding Level of Care Code Est Pt Level 3 (39149) Diagnoses Opioid use disorder F11.90
== END 2025-05-07 15:10 | disposition home or self-care (01) ==
LOC: HO.HCC 14:23
PROVIDERS: Visit Provider Internal Medicine
DX: F11.90 Opioid use, unspecified, uncomplicated (principal)
CPT/HCPCS: 99213

== ENCOUNTER → 2025-05-07 14:23 | Outpatient (BNVA) | payer OTHER, SELFPAY | PROVIDERS: Visit Provider Internal Medicine | DX: F11.20 Opioid dependence, uncomplicated (principal); F14.20 Cocaine dependence, uncomplicated; R53.83 Other fatigue; Z79.899 Other long term (current) drug therapy | CPT/HCPCS: 99212 ==

== ENCOUNTER 2025-05-21 13:32 | Outpatient (AMB) | payer OTHER, SELFPAY ==
[2025-05-21 13:38] VITALS: BP 122/70; PULSE 80; O2SAT 95; BMI 36.5
--- NOTE | 2025-05-21 13:38 | MHC.OFFVIS ---
Vital Signs 05/21/25 13:38 Height 5 ft 1 in Weight 193 lb BMI 36.5 BP 122/70 Pulse 80 Pulse Oximetry (%) 95 Intake Visit Reasons: mat visit Allergies No Known Allergies Allergy (Verified 05/21/25 13:40) HPI Comments Details: The patient is a 45-year-old female f/u for OUD. In recent weeks, she describes a significant spiritual journey, attributing positive life changes to her pursuit of spiritual and lutheran guidance. She reports feeling blessed and supported in her current living situation, where she resides with a supportive individual. The patient highlights that following lutheran teachings has positively impacted her life and relationships. She is actively engaged with her psychiatrist and is due to receive support from the Department of Mental Health ([facility]), with a clinical social work therapist involved in her care plan. The patient mentions occasional vaping but denies alcohol consumption, opioid or other substances. Reports waiting on approval of Sublocade and continues on buprenorphine-naloxone 8-2 mg, twice per day. [facility] Medical History PTSD (post-traumatic stress disorder) Mood disorder Cocaine use disorder Opioid use disorder Bipolar disorder Interstitial lung disease Hepatitis C IV drug user Social History Household Members: None Household Members Other:: sister Housing: Homeless Do you presently have visiting nurse or other home services: No Alcohol intake: current Alcohol intake frequency: holidays/special occasions only Comment: 1:1 Sitter for SI Patient Tobacco Use Status: Former Tobacco user Tobacco use type: Cigarette e-Cigarette/Vaping Use: Never Used Second Hand Smoke Exposure: No Substance Use Type: Crack/Cocaine and Marijuana Advance Directives Date on File: 03/02/25 service: No Sexual orientation: Unable to collect Review of Systems Const All systems reviewed & are unremarkable except as noted in HPI and below Physical Exam Vital Signs: Last Vital Signs Pulse 80 05/21/25 13:38 BP 122/70 05/21/25 13:38 Pulse Ox 95 05/21/25 13:38 BMI result Body Mass Index 36.5 Const General: cooperative Psych Appearance: well kempt Mental Status: mental status grossly normal Speech and movement: Normal speech and movement present Affect: Animated affect present Attitude: cooperative Thought process: Normal thought process present Thought content: Normal thought content present Insight: Good insight present (Psych) Judgement: Good judgement present (Psych) Assessment & Plan Assessment & Plan (1) Opioid use disorder: Comment: She is doing well. Code(s): F11.90 - Opioid use, unspecified, uncomplicated Category: Medical Plan The plan of care is to continue with buprenorphine-naloxone 8-2 mg, twice per day with plan to start on Sublocade 300 mg monthly pending insurance approval. Patient Instructions: - Continue with buprenorphine-naloxone 8-2 mg, twice per day. - Call with questions or concerns to [facility]. - [facility] will call patient as soon as insurance approves Sublocade 300 mg monthly for initial administration. - Patient verbalized understanding and agreed with plan of care. Scribe Plan - Not visible on output: Patient was informed and verbally consented to the use of an ambient scribe for clinical note documentation during this visit. Coding Level of Care Code Est Pt Level 3 (21684) Diagnoses Opioid use disorder F11.90
--- OUTSIDE RECORDS SUMMARY | 2025-05-21 14:19 | XMS_ITS | Clinical Summary ---
Author Organization [facility] Address [address] [place] [address] Care Team Providers Care Pass Worker Name Role Phone Cipriano Purcell Primary Care Provider [phone] Allergies No known active allergies Medications albuterol [...] a day. 4 g 5 Active fluticasone propion-salmete roL (ADVAIR DISKUS) 250-50 mcg inhaler Inhale 1 [...] dose of 7mg 30 capsule 5 Active methylphenidate ER 54 mg tablet Take 1 tablet [...] times a day. 60 capsule 5 Active lidocaine (LIDODERM) 5% patch Apply 1 patch topically to the affected area once a day. Remove and discard patch within 12 hours or as directed. 30 patch 5 04/21/20 25 Active Problems Problem Noted Date Diagnosed Date [...] results of recent chest xray, The medical transport specialist recommended antibiotics, and to continue with neb [...] 9:45 AM EDT): Treated for pneumonia at [facility]; Patient has underlying COPD and emphysema; -Medical consult for H&P -Zithromax 500mg day 1; 250mg days 2-4 ends 03/15 -Augmentin 500mg 3 times a day until 03/16 -O2 via nasal canula prn (discontinued) -Chest X-ray repeated Encounters Date Type Department Care Team Description 03/10/2025 8:14 AM EDT - 03/10/2025 11:59 PM EDT Hospital Encounter [facility] [address] [place] [address] Discharge Disposition: Home or Self Care (01) 03/08/2025 6:17 PM EDT - 03/21/2025 12:45 PM EDT [facility] [address] [place] [address] Rio Hopkins DO Blaney, Daryl E, MD Discharge Disposition: Another Health Care Institution [...] PCV) 06/08/2018 06/08/2017 Mammogram 2019 COVID-19 Vaccine (2023-2 5 season) 2024 01/26/2022, 04/01/2021 Alcohol/Substance Use [...] 01/25/1996, 07/30/1995, 05/25/1995 Procedures * Due to [place] [facility] law, this organization might not be sharing [...] Last 3 Months Results * Due to [place] [facility] law, this organization might not be sharing [...] to obtain the completed interpretation. Workstation ID: [id number] Narrative 03/12/2025 2:11 PM EDT XR CHEST 2 VW INDICATION: Dyspnea COMPARISON: 11/11/2024 FINDINGS: The heart is normal in size. Opacities are present within the right upper lobe, right lower lobe, left upper lobe, left lower lobe. No evidence of a pleural effusion. No bony abnormalities. Resulting Agency Comment [id number] Procedure Note Segun Riggins MD - 03/12/2025 [...] possible to obtain thecompleted interpretation. Workstation ID: [id number] Elidia Savage NP IMG XR PROCEDURES Final Resu lt * (ABNORMAL) CBC Auto Differential (03/10/2025 6:52 AM EDT) WBC 7.2 4.8 - 10.8 10*3/uL 03/10/2025 7:19 AM EDT LABORATORY RBC 3.87(L) 4.20 - 5.40 10*6/uL 03/10/2025 7:19 AM EDT LABORATORY Hemoglobin 11.1(L) 11.7 - 15.5 g/dL 03/10/2025 7:19 AM EDT LABORATORY Hematocrit 35.2(L) 35.7 - 45.8 % 03/10/2025 7:19 AM EDT LABORATORY MCV 91.0 81.0 - 99.0 fL [facility] MCH 28.7 26.0 - 34.0 pg 03[facility] MCHC 31.5 31.0 - 36.0 g/dL 03/10[facility]2025 [facility] RDW 14.8 12.0 - 15.0 % 03/10/2025 7:19 AM EDT LABORATORY RDW Standard Deviation 49.6(H) 36.4 - 46.3 fL 03/10/2025 7:19 AM EDT LABORATORY Platelets 529(H) 140 - 440 10*3/uL 03/10/2025 7:19 AM [facility] MPV 9.0(L) 9.4 - 12.3 fL 03/10/2025 7:19 AM T LABORATORY Neutrophil % 59.0 50.0 - 75.0 % 03/10/2025 7:19 AM [facility] Immature Grans % 0.4 0.0 - 0.9 % 03/10/2025 7:19 AM [facility] Lymphocyte % 27.6 20.0 - 44.0 % 03/10/2025 7:19 AM [facility] Monocyte % 8.8 0.0 - 14.0 % 03/10/2025 7:19 AM EDT LABORATORY Eosinophil % 3.5 0.0 - 5.0 % 03/10/2025 7:19 AM EDT LABORATORY Basophil % 0.7 0.0 - 2.0 % 03/10/2025 7:19 AM [facility] Neutrophil # 4.27 1.80 - 7.70 10*3/uL 03/10/2025 7:19 AM EDT LABORATORY Immature Grans # 0.03 0.00 - 0.03 10*3/uL 03/10/2025 7:19 AM EDT LABORATORY Lymphocyte # 2.00 1.00 - 4.75 10*3/uL 03/10/2025 7:19 AM EDT LABORATORY Monocyte # 0.60 0.00 - 0.60 10*3/uL 03/10/2025 7:19 AM EDT LABORATORY Eosinophil # 0.30 0.00 - 0.80 10*3/uL 03/10/2025 7:19 AM EDT LABORATORY Basophil # 0.10 0.00 - 0.20 10*3/uL 03/10/2025 7:19 AM EDT LABORATORY Blood Structure of peripheral vein / Unknown Venipuncture / Unknown 03/10/2025 6:52 AM EDT 03/10/2025 7:00 AM EDT us Shaylaroman Larao [employer] LAB BLOOD ORDERABLES Final Re sult LABORATORY [address] [place], [place] [id number], * TSH (03/10/2025 6:52 AM EDT) TSH 0.952 0.270 - 4.200 uIU/mL 03/10/2025 2:58 PM EDT [facility] Comment: Females: 1st trimester 0.150-4.000 IU/mL 2nd trimester 0.310-4.170 IU/mL 3rd trimester 0.380-4.150 IU/mL Blood Structure of peripheral vein / Unknown Venipuncture / Unknown 03/10/2025 6:52 AM EDT 03/10/2025 7:00 AM EDT us Shayla Gibran [employer] LAB BLOOD ORDERABLES Final Re sult [facility] [address] [address], [place] [phone] * (ABNORMAL) Hemoglobin A1c (03/10/2025 6:52 AM EDT) Pathologist [facility] Hemoglobin A1c 5.9(H) 4.0 - 5.7 % 03/10/2025 2:45 PM EDT [facility] Estimated Average Glucose 123 mg/dL 03/10/2025 2:45 PM EDT [facility] Blood Structure of peripheral vein / Unknown Venipuncture / Unknown 03/10/2025 6:52 AM EDT 03/10/2025 7:00 AM EDT Shayla Leary NP LAB BLOOD ORDERABLES Final Re sult [facility] [address] [address], [place] [phone] * (ABNORMAL) Hepatic function panel (03/10/2025 6:52 AM EDT) [facility] Total Protein 8.0 6.6 - 8.7 g/dL 03/10/2025 2:58 PM EDT [facility] Albumin 3.6 3.5 - 5.0 g/dL 03/10/2025 2:58 PM EDT [facility] Globulin, Total 4.4(H) 2.1 - 4.2 g/dL 03/10/2025 2:58 PM EDT [facility] Bilirubin, Total 0.3 0.2 - 1.2 mg/dL 03/10/2025 2:58 PM EDT [facility] Bilirubin, Direct 0.1 <=0.3 mg/dL 03/10/2025 2:58 PM EDT [facility] Alkaline Phosphatase 74 40 - 129 U/L 03/10/2025 2:58 PM EDT [facility] AST 31 0 - 33 U/L 03/10/2025 2:58 PM EDT [facility] ALT 16 <=33 U/L 03/10/2025 2:58 PM EDT [facility] Bilirubin, Indirect 0.20 <=0.70 mg/dL 03/10/2025 2:58 PM EDT [facility] A/G Ratio 0.8(L) 1.5 - 3.0 03/10/2025 2:58 PM EDT [facility] Blood Structure of peripheral vein / Unknown Venipuncture / Unknown 03/10/2025 6:52 AM EDT 03/10/2025 7:00 AM EDT us Shayla Leary NP LAB BLOOD ORDERABLES Final Re sult [facility] [address] [facility] [address] [place] [address], [place] [phone] * Lipid panel (03/10/2025 6:52 AM EDT) Cholesterol 126 mg/dL 03/10/2025 2:58 PM EDT [facility] Comment: DESIRABLE: <200 mg/dL BORDERLINE HIGH: 200-239 mg/dL HIGH: >239 mg/dL Triglycerides 123 mg/dL 03/10/2025 2:58 PM EDT [facility] Comment: NORMAL: <150 mg/dL BORDERLINE HIGH: 150-199 mg/dL HIGH: 200-499 mg/dL VERY HIGH >499 mg/dL Cholesterol, HDL 29 mg/dL 03/10/20 2:58 PM EDT [facility] Comment: DESIRABLE: >60 mg/dL BORDERLINE: 40-59 mg/dL UNDESIRABLE: <40 mg/dL LDL Cholesterol 72 mg/dL 2:58 PM EDT [facility] Comment: OPTIMAL: <100 mg/dL NEAR OPTIMAL: <130 mg/dL BORDERLINE HIGH: 130-159 mg/dL HIGH: 160-189 mg/dL VERY HIGH: >189 mg/dL VLDL 24.6 mg/dL 03/10/2025 2:58 PM EDT [facility] Cholesterol/HDL Ratio 4.3 03/10/2025 2:58 PM EDT [facility] Blood Structure of peripheral vein / Unknown Venipuncture / Unknown 03/10/2025 6:52 AM EDT 03/10/2025 7:00 AM EDT us Shayla Larao [employer] LAB BLOOD ORDERABLES Final Re sult [facility] [address] [place] [address] [address] [place] [address], * Basic metabolic panel (03/10/2025 6:52 AM EDT) NA 138 136 - 145 mmol/L 03/10/2025 2:58 PM EDT [facility] K 5.0 3.5 - 5.1 mmol/L 03/10/2025 2:58 PM EDT [facility] Cl 100 98 - 109 mmol/L 03/10/2025 2:58 PM EDT [facility] CO2 28 22 - 32 mmol/L 03/10/2025 2:58 PM EDT [facility] BUN 14 6 - 20 mg/dL 03/10/2025 2:58 PM EDT [facility] Creatinine 0.68 0.50 - 1.12 mg/dL 03/10/2025 2:58 PM EDT [facility] Glucose 75 60 - 99 mg/dL 03/10/2025 2:58 PM EDT [facility] Calcium 9.7 8.4 - 10.4 mg/dL 03/10/2025 2:58 PM EDT [facility] Anion Gap 15 >=0 03/10/2025 2:58 PM EDT [facility] eGFR >90 >=60 mL/min/1. 73m2 03/10/2025 2:58 PM EDT [facility] Comment:The estimated glomer ular filtration rate (eGFR) is calculated using a new formula developed by the NKF-ASN task force to eliminate race-based correction factors. The new formula uses serum/plasma creatinine, age, and gender to determine eGFR. A value below 60mls/min might indicate kidney disease and will be flagged. For additional information, see Portillo et al, Am J Kidney Dis. 2021;79(2):268- 288, A Unifying Approach for GFR estimation: Recommendations of the NKF-ASN Task Force on Reassessing the Inclusion of Race in Diagnosing Kidney Disease . Blood Structure of peripheral vein / Unknown Venipuncture / Unknown 03/10/2025 6:52 AM EDT 03/10/2025 7:00 AM EDT us Shayla Leary [employer] LAB BLOOD ORDERABLES Final Re sult [facility] [address] [place] [address] [place] [address], [place] [phone] * EKG, Outside Results (03/04/2025) Anatomical Region Laterality Modality Other 03/04/2025 us Onbase Scan Adam AMB EXTERNAL RESULT PROCEDURE S Final Result from Last 3 Months Insurance [facility] Advance Directives * Presumed Full Code (Latest Code Status on File) Date Activated Date Inactivated Comments 03/08/2025 8:09 PM 03/21/2025 3:14 PM Care Teams Pass Worker Relationship Specialty Start Date End Date Claudette Purcellkerry [address] [place] [address] PCP - General Family Medicine 03/08/25
--- OUTSIDE RECORDS SUMMARY | 2025-05-21 14:19 | XMS_ITS | Patient Health Record ---
Author Organization [facility] Address [address], [place] [id number] Care Team Providers Care Research Project Manager Name Role Phone Igor Melyssa [facility] Primary Care Provider Liza Crespo Reason For Referral No Information Encounters Encounter Location Date Provider Diagnosis [facility] [address] [place] [address] [phone] 10/10/2024 Liza Alejandre [facility] [address] [place] [address] [id number] 10/04/2024 Liza Alejandre [facility] [address] [place] [address] [id number] 11/02/2024 Liza Alejandre Plan Of Treatment No Information Insurance Providers Payer Name Payer Address Payer Phone Subscriber Number Group Number Insured Name Patient Relationship to Insured Coverage Start Date Coverage End Date [facility] Medicar e- Part B [employer] [address] [place] [address] Alcira Martell Self - patient is the insured
--- OUTSIDE RECORDS SUMMARY | 2025-05-21 14:19 | XMS_ITS | Clinical Summary ---
Author Organization [facility] Address [address] [place] [address] Care Team Providers Care Cage Supervisor Name Role Phone Unavailable Primary Care Provider [...] 01/13/2024 Fecal DNA 01/13/2024 Flexible Sigmoidoscopy 01/13/2024 [id number] ( season) 2024 022, 04/01/2021 Alcohol and [...] Most Recently Relevant to Health Maintenance Insurance [facility]
== END 2025-05-21 13:47 | disposition home or self-care (01) ==
PROVIDERS: Visit Provider Clinical Nurse Specialist Psychiatric/Mental Health
DX: F11.90 Opioid use, unspecified, uncomplicated (principal)
CPT/HCPCS: 99213

== ENCOUNTER → 2025-05-21 13:32 | Outpatient (BNVA) | payer OTHER, SELFPAY | PROVIDERS: Visit Provider Clinical Nurse Specialist Psychiatric/Mental Health | DX: F11.21 Opioid dependence, in remission (principal) | CPT/HCPCS: 99212 ==

== ENCOUNTER 2025-06-07 09:41 | Outpatient (AMB) | payer OTHER, SELFPAY ==
--- NOTE | 2025-06-07 09:45 | AM.OFFVISNUR ---
Vital Signs 06/07/25 09:56 Height 5 ft 1 in Weight 84.822 kg BMI 35.3 BP 130/70 Pulse 88 Pulse Oximetry (%) 96 Intake Visit Reasons: Injection Allergies No Known Allergies Allergy (Verified 06/07/25 09:57) Nursing Note Alcira is here for her first Sublocade 300 mg injection. Alcira is alert, oriented, cooperative with care and presents with appropriate affect. Alcira shared that she is feeling a bit overwhelmed with her current living arrangements but is afraid to request any time for herself for fear of losing her housing arrangement. Alcira reports that she is meeting with a coach tour driver tomorrow that the [facility] referred her to and will actively try and schedule more time for herself and her recovery. Sublocade education provided, therapeutic expectations explained, SL bridging explained. Alcira will call the office if any symptoms arise prior to her next appointment. All questions answered. Follow-up made in four weeks for next injection Office Meds Sublocade 300 mg/1.5 mL solution,extended release subcutaneous syringe Performing Provider: Evi Jolley MD Performing Location: [facility] Administered by: Lia Gonzalez RN on 06/07/25 10:24 Dose Route Admin Location Dispensed Lot Number Expiration Date [facility] Mon[employer] 300 mg subcut LLQ 1.5 mL [id number] 02/28/26 [address]-5 [employer] Total Dispensed Waste 1.5 mL 0 % Comments: Pt is present for first Sublocade 300 mg injection, tolerated injection well. Educated on signs and symptoms of infection and encouraged to call [facility] with any related questions or concerns, pt verbalized understanding. Follow-up scheduled in 4 weeks for next injection. Results AMB Test Urine AMB Test Urine Negative Last Edit by Yadira Maravilla CMA on 06/07/25 10:03 AMB 14 Panel Urine Drug Screen Urine Marijuana (THC) Positive Last Edit by Yadira Maravilla CMA on 06/07/25 10:08 Urine Cocaine Positive Last Edit by Yadira Maravilla CMA on 06/07/25 10:08 Urine Morphine Negative Last Edit by Yadira Maravilla CMA on 06/07/25 10:08 Urine Methamphetamine Negative Last Edit by Yadira Maravilla CMA on 06/07/25 10:08 Urine Amphetamine Negative Last Edit by Yadira Maravilla, VIKAS on 06/07/25 10:08 Urine Benzodiazepine Positive Last Edit by Yadira Maravilla, VIKAS on 06/07/25 10:08 Urine Barbiturates Negative Last Edit by Yadira Maravilla, VIKAS on 06/07/25 10:08 Urine Methadone Negative Last Edit by Yadira Maravilla, VIKAS on 06/07/25 10:08 Urine Buprenorphine Positive Last Edit by Yadira Maravilla, VIKAS on 06/07/25 10:08 Urine Tricyclic Antidepressant Negative Last Edit by Yadira Maravilla, VIKAS on 06/07/25 10:08 Urine MDMA Negative Last Edit by Yadira Maravilla, VIKAS on 06/07/25 10:08 Urine Oxycodone Negative Last Edit by Yadira Maravilla, VIKAS on 06/07/25 10:08 Urine Phencyclidine Negative Last Edit by Yadira Maravilla, VIKAS on 06/07/25 10:08 Urine Propoxyphene Negative Last Edit by Yadira Maravilla, VIKAS on 06/07/25 10:08 Assessment & Plan Assessment & Plan Orders: Orders AMB 14 Panel Urine Drug Screen Today CASEY Torres F11.20 - Opioid dependence, uncomplicated AMB HCG Urine Test Today CASEY Torres Z32.02 - Encounter for test, result negative AMB Buprenorphine Injection - Patient Supplied Today Evi Jolley MD F14.10 - Cocaine abuse, uncomplicated Coding
[2025-06-07 09:56] VITALS: BP 130/70; PULSE 88; O2SAT 96; BMI 35.3
--- OUTSIDE RECORDS SUMMARY | 2025-06-07 10:09 | XMS_ITS | Patient Health Record ---
Author Organization [facility] Address [address] [place], [place] [id number] Care Team Providers Care Parts Back Counter Man Name Role Phone Igor Ragsdale [facility] Primary Care Provider [phone] Liza Alejandre Reason For Referral No Information Encounters Encounter Location Date Provider Diagnosis [facility] [address] [place] [address] [id number] 10/10/2024 Liza Alejandre [facility] [address] [place] [address] [id number] 10/04/2024 Liza Alejandre [facility] [address] [place] [address] [id number] 11/02/2024 Liza Alejandre Plan Of Treatment No Information Insurance Providers Payer Name Payer Address Payer Phone Subscriber Number Group Number Insured Name Patient Relationship to Insured Coverage Start Date Coverage End Date [place] Medicar [employer]- Part B [employer] [address] [facility] [place] [address] Alcira Martell Self - patient is the insured
--- OUTSIDE RECORDS SUMMARY | 2025-06-07 10:09 | XMS_ITS | Clinical Summary ---
Author Organization [facility] Address [address] [place] [address] Care Team Providers Care Process Machine Operator Name Role Phone Unavailable Primary Care Provider [...] 01/13/2024 Fecal DNA 01/13/2024 Flexible Sigmoidoscopy 01/13/2024 [id number] ( season) 2024 022, 04/01/2021 Alcohol and [...] Most Recently Relevant to Health Maintenance Insurance [facility]
--- OUTSIDE RECORDS SUMMARY | 2025-06-07 10:09 | XMS_ITS | Clinical Summary ---
Author Organization [facility] Address [address] [place] [address] Care Team Providers Care Customer Relations Representative Name Role Phone Cipriano Purcell Primary Care Provider [phone] Allergies No known active allergies Medications albuterol [...] times a day. 60 capsule 5 Active Active Problems Problem Noted Date Diagnosed Date [...] results of recent chest xray, The medical grade shoemaker recommended antibiotics, and to continue with neb [...] 9:45 AM EDT): Treated for pneumonia at [facility]; Patient has underlying COPD and emphysema; -Medical consult for H&P -Zithromax 500mg day 1; 250mg days 2-4 ends 03/15 -Augmentin 500mg 3 times a day until 03/16 -O2 via nasal canula prn (discontinued) -Chest X-ray repeated Encounters Date Type Department Care Team Description 03/10/2025 8:14 AM EDT - 03/10/2025 11:59 PM EDT Hospital Encounter [facility] [address] [place] [address] Discharge Disposition: Home or Self Care (01) 03/08/2025 6:17 PM EDT - 03/21/2025 12:45 PM EDT Hospital Encounter [facility] [address] [place] [address] Rio Hopkins DO Blaney, Daryl E, MD [...] PCV) 06/08/2018 06/08/2017 Mammogram 2019 COVID-19 Vaccine ( - 2023-2 5 season) 2024 01/26/2022, 04/01/2021 [...] 01/25/1996, 07/30/1995, 05/25/1995 Procedures * Due to [place] [employer] law, this organization might not be sharing [...] AUTO DIFFERENTIAL Routine 03/10/2025 6:52 AM EDT from Last 3 Months Results * Due to [place] [employer] law, this organization might not be sharing [...] to obtain the completed interpretation. Workstation ID: [id number] Narrative 03/12/2025 2:11 PM EDT XR CHEST 2 VW INDICATION: Dyspnea COMPARISON: 11/11/2024 FINDINGS: The heart is normal in size. Opacities are present within the right upper lobe, right lower lobe, left upper lobe, left lower lobe. No evidence of a pleural effusion. No bony abnormalities. Resulting Agency Comment [id number] Procedure Note Segun Riggins MD - 03/12/2025 [...] possible to obtain thecompleted interpretation. Workstation ID: [id number] us Elidia Savage [employer] IMG XR PROCEDURES Final Resu lt * (ABNORMAL) CBC Auto Differential (03/10/2025 6:52 AM EDT) [facility] WBC 7.2 4.8 - 10.8 10*3/uL 03/10/2025 7:19 AM EDT [facility] RBC 3.87(L) 4.20 - 5.40 10*6/uL 03/10/2025 7:19 AM EDT [facility] Hemoglobin 11.1(L) 11.7 - 15.5 g/dL 03/10/2025 7:19 AM EDT [facility] Hematocrit 35.2(L) 35.7 - 45.8 % 03/10/2025 7:19 AM EDT [facility] MCV 91.0 81.0 - 99.0 fL 03/10/2025 7:19 AM EDT [facility] MCH 28.7 26.0 - 34.0 pg 03/10/2025 7:19 AM EDT [facility] MCHC 31.5 31.0 - 36.0 g/dL 03/10/2025 7:19 AM EDT [facility] RDW 14.8 12.0 - 15.0 % 03/10/2025 7:19 AM EDT [facility] RDW Standard Deviation 49.6(H) 36.4 - 46.3 fL 03/10/2025 7:19 AM EDT [facility] Platelets 529(H) 140 - 440 10*3/uL 03/10/2025 7:19 AM EDT [facility] MPV 9.0(L) 9.4 - 12.3 fL 03/10/2025 7:19 AM EDT [facility] Neutrophil % 59.0 50.0 - 75.0 % [facility] Immature Grans % 0.4 0.0 - 0.9 % 03/10/2025 7:19 AM EDT [facility] Lymphocyte % 27.6 20.0 - 44.0 % 03/10/2025 7:19 AM EDT [facility] Monocyte % 8.8 0.0 - 14.0 % 03/10/2025 7:19 AM EDT [facility] Eosinophil % 3.5 0.0 - 5.0 % 03/10/2025 7:19 AM EDT [facility] Basophil % 0.7 0.0 - 2.0 % 03/10/2025 7:19 AM EDT [facility] Neutrophil # 4.27 1.80 - 7.70 10*3/uL 03/10/2025 7:19 AM EDT [facility] Immature Grans # 0.03 0.00 - 0.03 10*3/uL 03/10/2025 7:19 AM EDT [facility] Lymphocyte # 2.00 1.00 - 4.75 10*3/uL 03/10/2025 7:19 AM EDT [facility] Monocyte # 0.60 0.00 - 0.60 10*3/uL 03/10/2025 7:19 AM EDT [facility] Eosinophil # 0.30 0.00 - 0.80 10*3/uL 03/10/2025 7:19 AM EDT [facility] Basophil # 0.10 0.00 - 0.20 10*3/uL 03/10/2025 7:19 AM EDT [facility] Blood Structure of peripheral vein / Unknown Venipuncture / Unknown 03/10/2025 6:52 AM EDT 03/10/2025 7:00 AM EDT Shayla Leary [employer] LAB BLOOD ORDERABLES Final Re sult Performing Organization Address City/[facility]/ZIP Co de Phone Number [facility] [address] [place] [address], [place] [phone] * TSH (03/10/2025 6:52 AM EDT) TSH 0.952 0.270 - 4.200 uIU/mL 03/10/2025 2:58 PM EDT [facility] Comment: Females: 1st trimester 0.150-4.000 IU/mL 2nd trimester 0.310-4.170 IU/mL 3rd trimester 0.380-4.150 IU/mL Blood Structure of peripheral vein / Unknown Venipuncture / Unknown 03/10/2025 6:52 AM EDT 03/10/2025 7:00 AM EDT Shaylaroman Larao [employer] LAB BLOOD ORDERABLES Final Re sult [facility] [address] [facility] [address] [place] [address], [place] [phone] * (ABNORMAL) Hemoglobin A1c (03/10/2025 6:52 AM EDT) Hemoglobin A1c 5.9(H) 4.0 - 5.7 % 03/10/2025 2:45 PM EDT [facility] Estimated Average Glucose 123 mg/dL 03/10/2025 2:45 PM EDT [facility] Blood Structure of peripheral vein / Unknown Venipuncture / Unknown 03/10/2025 6:52 AM EDT 03/10/2025 7:00 AM EDT Shayla Leary NP LAB BLOOD ORDERABLES Final Re sult [facility] [address] [place] [address] [address] [place] [address], * (ABNORMAL) Hepatic function panel (03/10/2025 6:52 AM EDT) Pathologist [facility] Total Protein 8.0 6.6 - 8.7 g/dL 03/10/2025 2:58 PM EDT [facility] Albumin 3.6 3.5 - 5.0 g/dL 03/10/2025 2:58 PM EDT [facility] Globulin, Total 4.4(H) 2.1 - 4.2 g/dL 03/10/2025 2:58 PM EDT [facility] Bilirubin, Total 0.3 0.2 - 1.2 mg/dL 03/10/2025 2:58 PM EDT [facility] Bilirubin, Direct 0.1 <=0.3 mg/dL 03/10/2025 2:58 PM EDT [facility] Alkaline Phosphatase 74 40 - 129 U/L 03/10/2025 2:58 PM EDT [facility] AST 31 0 - 33 U/L 03/10/2025 2:58 PM EDT [facility] ALT 16 <=33 U/L 03/10/2025 2:58 PM EDT [facility] Bilirubin, Indirect 0.20 <=0.70 mg/dL 03/10/2025 2:58 PM EDT [facility] A/G Ratio 0.8(L) 1.5 - 3.0 03/10/2025 2:58 PM EDT [facility] Blood Structure of peripheral vein / Unknown Venipuncture / Unknown 03/10/2025 6:52 AM EDT 03/10/2025 7:00 AM EDT us Shayla Leary NP LAB BLOOD ORDERABLES Final Re sult [facility] [address] [place] [address] [address] [address], [place] [phone] * Lipid panel (03/10/2025 6:52 AM EDT) Pathologist [facility] Cholesterol 126 mg/dL 03/10/2025 2:58 PM EDT [facility] Comment: DESIRABLE: <200 mg/dL BORDERLINE HIGH: 200-239 mg/dL HIGH: >239 mg/dL Triglycerides 123 mg/dL 03/10/2025 2:58 PM EDT [facility] Comment: NORMAL: <150 mg/dL BORDERLINE HIGH: 150-199 mg/dL HIGH: 200-499 mg/dL VERY HIGH >499 mg/dL Cholesterol, HDL 29 mg/dL 03/10/20 2:58 PM EDT [facility] Comment: DESIRABLE: >60 mg/dL BORDERLINE: 40-59 mg/dL UNDESIRABLE: <40 mg/dL LDL Cholesterol 72 mg/dL 2:58 PM EDT [facility] Comment: OPTIMAL: <100 mg/dL NEAR OPTIMAL: <130 mg/dL BORDERLINE HIGH: 130-159 mg/dL HIGH: 160-189 mg/dL VERY HIGH: >189 mg/dL VLDL 24.6 mg/dL 03/10/2025 2:58 PM EDT [facility] Cholesterol/HDL Ratio 4.3 03/10/2025 2:58 PM EDT [facility] Blood Structure of peripheral vein / Unknown Venipuncture / Unknown 03/10/2025 6:52 AM EDT 03/10/2025 7:00 AM EDT us Shayla Leary [employer] LAB BLOOD ORDERABLES Final Re sult [facility] [address] [facility] [address] [place] [address], * Basic metabolic panel (03/10/2025 6:52 AM EDT) NA 138 136 - 145 mmol/L 03/10/2025 2:58 PM EDT [facility] K 5.0 3.5 - 5.1 mmol/L 03/10/2025 2:58 PM EDT [facility] Cl 100 98 - 109 mmol/L 03/10/2025 2:58 PM EDT [facility] CO2 28 22 - 32 mmol/L 03/10/2025 2:58 PM EDT [facility] BUN 14 6 - 20 mg/dL 03/10/2025 2:58 PM EDT [facility] Creatinine 0.68 0.50 - 1.12 mg/dL 03/10/2025 2:58 PM EDT [facility] Glucose 75 60 - 99 mg/dL 03/10/2025 2:58 PM EDT [facility] Calcium 9.7 8.4 - 10.4 mg/dL 03/10/2025 2:58 PM EDT [facility] Anion Gap 15 >=0 03/10/2025 2:58 PM EDT [facility] eGFR >90 >=60 mL/min/1. 73m2 03/10/2025 2:58 PM EDT [facility] Comment:The estimated glomer ular filtration rate [...] 7:00 AM EDT us Shayla Leary [employer] LAB BLOOD ORDERABLES Final Re sult [facility] [address] [place] [address], [place] [phone] from Last 3 Months Insurance [facility] [place] [id number] Advance Directives * Presumed Full Code (Latest Code Status on File) Date Activated Date Inactivated Comments 03/08/2025 8:09 PM 03/21/2025 3:14 PM Care Teams Customer Relations Representative Relationship Specialty Start Date End Date Cipriano Purcell [address] [place] [address] PCP - General Family Medicine 03/08/25
== END 2025-06-07 10:46 | disposition home or self-care (01) ==
LOC: HO.HCC 09:41
DX: Z32.02 Encounter for pregnancy test, result negative (principal); F11.20 Opioid dependence, uncomplicated; F14.10 Cocaine abuse, uncomplicated

== ENCOUNTER → 2025-06-07 09:41 | Outpatient (BNVA) | payer OTHER, SELFPAY | DX: F11.20 Opioid dependence, uncomplicated (principal); Z32.02 Encounter for pregnancy test, result negative | CPT/HCPCS: 80307; 81025; 96372; Q9992 ==